=== PATIENT | female | born 1930 | race Caucasian/White ===

== ENCOUNTER 2016-07-23 22:57 | Inpatient (IN) | payer OTHER, MEDICAID ==
[~2016-07-23] VITALS: Ht 157.5 cm; Wt 41.8 kg
[~2016-07-23 22:57] MED LIST: AMLO10 PO; ASPI81 CHEW; CHOL1CAP6 PO; ENAL20TA81 PO; INSU100V3 SQ; KRIL300C PO; MECL25 PO; METO25 PO; PRAV80 PO; QUET25 PO; [UNRECOGNIZED DRUG - OTHER] PO
[2016-07-23 23:00] VITALS: BP 140/106; PULSE 77; RESP 22; TEMP 94; O2SAT 100
[2016-07-23 23:25] VITALS: TEMP 95.6
[2016-07-23] MEDS ORDERED: SODIUM CHLOR 0.9% 1000 ML INJ 800 ML IV ONE (23:35)
[2016-07-23] MEDS ORDERED: SODIUM CHLOR 0.9% 1000 ML INJ 1,000 ML IV ONE (23:35)
[2016-07-23 23:59] LABS: AUTOMATED NEUTROPHIL # 8.8 TH/MM3 (1.8-7.7); BASOPHIL # 0.1 TH/MM3 (0-0.2); BASOPHIL % 0.4 % (0.0-2.0); EOSINOPHIL # 0.3 TH/MM3 (0-0.4); EOSINOPHIL % 2.8 % (0.0-4.0); HEMATOCRIT 38.4 % (35.0-46.0); HEMO FLAGS DIFF FINAL; LYMPH % 10.5 % (9.0-44.0); LYMPHOCYTE # 1.2 TH/MM3 (1.0-4.8); MEAN CELL VOLUME 91.2 FL (80.0-100.0); MEAN CORPUSCULAR HEMOGLOBIN 29.8 PG (27.0-34.0); MEAN CORPUSCULAR HGB CONC 32.6 % (32.0-36.0); MONO % 8.5 % (0.0-8.0); NEUT % 77.8 % (16.0-70.0); PLATELET COUNT 219 TH/MM3 (150-450); RED BLOOD COUNT 4.21 MIL/MM3 (4.00-5.30); WHITE BLOOD COUNT 11.3 TH/MM3 (4.0-11.0)
[2016-07-24] VITALS (9 sets, daily range): BP systolic 95–161; BP diastolic 52–85; PULSE 56–89; RESP 16–22; TEMP 96.1–98.8; O2SAT 92–97
[2016-07-24 00:07] LABS: ALT (GPT) 17 U/L (10-53); ANION GAP 10 MEQ/L (5-15); AST (GOT) 33 U/L (15-37); BICARBONATE 23.5 MEQ/L (21.0-32.0); BLOOD UREA NITROGEN 64 MG/DL (7-18); CHLORIDE 109 MEQ/L (98-107); GLOMERULAR FILTRATION RATE 14 ML/MIN (>89); POTASSIUM 4.4 MEQ/L (3.5-5.1); SODIUM (NA) 142 MEQ/L (136-145)
[2016-07-24 00:10] LABS: ALKALINE PHOSPHATASE 121 U/L (45-117); TOTAL BILIRUBIN ADULT 0.3 MG/DL (0.2-1.0)
--- NOTE | 2016-07-24 00:10 | RADRPT ---
EXAM DATE/TIME: 07/23/2016 23:48 [facility] COMPARISON: CHEST SINGLE AP, June 08, 2016, 15:16. INDICATIONS : Unable to obtain history from patient. MEDICAL HISTORY : unobtainable SURGICAL HISTORY : unobtainable ENCOUNTER: Initial ACUITY: 1 day PAIN SCORE: Non-responsive. LOCATION: Bilateral chest FINDINGS: A single view of the chest demonstrates the lungs to be symmetrically aerated without evidence of mas s, infiltrate or effusion. The cardiomediastinal contours are unremarkable. Atherosclerotic calcifi cations are seen in the aorta. Osseous structures are intact. CONCLUSION: No acute disease. Francis Gibson MD on July 24, 2016 at 0:08 Board Certified Radiologist. This report was verified electronically.
--- NOTE | 2016-07-24 00:27 | RADRPT ---
EXAM DATE/TIME: 07/24/2016 00:04 [facility] COMPARISON: CT BRAIN W/O CONTRAST, June 08, 2016, 15:05. INDICATIONS : Trauma, fall. RADIATION DOSE: 56.35 CTDIvol (mGy) MEDICAL HISTORY : Non-responsive. SURGICAL HISTORY : Non-responsive. ENCOUNTER: Initial ACUITY: 1 day PAIN SCALE: Non-responsive LOCATION: cranial TECHNIQUE: Multiple contiguous axial images were obtained of the head. Using automated exposure control and adj ustment of the mA and/or kV according to patient size, radiation dose was kept as low as reasonably a chievable to obtain optimal diagnostic quality images. FINDINGS: CEREBRUM: The ventricles and cortical sulci widened. There is low density in the left temporal parietal lobe li medardo from recent infarct. This was not present on the prior CT examination. There is diffuse decrease d density in the cerebral white matter. There are old lacunar infarct at the thalami bilaterally. The re is a small area of suspected encephalomalacia in the posterior medial right parietal lobe. This is stable. No evidence of midline shift, mass lesion, hemorrhage or acute infarction. No extra-axial fluid collections are seen. POSTERIOR FOSSA: The cerebellum and brainstem are intact. The 4th ventricle is midline. The cerebellopontine angle i s unremarkable. EXTRACRANIAL: The visualized portion of the orbits is intact. There is a right frontal scalp hematoma. SKULL: The calvaria is intact. No evidence of skull fracture. CONCLUSION: 1. Suspected recent infarct involving the left middle cerebral artery territory at the left temporal and parietal lobes. 2. Age-related atrophy. 3. Widespread suspected small vessels ischemic change in the white matter. 4. 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 5. Acute right frontal scalp hematoma. Fracnis Gibson MD on July 24, 2016 at 0:22 Board Certified Radiologist. This report was verified electronically.
[2016-07-24] MEDS ORDERED: ATIV2INJ2 IM (00:48)
[2016-07-24] MEDS ORDERED: ENAL10TA PO (00:48)
[2016-07-24] MEDS ORDERED: NOVO7030P2 SQ (00:48)
[2016-07-24 00:49] LABS: BACTERIA, URINE MANY /hpf; MUCUS URINE MANY /lpf (OCC)
[2016-07-24] MEDS ORDERED: AMLO10TA2 PO (00:49)
[2016-07-24] MEDS ORDERED: CHOL20005 PO (00:49)
[2016-07-24] MEDS ORDERED: PRAV80TA2 PO (00:49)
[2016-07-24] MEDS ORDERED: MECL-62 PO (00:49)
[2016-07-24] MEDS ORDERED: ASPI81TA81 (00:49)
[2016-07-24] MEDS ORDERED: KRIL300C3 (00:49)
[2016-07-24] MEDS ORDERED: METO25TA3 PO (00:49)
[2016-07-24] MEDS ORDERED: REME15TA PO (00:49)
[2016-07-24] MEDS ORDERED: QUET5TAB PO (00:49)
[2016-07-24 01:01] LABS: BLOOD, URINE LARGE (NEG); GLUCOSE,URINE NEG (NEG); KETONE, URINE NEG (NEG); NITRITE,URINE NEG (NEG); URINE COLOR YELLOW (YELLW/STRAW)
[2016-07-24 01:04] LABS: COMMENT (UR) CATH-CULTURE IND; CULTURE IF INDICATED CATH CULTURE IND
[2016-07-24] MEDS ORDERED: CEFEPIME INJ 2,000 MG in SODIUM CHLORIDE 0.9% INJ 100 ML IV ONE (01:30)
[2016-07-24 01:49] LABS: LACTIC ACID GHOST NOT REPORTABLE
[2016-07-24] MEDS ORDERED: SODIUM CHLOR 0.9% 1000 ML INJ 1,000 ML IV SCH ×2 (01:56→20:00)
[2016-07-24] MEDS ORDERED: ONDANSETRON HCL 4 MG/2 ML VIAL IVP PRN (02:00)
[2016-07-24] MEDS ORDERED: ACETAMINOPHEN 325 MG TAB PO PRN (02:00)
[2016-07-24] MEDS ORDERED: SODIUM CHLORIDE 0.9% FLUSH 5 ML FLUSH FLUSH PRN (02:00)
[2016-07-24] MEDS ORDERED: NALOXONE HCL 0.4 MG/ML AMP IV PRN (02:00)
[2016-07-24] MEDS ORDERED: MAGNESIUM HYDROXIDE SUSP 30 ML CUP PO PRN (02:00)
[2016-07-24] MEDS ORDERED: BISACODYL 10 MG SUPP PR PRN (02:00)
--- NOTE | 2016-07-24 02:22 | HHI.HP ---
HPI Service [facility] Primary Care Physician Nan Naidu MD Admission Diagnosis Acute on CRI, Fall, Cephalohematoma, Hypoglycemia, Hypothermia Diagnoses: Chief Complaint: Fall, hypoglycemia. Travel History International Travel<30 Days: No Contact w/Intl Traveler <30 Da: No Traveled to Known Affected Are: No Sepsis Criteria SIRS Criteria (2 or more): Temp > 100.9 or < 96.8, RR > 20 or PaCO2 < 32 Sepsis Criteria (SIRS+source): Infect source susp/known Severe Sepsis (+one): Organ Dysfunction History of Present Illness Ms. Fuller is an 86 year old female with a history of hypertension, diabetes mellitus, hyperlipidemia who presented to the emergency department on 2015 due to a fall, hypoglycemia at her long-term - [facility]. She fell and hit her forehead. Her blood glucose was 25 and subsequently received IM glucagon at the long-term. Her blood glucose improved to 40 and in the ED, her blood glucose was 86. She was initially hypothermic and required warming blankets. Her body temp improved subsequently. At the time of this interview, patient appears to be restless, muttering words and sounds that is incomprehensible to us. RN checked blood glucose while we are in the room and patient's blood glucose was 24. STAT 2 amps of D50 were administered which raised her blood glucose to 393. We subsequently started patient on D5NS drip at 84cc/hour. No meaningful history could be obtained from the patient at this point. Review of Systems ROS Limitations: Clinical Condition Past Family Social History Past Medical History Hypertension, vertigo, hyperlipidemia, diabetes mellitus Past Surgical History Could not be obtained due to patient's clinical condition. Reported Medications Krill Oil [place]-3 300 mg (Krill Oil) 1 Cap Cap Remeron (Mirtazapine) 15 Mg Tab 15 Mg PO HS D3 Super Strength (Cholecalciferol) 2,000 Unit Cap 1,000 Units PO DAILY Quetiapine (Quetiapine Fumarate) 50 Mg Tab 50 Mg PO HS Pravastatin 80 Mg Tab 80 Mg PO HS Amlodipine (Amlodipine Besylate) 10 Mg Tab 10 Mg PO DAILY Aspir-81 (Aspirin) 81 Mg Tabdr Metoprolol Tartrate 25 Mg Tab 25 Mg PO BID Meclizine (Meclizine HCl) 25 Mg Tab 25 Mg PO QID PRN Enalapril (Enalapril Maleate) 10 Mg Tab 10 Mg PO BID Ativan Inj (Lorazepam) 2 Mg/Ml Inj 1 Mg IM TID PRN Novolin 70-30 Inj (Insulin Human Isoph/Insulin Regular) 1,000 Unit/10 Ml Vial 1 Units SQ [Pre-Serv Vision] 1 Tab PO BID Allergies: Coded Allergies: Hydromorphone (Verified Allergy, Severe, Anaphylaxis, 07/23/16) Family History Could not be obtained due to patient's clinical condition. Social History Could not be obtained due to patient's clinical condition. Physical Exam Vital Signs Vital Signs Date Time Temp Pulse Resp B/P Pulse Ox O2 Delivery O2 Flow Rate FiO2 07/24/16 02:03 96 07/24/16 01:02 96 Room Air 07/23/16 23:25 95.6 07/23/16 23:00 94.0 77 22 140/106 100 Physical Exam GENERAL: Patient appears to be somewhat restless. She is continuously speaking but incomprehensible and incoherent. Does not follow any commands. SKIN: No rashes, ecchymoses or lesions. Warm and dry. HEAD: Atraumatic. Normocephalic. No temporal or scalp tenderness. EYES: Pupils equal round and reactive. No injection or drainage. ENT: Nose without bleeding, purulent drainage or septal hematoma. Airway patent. NECK: Trachea midline. No lymphadenopathy. Supple, nontender, no meningeal signs. CARDIOVASCULAR: Regular rate and rhythm without murmurs, gallops, or rubs. No JVD. RESPIRATORY: Clear to auscultation. Breath sounds equal bilaterally. No wheezes , rales, or rhonchi. GASTROINTESTINAL: Abdomen soft, non-tender, nondistended. No guarding. MUSCULOSKELETAL: Extremities without clubbing, cyanosis, or edema. NEUROLOGICAL: Incomprehensible words/sounds, awake. Laboratory Laboratory Tests Test 07/23/16 07/23/16 07/24/16 23:40 23:45 00:25 White Blood Count 11.3 Red Blood Count 4.21 Hemoglobin 12.5 Hematocrit 38.4 Mean Corpuscular Volume 91.2 Mean Corpuscular Hemoglobin 29.8 Mean Corpuscular Hemoglobin 32.6 Concent Red Cell Distribution Width 14.0 Platelet Count 219 Mean Platelet Volume 9.7 Neutrophils (%) (Auto) 77.8 Lymphocytes (%) (Auto) 10.5 Monocytes (%) (Auto) 8.5 Eosinophils (%) (Auto) 2.8 Basophils (%) (Auto) 0.4 Neutrophils # (Auto) 8.8 Lymphocytes # (Auto) 1.2 Monocytes # (Auto) 1.0 Eosinophils # (Auto) 0.3 Basophils # (Auto) 0.1 CBC Comment DIFF FINAL Differential Comment Sodium Level 142 Potassium Level 4.4 Chloride Level 109 Carbon Dioxide Level 23.5 Anion Gap 10 Blood Urea Nitrogen 64 Creatinine 3.17 Estimat Glomerular Filtration 14 Rate Random Glucose 86 Lactic Acid Level 2.2 Calcium Level 9.0 Total Bilirubin 0.3 Aspartate Amino Transf 33 (AST/SGOT) Alanine Aminotransferase 17 (ALT/SGPT) Alkaline Phosphatase 121 Total Protein 7.4 Albumin 3.3 Lipase 192 Urine Color YELLOW Urine Turbidity TURBID Urine pH 5.0 Urine Specific [place] 1.015 Urine Protein 100 Urine Glucose (UA) NEG Urine Ketones NEG Urine Occult Blood LARGE Urine Nitrite NEG Urine Bilirubin NEG Urine Urobilinogen 0.2 Urine Leukocyte Esterase LARGE Urine RBC Urine WBC Urine WBC Clumps MANY Urine Bacteria MANY Urine Mucus MANY Microscopic Urinalysis Comment CATH-CULTURE IND Date/Time Procedure Status Source Growth 07/24/16 00:25 Urine Culture Received Urine Catheterized Urine Pending 07/23/16 23:45 Aerobic Blood Culture Received Blood Peripheral Pending 07/23/16 23:45 Anaerobic Blood Culture Received Blood Peripheral Pending Result Diagram: 07/23/16 2340 07/23/162344 Imaging Last Impressions Head CT 07/23/162334 Signed Impressions: Service Date/Time: Sunday, July 24, 2016 00:04 - CONCLUSION: 1. Suspected recent infarct involving the left middle cerebral artery territory at the left temporal and parietal lobes. 2. Age-related atrophy. 3. Widespread suspected small vessels ischemic change in the white matter. 4. 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 5. Acute right frontal scalp hematoma. Francis Gibson MD Chest X-Ray 07/23/162334 Signed Impressions: Service Date/Time: June 23:48 - CONCLUSION: No acute disease. Francis Gibson MD Assessment and Plan Problem List: (1) Fall ICD Code: W19.XXXA Status: Acute (2) Sepsis due to urinary tract infection ICD Code: A41.9 Status: Acute (3) Hypoglycemia associated with diabetes ICD Code: E11.649 Status: Acute (4) Delirium ICD Code: R41.0 Status: Acute (5) HTN (hypertension) ICD Code: I10 Status: Acute (6) DM (diabetes mellitus) ICD Code: E11.9 Status: Chronic (7) CKD (chronic kidney disease) stage 4, GFR 15-29 ml/min ICD Code: N18.4 Status: Chronic (8) WILL (acute kidney injury) ICD Code: N17.9 Status: Acute Assessment and Plan Ms. Fuller is an 86 year old female who presented to the ED from long-term after a fall and with an initial blood glucose of 25. ED work up indicated sepsis, UTI, hypoglycemia. Patient was initially hypothermic and required warming blankets. Her body temperature improved subsequently. During this examination, patient was found to be restles and saying incomprehensible words. I requested RN to check blood glucose. Patient was again found to have low blood glucose 24. Patient received STAT 2 amps of D50 raising her glucose to 393. Patient was subsequently placed on D5NS drip. Total critical care time spent more than 35 minutes. - Severe sepsis (Temp 94F, R 22, UTI, WILL on chronic kidney disease) - Urinary tract infection, Complicated. - Fall - Delirium - Patient received cefepime in the ED. We will continue Cefepime 2g Q12hrs - dose to be adjusted by pharmacy based on creatinine clearance. - Follow C&S. Once C&S comes back, we can de-escalate antibiotics. - Severe hypoglycemia - Exact etiology unknown. Infection vs. accidental overdose of insulin 70/30 are potential possibilities. - Glucose was 24 at the time of this interview. 2 amps of D50 were given immediately. - Continue D5NS @84cc/hour. - CKD Stage IV - WILL on CKD - Creatinine 3.17. - Will continue to monitor BUN, creatinine. - Diabetes mellitus - Patient takes 70/30 unknown quantity. - Will keep patient on sliding scale insulin. - Once blood glucose is stable, we can initiate long acting insulin Levemir. - Hypertension - Continue Amlodipine 10mg Qday, Vasotec 10mg PO BID, metoprolol 25mg BID. - Hyperlipidemia - continue Pravastatin 80mg QHS. Full code. Heparin SQ. Physician Certification 2 Midnight Certification Type: Admission for Inpatient Services Order for Inpatient Services The services are ordered in accordance with Medicare regulations or non- Medicare payer requirements, as applicable. In the case of services not specified as inpatient-only, they are appropriately provided as inpatient services in accordance with the 2-midnight benchmark. Estimated LOS (days): 2 days is the estimated time the patient will need to remain in the hospital, assuming treatment plan goals are met and no additional complications. Post-Hospital Plan: [facility] Alden John DO Jul 24, 2016 2:22 am
--- NOTE | 2016-07-24 02:37 | PD ---
HPI Chief Complaint: Fall Time Seen by Provider: 23:35 Travel History International Travel<30 days: No Contact w/Intl Traveler<30days: No Traveled to known affect area: No History of Present Illness HPI 86-year-old female arrives to the ER by EMS. She experienced a fall landing on her forehead. On scene her blood glucose was 25. She received IM glucagon at the detention. Her blood sugar improved to about 40. On scene EMS gave glucose and upon arrival to the ER the blood sugar was about 80 or so. The patient evidently is nonverbal and minimally interactive at baseline. In the ER the patient answers no questions. The patient was found to be hypothermic on arrival to the ER and the active rewarming air blanket was initiated along with a sepsis bundle protocol. PFSH Past Medical History Asthma: No Autoimmune Disease: No Blood Disorders: No Anxiety: Yes Depression: Yes (Suicidal) Heart Rhythm Problems: No Cancer: No High Cholesterol: Yes Chemotherapy: Yes Chest Pain: No Congestive Heart Failure: No COPD: Yes Cerebrovascular Accident: Yes Diabetes: Yes Patient Takes Glucophage: No Diminished Hearing: Yes Diverticulitis: Yes Endocrine: Yes GERD: Yes Genitourinary: Yes (CKD STAGE 4) Hypertension: Yes Immune Disorder: No Kidney Stones: No Musculoskeletal: Yes (SCIATICA, MUSCLE WEAKNESS, LCK OF COORDINATION) Neurologic: Yes (APHASIA FOLLOWING CEREBRAL INFARCTION ) Psychiatric: Yes Respiratory: Yes Radiation Therapy: No Sleep Apnea: Yes Tetanus Vaccination: Unknown ?: Not Menopausal: Yes Past Surgical History Appendectomy: Yes Hysterectomy: Yes Tonsillectomy: Yes Other Surgery: Yes (CARPAL TUNNEL, KIDNEY STONE,) Social History Alcohol Use: No Tobacco Use: No (unable to obtain) Substance Use: No Allergies-Medications (Allergen,Severity, Reaction): Coded Allergies: Hydromorphone (Verified Allergy, Severe, Anaphylaxis, 07/23/16) Reported Meds & Prescriptions Reported Meds & Active Scripts Active Reported Krill Oil [place]-3 300 mg (Krill Oil) 1 Cap Cap Remeron (Mirtazapine) 15 Mg Tab 15 Mg PO HS D3 Super Strength (Cholecalciferol) 2,000 Unit Cap 1,000 Units PO DAILY Quetiapine (Quetiapine Fumarate) 50 Mg Tab 50 Mg PO HS Pravastatin 80 Mg Tab 80 Mg PO HS Amlodipine (Amlodipine Besylate) 10 Mg Tab 10 Mg PO DAILY Aspir-81 (Aspirin) 81 Mg Tabdr Metoprolol Tartrate 25 Mg Tab 25 Mg PO BID Meclizine (Meclizine HCl) 25 Mg Tab 25 Mg PO QID PRN Enalapril (Enalapril Maleate) 10 Mg Tab 10 Mg PO BID Ativan Inj (Lorazepam) 2 Mg/Ml Inj 1 Mg IM TID PRN Novolin 70-30 Inj (Insulin Human Isoph/Insulin Regular) 1,000 Unit/10 Ml Vial 1 Units SQ [Pre-Serv Vision] 1 Tab PO BID Review of Systems ROS Limitations: Clinical Condition Physical Exam Narrative GENERAL: 86-year-old female mild to moderate distress secondary to pain SKIN: Warm and dry. 5 cm cephalohematoma right forehead. HEAD: Atraumatic. Normocephalic. EYES: Pupils equal and round. No scleral icterus. No injection or drainage. ENT: No nasal bleeding or discharge. Mucous membranes pink and moist. NECK: Trachea midline. No JVD. CARDIOVASCULAR: Regular rate and rhythm. No murmur appreciated. RESPIRATORY: No accessory muscle use. Clear to auscultation. Breath sounds equal bilaterally. GASTROINTESTINAL: Abdomen soft, non-tender, nondistended. Hepatic and splenic margins not palpable. MUSCULOSKELETAL: No obvious deformities. No clubbing. No cyanosis. No edema. NEUROLOGICAL: Nonverbal. Occasionally moves extremities. PSYCHIATRIC: Unable to assess. Data Data Last Documented VS Vital Signs Date Time Temp Pulse Resp B/P Pulse Ox O2 Delivery O2 Flow Rate FiO2 07/24/16 01:02 96 Room Air 07/23/16 23:25 95.6 07/23/16 23:00 77 22 140/106 Orders Complete Blood Count With Diff (07/23/16 23:35) Comprehensive Metabolic Panel (07/23/16 23:35) Lactic Acid Sepsis Protocol (07/23/16 23:35) Lipase (07/23/16 23:35) Urinalysis - C+S If Indicated (07/23/16 23:35) Blood Culture (07/23/16 23:35) Chest, Single Ap (07/23/16 23:35) Ecg Monitoring (07/23/16 23:35) Iv Access Insert/Monitor (07/23/16 23:35) Oximetry (07/23/16 23:35) Oxygen Administration (07/23/16 23:35) Urinary Catheter Insert/Apply (07/23/16 23:35) Ct Brain W/O Iv Contrast(Rout) (07/23/16 23:35) Sodium Chlor 0.9% 1000 Ml Inj (Ns 1000 M (07/23/16 23:35) Sodium Chlor 0.9% 1000 Ml Inj (Ns 1000 M (07/23/16 23:35) Warming [place] / Warming Syst PRN (07/23/16 23:35) Urine Culture (07/24/16 00:25) Cefepime Inj (Maxipime Inj) (07/24/16 01:30) Admit Order (Ed Use Only) (07/24/16 01:55) Admit To Inpatient (07/24/16 ) Vital Signs (Adult) Q4H (07/24/16 01:56) Activity Oob With Assistance (07/24/16 01:56) Diet 1800 Ada Cons Carb (07/24/16 Breakfast) Sodium Chlor 0.9% 1000 Ml Inj (Ns 1000 M (07/24/16 01:56) Sodium Chloride 0.9% Flush (Ns Flush) (07/24/16 02:00) Sodium Chloride 0.9% Flush (Ns Flush) (07/24/16 09:00) Acetaminophen (Tylenol) (07/24/16 02:00) Ondansetron Inj (Zofran Inj) (07/24/16 02:00) Bisacodyl Supp (Dulcolax Supp) (07/24/16 02:00) Magnesium Hydroxide Liq (Milk Of Magnesi (07/24/16 02:00) Basic Metabolic Panel (Bmp) (07/25/16 06:00) Complete Blood Count With Diff (07/25/16 06:00) Resp Oxygen Harris C Titrat 1-4 L (07/24/16 ) Pt Request For Service (07/24/16 01:56) Heparin Inj (Heparin Inj) (07/24/16 06:00) Naloxone Inj (Narcan Inj) (07/24/16 02:00) Inpatient Certification (07/24/16 ) Ceftriaxone Inj (Rocephin Inj) (07/24/16 06:00) Labs Laboratory Tests Test 07/23/16 07/23/16 07/24/16 23:40 23:45 00:25 White Blood Count 11.3 TH/MM3 Red Blood Count 4.21 MIL/MM3 Hemoglobin 12.5 GM/DL Hematocrit 38.4 % Mean Corpuscular Volume 91.2 FL Mean Corpuscular Hemoglobin 29.8 PG Mean Corpuscular Hemoglobin 32.6 % Concent Red Cell Distribution Width 14.0 % Platelet Count 219 TH/MM3 Mean Platelet Volume 9.7 FL Neutrophils (%) (Auto) 77.8 % Lymphocytes (%) (Auto) 10.5 % Monocytes (%) (Auto) 8.5 % Eosinophils (%) (Auto) 2.8 % Basophils (%) (Auto) 0.4 % Neutrophils # (Auto) 8.8 TH/MM3 Lymphocytes # (Auto) 1.2 TH/MM3 Monocytes # (Auto) 1.0 TH/MM3 Eosinophils # (Auto) 0.3 TH/MM3 Basophils # (Auto) 0.1 TH/MM3 CBC Comment DIFF FINAL Differential Comment Sodium Level 142 MEQ/L Potassium Level 4.4 MEQ/L Chloride Level 109 MEQ/L Carbon Dioxide Level 23.5 MEQ/L Anion Gap 10 MEQ/L Blood Urea Nitrogen 64 MG/DL Creatinine 3.17 MG/DL Estimat Glomerular Filtration 14 ML/MIN Rate Random Glucose 86 MG/DL Lactic Acid Level 2.2 mmol/L Calcium Level 9.0 MG/DL Total Bilirubin 0.3 MG/DL Aspartate Amino Transf 33 U/L (AST/SGOT) Alanine Aminotransferase 17 U/L (ALT/SGPT) Alkaline Phosphatase 121 U/L Total Protein 7.4 GM/DL Albumin 3.3 GM/DL Lipase 192 U/L Urine Color YELLOW Urine Turbidity TURBID Urine pH 5.0 Urine Specific [place] 1.015 Urine Protein 100 mg/dL Urine Glucose (UA) NEG mg/dL Urine Ketones NEG mg/dL Urine Occult Blood LARGE Urine Nitrite NEG Urine Bilirubin NEG Urine Urobilinogen 0.2 MG/DL Urine Leukocyte Esterase LARGE Urine RBC /hpf Urine WBC /hpf Urine WBC Clumps MANY Urine Bacteria MANY /hpf Urine Mucus MANY /lpf Microscopic Urinalysis Comment CATH-CULTURE IND MDM Medical Decision Making Medical Screen Exam Complete: Yes Emergency Medical Condition: Yes Medical Record Reviewed: Yes Differential Diagnosis Sepsis, hypoglycemia, severe sepsis, UTI, electrolyte imbalance, renal insufficiency, intracranial injury, stroke Narrative Course CBC & BMP Diagram 07/23/16 23:40 07/23/16 23:45 There is acute or chronic renal failure with the most recent BUN/creatinine 20 over 2.0. LFTs are unremarkable Lipase normal Last [address] 07/23/162334 Signed Impressions: Service Date/Time: Sunday, July 24, 2016 00:04 - CONCLUSION: 1. Suspected recent infarct involving the left middle cerebral artery territory at the left temporal and parietal lobes. 2. Age-related atrophy. 3. Widespread suspected small vessels ischemic change in the white matter. 4. 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 5. Acute right frontal scalp hematoma. Francis Gibson MD Chest X-Ray 07/23/162334 Signed Impressions: Service Date/Time: June 23:48 - CONCLUSION: No acute disease. Francis Gibson MD The patient will be admitted for IV hydration and monitoring. Discussed with Dr. John. Diagnosis Primary Impression: CVA (cerebral vascular accident) Qualified Code: I63.9 - Cerebrovascular accident (CVA), unspecified mechanism Additional Impression: Acute kidney injury (nontraumatic) Admitting Information Admitting Physician Requests: Observation Pastor Lynch MD Jul 24, 2016 02:37
[2016-07-24] MEDS ORDERED: DEXTROSE 50% IN WATER 50 ML SYRINGE ONE ×2 (04:05→04:07)
[2016-07-24] MEDS ORDERED: DEXTROSE 50% IN WATER 50 ML VIAL(D50) IV PUSH ONE (04:15)
[2016-07-24] MEDS ORDERED: DEXT 5%-NACL 0.9% 1000 ML INJ 1,000 ML IV SCH (04:15)
[2016-07-24] MEDS ORDERED: MECLIZINE HCL 25 MG TAB PO PRN (05:30)
[2016-07-24] MEDS: HEPARIN SODIUM - SQ 10,000 UNITS/ML VIAL SQ SCH ×2 (06:00→18:08)
[2016-07-24] MEDS ORDERED: cefTRIAXone INJ 1,000 MG in SODIUM CHLORIDE 0.9% INJ 100 ML IV SCH (06:00)
[2016-07-24] MEDS ORDERED: DEXTROSE 10% INJ 1,000 ML IV SCH (06:36)
[2016-07-24] MEDS: ENALAPRIL MALEATE 10 MG TAB PO SCH (08:34)
[2016-07-24] MEDS: SODIUM CHLORIDE 0.9% FLUSH 5 ML FLUSH FLUSH SCH ×2 (08:34→21:19)
[2016-07-24] MEDS ORDERED: METOPROLOL TARTRATE 25 MG TAB PO SCH (09:00)
[2016-07-24] MEDS: LORazepam 2 MG/ML VIAL IM PRN (13:57)
[2016-07-24] MEDS ORDERED: SODIUM CHLORID 0.9% 500 ML INJ 500 ML IV ONE (17:30)
--- NOTE | 2016-07-24 20:27 | HHI.PR ---
Addendum to Inpatient Note Addendum Reason: Corrected Documentation Additional Information PAtient seen and examined - now slightly hypotensive. As per RN patient very confused trying to pull lines and to get out of bed. Patient is awake and alert confused. Clear lungs, soft nontender abdomen, on restraints WILL improving, continue IV fluids hold anihypertensive medications for hypotension - ordered 500 ml bolus IV Patient still encephalopathic Since patient had hypoglycemia - place on D5NS . Toan Louis MD Jul 24, 2016 20:27
[2016-07-24] MEDS ORDERED: QUEtiapine FUMARATE 25 MG TAB PO SCH (21:00)
[2016-07-24] MEDS: PRAVASTATIN SOD 80 MG TAB PO SCH (21:18)
[2016-07-24] MEDS: MIRTAZAPINE 15 MG TAB PO SCH (21:18)
[2016-07-24] MEDS: DEXT 5%-NACL 0.9% 1000 ML INJ 1,000 ML IV SCH (21:22)
[2016-07-24 22:48] LABS: ALKALINE PHOSPHATASE 105 U/L (45-117); ALT (GPT) 18 U/L (10-53); ANION GAP 9 MEQ/L (5-15); AST (GOT) 33 U/L (15-37); BICARBONATE 21.3 MEQ/L (21.0-32.0); BLOOD UREA NITROGEN 45 MG/DL (7-18); CHLORIDE 108 MEQ/L (98-107); GLOMERULAR FILTRATION RATE 18 ML/MIN (>89); POTASSIUM 4.9 MEQ/L (3.5-5.1); SODIUM (NA) 138 MEQ/L (136-145); TOTAL BILIRUBIN ADULT 0.5 MG/DL (0.2-1.0)
[2016-07-25] VITALS (8 sets, daily range): BP systolic 145–171; BP diastolic 77–97; PULSE 80–110; RESP 18–20; TEMP 96.2–98.6; O2SAT 97–100
[2016-07-25] MEDS: CEFEPIME INJ 2,000 MG in SODIUM CHLORIDE 0.9% INJ 100 ML IV SCH (01:23)
[2016-07-25] MEDS: DEXT 5%-NACL 0.9% 1000 ML INJ 1,000 ML IV SCH ×2 (05:05→13:54)
[2016-07-25] MEDS: LORazepam 2 MG/ML VIAL IM PRN (05:06)
[2016-07-25] MEDS: HEPARIN SODIUM - SQ 10,000 UNITS/ML VIAL SQ SCH ×2 (05:14→18:14)
[2016-07-25 07:50] LABS: AUTOMATED NEUTROPHIL # 4.4 TH/MM3 (1.8-7.7); BASOPHIL # 0.1 TH/MM3 (0-0.2); EOSINOPHIL # 0.5 TH/MM3 (0-0.4); EOSINOPHIL % 7.3 % (0.0-4.0); HEMATOCRIT 38.1 % (35.0-46.0); HEMO FLAGS DIFF FINAL; LYMPH % 20.8 % (9.0-44.0); LYMPHOCYTE # 1.5 TH/MM3 (1.0-4.8); MEAN CELL VOLUME 88.7 FL (80.0-100.0); MEAN CORPUSCULAR HEMOGLOBIN 29.4 PG (27.0-34.0); MEAN CORPUSCULAR HGB CONC 33.1 % (32.0-36.0); NEUT % 59.9 % (16.0-70.0); PLATELET COUNT 203 TH/MM3 (150-450); WHITE BLOOD COUNT 7.3 TH/MM3 (4.0-11.0)
[2016-07-25 08:12] LABS: BICARBONATE 23.7 MEQ/L (21.0-32.0); POTASSIUM 4.4 MEQ/L (3.5-5.1)
[2016-07-25] MEDS: SODIUM CHLORIDE 0.9% FLUSH 5 ML FLUSH FLUSH SCH (10:20)
--- NOTE | 2016-07-25 17:50 | HHI.PR ---
Subjective Remarks Follow-up visit for severe sepsis, acute kidney injury on CKD, UTI, hypertension. Patient seen today. Awake, alert, confused. Unable to follow commands, unable to initiate or participate in conversation, restless. Pt. verbalization and speech, are unintelligible. Afebrile overnight, elevated blood pressure reported. Objective Vitals Vital Signs Date Time Temp Pulse Resp B/P Pulse Ox O2 Delivery O2 Flow Rate FiO2 07/25/16 16:00 97.4 110 20 167/97 97 07/25/16 12:55 97 21 07/25/16 12:00 98.6 85 20 171/97 100 07/25/16 11:36 88 07/25/16 08:00 98.4 94 20 145/86 98 07/25/16 02:00 96.9 80 20 169/77 98 07/25/16 00:13 96.2 92 20 170/81 98 07/24/16 20:00 97.0 56 18 123/73 96 I/O 07/24/16 07/24/16 07/24/16 07/25/16 07/25/16 07/25/16 06:59 14:59 22:59 06:59 14:59 22:59 Intake Total 800 ml 2473 ml Output Total 600 ml 1000 ml 2300 ml 1650 ml 1600 ml Balance -600 ml -200 ml 173 ml -1650 ml -1600 ml Intake Oral 600 ml 50 ml IV Total 200 ml 2423 ml Output Urine Total 600 ml 1000 ml 2300 ml 1650 ml 1600 ml Emesis 0 ml # Bowel Movements 0 0 0 Result Diagram: 07/25/16 0707/25/16721 Imaging Last Impressions Head CT 07/23/162334 Signed Impressions: Service Date/Time: Sunday, July 24, 2016 00:04 - CONCLUSION: 1. Suspected recent infarct involving the left middle cerebral artery territory at the left temporal and parietal lobes. 2. Age-related atrophy. 3. Widespread suspected small vessels ischemic change in the white matter. 4. 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 5. Acute right frontal scalp hematoma. Francis Gibson MD Chest X-Ray 07/23/162334 Signed Impressions: Service Date/Time: June 23:48 - CONCLUSION: No acute disease. Francis Gibson MD Objective Remarks GENERAL: This is a well-developed patient, restless. SKIN: Facial ecchymoses noted. HEENT: Normocephalic. Pupils equal round and reactive. Nose without bleeding. Airway patent. NECK: Trachea midline. No JVD. Supple. CARDIOVASCULAR: Regular rate and rhythm without murmurs, gallops, or rubs. RESPIRATORY: Diminished bases. No wheezes, rales, or rhonchi. GASTROINTESTINAL: Abdomen soft, non-tender, nondistended. Bowel Sounds normoactive x4. Dale in place clear yellow urine. MUSCULOSKELETAL: Extremities without clubbing, cyanosis, or edema. Bilateral upper extremity and lower extremity with multiple abrasions and some ecchymotic areas. NEUROLOGICAL: Awake and alert, confused. HE. Normal speech. Urinary Catheter: Yes Dale insert reason: Measure Accurate Output A/P Problem List: (1) Fall ICD Code: W19.XXXA Status: Acute (2) Sepsis due to urinary tract infection ICD Code: A41.9 Status: Acute (3) Hypoglycemia associated with diabetes ICD Code: E11.649 Status: Acute (4) Delirium ICD Code: R41.0 Status: Acute (5) HTN (hypertension) ICD Code: I10 Status: Acute (6) DM (diabetes mellitus) ICD Code: E11.9 Status: Chronic (7) CKD (chronic kidney disease) stage 4, GFR 15-29 ml/min ICD Code: N18.4 Status: Chronic (8) WILL (acute kidney injury) ICD Code: N17.9 Status: Acute Assessment and Plan Ms. Fuller is an 86 year old female who presented to the ED from senior living after a fall and with an initial blood glucose of 25. ED work up indicated sepsis, UTI, hypoglycemia. Patient was initially hypothermic and required warming blankets. Her body temperature improved subsequently. During this examination, patient was found to be restles and saying incomprehensible words. I requested RN to check blood glucose. Patient was again found to have low blood glucose 24. Patient received STAT 2 amps of D50 raising her glucose to 393. Patient was subsequently placed on D5NS drip. Total critical care time spent more than 35 minutes. - Severe sepsis (Temp 94F, R 22, UTI, WILL on chronic kidney disease) - Urinary tract infection, Complicated. - Fall - Delirium - Patient received cefepime in the ED. We will continue Cefepime 2g Q12hrs - dose to be adjusted by pharmacy based on creatinine clearance. - Follow C&S. Once C&S comes back, we can de-escalate antibiotics. - Severe hypoglycemia - Exact etiology unknown. Infection vs. accidental overdose of insulin 70/30 are potential possibilities. - Glucose was 24 at the time of this interview. 2 amps of D50 were given immediately. - Continue D5NS @84cc/hour. - CKD Stage IV - WILL on CKD - Creatinine 3.17 --> 2.51 --> 2.27 07/25/16 - IVF D5NS given - Will continue to monitor BUN, creatinine. - Diabetes mellitus - Patient takes 70/30 unknown quantity. - Will keep patient on sliding scale insulin. - Once blood glucose is stable, we can initiate long acting insulin Levemir. - Blood Glucose in the 130's -140's - Severe Hypertension - BP home medications were held yesterday, however, severe increase in BP noted 160s-170's - Restart Amlodipine 10mg Qday, metoprolol 25mg BID. Will hold Vasotec for now until BP stable and can be initiated. - Monitor BP trend. - Hyperlipidemia - continue Pravastatin 80mg QHS. Full code. Heparin SQ. Written by Ashley Melton, acting as scribe for Toan Mast on 07/25 at 17:20. The documentation accurately reflects the work performed [id number] by me on 07/25/16 at 17:20. Discharge Planning Not ready for discharge Ashley Hicks Jul 25, 2016 17:50 Toan Louis MD Jul 26, 2016 09:24
[2016-07-25] MEDS: MIRTAZAPINE 15 MG TAB PO SCH (21:24)
[2016-07-25] MEDS: METOPROLOL TARTRATE 25 MG TAB PO SCH (21:24)
[2016-07-25] MEDS: PRAVASTATIN SOD 80 MG TAB PO SCH (21:24)
[2016-07-26] VITALS (8 sets, daily range): BP systolic 156–182; BP diastolic 85–99; PULSE 71–141; RESP 18–22; TEMP 96–97.9; O2SAT 93–98
[2016-07-26] MEDS: CEFEPIME INJ 2,000 MG in SODIUM CHLORIDE 0.9% INJ 100 ML IV SCH (03:19)
[2016-07-26] MEDS: DEXT 5%-NACL 0.9% 1000 ML INJ 1,000 ML IV SCH ×4 (03:19→20:30)
[2016-07-26] MEDS: SODIUM CHLORIDE 0.9% FLUSH 5 ML FLUSH FLUSH SCH ×3 (03:19→21:00)
[2016-07-26] MEDS: LORazepam 2 MG/ML VIAL IM PRN (03:24)
[2016-07-26] MEDS: HEPARIN SODIUM - SQ 10,000 UNITS/ML VIAL SQ SCH ×2 (07:05→17:43)
[2016-07-26] MEDS: METOPROLOL TARTRATE 25 MG TAB PO SCH ×2 (08:10→22:47)
[2016-07-26 11:59] LABS: AUTOMATED NEUTROPHIL # 4.8 TH/MM3 (1.8-7.7); BASOPHIL # 0.1 TH/MM3 (0-0.2); BASOPHIL % 1.4 % (0.0-2.0); EOSINOPHIL # 0.5 TH/MM3 (0-0.4); EOSINOPHIL % 6.6 % (0.0-4.0); HEMATOCRIT 37.5 % (35.0-46.0); HEMO FLAGS DIFF FINAL; LYMPH % 18.4 % (9.0-44.0); LYMPHOCYTE # 1.4 TH/MM3 (1.0-4.8); MEAN CELL VOLUME 88.4 FL (80.0-100.0); MEAN CORPUSCULAR HEMOGLOBIN 29.2 PG (27.0-34.0); MONO % 10.5 % (0.0-8.0); NEUT % 63.1 % (16.0-70.0); PLATELET COUNT 232 TH/MM3 (150-450); RED BLOOD COUNT 4.25 MIL/MM3 (4.00-5.30); RED CELL DISTRIBUTION WIDTH 13.9 % (11.6-17.2); WHITE BLOOD COUNT 7.6 TH/MM3 (4.0-11.0)
[2016-07-26 12:50] LABS: ALKALINE PHOSPHATASE 124 U/L (45-117); ALT (GPT) 19 U/L (10-53); ANION GAP 8 MEQ/L (5-15); AST (GOT) 33 U/L (15-37); BICARBONATE 25.9 MEQ/L (21.0-32.0); BLOOD UREA NITROGEN 28 MG/DL (7-18); CHLORIDE 107 MEQ/L (98-107); GLOMERULAR FILTRATION RATE 23 ML/MIN (>89); POTASSIUM 4.6 MEQ/L (3.5-5.1); SODIUM (NA) 141 MEQ/L (136-145); TOTAL BILIRUBIN ADULT 0.8 MG/DL (0.2-1.0)
--- NOTE | 2016-07-26 16:59 | HHI.PR ---
Subjective Remarks Creatinine trending down, good urine output denies cp/sob denies fevers/chills creatinine trending down Bp elevated Objective Vitals Vital Signs Date Time Temp Pulse Resp B/P Pulse Ox O2 Delivery O2 Flow Rate FiO2 07/26/16 16:07 97.1 119 18 175/97 96 07/26/16 12:27 97.9 141 18 178/85 97 07/26/16 07:30 97.6 120 18 156/99 96 07/26/16 05:00 158/86 07/26/16 04:00 96.1 79 18 163/91 93 07/26/16 00:00 96.0 71 18 157/96 98 07/25/16 20:00 98 07/25/16 20:00 97.5 94 18 150/97 98 07/25/16 18:25 21 I/O 07/25/16 07/25/16 07/25/16 07/26/16 07/26/16 07/26/16 06:59 14:59 22:59 06:59 14:59 22:59 Intake Total 2473 ml 1048 ml 446 ml 360 ml Output Total 2300 ml 1650 ml 2600 ml 950 ml Balance 173 ml -602 ml -2600 ml -950 ml 446 ml 360 ml Intake Oral 50 ml 360 ml IV Total 2423 ml 1048 ml 446 ml Output Urine Total 2300 ml 1650 ml 2600 ml 950 ml Emesis 0 ml # Bowel Movements 0 0 0 Result Diagram: 07/26/16 1135 07/26/16 1135 Imaging Last Impressions Head CT 07/23/162334 Signed Impressions: Service Date/Time: Sunday, July 24, 2016 00:04 - CONCLUSION: 1. Suspected recent infarct involving the left middle cerebral artery territory at the left temporal and parietal lobes. 2. Age-related atrophy. 3. Widespread suspected small vessels ischemic change in the white matter. 4. 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 5. Acute right frontal scalp hematoma. Francis Gibson MD Chest X-Ray 07/23/162334 Signed Impressions: Service Date/Time: June 23:48 - CONCLUSION: No acute disease. Francis Gibson MD Objective Remarks GENERAL: This is a well-developed patient, restless. SKIN: Facial ecchymoses noted. HEENT: Normocephalic. Pupils equal round and reactive. Nose without bleeding. Airway patent. NECK: Trachea midline. No JVD. Supple. CARDIOVASCULAR: Regular rate and rhythm without murmurs, gallops, or rubs. RESPIRATORY: Diminished bases. No wheezes, rales, or rhonchi. GASTROINTESTINAL: Abdomen soft, non-tender, nondistended. Bowel Sounds normoactive x4. Dale in place clear yellow urine. MUSCULOSKELETAL: Extremities without clubbing, cyanosis, or edema. Bilateral upper extremity and lower extremity with multiple abrasions and some ecchymotic areas. NEUROLOGICAL: Awake and alert, confused. HE. Normal speech. Medications and IVs Current Medications Medications (Trade) Dose Ordered Sig/Emiliano Route Start Time Stop Time Status Last Admin (NS Flush) 2 ml UNSCH PRN FLUSH 07/24/16 02:00 (NS Flush) 2 ml BID FLUSH 07/24/16 09:00 07/26/16 08:10 (Tylenol) 650 mg Q4H PRN PO 07/24/16 02:00 (Zofran Inj) 4 mg Q6H PRN IVP 07/24/16 02:00 (Dulcolax Supp) 10 mg DAILY PRN DE 07/24/16 02:00 (Milk Of Magnkwadwo Liq) 30 ml Q12H PRN PO 07/24/16 02:00 (Heparin Inj) 5,000 units Q12H SQ 07/24/16 06:00 07/26/16 07:05 Naloxone HCl 0.4 mg 0.4 mg UNSCH PRN IV 07/24/16 02:00 (Maxipime Inj/NS Inj) 100 ml @ 200 mls/hr Q24H IV 07/25/16 02:00 07/26/16 03:19 (Norvasc) 10 mg DAILY PO 07/24/16 09:00 07/26/16 08:14 (Vasotec) 10 mg BID PO 07/24/16 09:00 Hold 07/24/16 08:34 (Ativan Inj) 1 mg TID PRN IM 07/24/16 05:30 07/26/16 03:24 (Antivert) 25 mg QID PRN PO 07/24/16 05:30 (Remeron) 15 mg HS PO 07/24/16 21:00 07/26/16 22:46 (Pravachol) 80 mg HS PO 07/24/16 21:00 07/26/16 22:47 Quetiapine Fumarate 50 mg 50 mg HS PO 07/24/16 21:00 Hold (D5W-NS 1000 ml Inj) 1,000 ml @ 125 mls/hr Q8H IV 07/24/16 20:30 07/26/16 20:30 (Lopressor) 50 mg Q12HR PO 07/26/16 21:00 07/26/16 22:47 (D50w (Vial) Inj) 25 ml UNSCH PRN IV PUSH 07/26/16 20:30 (Glucagon Inj) 1 mg UNSCH PRN OTHER 07/26/16 20:30 A/P Problem List: (1) Fall ICD Code: W19.XXXA Status: Acute (2) Sepsis due to urinary tract infection ICD Code: A41.9 Status: Acute (3) Hypoglycemia associated with diabetes ICD Code: E11.649 Status: Acute (4) Delirium ICD Code: R41.0 Status: Acute (5) HTN (hypertension) ICD Code: I10 Status: Acute (6) DM (diabetes mellitus) ICD Code: E11.9 Status: Chronic (7) CKD (chronic kidney disease) stage 4, GFR 15-29 ml/min ICD Code: N18.4 Status: Chronic (8) WILL (acute kidney injury) ICD Code: N17.9 Status: Acute Assessment and Plan Ms. Fuller is an 86 year old female who presented to the ED from assisted after a fall and with an initial blood glucose of 25. ED work up indicated sepsis, UTI, hypoglycemia. Patient was initially hypothermic and required warming blankets. Her body temperature improved subsequently. During this examination, patient was found to be restles and saying incomprehensible words. I requested RN to check blood glucose. Patient was again found to have low blood glucose 24. Patient received STAT 2 amps of D50 raising her glucose to 393. Patient was subsequently placed on D5NS drip. 07/26 Blood glucose improved - DC D5NS - Severe sepsis (Temp 94F, R 22, UTI, WILL on chronic kidney disease) - Urinary tract infection, Complicated. - Fall - Delirium - Patient received cefepime in the ED. We will continue Cefepime 2g Q12hrs - dose to be adjusted by pharmacy based on creatinine clearance. - Follow C&S. Once C&S comes back, we can de-escalate antibiotics. - Urine culture shows K pneumonia UTI. Continue Cefepime for now. Will transition to oral in am. - Severe hypoglycemia - Exact etiology unknown. Infection vs. accidental overdose of insulin 70/30 are potential possibilities. - Glucose was 24 at the time of this interview. 2 amps of D50 were given immediately. - Continue D5NS @84cc/hour. - Hypoglycemia resolved - DC D5NS. Likely due to poor oral intake and insulin use. - CKD Stage IV --> baseline creatinine 1.6 to 1.8 - WILL on CKD - Creatinine 3.17 --> 2.51 --> 2.27 --> 2.011/ - IVF D5NS given - Will continue to monitor BUN, creatinine. - Diabetes mellitus - Patient takes 70/30 unknown quantity. - Will keep patient on sliding scale insulin. - Once blood glucose is stable, we can initiate long acting insulin Levemir. - Blood Glucose in the 130's -140's - Severe Hypertension - BP home medications were held yesterday, however, severe increase in BP noted 160s-170's - Restart Amlodipine 10mg Qday, metoprolol 25mg BID. Will hold Vasotec for now until BP stable and can be initiated. - 07/26 BP still uncontrolled with sbp in the 170's. Increase beta jessica to 50 mg po BID, if BP elevated still after that then will add Cardura at bedtime. - Hyperlipidemia - continue Pravastatin 80mg QHS. Full code. Heparin SQ. Discharge Planning Pending resolution of encephalopathy and improvement of BP. Toan Louis MD Jul 26, 2016 16:59
[2016-07-26] MEDS ORDERED: DEXTROSE 50% IN WATER 50 ML VIAL(D50) IV PUSH PRN (20:30)
[2016-07-26] MEDS ORDERED: GLUCAGON 1 MG/ML VIAL OTHER PRN (20:30)
[2016-07-26] MEDS: MIRTAZAPINE 15 MG TAB PO SCH (22:46)
[2016-07-26] MEDS: PRAVASTATIN SOD 80 MG TAB PO SCH (22:47)
[2016-07-26] MEDS: INSULIN ASPART SUPPLEMENTAL SCALE SQ SCH (22:48)
[2016-07-27] VITALS (8 sets, daily range): BP systolic 102–189; BP diastolic 62–96; PULSE 54–88; RESP 16–22; TEMP 96.3–97.1; O2SAT 93–97
[2016-07-27] MEDS: DOXAZOSIN MESYLATE 2 MG TAB PO SCH ×2 (01:08→21:00)
[2016-07-27] MEDS: CEFEPIME INJ 2,000 MG in SODIUM CHLORIDE 0.9% INJ 100 ML IV SCH (01:09)
[2016-07-27] MEDS: HEPARIN SODIUM - SQ 10,000 UNITS/ML VIAL SQ SCH ×2 (06:18→18:40)
[2016-07-27] MEDS: INSULIN ASPART SUPPLEMENTAL SCALE SQ SCH ×4 (07:00→21:24)
[2016-07-27 08:06] LABS: AUTOMATED NEUTROPHIL # 3.4 TH/MM3 (1.8-7.7); BASOPHIL # 0.1 TH/MM3 (0-0.2); BASOPHIL % 0.9 % (0.0-2.0); EOSINOPHIL # 0.5 TH/MM3 (0-0.4); EOSINOPHIL % 8.1 % (0.0-4.0); HEMATOCRIT 37.3 % (35.0-46.0); HEMO FLAGS DIFF FINAL; LYMPHOCYTE # 1.6 TH/MM3 (1.0-4.8); MEAN CELL VOLUME 87.5 FL (80.0-100.0); MEAN CORPUSCULAR HEMOGLOBIN 30.3 PG (27.0-34.0); MEAN CORPUSCULAR HGB CONC 34.6 % (32.0-36.0); MONO % 13.8 % (0.0-8.0); NEUT % 52.2 % (16.0-70.0); PLATELET COUNT 182 TH/MM3 (150-450); RED BLOOD COUNT 4.27 MIL/MM3 (4.00-5.30); RED CELL DISTRIBUTION WIDTH 13.7 % (11.6-17.2); WHITE BLOOD COUNT 6.6 TH/MM3 (4.0-11.0)
[2016-07-27] MEDS: SODIUM CHLORIDE 0.9% FLUSH 5 ML FLUSH FLUSH SCH ×2 (09:00→21:00)
[2016-07-27] MEDS: METOPROLOL TARTRATE 25 MG TAB PO SCH ×2 (10:34→21:00)
[2016-07-27 10:51] LABS: ALKALINE PHOSPHATASE 123 U/L (45-117); ALT (GPT) 18 U/L (10-53); ANION GAP 7 MEQ/L (5-15); AST (GOT) 27 U/L (15-37); BICARBONATE 25.3 MEQ/L (21.0-32.0); BLOOD UREA NITROGEN 31 MG/DL (7-18); CHLORIDE 109 MEQ/L (98-107); GLOMERULAR FILTRATION RATE 22 ML/MIN (>89); MAGNESIUM 1.9 MG/DL (1.5-2.5); POTASSIUM 4.9 MEQ/L (3.5-5.1); SODIUM (NA) 141 MEQ/L (136-145); TOTAL BILIRUBIN ADULT 0.8 MG/DL (0.2-1.0)
[2016-07-27] MEDS: SODIUM CHLOR 0.9% 1000 ML INJ 1,000 ML IV SCH ×2 (12:00→21:25)
--- NOTE | 2016-07-27 12:45 | HHI.PR ---
Subjective Remarks Bp still elevated Patient still confused, requires restraints since she tries to get out of bed as per RN report as per RN patient not eating much afebrile Objective Vitals Vital Signs Date Time Temp Pulse Resp B/P Pulse Ox O2 Delivery O2 Flow Rate FiO2 07/27/16 08:00 96.5 86 18 176/96 97 07/27/16 04:00 96.3 65 22 189/88 95 07/27/16 00:00 96.3 88 22 148/82 95 07/26/16 22:00 83 07/26/16 20:00 96.1 79 22 182/86 96 07/26/16 16:07 97.1 119 18 175/97 96 I/O 07/26/16 07/26/16 07/26/16 07/27/16 07/27/16 07/27/16 06:59 14:59 22:59 06:59 14:59 22:59 Intake Total 446 ml 480 ml 60 ml Output Total 950 ml 550 ml 500 ml 300 ml Balance -950 ml -104 ml -20 ml -240 ml Intake Oral 480 ml 60 ml IV Total 446 ml Output Urine Total 950 ml 550 ml 500 ml 300 ml # Voids 2 # Bowel Movements 0 0 Result Diagram: 07/27/16 0700 07/27/16 0933 Imaging Last Impressions Head CT 07/23/162334 Signed Impressions: Service Date/Time: Sunday, July 24, 2016 00:04 - CONCLUSION: 1. Suspected recent infarct involving the left middle cerebral artery territory at the left temporal and parietal lobes. 2. Age-related atrophy. 3. Widespread suspected small vessels ischemic change in the white matter. 4. 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 5. Acute right frontal scalp hematoma. Francis Gibson MD Chest X-Ray 07/23/162334 Signed Impressions: Service Date/Time: June 23:48 - CONCLUSION: No acute disease. Francis Gibson MD Objective Remarks GENERAL: This is a well-developed patient, nad SKIN: Facial ecchymoses noted. HEENT: Normocephalic. Pupils equal round and reactive. Nose without bleeding. Airway patent. NECK: Trachea midline. No JVD. Supple. CARDIOVASCULAR: Regular rate and rhythm without murmurs, gallops, or rubs. RESPIRATORY: Diminished bases. No wheezes, rales, or rhonchi. GASTROINTESTINAL: Abdomen soft, non-tender, nondistended. Bowel Sounds normoactive x4. Dale in place clear yellow urine. MUSCULOSKELETAL: Extremities without clubbing, cyanosis, or edema. Bilateral upper extremity and lower extremity with multiple abrasions and some ecchymotic areas. NEUROLOGICAL: Awake and alert, tangential answers. HE. Normal speech. Procedures None Medications and IVs Current Medications Medications (Trade) Dose Ordered Sig/Emiliano Route Start Time Stop Time Status Last Admin (NS Flush) 2 ml UNSCH PRN FLUSH 07/24/16 02:00 (NS Flush) 2 ml BID FLUSH 07/24/16 09:00 07/26/16 08:10 (Tylenol) 650 mg Q4H PRN PO 07/24/16 02:00 (Zofran Inj) 4 mg Q6H PRN IVP 07/24/16 02:00 (Dulcolax Supp) 10 mg DAILY PRN DE 07/24/16 02:00 (Milk Of 48domainkwadwo Liq) 30 ml Q12H PRN PO 07/24/16 02:00 (Heparin Inj) 5,000 units Q12H SQ 07/24/16 06:00 07/27/16 06:18 Naloxone HCl 0.4 mg 0.4 mg UNSCH PRN IV 07/24/16 02:00 (Maxipime Inj/NS Inj) 100 ml @ 200 mls/hr Q24H IV 07/25/16 02:00 07/27/16 01:09 (Norvasc) 10 mg DAILY PO 07/24/16 09:00 07/27/16 10:34 (Vasotec) 10 mg BID PO 07/24/16 09:00 Hold 07/24/16 08:34 (Ativan Inj) 1 mg TID PRN IM 07/24/16 05:30 07/26/16 03:24 (Antivert) 25 mg QID PRN PO 07/24/16 05:30 (Remeron) 15 mg HS PO 07/24/16 21:00 07/26/16 22:46 (Pravachol) 80 mg HS PO 07/24/16 21:00 07/26/16 22:47 (SEROquel) 50 mg HS PO 07/24/16 21:00 Hold (Lopressor) 50 mg Q12HR PO 07/26/16 21:00 07/27/16 10:34 (D50w (Vial) Inj) 25 ml UNSCH PRN IV PUSH 07/26/16 20:30 (Glucagon Inj) 1 mg UNSCH PRN OTHER 07/26/16 20:30 Doxazosin Mesylate 2 mg 2 mg HS PO 07/27/16 00:30 07/27/16 01:08 (NS 1000 ml Inj) 1,000 ml @ 100 mls/hr Q10H IV 07/27/16 12:00 Urinary Catheter: No Vascular Central Line Catheter: No A/P Problem List: (1) Fall ICD Code: W19.XXXA Status: Acute (2) Sepsis due to urinary tract infection ICD Code: A41.9 Status: Acute (3) Hypoglycemia associated with diabetes ICD Code: E11.649 Status: Acute (4) Delirium ICD Code: R41.0 Status: Acute (5) HTN (hypertension) ICD Code: I10 Status: Acute (6) DM (diabetes mellitus) ICD Code: E11.9 Status: Chronic (7) CKD (chronic kidney disease) stage 4, GFR 15-29 ml/min ICD Code: N18.4 Status: Chronic (8) WILL (acute kidney injury) ICD Code: N17.9 Status: Acute Assessment and Plan Ms. Fuller is an 86 year old female who presented to the ED from alf after a fall and with an initial blood glucose of 25. ED work up indicated sepsis, UTI, hypoglycemia. Patient was initially hypothermic and required warming blankets. Her body temperature improved subsequently. During this examination, patient was found to be restles and saying incomprehensible words. I requested RN to check blood glucose. Patient was again found to have low blood glucose 24. Patient received STAT 2 amps of D50 raising her glucose to 393. Patient was subsequently placed on D5NS drip. 07/26 Blood glucose improved - DC D5NS - Severe sepsis (Temp 94F, R 22, UTI, WILL on chronic kidney disease) - Urinary tract infection, Complicated. - Fall - metabolic encephalopathy -Treated initially with cefepime. - Follow C&S. Once C&S comes back, we can de-escalate antibiotics. - Urine culture grew Klebsiella pneumonia. - I will discontinue IV cefepime and start oral ofloxacin to complete a total of 10 days. - Severe hypoglycemia - Exact etiology unknown. Infection vs. accidental overdose of insulin 70/30 added to decreased oral intake. -Treated with D5NS which has been stopped since 07/26 - Sugars have been acceptable with episodes of hyperglycemia. I will place on a low dose SSI with insulin NovoLog. - Poor oral intake/appetite/moderate protein calorie malnutrition - Likely secondary to acute infection and the causative of the episodes of hypoglycemia. I will start the patient on Megace and consult dietitian. - CKD Stage IV --> baseline creatinine 1.6 to 1.8 - WILL on CKD - Creatinine 3.17 --> 2.51 --> 2.27 --> 2.0 -->2.1 07/27/16 -Continue IV fluids - Will continue to monitor BUN, creatinine. - Diabetes mellitus - Patient takes 70/30 unknown quantity. - Will keep patient on sliding scale insulin. - Once blood glucose is stable, we can initiate long acting insulin Levemir. - Blood Glucose in the 130's -140's - Severe Hypertension - BP home medications were held yesterday, however, severe increase in BP noted 160s-170's - Restart Amlodipine 10mg Qday, metoprolol 25mg BID. Will hold Vasotec for now until BP stable and can be initiated. - 07/26 BP still uncontrolled with sbp in the 170's. Increase beta jessica to 50 mg po BID, if BP elevated still after that then will add Cardura at bedtime. - 07/27 BP still uncontrolled with systolic blood pressure in the 170s. I will increase Cardura dose to 4 mg by mouth at bedtime. Continue amlodipine and metoprolol. I will Rx clonidine 0.1 mg by mouth every 8 hours as needed for systolic blood pressure more than 160 - Hyperlipidemia - continue Pravastatin 80mg QHS. Full code. Heparin SQ. Discharge Planning Pending resolution of encephalopathy and improvement of BP. Toan Louis MD Jul 27, 2016 12:45
[2016-07-27] MEDS: MEGESTROL ACETATE SUSP 400 MG/10 ML CUP PO SCH (12:51)
--- NOTE | 2016-07-27 15:33 | RADRPT ---
EXAM DATE/TIME: 07/27/2016 14:05 [facility] COMPARISON: No previous studies available for comparison. INDICATIONS : Abnormal labs. MEDICAL HISTORY : Stroke. Hypercholesterolemia. Chronic obstructive pulmonary disease. Macular degeration of eyes. Head trauma. Hypertension. Sleep apnea. Diverticulitis. GERD. ESRD. Diabetes. SURGICAL HISTORY : Tonsillectomy. Hysterectomy. Chemotherapy. ENCOUNTER: Initial ACUITY: 1 day PAIN SCORE: Nonresponsive. LOCATION: Bilateral flank MEASUREMENTS: RIGHT KIDNEY: 9.3 x 4.4 x 5.5 cm LEFT KIDNEY: 9.0 x 4.1 x 4.0 cm FINDINGS: RIGHT KIDNEY: Renal cortex is normal in thickness and increased echotexture. No hydronephrosis, stone, or mass. S imple cyst along the upper pole measures 10 x 9 x 8 mm. LEFT KIDNEY: Renal cortex is normal in thickness and increased echotexture. No hydronephrosis, stone, or mass. E chogenic focus along the lower pole measures 7 x 7 x 5 mm. BLADDER: Within normal limits given the degree of distension. CONCLUSION: 1. Kidneys are slightly echogenic which can be seen with medical renal disease. 2. Simple cyst right kidney. 3. Echogenic focus along the lower pole left kidney could be related to nonobstructing calculus measu ring 7 mm. Brandt Lowery MD on July 27, 2016 at 15:29 Board Certified Radiologist. This report was verified electronically.
[2016-07-27] MEDS: LORazepam 2 MG/ML VIAL IM PRN (15:54)
[2016-07-27] MEDS: MIRTAZAPINE 15 MG TAB PO SCH (21:24)
[2016-07-27] MEDS: PRAVASTATIN SOD 80 MG TAB PO SCH (21:25)
[2016-07-28] VITALS (7 sets, daily range): BP systolic 112–194; BP diastolic 68–113; PULSE 61–100; RESP 16–24; TEMP 96.5–98.6; O2SAT 97–98
[2016-07-28] MEDS: CEFEPIME INJ 2,000 MG in SODIUM CHLORIDE 0.9% INJ 100 ML IV SCH (01:09)
[2016-07-28] MEDS: HEPARIN SODIUM - SQ 10,000 UNITS/ML VIAL SQ SCH ×2 (05:34→18:41)
[2016-07-28] MEDS: INSULIN ASPART SUPPLEMENTAL SCALE SQ SCH ×4 (07:00→21:00)
[2016-07-28] MEDS: SODIUM CHLOR 0.9% 1000 ML INJ 1,000 ML IV SCH ×2 (08:18→18:45)
[2016-07-28] MEDS: METOPROLOL TARTRATE 25 MG TAB PO SCH ×2 (08:19→21:36)
[2016-07-28] MEDS: MEGESTROL ACETATE SUSP 400 MG/10 ML CUP PO SCH (08:20)
[2016-07-28] MEDS: SODIUM CHLORIDE 0.9% FLUSH 5 ML FLUSH FLUSH SCH ×2 (08:20→21:00)
--- NOTE | 2016-07-28 16:12 | HHI.PR ---
Subjective Remarks BP much improved Patient has no complaints Patient on restraints until last night. eating well Objective Vitals Vital Signs Date Time Temp Pulse Resp B/P Pulse Ox O2 Delivery O2 Flow Rate FiO2 07/28/16 12:00 98.6 61 16 143/86 98 07/28/16 08:00 70 07/28/16 08:00 97.5 84 18 139/74 98 07/28/16 05:48 67 07/28/16 04:00 96.5 61 16 112/73 97 07/28/16 01:00 97.5 100 18 113/73 97 07/27/16 20:00 97.0 74 18 102/71 97 07/27/16 18:43 68 I/O 07/27/16 07/27/16 07/27/16 07/28/16 07/28/16 07/28/16 06:59 14:59 22:59 06:59 14:59 22:59 Intake Total 60 ml 240 ml Output Total 300 ml 400 ml 900 ml Balance -240 ml -160 ml -900 ml Intake Oral 60 ml 240 ml Output Urine Total 300 ml 400 ml 900 ml # Bowel Movements 0 0 Result Diagram: 07/27/16 0700 07/27/16 0933 Objective Remarks GENERAL: This is a well-developed patient, nad SKIN: Facial ecchymoses noted. HEENT: Normocephalic. Pupils equal round and reactive. Nose without bleeding. Airway patent. NECK: Trachea midline. No JVD. Supple. CARDIOVASCULAR: Regular rate and rhythm without murmurs, gallops, or rubs. RESPIRATORY: Diminished bases. No wheezes, rales, or rhonchi. GASTROINTESTINAL: Abdomen soft, non-tender, nondistended. Bowel Sounds normoactive x4. Dale in place clear yellow urine. MUSCULOSKELETAL: Extremities without clubbing, cyanosis, or edema. Bilateral upper extremity and lower extremity with multiple abrasions and some ecchymotic areas. NEUROLOGICAL: Awake and alert, tangential answers. HE. Normal speech. Procedures None A/P Problem List: (1) Fall ICD Code: W19.XXXA Status: Acute (2) Sepsis due to urinary tract infection ICD Code: A41.9 Status: Acute (3) Hypoglycemia associated with diabetes ICD Code: E11.649 Status: Acute (4) Delirium ICD Code: R41.0 Status: Acute (5) HTN (hypertension) ICD Code: I10 Status: Acute (6) DM (diabetes mellitus) ICD Code: E11.9 Status: Chronic (7) CKD (chronic kidney disease) stage 4, GFR 15-29 ml/min ICD Code: N18.4 Status: Chronic (8) WILL (acute kidney injury) ICD Code: N17.9 Status: Acute Assessment and Plan Ms. Fuller is an 86 year old female who presented to the ED from half-way after a fall and with an initial blood glucose of 25. ED work up indicated sepsis, UTI, hypoglycemia. Patient was initially hypothermic and required warming blankets. Her body temperature improved subsequently. During this examination, patient was found to be restles and saying incomprehensible words. I requested RN to check blood glucose. Patient was again found to have low blood glucose 24. Patient received STAT 2 amps of D50 raising her glucose to 393. Patient was subsequently placed on D5NS drip. 07/26 Blood glucose improved - DC D5NS - Severe sepsis (Temp 94F, R 22, UTI, WILL on chronic kidney disease) - Urinary tract infection, Complicated. - Fall - metabolic encephalopathy -Treated initially with cefepime. - Follow C&S. Once C&S comes back, we can de-escalate antibiotics. - Urine culture grew Klebsiella pneumonia. - I will discontinue IV cefepime and start oral ofloxacin to complete a total of 10 days. - Severe hypoglycemia - Exact etiology unknown. Infection vs. accidental overdose of insulin 70/30 added to decreased oral intake. -Treated with D5NS which has been stopped since 07/26 - Sugars have been acceptable with episodes of hyperglycemia. I will place on a low dose SSI with insulin NovoLog. - Poor oral intake/appetite/moderate protein calorie malnutrition - Likely secondary to acute infection and the causative of the episodes of hypoglycemia. I will start the patient on Megace and consult dietitian. - CKD Stage IV --> baseline creatinine 1.6 to 1.8 - WILL on CKD - Creatinine 3.17 --> 2.51 --> 2.27 --> 2.0 -->2.1 07/27/16 -Continue IV fluids - Will continue to monitor BUN, creatinine. - Diabetes mellitus - Patient takes 70/30 unknown quantity. - Will keep patient on sliding scale insulin. - Once blood glucose is stable, we can initiate long acting insulin Levemir. - Blood Glucose in the 130's -140's - Severe Hypertension - BP home medications were held yesterday, however, severe increase in BP noted 160s-170's - Restart Amlodipine 10mg Qday, metoprolol 25mg BID. Will hold Vasotec for now until BP stable and can be initiated. - 07/26 BP still uncontrolled with sbp in the 170's. Increase beta jessica to 50 mg po BID, if BP elevated still after that then will add Cardura at bedtime. - 07/27 BP still uncontrolled with systolic blood pressure in the 170s. I will increase Cardura dose to 4 mg by mouth at bedtime. Continue amlodipine and metoprolol. I will Rx clonidine 0.1 mg by mouth every 8 hours as needed for systolic blood pressure more than 160 - 07/28 BP now better. Continue current antihypertensive medications. - Hyperlipidemia - continue Pravastatin 80mg QHS. Full code. Heparin SQ. Discharge Planning Pending resolution of encephalopathy and improvement of BP. Toan Louis MD Jul 28, 2016 16:12
[2016-07-28 16:46] LABS: BICARBONATE 23.1 MEQ/L (21.0-32.0); POTASSIUM 4.4 MEQ/L (3.5-5.1)
[2016-07-28] MEDS: LORazepam 2 MG/ML VIAL IM PRN (18:41)
[2016-07-28] MEDS: MIRTAZAPINE 15 MG TAB PO SCH (21:36)
[2016-07-28] MEDS: ENALAPRIL MALEATE 10 MG TAB PO SCH (21:36)
[2016-07-28] MEDS: PRAVASTATIN SOD 80 MG TAB PO SCH (21:36)
[2016-07-28] MEDS: DOXAZOSIN MESYLATE 2 MG TAB PO SCH (21:36)
[2016-07-29] VITALS (9 sets, daily range): BP systolic 128–192; BP diastolic 56–84; PULSE 60–87; RESP 16–22; TEMP 95.6–97.3; O2SAT 94–98
--- NOTE | 2016-07-29 01:50 | HHI.PR ---
Addendum to Inpatient Note Addendum Reason: Additional Documentation Additional Information Notified just now that patient had a nonsustained 6 beat run of nonsustained ventricular tachycardia at about 194107/28/16. The patient remains agitated, requiring restraints but this is not new for her and she does not demonstrate any other symptoms and has had no additional episodes since 194107/28/16. Will add troponin I to a.m. labs. If elevated, consider trending because may be falsely elevated due to acute on chronic kidney disease. Essie Salas Jul 29, 2016 01:50
[2016-07-29] MEDS: CEFEPIME INJ 2,000 MG in SODIUM CHLORIDE 0.9% INJ 100 ML IV SCH (02:17)
[2016-07-29] MEDS: LORazepam 2 MG/ML VIAL IM PRN ×2 (02:17→17:57)
[2016-07-29] MEDS: SODIUM CHLOR 0.9% 1000 ML INJ 1,000 ML IV SCH ×2 (03:06→15:31)
[2016-07-29] MEDS: HEPARIN SODIUM - SQ 10,000 UNITS/ML VIAL SQ SCH ×2 (05:51→17:17)
[2016-07-29] MEDS: INSULIN ASPART SUPPLEMENTAL SCALE SQ SCH ×4 (06:19→23:28)
[2016-07-29 08:16] LABS: AUTOMATED NEUTROPHIL # 2.4 TH/MM3 (1.8-7.7); BASOPHIL # 0.1 TH/MM3 (0-0.2); BASOPHIL % 1.2 % (0.0-2.0); EOSINOPHIL # 0.5 TH/MM3 (0-0.4); EOSINOPHIL % 8.2 % (0.0-4.0); HEMATOCRIT 33.7 % (35.0-46.0); HEMO FLAGS DIFF FINAL; LYMPH % 32.1 % (9.0-44.0); LYMPHOCYTE # 1.8 TH/MM3 (1.0-4.8); MEAN CELL VOLUME 88.4 FL (80.0-100.0); MEAN CORPUSCULAR HEMOGLOBIN 30.9 PG (27.0-34.0); MONO % 14.3 % (0.0-8.0); NEUT % 44.2 % (16.0-70.0); PLATELET COUNT 187 TH/MM3 (150-450); RED BLOOD COUNT 3.82 MIL/MM3 (4.00-5.30); RED CELL DISTRIBUTION WIDTH 14.1 % (11.6-17.2); WHITE BLOOD COUNT 5.5 TH/MM3 (4.0-11.0)
[2016-07-29 08:46] LABS: BICARBONATE 23.7 MEQ/L (21.0-32.0); POTASSIUM 4.1 MEQ/L (3.5-5.1)
[2016-07-29] MEDS: SODIUM CHLORIDE 0.9% FLUSH 5 ML FLUSH FLUSH SCH ×2 (09:00→21:00)
[2016-07-29] MEDS: METOPROLOL TARTRATE 25 MG TAB PO SCH ×2 (09:44→23:16)
[2016-07-29] MEDS: MEGESTROL ACETATE SUSP 400 MG/10 ML CUP PO SCH (09:44)
[2016-07-29] MEDS: ENALAPRIL MALEATE 10 MG TAB PO SCH ×2 (09:44→23:17)
[2016-07-29] MEDS ORDERED: PILL SPLITTER OTHER PRN (12:00)
[2016-07-29] MEDS: QUEtiapine FUMARATE 25 MG TAB PO SCH (12:00)
[2016-07-29] MEDS ORDERED: QUEtiapine FUMARATE 100 MG TAB PO SCH (21:00)
[2016-07-29] MEDS: PRAVASTATIN SOD 80 MG TAB PO SCH (23:16)
[2016-07-29] MEDS: DOXAZOSIN MESYLATE 2 MG TAB PO SCH (23:17)
[2016-07-29] MEDS: MIRTAZAPINE 15 MG TAB PO SCH (23:17)
[2016-07-30] VITALS (7 sets, daily range): BP systolic 115–188; BP diastolic 57–81; PULSE 61–78; RESP 16–20; TEMP 95.9–98.7; O2SAT 94–98
[2016-07-30] MEDS: SODIUM CHLOR 0.9% 1000 ML INJ 1,000 ML IV SCH ×2 (00:36→09:32)
[2016-07-30] MEDS: CEFEPIME INJ 2,000 MG in SODIUM CHLORIDE 0.9% INJ 100 ML IV SCH (01:29)
--- NOTE | 2016-07-30 02:02 | HHI.PR ---
Subjective Remarks Late entry - patient seen on 07/29/16 at 11:50 am as per RN report patient has been requiring restraints patient very sleepy, very hard to arouse this am afebrile good urine output Objective Vitals Vital Signs Date Time Temp Pulse Resp B/P Pulse Ox O2 Delivery O2 Flow Rate FiO2 07/29/16 20:00 97.3 75 18 130/63 94 07/29/16 16:00 96.1 74 20 186/84 98 07/29/16 12:12 95.6 63 16 192/83 95 07/29/16 08:08 95.7 75 16 128/56 95 07/29/16 05:57 97.3 64 18 134/74 98 07/29/16 05:45 60 07/29/16 03:20 67 I/O 07/29/16 07/29/16 07/29/16 07/30/16 07/30/16 07/30/16 07:00 15:00 23:00 07:00 15:00 23:00 Intake Total 360 ml Output Total 650 ml 700 ml Balance -650 ml -340 ml Intake Oral 360 ml Output Urine Total 650 ml 700 ml # Bowel Movements 0 1 Result Diagram: 07/29/16 0747 07/29/16 0747 Imaging Last Impressions Renal Ultrasound 07/27/16 0000 Signed Impressions: Service Date/Time: Wednesday, July 27, 2016 14:05 - CONCLUSION: 1. Kidneys are slightly echogenic which can be seen with medical renal disease. 2. Simple cyst right kidney. 3. Echogenic focus along the lower pole left kidney could be related to nonobstructing calculus measuring 7 mm. Brandt Lowery MD Head CT 07/23/16 9961 Signed Impressions: Service Date/Time: Sunday, July 24, 2016 00:04 - CONCLUSION: 1. Suspected recent infarct involving the left middle cerebral artery territory at the left temporal and parietal lobes. 2. Age-related atrophy. 3. Widespread suspected small vessels ischemic change in the white matter. 4. 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 5. Acute right frontal scalp hematoma. Francis Gibson MD Chest X-Ray 07/23/16 0504 Signed Impressions: Service Date/Time: June 23:48 - CONCLUSION: No acute disease. Francis Gibson MD Objective Remarks GENERAL: This is a well-developed patient, nad SKIN: Facial ecchymoses noted. HEENT: Normocephalic. Pupils equal round and reactive. Nose without bleeding. Airway patent. NECK: Trachea midline. No JVD. Supple. CARDIOVASCULAR: Regular rate and rhythm without murmurs, gallops, or rubs. RESPIRATORY: Diminished bases. No wheezes, rales, or rhonchi. GASTROINTESTINAL: Abdomen soft, non-tender, nondistended. Bowel Sounds normoactive x4. Dale in place clear yellow urine. MUSCULOSKELETAL: Extremities without clubbing, cyanosis, or edema. Bilateral upper extremity and lower extremity with multiple abrasions and some ecchymotic areas. NEUROLOGICAL: Awake and alert, tangential answers. HE. Normal speech. Procedures None Medications and IVs Current Medications Medications (Trade) Dose Ordered Sig/Emiliano Route Start Time Stop Time Status Last Admin (NS Flush) 2 ml UNSCH PRN FLUSH 07/24/16 02:00 (NS Flush) 2 ml BID FLUSH 07/24/16 09:00 07/28/16 08:20 (Tylenol) 650 mg Q4H PRN PO 07/24/16 02:00 (Zofran Inj) 4 mg Q6H PRN IVP 07/24/16 02:00 (Dulcolax Supp) 10 mg DAILY PRN WA 07/24/16 02:00 (Milk Of Magnkwadwo Liq) 30 ml Q12H PRN PO 07/24/16 02:00 (Heparin Inj) 5,000 units Q12H SQ 07/24/16 06:00 07/29/16 17:17 Naloxone HCl 0.4 mg 0.4 mg UNSCH PRN IV 07/24/16 02:00 (Maxipime Inj/NS Inj) 100 ml @ 200 mls/hr Q24H IV 07/25/16 02:00 07/30/16 01:29 (Norvasc) 10 mg DAILY PO 07/24/16 09:00 07/29/16 09:44 (Vasotec) 10 mg BID PO 07/24/16 09:00 07/29/16 23:17 (Ativan Inj) 1 mg TID PRN IM 07/24/16 05:30 07/29/16 17:57 (Antivert) 25 mg QID PRN PO 07/24/16 05:30 (Remeron) 15 mg HS PO 07/24/16 21:00 07/29/16 23:17 (Pravachol) 80 mg HS PO 07/24/16 21:00 07/29/16 23:16 (SEROquel) 50 mg HS PO 07/24/16 21:00 Hold (Lopressor) 50 mg Q12HR PO 07/26/16 21:00 07/29/16 23:16 (D50w (Vial) Inj) 25 ml UNSCH PRN IV PUSH 07/26/16 20:30 (Glucagon Inj) 1 mg UNSCH PRN OTHER 07/26/16 20:30 Doxazosin Mesylate 2 mg 2 mg HS PO 07/27/16 00:30 07/29/16 23:17 (NS 1000 ml Inj) 1,000 ml @ 100 mls/hr Q10H IV 07/27/16 12:00 07/30/16 00:36 (Megace Liq) 400 mg DAILY PO 07/27/16 12:45 07/29/16 09:44 (SEROquel) 25 mg DAILY PO 07/29/16 12:00 (SEROquel) 50 mg HS PO 07/29/16 21:00 07/29/16 23:16 (Pill Splitter) 1 ea UNSCH PRN OTHER 07/29/16 12:00 Urinary Catheter: Yes Assessment to: Remove Vascular Central Line Catheter: No A/P Problem List: (1) Fall ICD Code: W19.XXXA Status: Acute (2) Sepsis due to urinary tract infection ICD Code: A41.9 Status: Acute (3) Hypoglycemia associated with diabetes ICD Code: E11.649 Status: Acute (4) Delirium ICD Code: R41.0 Status: Acute (5) HTN (hypertension) ICD Code: I10 Status: Acute (6) DM (diabetes mellitus) ICD Code: E11.9 Status: Chronic (7) CKD (chronic kidney disease) stage 4, GFR 15-29 ml/min ICD Code: N18.4 Status: Chronic (8) WILL (acute kidney injury) ICD Code: N17.9 Status: Acute (9) Aphasia ICD Code: R47.01 Status: Acute (10) Acute ischemic left MCA stroke ICD Code: I63.512 Status: Acute Assessment and Plan Ms. Fuller is an 86 year old female who presented to the ED from half-way after a fall and with an initial blood glucose of 25. ED work up indicated sepsis, UTI, hypoglycemia. Patient was initially hypothermic and required warming blankets. Her body temperature improved subsequently. During this examination, patient was found to be restles and saying incomprehensible words. I requested RN to check blood glucose. Patient was again found to have low blood glucose 24. Patient received STAT 2 amps of D50 raising her glucose to 393. Patient was subsequently placed on D5NS drip. 07/26 Blood glucose improved - DC D5NS - Severe sepsis (Temp 94F, R 22, UTI, WILL on chronic kidney disease) - Urinary tract infection, Complicated. - Fall - metabolic encephalopathy -Treated initially with cefepime. - Follow C&S. Once C&S comes back, we can de-escalate antibiotics. - Urine culture grew Klebsiella pneumonia. - Cefepime Discontinued and started on oral Levofloxacin to complete a total of 10 days. - Severe hypoglycemia - Exact etiology unknown. Infection vs. accidental overdose of insulin 70/30 added to decreased oral intake. -Treated with D5NS which has been stopped since 07/26 - Sugars have been acceptable with episodes of hyperglycemia. I will place on a low dose SSI with insulin NovoLog. - Poor oral intake/appetite/moderate protein calorie malnutrition - Likely secondary to acute infection and the causative of the episodes of hypoglycemia. I will start the patient on Megace and consult dietitian. - CKD Stage IV --> baseline creatinine 1.6 to 1.8 - WILL on CKD - Creatinine 3.17 --> 2.51 --> 2.27 --> 2.0 -->2.1---> 1.8 (07/29) -Continue IV fluids - Will continue to monitor BUN, creatinine. - creatinine at baseline. - Diabetes mellitus - Patient takes 70/30 unknown quantity. - Will keep patient on sliding scale insulin. - Once blood glucose is stable, we can initiate long acting insulin Levemir. - Blood Glucose in the 130's -140's - Severe Hypertension - BP home medications were held yesterday, however, severe increase in BP noted 160s-170's - Restart Amlodipine 10mg Qday, metoprolol 25mg BID. Will hold Vasotec for now until BP stable and can be initiated. - 07/26 BP still uncontrolled with sbp in the 170's. Increase beta jessica to 50 mg po BID, if BP elevated still after that then will add Cardura at bedtime. - 07/27 BP still uncontrolled with systolic blood pressure in the 170s. I will increase Cardura dose to 4 mg by mouth at bedtime. Continue amlodipine and metoprolol. I will Rx clonidine 0.1 mg by mouth every 8 hours as needed for systolic blood pressure more than 160 - 07/28 BP now better. Continue current antihypertensive medications. - Hyperlipidemia - continue Pravastatin 80mg QHS. - Behavioral problems - resume Seroquel at bedtime. Will start 25 mg daily to be held if patient somnolent. Full code. Heparin SQ. Discharge Planning Pending resolution of encephalopathy and improvement of BP. Toan Louis MD Jul 30, 2016 02:01
[2016-07-30] MEDS: INSULIN ASPART SUPPLEMENTAL SCALE SQ SCH ×4 (06:24→22:58)
[2016-07-30] MEDS: HEPARIN SODIUM - SQ 10,000 UNITS/ML VIAL SQ SCH ×2 (06:24→17:07)
[2016-07-30] MEDS: QUEtiapine FUMARATE 25 MG TAB PO SCH (09:00)
[2016-07-30] MEDS: ENALAPRIL MALEATE 10 MG TAB PO SCH ×2 (09:30→23:03)
[2016-07-30] MEDS: MEGESTROL ACETATE SUSP 400 MG/10 ML CUP PO SCH (09:30)
[2016-07-30] MEDS: METOPROLOL TARTRATE 25 MG TAB PO SCH ×2 (09:30→22:58)
[2016-07-30] MEDS: SODIUM CHLORIDE 0.9% FLUSH 5 ML FLUSH FLUSH SCH ×2 (09:31→21:00)
--- NOTE | 2016-07-30 14:43 | HHI.PR ---
Subjective Remarks Confused, opens eyes to voice. States that she is not in pain. Objective Vitals Vital Signs Date Time Temp Pulse Resp B/P Pulse Ox O2 Delivery O2 Flow Rate FiO2 07/30/16 12:42 98.2 63 20 122/63 98 07/30/16 09:45 97.0 62 20 118/57 96 07/30/16 06:45 95.9 72 18 115/72 94 07/30/16 00:00 96.1 78 20 120/61 95 07/29/16 20:00 97.3 75 18 130/63 94 07/29/16 16:00 96.1 74 20 186/84 98 I/O 07/29/16 07/29/16 07/29/16 07/30/16 07/30/16 07/30/16 07:00 15:00 23:00 07:00 15:00 23:00 Intake Total 360 ml 480 ml Output Total 650 ml 700 ml 1000 ml 200 ml Balance -650 ml -340 ml -520 ml -200 ml Intake Oral 360 ml 480 ml Output Urine Total 650 ml 700 ml 1000 ml 200 ml # Bowel Movements 0 1 0 0 Result Diagram: 07/29/16 0747 07/29/16 0747 Objective Remarks GENERAL: This is a well-nourished, well-developed patient, in no apparent distress. HEENT: Right periorbital ecchymosis CARDIOVASCULAR: Regular rate and rhythm RESPIRATORY: Clear to auscultation. Breath sounds equal bilaterally. No wheezes , rales, or rhonchi. GASTROINTESTINAL: Abdomen soft, non-tender, nondistended. Normal active bowel sounds MUSCULOSKELETAL: Extremities without clubbing, cyanosis, or edema. NEURO: Alert & Oriented x4 to person, place, time, situation. Moves all ext x4 Procedures None A/P Problem List: (1) Fall ICD Code: W19.XXXA Status: Acute (2) Sepsis due to urinary tract infection ICD Code: A41.9 Status: Acute (3) Hypoglycemia associated with diabetes ICD Code: E11.649 Status: Acute (4) Delirium ICD Code: R41.0 Status: Acute (5) HTN (hypertension) ICD Code: I10 Status: Chronic (6) DM (diabetes mellitus) ICD Code: E11.9 Status: Chronic (7) CKD (chronic kidney disease) stage 4, GFR 15-29 ml/min ICD Code: N18.4 Status: Chronic (8) WILL (acute kidney injury) ICD Code: N17.9 Status: Acute (9) Aphasia ICD Code: R47.01 Status: Chronic (10) Acute ischemic left MCA stroke ICD Code: I63.512 Status: Chronic Assessment and Plan Ms. Fuller is an 86 year old female who presented to the ED from sn[facility] after a fall and with an initial blood glucose of 25. ED work up indicated sepsis, UTI, hypoglycemia. Patient was initially hypothermic and required warming blankets. Her body temperature improved subsequently. During this examination, patient was found to be restless and saying incomprehensible words.Patient was again found to have low blood glucose 24. Patient received STAT 2 amps of D50 raising her glucose to 393. Patient was subsequently placed on D5NS drip. 07/26 Blood glucose improved - DC D5NS currently and will continue monitor blood sugars closely. - Severe sepsis (Temp 94F, R 22, UTI, WILL on chronic kidney disease) on admission due to klebsiella UTI urinary tract infection. - Urinary tract infection, Complicated. Currently on Levaquin. - Fall - metabolic encephalopathymental status still waxes and weans with also a history of recent CVAadd aspirin. -Treated initially with cefepime and now transitioned to oral Levaquin to be completed for a total 10 dayswe'll discontinue Dale. - - Severe hypoglycemia - Exact etiology unknown. Infection vs. accidental overdose of insulin 70/30 added to decreased oral intake. -Treated with D5NS which has been stopped since 07/26 - Sugars have been acceptable with episodes of hyperglycemia. Continue low dose SSI with insulin NovoLog. - Poor oral intake/appetite/moderate protein calorie malnutrition - Likely secondary to acute infection and the causative of the episodes of hypoglycemia. I will start the patient on Megace and consult dietitian. - CKD Stage IV --> baseline creatinine 1.6 to 1.8 - WILL on CKD stage IV - Creatinine 3.17 --> 2.51 --> 2.27 --> 2.0 -->2.1---> 1.8 (07/29) -Continue IV fluids, improving - Will continue to monitor BUN, creatinine. - creatinine currently at baseline. - Diabetes mellitus2 - Patient takes 70/30 unknown quantity. - Will keep patient on sliding scale insulin. - Once blood glucose is stable, we can initiate long acting insulin Levemir. And monitor. - Blood Glucose in the 130's -140's - Severe Hypertension - BP home medications were held yesterday, however, severe increase in BP noted 160s-170's - Restart Amlodipine 10mg Qday, metoprolol 50 mg BID. Cardura 4 mg by mouth daily at bedtime, clonidine as needed, Will hold Vasotec for now until BP stable and can be initiated. - - Hyperlipidemia - continue Pravastatin 80mg QHS. History of recent CVAadd aspirin - Behavioral problems -whole Seroquel due to sedation. Full code. Heparin SQ. Discharge Planning Back to alf facility when medically stable in next 1 to 2 days. Problem Qualifiers (1) HTN (hypertension): Qualified Code: I10 - Essential hypertension (2) DM (diabetes mellitus): Lizzette Zarco MD Jul 30, 2016 14:43
[2016-07-30] MEDS ORDERED: ASPIRIN 81 MG CHEW TAB TUBE ONE (15:00)
[2016-07-30] MEDS ORDERED: CEFUROXIME AXETIL 500 MG TAB PO SCH (21:00)
[2016-07-30] MEDS: MIRTAZAPINE 15 MG TAB PO SCH (22:49)
[2016-07-30] MEDS: DOXAZOSIN MESYLATE 2 MG TAB PO SCH (22:49)
[2016-07-30] MEDS: PRAVASTATIN SOD 80 MG TAB PO SCH (22:58)
[2016-07-30] MEDS: CEFUROXIME AXETIL 250 MG TAB PO SCH (23:22)
[2016-07-30] MEDS: LORazepam 2 MG/ML VIAL IM PRN (23:28)
[2016-07-31 04:00] VITALS: BP 126/60; PULSE 68; RESP 16; TEMP 97.6; O2SAT 96
[2016-07-31] MEDS: INSULIN ASPART SUPPLEMENTAL SCALE SQ SCH ×4 (04:54→22:35)
[2016-07-31] MEDS: HEPARIN SODIUM - SQ 10,000 UNITS/ML VIAL SQ SCH ×2 (04:54→17:04)
[2016-07-31] MEDS: ENALAPRIL MALEATE 10 MG TAB PO SCH ×2 (08:46→22:34)
[2016-07-31] MEDS: CEFUROXIME AXETIL 250 MG TAB PO SCH ×2 (08:46→22:34)
[2016-07-31] MEDS: ASPIRIN 81 MG CHEW TAB CHEW SCH (08:46)
[2016-07-31] MEDS: MEGESTROL ACETATE SUSP 400 MG/10 ML CUP PO SCH (08:46)
[2016-07-31] MEDS: SODIUM CHLORIDE 0.9% FLUSH 5 ML FLUSH FLUSH SCH ×2 (08:47→22:35)
[2016-07-31] MEDS: METOPROLOL TARTRATE 25 MG TAB PO SCH ×2 (08:47→22:34)
[2016-07-31 09:14] VITALS: BP 142/67; PULSE 69; RESP 20; TEMP 95.5; O2SAT 94
[2016-07-31 11:59] VITALS: PULSE 63
[2016-07-31 12:22] VITALS: BP 119/56; PULSE 61; RESP 20; TEMP 98.2
[2016-07-31] MEDS ORDERED: ATIV2INJ2 IM (13:13)
--- NOTE | 2016-07-31 15:24 | HHI.PR ---
Subjective Remarks Doing well. No other concerns. Objective Vitals Vital Signs Date Time Temp Pulse Resp B/P Pulse Ox O2 Delivery O2 Flow Rate FiO2 07/31/16 12:22 98.2 61 20 119/56 07/31/16 11:59 63 07/31/16 09:14 95.5 69 20 142/67 94 07/31/16 04:00 97.6 68 16 126/60 96 07/30/16 20:00 97.8 72 16 120/79 94 07/30/16 17:52 98.7 72 20 188/81 94 I/O 07/30/16 07/30/16 07/30/16 07/31/16 07/31/16 07/31/16 07:00 15:00 23:00 07:00 15:00 23:00 Intake Total 1408 ml Output Total 200 ml 1175 ml Balance -200 ml 233 ml Intake Oral 340 ml IV Total 1068 ml Output Urine Total 200 ml 1175 ml # Voids 2 1 # Bowel Movements 0 1 Result Diagram: 07/29/16 0747 07/29/16 0747 Other Results Item Value Date Time Bedside Blood Glucose 138 mg/dl 07/31/16 1120 Bedside Blood Glucose 84 mg/dl 07/31/16 0458 Bedside Blood Glucose 205 mg/dl 07/30/16 2258 Objective Remarks GENERAL: This is a well-nourished, well-developed patient, in no apparent distress. HEENT: Right periorbital ecchymosis CARDIOVASCULAR: Regular rate and rhythm RESPIRATORY: Clear to auscultation. Breath sounds equal bilaterally. No wheezes , rales, or rhonchi. GASTROINTESTINAL: Abdomen soft, non-tender, nondistended. Normal active bowel sounds MUSCULOSKELETAL: Extremities without clubbing, cyanosis, or edema. NEURO: Confused, a phasic,. Moves all ext x4 and follows minimum directions. Procedures None A/P Problem List: (1) Fall ICD Code: W19.XXXA Status: Acute (2) Sepsis due to urinary tract infection ICD Code: A41.9 Status: Acute (3) Hypoglycemia associated with diabetes ICD Code: E11.649 Status: Acute (4) Delirium ICD Code: R41.0 Status: Acute (5) HTN (hypertension) ICD Code: I10 Status: Chronic (6) DM (diabetes mellitus) ICD Code: E11.9 Status: Chronic (7) CKD (chronic kidney disease) stage 4, GFR 15-29 ml/min ICD Code: N18.4 Status: Chronic (8) WILL (acute kidney injury) ICD Code: N17.9 Status: Acute (9) Aphasia ICD Code: R47.01 Status: Chronic (10) Acute ischemic left MCA stroke ICD Code: I63.512 Status: Chronic Assessment and Plan Ms. Fuller is an 86 year old female who presented to the ED from sn[facility] after a fall and with an initial blood glucose of 25. ED work up indicated sepsis, UTI, hypoglycemia. Patient was initially hypothermic and required warming blankets. Her body temperature improved subsequently. During this examination, patient was found to be restless and saying incomprehensible words.Patient was again found to have low blood glucose 24. Patient received STAT 2 amps of D50 raising her glucose to 393. Patient was subsequently placed on D5NS drip. 07/26 Blood glucose improved - DC D5NS currently and will continue monitor blood sugars closely. - Severe sepsis (Temp 94F, R 22, UTI, WILL on chronic kidney disease) on admission due to klebsiella UTI urinary tract infection. - Urinary tract infection, Complicated. Currently on ceftin. - Fall - metabolic encephalopathymental status still waxes and weans with also a history of recent CVAadd aspirin. -Treated initially with cefepime and now transitioned to oral ceftin to be completed for a total 10 dayswe'll discontinue Dale. - Severe hypoglycemia - Exact etiology unknown. Infection vs. accidental overdose of insulin 70/30 added to decreased oral intake. -Treated with D5NS which has been stopped since 07/26 - Sugars have been acceptable with episodes of hyperglycemia. Continue low dose SSI with insulin NovoLog. - Poor oral intake/appetite/moderate protein calorie malnutrition - Likely secondary to acute infection and the causative of the episodes of hypoglycemia. on Megace and dietitian following. - CKD Stage IV --> baseline creatinine 1.6 to 1.8 - WILL on CKD stage IV - Creatinine 3.17 --> 2.51 --> 2.27 --> 2.0 -->2.1---> 1.8 (07/29) -Continue IV fluids, improving - Will continue to monitor BUN, creatinine. - creatinine currently at baseline. - Diabetes mellitus2 - Patient takes 70/30 unknown quantity. - Will keep patient on sliding scale insulin. - Once blood glucose is stable, we can initiate long acting insulin Levemir. And monitor. - Blood Glucose in the 130's -140's - Severe Hypertension - BP home medications were held yesterday, however, severe increase in BP noted 160s-170's - Restart Amlodipine 10mg Qday, metoprolol 50 mg BID. Cardura 4 mg by mouth daily at bedtime, clonidine as needed, Will hold Vasotec for now until BP stable and can be initiated. - - Hyperlipidemia - continue Pravastatin 80mg QHS. History of recent CVAadd aspirin DVT prophylaxisheparin Discharge Planning Discharge Back to shelter facility today. Problem Qualifiers (1) HTN (hypertension): Qualified Code: I10 - Essential hypertension (2) DM (diabetes mellitus): Lizzette Zarco MD Jul 31, 2016 15:24
--- NOTE | 2016-07-31 15:32 | HHI.DCPOC ---
Discharge Care Plan Diagnosis: (1) Sepsis due to urinary tract infection (2) Hypoglycemia associated with diabetes Goals to Promote Your Health * To prevent worsening of your condition and complications * To maintain your health at the optimal level Directions to Meet Your Goals Take your medications as prescribed Follow your dietary instruction Follow activity as directed Keep your appointments as scheduled Take your immunizations and boosters as scheduled If your symptoms worsen call your PCP, if no PCP go to Urgent Care Center or Emergency Room Smoking is Dangerous to Your Health. Avoid second hand smoke Call the 24-hour hour crisis hotline for domestic abuse at Lizzette Zarco MD Jul 31, 2016 15:32
--- NOTE | 2016-07-31 15:33 | HHI.DS ---
Discharge Summary Admission Date Jul 24, 2016 at 01:58 Discharge Date: Jul 31, 2016 Admitting Diagnosis Acute on CRI, Fall, Cephalohematoma, Hypoglycemia, Hypothermia (1) Sepsis due to urinary tract infection ICD Code: A41.9 Diagnosis: Principal (2) Hypoglycemia associated with diabetes ICD Code: E11.649 Diagnosis: Principal (3) Fall ICD Code: W19.XXXA Diagnosis: Secondary (4) Delirium ICD Code: R41.0 Diagnosis: Secondary (5) HTN (hypertension) ICD Code: I10 Diagnosis: Secondary (6) DM (diabetes mellitus) ICD Code: E11.9 Diagnosis: Secondary (7) CKD (chronic kidney disease) stage 4, GFR 15-29 ml/min ICD Code: N18.4 Diagnosis: Secondary (8) WILL (acute kidney injury) ICD Code: N17.9 Diagnosis: Secondary (9) Aphasia ICD Code: R47.01 Diagnosis: Secondary Procedures None Brief History - From Admission Obtained from admitting physician's history and physical. Ms. Fuller is an 86 year old female with a history of hypertension, diabetes mellitus, hyperlipidemia who presented to the emergency department on 2015 due to a fall, hypoglycemia at her skilled nursing - [facility]. She fell and hit her forehead. Her blood glucose was 25 and subsequently received IM glucagon at the skilled nursing. Her blood glucose improved to 40 and in the ED, her blood glucose was 86. She was initially hypothermic and required warming blankets. Her body temp improved subsequently. At the time of this interview, patient appears to be restless, muttering words and sounds that is incomprehensible to us. RN checked blood glucose while we are in the room and patient's blood glucose was 24. STAT 2 amps of D50 were administered which raised her blood glucose to 393. We subsequently started patient on D5NS drip at 84cc/hour. No meaningful history could be obtained from the patient at this point. CBC/BMP: 07/29/16 0747 07/29/16 0747 Significant Findings Laboratory Tests Test 07/29/16 07:47 Red Blood Count 3.82 MIL/MM3 (4.00-5.30) Hematocrit 33.7 % (35.0-46.0) Monocytes (%) (Auto) 14.3 % (0.0-8.0) Eosinophils (%) (Auto) 8.2 % (0.0-4.0) Eosinophils # (Auto) 0.5 TH/MM3 (0-0.4) Chloride Level 113 MEQ/L (98-107) Blood Urea Nitrogen 25 MG/DL (7-18) Creatinine 1.87 MG/DL (0.50-1.00) Estimat Glomerular Filtration 26 ML/MIN (>89) Rate Imaging Last Impressions Renal Ultrasound 07/27/16 0000 Signed Impressions: Service Date/Time: Wednesday, July 27, 2016 14:05 - CONCLUSION: 1. Kidneys are slightly echogenic which can be seen with medical renal disease. 2. Simple cyst right kidney. 3. Echogenic focus along the lower pole left kidney could be related to nonobstructing calculus measuring 7 mm. Brandt Lowery MD Head CT 07/23/16 [id number] Signed Impressions: Service Date/Time: Sunday, July 24, 2016 00:04 - CONCLUSION: 1. Suspected recent infarct involving the left middle cerebral artery territory at the left temporal and parietal lobes. 2. Age-related atrophy. 3. Widespread suspected small vessels ischemic change in the white matter. 4. 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 5. Acute right frontal scalp hematoma. Francis Gibson MD Chest X-Ray 07/23/16 [id number] Signed Impressions: Service Date/Time: June 23:48 - CONCLUSION: No acute disease. Francis Gibson MD PE at Discharge GENERAL: This is a well-nourished, well-developed patient, in no apparent distress. HEENT: Right periorbital ecchymosis CARDIOVASCULAR: Regular rate and rhythm RESPIRATORY: Clear to auscultation. Breath sounds equal bilaterally. No wheezes , rales, or rhonchi. GASTROINTESTINAL: Abdomen soft, non-tender, nondistended. Normal active bowel sounds MUSCULOSKELETAL: Extremities without clubbing, cyanosis, or edema. NEURO: Confused, a phasic,. Moves all ext x4 and follows minimum directions. Hospital Course These are the medical issues addressed during this hospitalization: Ms. Fuller is an 86 year old female who presented to the ED from skilled nursing after a fall and with an initial blood glucose of 25. ED work up indicated sepsis, UTI, hypoglycemia. Patient was initially hypothermic and required warming blankets. Her body temperature improved subsequently. During this examination, patient was found to be restless and saying incomprehensible words.Patient was again found to have low blood glucose 24. Patient received STAT 2 amps of D50 raising her glucose to 393. Patient was subsequently placed on D5NS drip. 07/26 Blood glucose improved - DC D5NS currently and will continue monitor blood sugars closely. - Severe sepsis (Temp 94F, R 22, UTI, WILL on chronic kidney disease) on admission due to klebsiella UTI urinary tract infection. - Urinary tract infection, Complicated. Currently on ceftin to complete for 7 more days. - Fall - metabolic encephalopathymental status still waxes and weans with also a history of recent CVAadd aspirin. -Treated initially with cefepime and now transitioned to oral ceftin to be completed for a total 10 days - Severe hypoglycemia - Exact etiology unknown. Infection vs. accidental overdose of insulin 70/30 added to decreased oral intake. -Treated with D5NS which has been stopped since 07/26 - Sugars have been acceptable with episodes of hyperglycemia. Continue low dose SSI with insulin NovoLog. - Poor oral intake/appetite/moderate protein calorie malnutrition - Likely secondary to acute infection and the causative of the episodes of hypoglycemia. on Megace and dietitian following. - CKD Stage IV --> baseline creatinine 1.6 to 1.8 - WILL on CKD stage IV - Creatinine 3.17 --> 2.51 --> 2.27 --> 2.0 -->2.1---> 1.8 (07/29) -Continue IV fluids, improving - Will continue to monitor BUN, creatinine. - creatinine currently at baseline. - Diabetes mellitus2 - Patient takes 70/30 unknown quantity. - Will keep patient on sliding scale insulin. - Once blood glucose is stable, we can initiate long acting insulin Levemir. And monitor. At this point decision is to only cover sinus scale insulin and further management to be done at the skilled nursing. - Blood Glucose in the 130's -140's - Severe Hypertension - BP home medications were held yesterday, however, severe increase in BP noted 160s-170's - Restart Amlodipine 10mg Qday, metoprolol 50 mg BID. Cardura 4 mg by mouth daily at bedtime, clonidine as needed, Will hold Vasotec for now until BP stable and can be initiated. - - Hyperlipidemia - continue Pravastatin 80mg QHS. History of recent CVAadd aspirin Pt Condition on Discharge: Good Discharge Disposition: Discharge to SNF Discharge Time: <= 30 minutes Discharge Instructions DIET: Follow Instructions for: Diabetic Diet Speech Therapy-Diet Recommends: Pureed Activities you can perform: Regular-No Restrictions Follow up Referrals: PCP Follow-up - 1 Week New Medications: Insulin Aspart Inj (Novolog Penfill Inj) 300 Unit/3 Ml Pen 2-10 UNITS SQ TIDAC Do not cover Fasting Sugar less than 200; Max dose at bedtime: 2 units; Max dose at 3am: 0 units; blood sugars less than 70: 0 units; blood sugars 150-199: 1 unit; blood sugars 200-249: 3 units; blood sugars 250- 299: 5 units; blood sugars 300-349: 7 units; blood sugars greater than 349: 9 units. PRN Blood Sugar Management #1 Ref 0 BOX Cefuroxime (Ceftin) 250 Mg Tab 250 MG PO Q12HR Infection #14 TAB Doxazosin (Cardura) 2 Mg Tab 2 MG PO HS Blood Pressure Management #30 TAB ([Aspirin Chew]) 81 MG CHEW 81 MG CHEW DAILY Blood Clot Prevention #30 TAB.CHEW Continued Medications: Amlodipine (Amlodipine) 10 Mg Tab 10 MG PO DAILY Blood Pressure Management #30 Ref 0 TAB Cholecalciferol (D3 Super Strength) 2,000 Unit Cap 1000 UNITS PO DAILY Nutritional Supplement #30 Ref 0 CAP Enalapril (Enalapril) 10 Mg Tab 10 MG PO BID #60 Ref 0 TAB Krill Oil (Krill Oil [place]-3 300 mg) 1 Cap Cap Lorazepam Inj (Ativan Inj) 2 Mg/Ml Inj 1 MG IM TID PRN AGITATION #3 VIAL (This prescription has been renewed) Meclizine (Meclizine) 25 Mg Tab 25 MG PO QID PRN VERTIGO Ref 0 TAB Metoprolol Tartrate (Metoprolol Tartrate) 25 Mg Tab 25 MG PO BID #60 Ref 0 TAB Mirtazapine (Remeron) 15 Mg Tab 15 MG PO HS Depression Control #30 Ref 0 TAB Pravastatin (Pravastatin) 80 Mg Tab 80 MG PO HS Cholesterol Management #30 Ref 0 TAB Discontinued Medications: Aspirin DR (-81) 81 Mg Tabdr Insulin Human Isophane-Regular 70-30 Inj (Novolin 70-30 Inj) 1,000 Unit/10 Ml Vial 1 UNITS SQ Blood Sugar Management Ref 0 ML Quetiapine (Quetiapine) 50 Mg Tab 50 MG PO HS #30 Ref 0 TAB ([Pre-Serv Vision]) 1 TAB PO BID Lizzette Zarco MD Jul 31, 2016 15:33
[2016-07-31] MEDS: LORazepam 2 MG/ML VIAL IM PRN (17:11)
[2016-07-31 17:50] VITALS: BP 131/77; PULSE 72; RESP 20; TEMP 98.2; O2SAT 94
[2016-07-31 20:08] VITALS: BP 98/70; PULSE 73; RESP 20; TEMP 96.5; O2SAT 98
[2016-07-31] MEDS: DOXAZOSIN MESYLATE 2 MG TAB PO SCH (22:34)
[2016-07-31] MEDS: PRAVASTATIN SOD 80 MG TAB PO SCH (22:34)
[2016-07-31] MEDS: MIRTAZAPINE 15 MG TAB PO SCH (22:34)
[2016-08-01] VITALS (9 sets, daily range): BP systolic 104–157; BP diastolic 61–78; PULSE 69–90; RESP 17–19; TEMP 96.5–98.7; O2SAT 94–98
[2016-08-01] MEDS: INSULIN ASPART SUPPLEMENTAL SCALE SQ SCH ×5 (06:31→22:40)
[2016-08-01] MEDS: HEPARIN SODIUM - SQ 10,000 UNITS/ML VIAL SQ SCH ×2 (06:55→17:11)
[2016-08-01] MEDS: ENALAPRIL MALEATE 10 MG TAB PO SCH ×2 (08:54→21:00)
[2016-08-01] MEDS: ASPIRIN 81 MG CHEW TAB CHEW SCH (08:54)
[2016-08-01] MEDS: CEFUROXIME AXETIL 250 MG TAB PO SCH ×2 (08:54→21:31)
[2016-08-01] MEDS: SODIUM CHLORIDE 0.9% FLUSH 5 ML FLUSH FLUSH SCH ×2 (08:55→21:31)
[2016-08-01] MEDS: METOPROLOL TARTRATE 25 MG TAB PO SCH ×2 (08:55→21:00)
[2016-08-01] MEDS: MEGESTROL ACETATE SUSP 400 MG/10 ML CUP PO SCH (08:55)
[2016-08-01 13:06] LABS: BICARBONATE 28.3 MEQ/L (21.0-32.0); POTASSIUM 4.8 MEQ/L (3.5-5.1)
[2016-08-01] MEDS: LORazepam 2 MG/ML VIAL IM PRN (18:42)
--- NOTE | 2016-08-01 19:32 | HHI.PR ---
Subjective Remarks Patient seen this afternoon around 1 PM. Sitting up at nursing station eating. Nurse reports patient is eating well.. Appears comfortable. Confused but pleasant. She denies any pain. Objective Vital Signs Date Time Temp Pulse Resp B/P Pulse Ox O2 Delivery O2 Flow Rate FiO2 08/01/16 16:00 96.5 69 17 146/65 97 08/01/16 12:00 96.8 90 17 145/76 94 08/01/16 07:58 98.6 70 19 157/78 94 08/01/16 04:39 98.0 80 18 114/70 96 08/01/16 01:52 78 08/01/16 00:05 98.7 69 18 104/61 96 07/31/16 20:08 96.5 73 20 98/70 98 I/O 07/31/16 07/31/16 07/31/16 08/01/16 08/01/16 08/01/16 07:00 15:00 23:00 07:00 15:00 23:00 Intake Total 660 ml 240 ml Balance 660 ml 240 ml Intake Oral 660 ml 240 ml # Voids 1 3 1 3 2 # Bowel Movements 1 1 0 2 Result Diagram: 07/29/16 0747 08/01/16 1217 Imaging Last Impressions Renal Ultrasound 07/27/16 0000 Signed Impressions: Service Date/Time: Wednesday, July 27, 2016 14:05 - CONCLUSION: 1. Kidneys are slightly echogenic which can be seen with medical renal disease. 2. Simple cyst right kidney. 3. Echogenic focus along the lower pole left kidney could be related to nonobstructing calculus measuring 7 mm. Brandt Lowery MD Head CT 07/23/16 [id number] Signed Impressions: Service Date/Time: Sunday, July 24, 2016 00:04 - CONCLUSION: 1. Suspected recent infarct involving the left middle cerebral artery territory at the left temporal and parietal lobes. 2. Age-related atrophy. 3. Widespread suspected small vessels ischemic change in the white matter. 4. 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 5. Acute right frontal scalp hematoma. Francis Gibson MD Chest X-Ray 07/23/16 [id number] Signed Impressions: Service Date/Time: June 23:48 - CONCLUSION: No acute disease. Francis Gibson MD Objective Remarks GENERAL: patient sitting up at nursing station in chair. Eating lunch. Appears comfortable. Denies pain, but otherwise unable to answer questions. SKIN: Warm and dry. HEAD: Normocephalic. EYES: No scleral icterus. No injection or drainage. NECK: Supple, trachea midline. No JVD or lymphadenopathy. CARDIOVASCULAR: Regular rate and rhythm without murmurs, gallops, or rubs. RESPIRATORY: Breath sounds equal bilaterally. No accessory muscle use. GASTROINTESTINAL: Abdomen soft, non-tender, nondistended. MUSCULOSKELETAL: No cyanosis, or edema. BACK: Nontender without obvious deformity. No CVA tenderness. A/P Assessment and Plan Ms. Fuller is an 86 year old female who [facility] and with an initial blood glucose of 25. ED work up indicated sepsis, UTI, hypoglycemia. Patient was initially hypothermic and required warming blankets. Her body temperature improved subsequently. During this examination, patient was found to be restless and saying incomprehensible words.Patient was again found to have low blood glucose 24. Patient received STAT 2 amps of D50 raising her glucose to 393. Patient was subsequently placed on D5NS drip. //Severe sepsis (Temp 94F, R 22, UTI, WILL on chronic kidney disease) on admission due to klebsiella UTI urinary tract infection. //Urinary tract infection, Complicated. - Renal ultrasound without evidence of nephritis or hydronephrosis, however does show nonobstructing 7 mm calculus in the left kidney. Currently on ceftin. - Fall - metabolic encephalopathymental status still waxes and weans with also a history of recent CVAadd aspirin. -Treated initially with cefepime and now transitioned to oral ceftin to be completed for a total 10 days - Dale out. -08/01-patient doing well. Continue antibiotics. //Severe hypoglycemia - Exact etiology unknown. Infection vs. accidental overdose of insulin 70/30 added to decreased oral intake. -Treated with D5NS which has been stopped since 07/26 - Sugars have been acceptable with episodes of hyperglycemia. Continue low dose SSI with insulin NovoLog. - 08/01. Glucose stable. Continue monitor. //Poor oral intake/appetite/moderate protein calorie malnutrition - Likely secondary to acute infection and the causative of the episodes of hypoglycemia. - Nutritional intake apparently inadequate, however -on Megace and dietitian following. -on examination 08/01, patient eating fairly well, nurse says eating well. Discussed with nursing. Need to ensure accurate recording of intake.. //CKD Stage IV --> baseline creatinine 1.6 to 1.8 - WILL on CKD stage IV - Creatinine 3.17 --> 2.51 --> 2.27 --> 2.0 -->2.1---> 1.8 --2.1(08/01) -Continue IV fluids, improving - Will continue to monitor BUN, creatinine intermittently. - creatinine currently near baseline. //Diabetes mellitus2 - Patient takes 70/30 unknown quantity. - Will keep patient on sliding scale insulin. - Once blood glucose is stable, we can initiate long acting insulin Levemir. And monitor. - Blood Glucose in the 130's -140's //Severe Hypertension - BP home medications were held previously during admission, however, severe increase in BP noted 160s-170's - Continue Amlodipine 10mg Qday, metoprolol 50 mg BID. Cardura 4 mg by mouth daily at bedtime, clonidine as needed, Will hold Vasotec for now until BP stable and can be initiated. - // Hyperlipidemia - continue Pravastatin 80mg QHS. //History of recent CVA - Continue aspirin //DVT prophylaxisheparin Discharge Planning expect discharge on Wednesday pending bed availability at [facility]. Aristides Ding MD Aug 01, 2016 19:32
[2016-08-01] MEDS: DOXAZOSIN MESYLATE 2 MG TAB PO SCH (21:00)
[2016-08-01] MEDS: PRAVASTATIN SOD 80 MG TAB PO SCH (21:31)
[2016-08-01] MEDS: MIRTAZAPINE 15 MG TAB PO SCH (21:31)
[2016-08-02 04:00] VITALS: BP 127/61; PULSE 83; RESP 18; TEMP 98.3; O2SAT 97
[2016-08-02] MEDS: HEPARIN SODIUM - SQ 10,000 UNITS/ML VIAL SQ SCH ×2 (06:28→18:28)
[2016-08-02] MEDS: INSULIN ASPART SUPPLEMENTAL SCALE SQ SCH ×4 (06:28→22:31)
[2016-08-02 08:00] VITALS: BP 130/63; PULSE 64; RESP 18; O2SAT 96
[2016-08-02] MEDS: SODIUM CHLORIDE 0.9% FLUSH 5 ML FLUSH FLUSH SCH ×2 (09:00→21:00)
[2016-08-02] MEDS: METOPROLOL TARTRATE 25 MG TAB PO SCH ×2 (09:00→22:20)
[2016-08-02] MEDS: ENALAPRIL MALEATE 10 MG TAB PO SCH ×2 (10:02→22:19)
[2016-08-02] MEDS: ASPIRIN 81 MG CHEW TAB CHEW SCH (10:03)
[2016-08-02] MEDS: CEFUROXIME AXETIL 250 MG TAB PO SCH ×2 (10:03→22:19)
[2016-08-02] MEDS: MEGESTROL ACETATE SUSP 400 MG/10 ML CUP PO SCH (10:03)
[2016-08-02 12:00] VITALS: BP 158/68; PULSE 74; RESP 16; TEMP 98.5; O2SAT 97
[2016-08-02 16:00] VITALS: BP 149/78; PULSE 74; RESP 19; TEMP 98.6; O2SAT 98
[2016-08-02 20:57] VITALS: BP 152/67; PULSE 83; RESP 20; TEMP 97; O2SAT 95
[2016-08-02] MEDS: DOXAZOSIN MESYLATE 2 MG TAB PO SCH (22:19)
[2016-08-02] MEDS: PRAVASTATIN SOD 80 MG TAB PO SCH (22:19)
[2016-08-02] MEDS: MIRTAZAPINE 15 MG TAB PO SCH (22:19)
--- NOTE | 2016-08-02 22:24 | HHI.PR ---
Subjective Remarks patient seen today around noon. Lying in bed. Appears comfortable. Denies any pain. Discussed with nursing. Patient appears to be eating well, mainly if she is fed however. Have ordered for feeding assistance. Objective Vital Signs Date Time Temp Pulse Resp B/P Pulse Ox O2 Delivery O2 Flow Rate FiO2 08/02/16 20:57 97.0 83 20 152/67 95 08/02/16 16:00 98.6 74 19 149/78 98 08/02/16 12:00 98.5 74 16 158/68 97 08/02/16 08:00 64 18 130/63 96 08/02/16 04:00 98.3 83 18 127/61 97 08/01/16 23:53 98.4 83 18 126/63 98 I/O 08/01/16 08/01/16 08/01/16 08/02/16 08/02/16 08/02/16 06:59 14:59 22:59 06:59 14:59 22:59 Intake Total 240 ml 60 ml 480 ml Balance 240 ml 60 ml 480 ml Intake Oral 240 ml 60 ml 480 ml # Voids 1 3 2 2 2 # Bowel Movements 0 2 0 Result Diagram: 07/29/16 0747 08/01/16 1217 Objective Remarks GENERAL:patient lying in bed. Appears comfortable. Appears comfortable. Denies pain, but otherwise unable to answer questions. otherwise as before. SKIN: Warm and dry. HEAD: Normocephalic. EYES: No scleral icterus. No injection or drainage. NECK: Supple, trachea midline. No JVD or lymphadenopathy. CARDIOVASCULAR: Regular rate and rhythm without murmurs, gallops, or rubs. RESPIRATORY: Breath sounds equal bilaterally. No accessory muscle use. GASTROINTESTINAL: Abdomen soft, non-tender, nondistended. MUSCULOSKELETAL: No cyanosis, or edema. BACK: Nontender without obvious deformity. No CVA tenderness. A/P Assessment and Plan Ms. Fuller is an 86 year old female who presented to the ED from [facility]f after a fall and with an initial blood glucose of 25. ED work up indicated sepsis, UTI, hypoglycemia. Patient was initially hypothermic and required warming blankets. Her body temperature improved subsequently. During this examination, patient was found to be restless and saying incomprehensible words.Patient was again found to have low blood glucose 24. Patient received STAT 2 amps of D50 raising her glucose to 393. Patient was subsequently placed on D5NS drip. //Severe sepsis (Temp 94F, R 22, UTI, WILL on chronic kidney disease) on admission due to klebsiella UTI urinary tract infection. //Urinary tract infection, Complicated. - Renal ultrasound without evidence of nephritis or hydronephrosis, however does show nonobstructing 7 mm calculus in the left kidney. Currently on ceftin. - Fall - metabolic encephalopathymental status still waxes and weans with also a history of recent CVAadd aspirin. -Treated initially with cefepime and now transitioned to oral ceftin to be completed for a total 10 days - Dale out. -08/02-patient doing well. Continue antibiotics. //Severe hypoglycemia - Exact etiology unknown. Infection vs. accidental overdose of insulin 70/30 added to decreased oral intake. -Treated with D5NS which has been stopped since 07/26 - Sugars have been acceptable with episodes of hyperglycemia. Continue low dose SSI with insulin NovoLog. - 08/02. Glucose stable. Continue monitor. //Poor oral intake/appetite/moderate protein calorie malnutrition - Likely secondary to acute infection and the causative of the episodes of hypoglycemia. - Nutritional intake apparently inadequate, however -on Megace and dietitian following. -on examination 08/01, patient eating fairly well, nurse says eating well. Discussed with nursing. Need to ensure accurate recording of intake.. -08/02. Per discussion with nursing, have ordered assistance for feeding. Continue monitor by mouth intake. //CKD Stage IV --> baseline creatinine 1.6 to 1.8 - WILL on CKD stage IV - Creatinine 3.17 --> 2.51 --> 2.27 --> 2.0 -->2.1---> 1.8 --2.1(08/01) -Continue IV fluids, improving - Will continue to monitor BUN, creatinine intermittently. - creatinine currently near baseline. //Diabetes mellitus2 - Patient takes 70/30 unknown quantity. - Will keep patient on sliding scale insulin. - Once blood glucose is stable, we can initiate long acting insulin Levemir. And monitor. - Blood Glucose in the 130's -140's //Severe Hypertension - BP home medications were held previously during admission, however, severe increase in BP noted 160s-170's - Continue Amlodipine 10mg Qday, metoprolol 50 mg BID. Cardura 4 mg by mouth daily at bedtime, clonidine as needed, Will hold Vasotec for now until BP stable and can be initiated. - // Hyperlipidemia - continue Pravastatin 80mg QHS. //History of recent CVA - Continue aspirin //DVT prophylaxisheparin Discharge Planning expect discharge on Wednesday pending bed availability at [facility]. Aristides Ding MD Aug 02, 2016 22:24
[2016-08-03] VITALS (7 sets, daily range): BP systolic 92–130; BP diastolic 59–69; PULSE 62–75; RESP 18–21; TEMP 96.9–98.2; O2SAT 97–99
[2016-08-03] MEDS: LORazepam 2 MG/ML VIAL IM PRN (03:34)
[2016-08-03] MEDS: INSULIN ASPART SUPPLEMENTAL SCALE SQ SCH ×4 (05:57→22:07)
[2016-08-03] MEDS: HEPARIN SODIUM - SQ 10,000 UNITS/ML VIAL SQ SCH ×2 (06:00→18:46)
[2016-08-03] MEDS: SODIUM CHLORIDE 0.9% FLUSH 5 ML FLUSH FLUSH SCH ×2 (09:00→21:00)
[2016-08-03] MEDS: ENALAPRIL MALEATE 10 MG TAB PO SCH ×2 (10:24→20:39)
[2016-08-03] MEDS: ASPIRIN 81 MG CHEW TAB CHEW SCH (10:24)
[2016-08-03] MEDS: CEFUROXIME AXETIL 250 MG TAB PO SCH ×2 (10:24→21:08)
[2016-08-03] MEDS: MEGESTROL ACETATE SUSP 400 MG/10 ML CUP PO SCH (10:25)
[2016-08-03 10:38] LABS: BICARBONATE 24.5 MEQ/L (21.0-32.0)
[2016-08-03] MEDS: METOPROLOL TARTRATE 25 MG TAB PO SCH ×2 (10:40→20:39)
--- NOTE | 2016-08-03 20:49 | HHI.PR ---
Subjective Remarks patient seen today around 11:30 AM. She denies any pain. Appears to be more alert and talking more, however unintelligible. Smiling today. Objective Vital Signs Date Time Temp Pulse Resp B/P Pulse Ox O2 Delivery O2 Flow Rate FiO2 08/03/16 16:00 98.2 62 20 98/62 99 08/03/16 15:46 62 08/03/16 13:50 62 08/03/16 12:00 97.4 72 20 108/66 99 08/03/16 08:00 96.9 75 20 130/66 99 08/03/16 04:00 98.0 65 21 128/69 98 08/02/16 20:57 97.0 83 20 152/67 95 I/O 08/02/16 08/02/16 08/02/16 08/03/16 08/03/16 08/03/16 07:00 15:00 23:00 07:00 15:00 23:00 Intake Total 480 ml 237 ml Balance 480 ml 237 ml Intake Oral 480 ml 237 ml # Voids 2 2 1 2 3 1 # Bowel Movements 0 0 1 Result Diagram: 08/03/16 0843 Objective Remarks GENERAL:patientsitting up in chair at nursing station.Appears comfortable. Appears comfortable. Denies pain, but otherwise unable to answer questions. on today. Exam otherwise unchanged. SKIN: Warm and dry. HEAD: Normocephalic. EYES: No scleral icterus. No injection or drainage. NECK: Supple, trachea midline. No JVD. CARDIOVASCULAR: Regular rate and rhythm without murmurs, gallops, or rubs. RESPIRATORY: Breath sounds equal bilaterally. No accessory muscle use. GASTROINTESTINAL: Abdomen soft, non-tender, nondistended. MUSCULOSKELETAL: No cyanosis, or edema. BACK: Nontender without obvious deformity. No CVA tenderness. A/P Assessment and Plan 08/03. patient appears to be doing well. However, Creatinine slightly up. Order nursing to encourage by mouth fluids. Will followup renal function. Ms. Fuller is an 86 year old female who [facility] from [facility] after a fall and with an initial blood glucose of 25. ED work up indicated sepsis, UTI, hypoglycemia. Patient was initially hypothermic and required warming blankets. Her body temperature improved subsequently. During this examination, patient was found to be restless and saying incomprehensible words.Patient was again found to have low blood glucose 24. Patient received STAT 2 amps of D50 raising her glucose to 393. Patient was subsequently placed on D5NS drip. //Severe sepsis (Temp 94F, R 22, UTI, WILL on chronic kidney disease) on admission due to klebsiella UTI urinary tract infection. //Urinary tract infection, Complicated. - Renal ultrasound without evidence of nephritis or hydronephrosis, however does show nonobstructing 7 mm calculus in the left kidney. Currently on ceftin. - Fall - metabolic encephalopathymental status still waxes and weans with also a history of recent CVAadd aspirin. -Treated initially with cefepime and now transitioned to oral ceftin to be completed for a total 10 days - Dale out. -08/02-patient doing well. Continue antibiotics. //Severe hypoglycemia - Exact etiology unknown. Infection vs. accidental overdose of insulin 70/30 added to decreased oral intake. -Treated with D5NS which has been stopped since 07/26 - Sugars have been acceptable with episodes of hyperglycemia. Continue low dose SSI with insulin NovoLog. - 08/02. Glucose stable. Continue monitor. //Poor oral intake/appetite/moderate protein calorie malnutrition - Likely secondary to acute infection and the causative of the episodes of hypoglycemia. - Nutritional intake apparently inadequate, however -on Megace and dietitian following. -on examination 08/01, patient eating fairly well, nurse says eating well. Discussed with nursing. Need to ensure accurate recording of intake.. -08/02. Per discussion with nursing, have ordered assistance for feeding. Continue monitor by mouth intake. //CKD Stage IV --> baseline creatinine 1.6 to 1.8 - WILL on CKD stage IV - Creatinine 3.17 --> 2.51 --> 2.27 --> 2.0 -->2.1---> 1.8 --2.1(08/01) -Continue IV fluids, improving - Will continue to monitor BUN, creatinine intermittently. - creatinine currently near baseline. //Diabetes mellitus2 - Patient takes 70/30 unknown quantity. - Will keep patient on sliding scale insulin. - Once blood glucose is stable, we can initiate long acting insulin Levemir. And monitor. - Blood Glucose in the 130's -140's //Severe Hypertension - BP home medications were held previously during admission, however, severe increase in BP noted 160s-170's - Continue Amlodipine 10mg Qday, metoprolol 50 mg BID. Cardura 4 mg by mouth daily at bedtime, clonidine as needed, Will hold Vasotec for now until BP stable and can be initiated. - // Hyperlipidemia - continue Pravastatin 80mg QHS. //History of recent CVA - Continue aspirin //DVT prophylaxisheparin Discharge Planning expect discharge on pending bed availability at SNF. Aristides Ding MD Aug 03, 2016 20:49
[2016-08-03] MEDS: PRAVASTATIN SOD 80 MG TAB PO SCH (21:08)
[2016-08-03] MEDS: MIRTAZAPINE 15 MG TAB PO SCH (21:08)
[2016-08-03] MEDS: DOXAZOSIN MESYLATE 2 MG TAB PO SCH (21:08)
[2016-08-04] VITALS (7 sets, daily range): BP systolic 98–171; BP diastolic 50–75; PULSE 64–76; RESP 18–20; TEMP 96–98; O2SAT 95–100
[2016-08-04] MEDS: INSULIN ASPART SUPPLEMENTAL SCALE SQ SCH ×4 (05:19→20:20)
[2016-08-04] MEDS: HEPARIN SODIUM - SQ 10,000 UNITS/ML VIAL SQ SCH ×2 (05:20→18:14)
[2016-08-04] MEDS: CEFUROXIME AXETIL 250 MG TAB PO SCH ×2 (09:50→20:14)
[2016-08-04] MEDS: METOPROLOL TARTRATE 25 MG TAB PO SCH ×2 (09:50→20:14)
[2016-08-04] MEDS: ENALAPRIL MALEATE 10 MG TAB PO SCH ×2 (09:51→20:14)
[2016-08-04] MEDS: ASPIRIN 81 MG CHEW TAB CHEW SCH (09:51)
[2016-08-04] MEDS: MEGESTROL ACETATE SUSP 400 MG/10 ML CUP PO SCH (09:51)
[2016-08-04 11:19] LABS: BICARBONATE 25.5 MEQ/L (21.0-32.0); POTASSIUM 5.3 MEQ/L (3.5-5.1)
[2016-08-04] MEDS: SODIUM CHLOR 0.9% 1000 ML INJ 1,000 ML IV SCH (12:30)
[2016-08-04] MEDS ORDERED: SODIUM CHLOR 0.9% 250 ML INJ 250 ML IV ONE (12:30)
[2016-08-04] MEDS ORDERED: DIME240C PO (12:54)
[2016-08-04] MEDS: SODIUM CHLORIDE 0.9% FLUSH 5 ML FLUSH FLUSH SCH ×2 (14:05→20:13)
--- NOTE | 2016-08-04 16:35 | PD.CONS ---
[facility] Service Nephrology Consult Requested By Reason for Consult WILL on CKD Primary Care Physician Nan Naidu MD History of Present Illness This is an 86 y/o female who came to ER after a fall with head trauma from the skilled nursing. Creatinine elevated on arrival, initially improved with IVF. Looking back it appears that her baseline from the end of June 2016 is 1.8, GFR 26 consistent with CKD 4. On arrival, her creatinine was 3.17, which improved to 1.87, then subsequently juanita to 2.65. She has a hx of HTN, DM II, hyperlipidemia, vitamin D deficiency, and history of renal stones. All history was obtained from previous admission. She was hypoglycemic on arrival, was on D5NS, but is now on NS at 84 cc/hr. She has a bruise under her right eye, scattered abrasions, no edema. She is incoherent, unable to follow commands, may have underlying dementia. Her K is 5.2, C02 in normal range. She has proteinuria. We were consulted for renal management. 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 She is being treated for UTI, thought to be septic but blood cultures are negative. She is on Ceftin. (Ayesha Gaspar) Review of Systems ROS Limitations: Clinical Condition, Altered Mental Status, Poor Historian ( Ayesha Gaspar) Past Family Social History Allergies: Coded Allergies: Hydromorphone (Verified Allergy, Severe, Anaphylaxis, 07/23/16) Past Medical History DM II CKD 4, baseline creatinine 1.8, GFR 26 HTN hyperlipidemia renal stones vitamin D deficiency Past Surgical History From prior records: carpel tunnel repair tonsillectomy renal stone removal Reported Medications Krill Oil [place]-3 300 mg (Krill Oil) 1 Cap Cap Remeron (Mirtazapine) 15 Mg Tab 15 Mg PO HS D3 Super Strength (Cholecalciferol) 2,000 Unit Cap 1,000 Units PO DAILY Quetiapine (Quetiapine Fumarate) 50 Mg Tab 50 Mg PO HS Pravastatin 80 Mg Tab 80 Mg PO HS Amlodipine (Amlodipine Besylate) 10 Mg Tab 10 Mg PO DAILY Aspir-81 (Aspirin) 81 Mg Tabdr Metoprolol Tartrate 25 Mg Tab 25 Mg PO BID Meclizine (Meclizine HCl) 25 Mg Tab 25 Mg PO QID PRN Enalapril (Enalapril Maleate) 10 Mg Tab 10 Mg PO BID Ativan Inj (Lorazepam) 2 Mg/Ml Inj 1 Mg IM TID PRN Novolin 70-30 Inj (Insulin Human Isoph/Insulin Regular) 1,000 Unit/10 Ml Vial 1 Units SQ [Pre-Serv Vision] 1 Tab PO BID Active Ordered Medications Current Medications Medications (Trade) Dose Ordered Sig/Emiliano Route Start Time Stop Time Status Last Admin (NS Flush) 2 ml UNSCH PRN FLUSH 07/24/16 02:00 (NS Flush) 2 ml BID FLUSH 07/24/16 09:00 08/04/16 14:05 (Tylenol) 650 mg Q4H PRN PO 07/24/16 02:00 (Zofran Inj) 4 mg Q6H PRN IVP 07/24/16 02:00 (Dulcolax Supp) 10 mg DAILY PRN OK 07/24/16 02:00 (Milk Of Magnesia Liq) 30 ml Q12H PRN PO 07/24/16 02:00 (Heparin Inj) 5,000 units Q12H SQ 07/24/16 06:00 08/03/16 18:46 (Narcan Inj) 0.4 mg UNSCH PRN IV 07/24/16 02:00 (Norvasc) 10 mg DAILY PO 07/24/16 09:00 08/04/16 09:50 (Vasotec) 10 mg BID PO 07/24/16 09:00 08/04/16 09:51 (Ativan Inj) 1 mg TID PRN IM 07/24/16 05:30 08/03/16 03:34 (Antivert) 25 mg QID PRN PO 07/24/16 05:30 (Remeron) 15 mg HS PO 07/24/16 21:00 08/03/16 21:08 (Pravachol) 80 mg HS PO 07/24/16 21:00 08/03/16 21:08 (SEROquel) 50 mg HS PO 07/24/16 21:00 Hold (Lopressor) 50 mg Q12HR PO 07/26/16 21:00 08/04/16 09:50 (D50w (Vial) Inj) 25 ml UNSCH PRN IV PUSH 07/26/16 20:30 (Glucagon Inj) 1 mg UNSCH PRN OTHER 07/26/16 20:30 (Cardura) 2 mg HS PO 07/27/16 00:30 08/03/16 21:08 (Megace Liq) 400 mg DAILY PO 07/27/16 12:45 08/04/16 09:51 (Pill Splitter) 1 ea UNSCH PRN OTHER 07/29/16 12:00 (Aspirin Chew) 81 mg DAILY CHEW 07/31/16 09:00 08/04/16 09:51 Cefuroxime Axetil 250 mg 250 mg Q12HR PO 07/30/16 21:00 08/04/16 09:50 (NS 1000 ml Inj) 1,000 ml @ 84 mls/hr [id number] IV 08/04/16 12:30 08/04/16 12:30 Family History Unknown Social History [facility] other information unable to be obtained. (Ayesha Gaspar) Physical Exam Vital Signs Vital Signs Date Time Temp Pulse Resp B/P Pulse Ox O2 Delivery O2 Flow Rate FiO2 08/04/16 15:59 98.0 68 20 98/50 96 08/04/16 12:00 97.4 75 20 171/75 96 08/04/16 08:00 96.0 76 20 134/71 95 08/04/16 04:05 97.1 70 20 119/63 100 08/04/16 00:05 97.4 74 18 104/58 97 08/03/16 20:05 97.8 70 18 92/59 97 Physical Exam Elderly cachectic female lying curled up in recliner on right side sleeping, when awake mumbles, does not follow commands right eye with periorbital abrasion scattered bruises no extremity edema heart regular, S1S2, no murmurs lungs clear Laboratory Laboratory Tests Test 08/04/16 10:20 Sodium Level 134 Potassium Level 5.3 Chloride Level 101 Carbon Dioxide Level 25.5 Anion Gap 8 Blood Urea Nitrogen 39 Creatinine 2.65 Estimat Glomerular Filtration 17 Rate Random Glucose 217 Calcium Level 9.0 (Ayesha Gaspar) Result Diagram: 08/04/16 1020 Imaging Last Impressions Renal Ultrasound 07/27/16 0000 Signed Impressions: Service Date/Time: Wednesday, July 27, 2016 14:05 - CONCLUSION: 1. Kidneys are slightly echogenic which can be seen with medical renal disease. 2. Simple cyst right kidney. 3. Echogenic focus along the lower pole left kidney could be related to nonobstructing calculus measuring 7 mm. Brandt Lowery MD Head CT 07/23/16 [id number] Signed Impressions: Service Date/Time: Sunday, July 24, 2016 00:04 - CONCLUSION: 1. Suspected recent infarct involving the left middle cerebral artery territory at the left temporal and parietal lobes. 2. Age-related atrophy. 3. Widespread suspected small vessels ischemic change in the white matter. 4. 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 5. Acute right frontal scalp hematoma. Francis Gibson MD Chest X-Ray 07/23/16 [id number] Signed Impressions: Service Date/Time: June 23:48 - CONCLUSION: No acute disease. Francis Gibson MD (Ayesha Gaspar) Assessment and Plan Problem List: (1) WILL (acute kidney injury) Plan: baseline CKD 4, creatinine 1.8, GFR 26 she has proteinuria, which may indicate underlying diabetic nephropathy, will quantify renal function initially improved with IVF, she has had poor oral intake and has required appetite stimulants when the IVF was stopped, it seems her renal function became worse UTI may be also contributing in the meantime, monitor potassium, follow low K diet, treat if K > 5.5 no metabolic acidosis identified continue IVF monitor urine output, currently not documented, she does not have a rhodes and apparently is taken to toilet Q2h, will order I/O charting encourage oral intake avoid nephrotoxins daily renal panel she is not in need of renal replacement therapy at this time (2) HTN (hypertension) Plan: blood pressure is acceptable continue current medications (3) Diabetes mellitus, type 2 Plan: initially hypoglycemic now BG 100-200s, continue insulin as needed avoid hypoglycemia (4) UTI (urinary tract infection) Plan: blood cultures negative urine culture positive for Klebsiella, she is on ceftin monitor clinically, currently afebrile (Ayesha Gaspar) Problem List: (1) WILL (acute kidney injury) Plan: baseline CKD 4, creatinine 1.8, GFR 26 she has proteinuria, which may indicate underlying diabetic nephropathy, will quantify renal function initially improved with IVF, she has had poor oral intake and has required appetite stimulants when the IVF was stopped, it seems her renal function became worse UTI may be also contributing in the meantime, monitor potassium, follow low K diet, treat if K > 5.5 no metabolic acidosis identified continue IVF monitor urine output, currently not documented, she does not have a rhodes and apparently is taken to toilet Q2h, will order I/O charting encourage oral intake avoid nephrotoxins daily renal panel she is not in need of renal replacement therapy at this time (2) HTN (hypertension) Plan: blood pressure is acceptable continue current medications (3) Diabetes mellitus, type 2 Plan: initially hypoglycemic now BG 100-200s, continue insulin as needed avoid hypoglycemia (4) UTI (urinary tract infection) Plan: blood cultures negative urine culture positive for Klebsiella, she is on ceftin monitor clinically, currently afebrile Assessment and Plan patient was seen and examined. WILL could be due to pre-renal factors. Cautious hydration. Mild hyperkalemia is noted. Monitor. Avoid nephrotoxic agents. May have underlying stage IV CKD due to diabetic nephropathy. She has dementia, no history could be obtained from her. (Balta Elena MD) Problem Qualifiers (1) HTN (hypertension): Qualified Code: I10 - Essential hypertension Ayesha Gaspar [facility] Aug 04, 2016 16:35 Balta Elena MD Aug 05, 2016 08:57
[2016-08-04] MEDS: DOXAZOSIN MESYLATE 2 MG TAB PO SCH (20:14)
[2016-08-04] MEDS: PRAVASTATIN SOD 80 MG TAB PO SCH (20:14)
[2016-08-04] MEDS: MIRTAZAPINE 15 MG TAB PO SCH (20:15)
--- NOTE | 2016-08-04 21:29 | HHI.PR ---
Subjective Remarks patient seen today around 12 noon.. Patient sitting up at nursing station. Smiling. does deny pain.Talking,smiling, however unintelligible. Objective Vital Signs Date Time Temp Pulse Resp B/P Pulse Ox O2 Delivery O2 Flow Rate FiO2 08/04/16 20:30 64 20 112/54 98 08/04/16 15:59 98.0 68 20 98/50 96 08/04/16 12:00 97.4 75 20 171/75 96 08/04/16 08:00 96.0 76 20 134/71 95 08/04/16 04:05 97.1 70 20 119/63 100 08/04/16 00:05 97.4 74 18 104/58 97 I/O 08/03/16 08/03/16 08/03/16 08/04/16 08/04/16 08/04/16 07:00 15:00 23:00 07:00 15:00 23:00 Intake Total 237 ml 240 ml 240 ml 360 ml Balance 237 ml 240 ml 240 ml 360 ml Intake Oral 237 ml 240 ml 240 ml 360 ml # Voids 2 3 2 2 5 3 # Bowel Movements 1 0 Result Diagram: 08/04/16 1020 Objective Remarks GENERAL:patient sitting up in chair at nursing station. Appears comfortable. Denies pain, but otherwise unable to answer questions.patient appears to have eaten 90% of her lunch. She drank her supplement, however there is no other fluid available to her.exam otherwise unchanged. SKIN: Warm and dry. HEAD: Normocephalic. EYES: No scleral icterus. No injection or drainage. NECK: Supple, trachea midline. No JVD. CARDIOVASCULAR: Regular rate and rhythm without murmurs, gallops, or rubs. RESPIRATORY: Breath sounds equal bilaterally. No accessory muscle use. GASTROINTESTINAL: Abdomen soft, non-tender, nondistended. MUSCULOSKELETAL: No cyanosis, or edema. BACK: Nontender without obvious deformity. No CVA tenderness. A/P Assessment and Plan 08/04. creatinine up to 2.6. Discussed with nursing, patient eating most of her food, however only drinking 2 supplements and one 8 ounce cup of water per day.will place back on fluids. Encourage by mouth intake. Patient did drink when I got her a cup of water on exam. Ms. Fuller is an 86 year old female who presented to the ED from senior living after a fall and with an initial blood glucose of 25. ED work up indicated sepsis, UTI, hypoglycemia. Patient was initially hypothermic and required warming blankets. Her body temperature improved subsequently. During this examination, patient was found to be restless and saying incomprehensible words.Patient was again found to have low blood glucose 24. Patient received STAT 2 amps of D50 raising her glucose to 393. Patient was subsequently placed on D5NS drip. //Severe sepsis (Temp 94F, R 22, UTI, WILL on chronic kidney disease) on admission due to klebsiella UTI urinary tract infection. //Urinary tract infection, Complicated. - Renal ultrasound without evidence of nephritis or hydronephrosis, however does show nonobstructing 7 mm calculus in the left kidney. Currently on ceftin. - Fall - metabolic encephalopathymental status still waxes and weans with also a history of recent CVAadd aspirin. -Treated initially with cefepime and now transitioned to oral ceftin to be completed for a total 10 days - Dale out. -08/02-patient doing well. Continue antibiotics. //Severe hypoglycemia - Exact etiology unknown. Infection vs. accidental overdose of insulin 70/30 added to decreased oral intake. -Treated with D5NS which has been stopped since 07/26 - Sugars have been acceptable with episodes of hyperglycemia. Continue low dose SSI with insulin NovoLog. - Glucose stable. Continue monitor. //Poor oral intake/appetite/moderate protein calorie malnutrition - Likely secondary to acute infection and the causative of the episodes of hypoglycemia. - Nutritional intake apparently inadequate, however -on Megace and dietitian following. -on examination 08/01, patient eating fairly well, nurse says eating well. Discussed with nursing. Need to ensure accurate recording of intake.. -08/02. Per discussion with nursing, have ordered assistance for feeding. Continue monitor by mouth intake. -08/04. very good appetite, however barely drinking anything. Start on IV fluids again. Encourage fluids by mouth. //CKD Stage IV --> baseline creatinine 1.6 to 1.8 //WILL on CKD stage IV - Creatinine 3.17 --> 2.51 --> 2.27 --> 2.0 -->2.1---> 1.8 --2.1-->2.6(08/04) -worsened off of IV fluids. Restart IV fluids.encourage by mouth intake. //Diabetes mellitus2 - Patient takes 70/30 unknown quantity. - Will keep patient on sliding scale insulin. - Once blood glucose is stable, we can initiate long acting insulin Levemir. And monitor. - Blood Glucose in the 130's -140's //Severe Hypertension - BP home medications were held previously during admission, however, severe increase in BP noted 160s-170's - Continue Amlodipine 10mg Qday, metoprolol 50 mg BID. Cardura 4 mg by mouth daily at bedtime, clonidine as needed, Will hold Vasotec for now until BP stable and can be initiated. - // Hyperlipidemia - continue Pravastatin 80mg QHS. //History of recent CVA - Continue aspirin //DVT prophylaxisheparin Discharge Planning if renal function improved, expect discharge on pending bed availability at SNF.patient tolerating diet, however very poor fluid intake. If cannot drink enough fluids, may likely need maintenance IV fluids Aristides Ding MD Aug 04, 2016 21:29
[2016-08-04 23:15] LABS: BLOOD, URINE NEG (NEG); GLUCOSE,URINE 150 mg/dL (NEG); HYALINE CAST, URINE 1 /lpf (RARE); KETONE, URINE NEG (NEG); NITRITE,URINE NEG (NEG); PH, URINE 7.5 (5.0-8.5); RENAL EPITHELIAL CELLS <1 /hpf; SQUAMOUS EPITHELIAL CELL URINE 1 /hpf (0-5); URINE COLOR YELLOW (YELLW/STRAW)
[2016-08-04 23:18] LABS: COMMENT (UR) CULT NOT INDICATED; CULTURE IF INDICATED CULT NOT INDICATED
[2016-08-05] VITALS (7 sets, daily range): BP systolic 95–122; BP diastolic 50–93; PULSE 60–72; RESP 18–22; TEMP 95.8–98.4; O2SAT 93–99
[2016-08-05] MEDS: SODIUM CHLOR 0.9% 1000 ML INJ 1,000 ML IV SCH ×2 (00:38→12:20)
[2016-08-05] MEDS: HEPARIN SODIUM - SQ 10,000 UNITS/ML VIAL SQ SCH ×2 (06:00→18:15)
[2016-08-05] MEDS: INSULIN ASPART SUPPLEMENTAL SCALE SQ SCH ×4 (06:20→20:43)
[2016-08-05 07:20] LABS: POTASSIUM 5.9 MEQ/L (3.5-5.1)
[2016-08-05] MEDS ORDERED: SODIUM POLYSTYRENE SULFONATE SUSP 15 GM/60 ML CUP PO ONE (09:00)
[2016-08-05] MEDS ORDERED: DEXTROSE 50% IN WATER 50 ML VIAL(D50) IV PUSH ONE (09:00)
[2016-08-05] MEDS ORDERED: INSULIN HUMAN REGULAR 1,000 UNITS/10 ML VIAL IVP ONE (09:00)
--- NOTE | 2016-08-05 09:02 | HHI.NPPN ---
Subjective Interval History patient is sleepy. Hemodynamically stable. Does not respond to verbal stimuli Objective Data Data 08/04/16 08/05/16 19:00 07:00 Intake Total 360 ml 1440 ml Output Total 350 ml Balance 360 ml 1090 ml Intake Oral 360 ml 480 ml IV Total 960 ml Output Urine Total 350 ml # Voids 8 1 # Bowel Movements 0 Vital Signs Date Time Temp Pulse Resp B/P Pulse Ox O2 Delivery O2 Flow Rate FiO2 08/05/16 08:00 98.0 68 20 95/50 95 08/05/16 04:16 98.0 72 22 100/53 97 08/05/16 00:48 72 08/05/16 00:13 97.8 60 20 106/54 99 08/04/16 20:30 64 20 112/54 98 08/04/16 20:06 96.3 76 20 111/59 98 08/04/16 15:59 98.0 68 20 98/50 96 08/04/16 12:00 97.4 75 20 171/75 96 -: 08/05/16 0615 Physical Exam General Appearance: Well Developed, No Acute Distress Neck Neck Exam: Neck Supple Pulmonary Resp Exam: Rhonchi Cardiology CV Exam: Regular, Normal Sinus Rhythm Chest/Breast Chest/Breast Exam: Symmetry Gastrointestinal/Abdomen GI Exam: Soft, Non-Tender, Bowel Sounds Present Musculoskeletal MS Exam: Joints Intact Integumentary Skin Exam: Intact Extremeties Extremities Exam: No Edema Neurologic Neuro Remarks suffers from dementia. Assessment/Plan Problem List: (1) WILL (acute kidney injury) Plan: Renal function is slightly better. Avoid nephrotoxic agents. Avoid nephrotoxic agents. Cautious IVF. (2) CKD (chronic kidney disease) stage 4, GFR 15-29 ml/min (3) Hyperkalemia Plan: potassium is higher. I will be stopping Enalapril. Insulin and dextrose. One dose of Kayexalate. Repeat potassium level later today. (4) HTN (hypertension) Plan: blood pressure is acceptable continue current medications (5) Diabetes mellitus, type 2 Plan: initially hypoglycemic now BG 100-200s, continue insulin as needed avoid hypoglycemia (6) UTI (urinary tract infection) Plan: blood cultures negative urine culture positive for Klebsiella, she is on ceftin monitor clinically, currently afebrile Problem Qualifiers (1) HTN (hypertension): Qualified Code: I10 - Essential hypertension Hoskote,Balta MD Aug 05, 2016 09:01
[2016-08-05] MEDS: ASPIRIN 81 MG CHEW TAB CHEW SCH (11:01)
[2016-08-05] MEDS: METOPROLOL TARTRATE 25 MG TAB PO SCH ×2 (11:01→20:42)
[2016-08-05] MEDS: MEGESTROL ACETATE SUSP 400 MG/10 ML CUP PO SCH (11:02)
[2016-08-05] MEDS: CEFUROXIME AXETIL 250 MG TAB PO SCH ×2 (11:02→20:42)
[2016-08-05] MEDS: SODIUM CHLORIDE 0.9% FLUSH 5 ML FLUSH FLUSH SCH ×2 (11:03→20:36)
[2016-08-05] MEDS: LORazepam 2 MG/ML VIAL IM PRN (18:18)
[2016-08-05] MEDS: PRAVASTATIN SOD 80 MG TAB PO SCH (20:42)
[2016-08-05] MEDS: MIRTAZAPINE 15 MG TAB PO SCH (20:42)
[2016-08-05] MEDS: DOXAZOSIN MESYLATE 2 MG TAB PO SCH (20:42)
[2016-08-05 20:55] LABS: BICARBONATE 26.4 MEQ/L (21.0-32.0); MAGNESIUM 2.1 MG/DL (1.5-2.5); POTASSIUM 5.7 MEQ/L (3.5-5.1)
--- NOTE | 2016-08-05 22:24 | HHI.PR ---
Subjective Remarks patient seen this morning around 10 AM. She denies any pain. Unintelligible speech as before. Talkative and smiling. Later called by nursing around 5:30 PM to notify me of over 20 beats of what appears to be asymptomatic ventricular tachycardia, with heart rate up to 240s. Patient was apparently active and talking at the time.reviewed telemetry strip. Does appear to be regular tachycardia over 200 beats per minute Objective Vital Signs Date Time Temp Pulse Resp B/P Pulse Ox O2 Delivery O2 Flow Rate FiO2 08/05/16 16:40 95.9 63 18 122/93 93 08/05/16 12:00 98.4 68 20 118/59 97 08/05/16 08:00 98.0 68 20 95/50 95 08/05/16 04:16 98.0 72 22 100/53 97 08/05/16 00:48 72 08/05/16 00:13 97.8 60 20 106/54 99 I/O 08/04/16 08/04/16 08/04/16 08/05/16 08/05/16 08/05/16 06:59 14:59 22:59 06:59 14:59 22:59 Intake Total 240 ml 360 ml 240 ml 1200 ml 240 ml Output Total 350 ml Balance 240 ml 360 ml -110 ml 1200 ml 240 ml Intake Oral 240 ml 360 ml 240 ml 240 ml 240 ml IV Total 960 ml Output Urine Total 350 ml # Voids 2 5 3 1 2 # Bowel Movements 0 1 Result Diagram: 08/05/162017 Objective Remarks GENERAL. lying in bed. Appears comfortable.unintelligible speech as before. SKIN: Warm and dry. HEAD: Normocephalic. EYES: No scleral icterus. No injection or drainage. NECK: Supple, trachea midline. No JVD. CARDIOVASCULAR: Regular rate and rhythm without murmurs, gallops, or rubs. RESPIRATORY: Breath sounds equal bilaterally. No accessory muscle use. GASTROINTESTINAL: Abdomen soft, non-tender, nondistended. MUSCULOSKELETAL: No cyanosis, or edema. BACK: Nontender without obvious deformity. No CVA tenderness. A/P Assessment and Plan 08/05. creatinine improved, however patient has asymptomatic ventricular tachycardia. Hyperkalemia this morning treated with glucose, insulin, Kayexalate. Slight improvement in this afternoon. EKG with no acute findings. No further episodes of V. tach. Patient does not have telemetry order, but since she now has ventricular tachycardia, have ordered telemetry for monitoring.hold RIOS inhibitor for acute kidney injury. Continue IV fluids. Ms. Fuller is an 86 year old female who [facility] and with an initial blood glucose of 25. ED work up indicated sepsis, UTI, hypoglycemia. Patient was initially hypothermic and required warming blankets. Her body temperature improved subsequently. During this examination, patient was found to be restless and saying incomprehensible words.Patient was again found to have low blood glucose 24. Patient received STAT 2 amps of D50 raising her glucose to 393. Patient was subsequently placed on D5NS drip. //Severe sepsis (Temp 94F, R 22, UTI, WILL on chronic kidney disease) on admission due to klebsiella UTI urinary tract infection. //Urinary tract infection, Complicated. - Renal ultrasound without evidence of nephritis or hydronephrosis, however does show nonobstructing 7 mm calculus in the left kidney. Currently on ceftin. - Fall - metabolic encephalopathymental status still waxes and weans with also a history of recent CVAadd aspirin. -Treated initially with cefepime and now transitioned to oral ceftin to be completed for a total 10 days - Dale out. = status post completion of antibiotics //Severe hypoglycemia - Exact etiology unknown. Infection vs. accidental overdose of insulin 70/30 added to decreased oral intake. -Treated with D5NS which has been stopped since 07/26 - Sugars have been acceptable with episodes of hyperglycemia. Continue low dose SSI with insulin NovoLog. - Glucose stable. Continue monitor. //Poor oral intake/appetite/moderate protein calorie malnutrition - Likely secondary to acute infection and the causative of the episodes of hypoglycemia. - Nutritional intake apparently inadequate, however -on Megace and dietitian following. -on examination 08/01, patient eating fairly well, nurse says eating well. Discussed with nursing. Need to ensure accurate recording of intake.. -08/02. Per discussion with nursing, have ordered assistance for feeding. Continue monitor by mouth intake. -08/04. very good appetite, however barely drinking anything. Start on IV fluids again. Encourage fluids by mouth. //CKD Stage IV --> baseline creatinine 1.6 to 1.8 //WILL on CKD stage IV - Creatinine 3.17 --> 2.51 --> 2.27 --> 2.0 -->2.1---> 1.8 --2.1-->2.6--2.4(08/05) -worsened off of IV fluids. Restart IV fluids.encourage by mouth intake. //Diabetes mellitus2 - Patient takes 70/30 unknown quantity. - Will keep patient on sliding scale insulin. - Once blood glucose is stable, we can initiate long acting insulin Levemir. And monitor. - Blood Glucose in the 130's -140's //Severe Hypertension - BP home medications were held previously during admission, however, severe increase in BP noted 160s-170's - Continue Amlodipine 10mg Qday, metoprolol 50 mg BID. Cardura 4 mg by mouth daily at bedtime, clonidine as needed, Will hold Vasotec for now until BP stable and can be initiated. - // Hyperlipidemia - continue Pravastatin 80mg QHS. //History of recent CVA - Continue aspirin //DVT prophylaxisheparin Discharge Planning if renal function improved, expect discharge on pending bed availability at SNF.patient tolerating diet, however very poor fluid intake. If cannot drink enough fluids, may likely need maintenance IV fluids Aristides Ding MD Aug 05, 2016 22:24
[2016-08-06 04:00] VITALS: BP 98/57; PULSE 64; RESP 18; TEMP 98; O2SAT 95
[2016-08-06] MEDS: HEPARIN SODIUM - SQ 10,000 UNITS/ML VIAL SQ SCH ×2 (06:00→18:29)
[2016-08-06] MEDS: INSULIN ASPART SUPPLEMENTAL SCALE SQ SCH ×4 (06:16→22:31)
[2016-08-06 07:41] LABS: BICARBONATE 22.8 MEQ/L (21.0-32.0); MAGNESIUM 2.1 MG/DL (1.5-2.5); POTASSIUM 5.3 MEQ/L (3.5-5.1)
[2016-08-06 09:00] VITALS: BP 109/55; PULSE 61; RESP 18; TEMP 96.3; O2SAT 98
[2016-08-06] MEDS: METOPROLOL TARTRATE 25 MG TAB PO SCH ×2 (09:00→22:31)
[2016-08-06] MEDS: SODIUM CHLORIDE 0.9% FLUSH 5 ML FLUSH FLUSH SCH ×2 (09:00→21:00)
[2016-08-06 09:30] VITALS: PULSE 58
[2016-08-06] MEDS: MEGESTROL ACETATE SUSP 400 MG/10 ML CUP PO SCH (10:12)
[2016-08-06] MEDS: ASPIRIN 81 MG CHEW TAB CHEW SCH (10:12)
--- NOTE | 2016-08-06 10:59 | HHI.NPPN ---
Subjective Complaints: Confused Renal Failure: Chronic, Acute Interval History Sitting at nurses station working with therapy. Severe aphasia. No acute distress. Possible SVT/V tach yesterday evening. Renal function has improved. IV access has been lost. (Ayesha Gaspar) Objective Data Data 08/05/16 08/06/16 18:59 06:59 Intake Total 240 ml Balance 240 ml Intake Oral 240 ml # Voids 2 2 # Bowel Movements 1 1 Vital Signs Date Time Temp Pulse Resp B/P Pulse Ox O2 Delivery O2 Flow Rate FiO2 08/06/16 09:00 96.3 61 18 109/55 98 08/06/16 04:00 98.0 64 18 98/57 95 08/05/16 20:00 95.8 72 18 117/70 97 08/05/16 16:40 95.9 63 18 122/93 93 08/05/16 12:00 98.4 68 20 118/59 97 (Ayesha Gaspar) -: 08/06/16 0622 Physical Exam General Appearance: Well Developed, No Acute Distress (Ayesha Gaspar) Eyes Eye Remarks bruise under right eye (Ayesha Gaspar) Neck Neck Exam: Neck Supple (Ayesha Gaspar) Pulmonary Resp Exam: Clear Bilaterally, Breath Sounds Equal, No Distress (Ayesha Gaspar) Cardiology CV Exam: Regular, Normal Sinus Rhythm, Good Perfusion (Ayesha Gaspar) Chest/Breast Chest/Breast Exam: Symmetry (Ayesha Gaspar) Gastrointestinal/Abdomen GI Exam: Soft, Non-Tender, Bowel Sounds Present (Ayesha Gaspar) Musculoskeletal MS Exam: Joints Intact (Ayesha Gaspar) Integumentary Skin Exam: Clear, Warm, Intact Skin Remarks scattered abrasions (Ayesha Gaspar) Extremeties Extremities Exam: No Edema (Ayesha Gaspar) Neurologic Neuro Exam: Awake, Moving All Extremities Neuro Remarks severe aphasia (Ayesha Gaspar) Assessment/Plan Assessment Summary: WILL/Acute Renal Failure, Dehydration, Malnutrition, Hypertension, Diabetes Mellitus Electrolyte Assessment: Hyperkalemia Problem List: (1) WILL (acute kidney injury) Plan: WILL thought to be due to dehydration and UTI/sepsis renal funciton improving daily she has lost IVF access, unable to deliver IVF i have asked the staff to push oral fluids hourly K continues to be elevated, see below non oliguric, no rhodes catheter, toileting schedule Q2h daily renal panel (2) CKD (chronic kidney disease) stage 4, GFR 15-29 ml/min Plan: with WILL, baseline creatinine 1.8 she has 1.5 grams proteinuria suggesting diabetic nephropathy at baseline she would benefit from RIOS or ARB, but due to persistent hyperkalemia, Cardizem is a reasonable alternative (3) Hyperkalemia Plan: Given insulin and dextrose with Kayexelate yesterday repeat K 5.3 staff assists with feeding patient, low K diet (4) HTN (hypertension) Plan: blood pressure is acceptable continue current medications including Norvasc and Lopressor (5) Diabetes mellitus, type 2 Plan: initially hypoglycemic now BG is acceptable continue insulin as needed avoid hypoglycemia (6) UTI (urinary tract infection) Plan: blood cultures negative urine culture positive for Klebsiella, ceftin has been stopped monitor clinically, currently afebrile (Ayesha Gaspar) Problem List: (1) WILL (acute kidney injury) Plan: WILL thought to be due to dehydration and UTI/sepsis renal funciton improving daily she has lost IVF access, unable to deliver IVF i have asked the staff to push oral fluids hourly K continues to be elevated, see below non oliguric, no rhodes catheter, toileting schedule Q2h daily renal panel (2) CKD (chronic kidney disease) stage 4, GFR 15-29 ml/min Plan: with WILL, baseline creatinine 1.8 she has 1.5 grams proteinuria suggesting diabetic nephropathy at baseline she would benefit from RIOS or ARB, but due to persistent hyperkalemia, Cardizem is a reasonable alternative (3) Hyperkalemia Plan: Given insulin and dextrose with Kayexelate yesterday repeat K 5.3 staff assists with feeding patient, low K diet (4) HTN (hypertension) Plan: blood pressure is acceptable continue current medications including Norvasc and Lopressor (5) Diabetes mellitus, type 2 Plan: initially hypoglycemic now BG is acceptable continue insulin as needed avoid hypoglycemia (6) UTI (urinary tract infection) Plan: blood cultures negative urine culture positive for Klebsiella, ceftin has been stopped monitor clinically, currently afebrile Plan patient was seen and examined. Renal function, hyperkalemia have improved. Her BP is low to low normal, would avoid any antihypertensives at this time. ( Balta Elena MD) Problem Qualifiers (1) HTN (hypertension): Qualified Code: I10 - Essential hypertension Ayesha Gaspar [facility] Aug 06, 2016 10:59 Balta Elena MD Aug 06, 2016 11:22
--- NOTE | 2016-08-06 11:40 | EKG ---
Date Performed: 08/05/2016 Time Performed: 18:32:49 PTAGE: 86 years EKG: Sinus rhythm NONSPECIFIC T-WAVE ABNORMALITY Compared to previous tracing, rate has slowed. Voltage is, womewhat, diminished. Clinical correlation recommended. BORDERLINE ECG PREVIOUS TRACING : 06/08/2016 14.54 DOCTOR: Bob Mendenhall Interpretating Date/Time 08/06/2016 11:40:04
[2016-08-06] MEDS: LORazepam 2 MG/ML VIAL IM PRN (12:15)
[2016-08-06] MEDS: SODIUM CHLOR 0.9% 1000 ML INJ 1,000 ML IV SCH (12:28)
[2016-08-06 15:57] VITALS: BP 176/77; PULSE 64; RESP 18; TEMP 96; O2SAT 96
[2016-08-06 17:56] VITALS: PULSE 65
[2016-08-06 20:00] VITALS: BP 112/63; PULSE 89; RESP 20; TEMP 97.3; O2SAT 95
[2016-08-06] MEDS: DOXAZOSIN MESYLATE 2 MG TAB PO SCH (22:30)
[2016-08-06] MEDS: PRAVASTATIN SOD 80 MG TAB PO SCH (22:30)
[2016-08-06] MEDS: MIRTAZAPINE 15 MG TAB PO SCH (22:30)
--- NOTE | 2016-08-06 23:26 | HHI.PR ---
Subjective Remarks patient seen this morning around 11 AM.Patient sitting up at nursing station. Sleeping in chair. Response to verbal stimuli. Patient reportedly very talkative. Patient removed IV. Discussed with nursing. We will discontinue IV fluids. Encourage by mouth intake. If cannot maintain renal function on by mouth intake, will need to restart IV fluids.no further episodes of V. tach. Objective Vital Signs Date Time Temp Pulse Resp B/P Pulse Ox O2 Delivery O2 Flow Rate FiO2 08/06/16 20:00 97.3 89 20 112/63 95 08/06/16 15:57 96.0 64 18 176/77 96 08/06/16 12:00 08/06/16 09:30 58 08/06/16 09:00 96.3 61 18 109/55 98 08/06/16 04:00 98.0 64 18 98/57 95 I/O 08/05/16 08/05/16 08/05/16 08/06/16 08/06/16 08/06/16 07:00 15:00 23:00 07:00 15:00 23:00 Intake Total 1200 ml 240 ml Balance 1200 ml 240 ml Intake Oral 240 ml 240 ml IV Total 960 ml # Voids 1 2 2 1 # Bowel Movements 1 1 Result Diagram: 08/06/16 0622 Objective Remarks GENERAL. lying in bed. Appears comfortable.sleeping in recliner at nursing station. had just received Ativan for agitation. Response to verbal stimuli. SKIN: Warm and dry. HEAD: Normocephalic. EYES: No scleral icterus. No injection or drainage. NECK: Supple, trachea midline. No JVD. CARDIOVASCULAR: Regular rate and rhythm without murmurs, gallops, or rubs. RESPIRATORY: Breath sounds equal bilaterally. No accessory muscle use. GASTROINTESTINAL: Abdomen soft, non-tender, nondistended. MUSCULOSKELETAL: No cyanosis, or edema. BACK: Nontender without obvious deformity. No CVA tenderness. A/P Assessment and Plan ===08/06/16 Agitation. Stop Ativan. Added Seroquel. V. tach. Asymptomatic on 08/05. Likely secondary to hyperkalemia. No further episodes. Potassium slowly decreasing. Continue monitor. Acute kidney injury continues improving.. C removed IV.. Encourage by mouth intake. Continue monitor renal function. Ms. Fuller is an 86 year old female who presented to the ED from long term after a fall and with an initial blood glucose of 25. ED work up indicated sepsis, UTI, hypoglycemia. Patient was initially hypothermic and required warming blankets. Her body temperature improved subsequently. During this examination, patient was found to be restless and saying incomprehensible words.Patient was again found to have low blood glucose 24. Patient received STAT 2 amps of D50 raising her glucose to 393. Patient was subsequently placed on D5NS drip. //Severe sepsis (Temp 94F, R 22, UTI, WILL on chronic kidney disease) on admission due to klebsiella UTI urinary tract infection. //Urinary tract infection, Complicated. - Renal ultrasound without evidence of nephritis or hydronephrosis, however does show nonobstructing 7 mm calculus in the left kidney. Currently on ceftin. - Fall - metabolic encephalopathymental status still waxes and weans with also a history of recent CVAadd aspirin. -Treated initially with cefepime and now transitioned to oral ceftin to be completed for a total 10 days - Dale out. = status post completion of antibiotics //Severe hypoglycemia - Exact etiology unknown. Infection vs. accidental overdose of insulin 70/30 added to decreased oral intake. -Treated with D5NS which has been stopped since 07/26 - Sugars have been acceptable with episodes of hyperglycemia. Continue low dose SSI with insulin NovoLog. - Glucose stable. Continue monitor. //Poor oral intake/appetite/moderate protein calorie malnutrition - Likely secondary to acute infection and the causative of the episodes of hypoglycemia. - Nutritional intake apparently inadequate, however -on Megace and dietitian following. -on examination 08/01, patient eating fairly well, nurse says eating well. Discussed with nursing. Need to ensure accurate recording of intake.. -08/02. Per discussion with nursing, have ordered assistance for feeding. Continue monitor by mouth intake. -08/04. very good appetite, however barely drinking anything. Start on IV fluids again. Encourage fluids by mouth. //CKD Stage IV --> baseline creatinine 1.6 to 1.8 //WILL on CKD stage IV - Creatinine 3.17 --> 2.51 --> 2.27 --> 2.0 -->2.1---> 1.8 --2.1-->2.6--2.4(08/05) -worsened off of IV fluids. Restart IV fluids.encourage by mouth intake. //Diabetes mellitus2 - Patient takes 70/30 unknown quantity. - Will keep patient on sliding scale insulin. - Once blood glucose is stable, we can initiate long acting insulin Levemir. And monitor. - Blood Glucose in the 130's -140's //Severe Hypertension - BP home medications were held previously during admission, however, severe increase in BP noted 160s-170's - Continue Amlodipine 10mg Qday, metoprolol 50 mg BID. Cardura 4 mg by mouth daily at bedtime, clonidine as needed, Will hold Vasotec for now until BP stable and can be initiated. - // Hyperlipidemia - continue Pravastatin 80mg QHS. //History of recent CVA - Continue aspirin //DVT prophylaxisheparin Discharge Planning if renal function improved, expect discharge on pending bed availability at SNF.patient tolerating diet, however very poor fluid intake. If cannot drink enough fluids, may likely need maintenance IV fluids Aristides Ding MD Aug 06, 2016 23:26
[2016-08-07] VITALS (7 sets, daily range): BP systolic 96–163; BP diastolic 51–74; PULSE 70–96; RESP 18–20; TEMP 95.3–98.6; O2SAT 95–97
[2016-08-07] MEDS: SODIUM CHLOR 0.9% 1000 ML INJ 1,000 ML IV SCH ×2 (03:49→21:48)
[2016-08-07] MEDS: INSULIN ASPART SUPPLEMENTAL SCALE SQ SCH ×4 (06:38→21:00)
[2016-08-07] MEDS: HEPARIN SODIUM - SQ 10,000 UNITS/ML VIAL SQ SCH ×2 (06:38→18:20)
[2016-08-07 08:00] LABS: AUTOMATED NEUTROPHIL # 4.3 TH/MM3 (1.8-7.7); BASOPHIL # 0.1 TH/MM3 (0-0.2); BASOPHIL % 1.1 % (0.0-2.0); EOSINOPHIL # 0.2 TH/MM3 (0-0.4); EOSINOPHIL % 2.9 % (0.0-4.0); HEMATOCRIT 30.5 % (35.0-46.0); HEMO FLAGS DIFF FINAL; LYMPH % 23.7 % (9.0-44.0); LYMPHOCYTE # 1.6 TH/MM3 (1.0-4.8); MEAN CELL VOLUME 89.9 FL (80.0-100.0); MEAN CORPUSCULAR HEMOGLOBIN 29.9 PG (27.0-34.0); MEAN CORPUSCULAR HGB CONC 33.3 % (32.0-36.0); MONO % 10.2 % (0.0-8.0); NEUT % 62.1 % (16.0-70.0); PLATELET COUNT 241 TH/MM3 (150-450); RED BLOOD COUNT 3.39 MIL/MM3 (4.00-5.30); RED CELL DISTRIBUTION WIDTH 14.8 % (11.6-17.2); WHITE BLOOD COUNT 6.9 TH/MM3 (4.0-11.0)
[2016-08-07] MEDS: SODIUM CHLORIDE 0.9% FLUSH 5 ML FLUSH FLUSH SCH ×2 (09:00→21:00)
[2016-08-07] MEDS: METOPROLOL TARTRATE 25 MG TAB PO SCH ×2 (09:00→21:57)
[2016-08-07] MEDS: ASPIRIN 81 MG CHEW TAB CHEW SCH ×2 (09:54→11:35)
[2016-08-07] MEDS: MEGESTROL ACETATE SUSP 400 MG/10 ML CUP PO SCH ×2 (09:54→11:35)
[2016-08-07] MEDS: QUEtiapine FUMARATE 25 MG TAB PO SCH ×2 (09:54→11:35)
--- NOTE | 2016-08-07 11:41 | HHI.NPPN ---
Subjective Complaints: Confused Renal Failure: Chronic, Acute Interval History Patient is sleeping. Renal function is stable. No acute nursing concerns. Still without IV access. (Ayesha Gaspar) Review of Systems General General Remarks unable to obtain due to mental status (Ayesha Gaspar) Objective Data Data 08/06/16 08/07/16 18:59 06:59 Intake Total 360 ml Balance 360 ml Intake Oral 360 ml # Voids 1 3 Vital Signs Date Time Temp Pulse Resp B/P Pulse Ox O2 Delivery O2 Flow Rate FiO2 08/07/16 08:00 98.1 96 18 107/56 97 08/07/16 04:00 97.1 89 20 116/68 95 08/07/16 00:00 97.6 74 18 117/67 96 08/06/16 20:00 97.3 89 20 112/63 95 08/06/16 17:56 65 08/06/16 15:57 96.0 64 18 176/77 96 08/06/16 12:00 (Ayesha Gaspar) -: 08/07/16 0625 08/07/16 0625 Physical Exam General Appearance: Well Developed, No Acute Distress (Ayesha Gaspar) Eyes Eye Remarks bruise under right eye (Ayesha Gaspar) Neck Neck Exam: Neck Supple (Ayesha Gaspar) Pulmonary Resp Exam: Clear Bilaterally, Breath Sounds Equal, No Distress (Ayesha Gaspar) Cardiology CV Exam: Regular, Normal Sinus Rhythm, Good Perfusion (Ayesha Gaspar) Chest/Breast Chest/Breast Exam: Symmetry (Ayesha Gaspar) Gastrointestinal/Abdomen GI Exam: Soft, Non-Tender, Bowel Sounds Present (Ayesha Gaspar) Musculoskeletal MS Exam: Joints Intact (Ayesha Gaspar) Integumentary Skin Exam: Clear, Warm, Intact Skin Remarks scattered abrasions (Ayesha Gaspar) Extremeties Extremities Exam: No Edema (Ayesha Gaspar) Neurologic Neuro Exam: Awake, Moving All Extremities Neuro Remarks severe aphasia (Ayesha Gaspar) Assessment/Plan Assessment Summary: WILL/Acute Renal Failure, Dehydration, Malnutrition, Hypertension, Diabetes Mellitus Electrolyte Assessment: Hyperkalemia Problem List: (1) WILL (acute kidney injury) Plan: WILL thought to be due to dehydration and UTI/sepsis renal function remains stable, has not returned to baseline potassium is acceptable, continue to monitor non oliguric, no rhodes catheter, toileting schedule Q2h she is not on IVF at this time, but may require fluids when she returns to nursing facility daily renal panel (2) CKD (chronic kidney disease) stage 4, GFR 15-29 ml/min Plan: with WILL, baseline creatinine 1.8 she has 1.5 grams proteinuria suggesting diabetic nephropathy at baseline she would benefit from RIOS or ARB (if BP tolerates), but due to persistent hyperkalemia, Cardizem is a reasonable alternative (3) Hyperkalemia Plan: K 5.0 today, previously treated for hyperkalemia may have been due to decreased oral intake and the resulting drop in endogenous insulin excretion, improved as oral intake has increased with feeding regimen staff assists with feeding patient, low K diet (4) HTN (hypertension) Plan: blood pressure is borderline low continue current medications including Norvasc and Lopressor with hold parameters (5) Diabetes mellitus, type 2 Plan: initially hypoglycemic now BG has stabilized continue insulin as needed avoid hypoglycemia (6) UTI (urinary tract infection) Plan: blood cultures negative urine culture positive for Klebsiella, off antibiotics monitor clinically, currently afebrile (Ayesha Gaspar) Plan patient was seen and examined. She has advanced dementia. Renal function is stable. (Balta Elena MD) Problem Qualifiers (1) HTN (hypertension): Qualified Code: I10 - Essential hypertension Ayesha Gaspar Aug 07, 2016 11:41 Balta Elena MD Aug 07, 2016 18:06
[2016-08-07] MEDS: PRAVASTATIN SOD 80 MG TAB PO SCH (21:56)
[2016-08-07] MEDS: MIRTAZAPINE 15 MG TAB PO SCH (21:56)
[2016-08-07] MEDS: DOXAZOSIN MESYLATE 2 MG TAB PO SCH (21:56)
--- NOTE | 2016-08-07 22:25 | HHI.PR ---
Subjective Remarks ppatient seen today around noon. Awake, talking. Appears comfortable. Appears to deny pain unintelligible speech as before. Discussed with nursing to encourage fluids. Objective Vital Signs Date Time Temp Pulse Resp B/P Pulse Ox O2 Delivery O2 Flow Rate FiO2 08/07/16 16:00 95.3 86 18 96/52 96 08/07/16 12:00 98.6 84 18 109/51 96 08/07/16 09:45 70 08/07/16 08:00 98.1 96 18 107/56 97 08/07/16 04:00 97.1 89 20 116/68 95 08/07/16 00:00 97.6 74 18 117/67 96 I/O 08/06/16 08/06/16 08/06/16 08/07/16 08/07/16 08/07/16 07:00 15:00 23:00 07:00 15:00 23:00 Intake Total 240 ml 120 ml 240 ml Balance 240 ml 120 ml 240 ml Intake Oral 240 ml 120 ml 240 ml # Voids 2 1 1 2 2 # Bowel Movements 1 0 Result Diagram: 08/07/1662408/07/16624 Objective Remarks GENERAL. sitting up in chair at nursing station. Appears comfortable.awake, talkative. Unintelligible speech. No change from 08/05. SKIN: Warm and dry. HEAD: Normocephalic. EYES: No scleral icterus. No injection or drainage. NECK: Supple, trachea midline. No JVD. CARDIOVASCULAR: Regular rate and rhythm without murmurs, gallops, or rubs. RESPIRATORY: Breath sounds equal bilaterally. No accessory muscle use. GASTROINTESTINAL: Abdomen soft, non-tender, nondistended. MUSCULOSKELETAL: No cyanosis, or edema. BACK: Nontender without obvious deformity. No CVA tenderness. A/P Assessment and Plan ===08/07/16 agitation-patient does not appear to be agitated on my examination. Continue Seroquel. Try to avoid oversedation as this may limit by mouth intake V. tach. Asymptomatic on 08/05. Likely secondary to hyperkalemia. No further episodes. -hypokalemia resolved. Continue monitor Acute kidney injury -stable creatinine. Continue to encourage by mouth intake. Ms. Fuller is an 86 year old female who [facility] a [facility] and with an initial blood glucose of 25. ED work up indicated sepsis, UTI, hypoglycemia. Patient was initially hypothermic and required warming blankets. Her body temperature improved subsequently. During this examination, patient was found to be restless and saying incomprehensible words.Patient was again found to have low blood glucose 24. Patient received STAT 2 amps of D50 raising her glucose to 393. Patient was subsequently placed on D5NS drip. //Severe sepsis (Temp 94F, R 22, UTI, WILL on chronic kidney disease) on admission due to klebsiella UTI urinary tract infection. //Urinary tract infection, Complicated. - Renal ultrasound without evidence of nephritis or hydronephrosis, however does show nonobstructing 7 mm calculus in the left kidney. Currently on ceftin. - Fall - metabolic encephalopathymental status still waxes and weans with also a history of recent CVAadd aspirin. -Treated initially with cefepime and now transitioned to oral ceftin to be completed for a total 10 days - Dale out. = status post completion of antibiotics //Severe hypoglycemia - Exact etiology unknown. Infection vs. accidental overdose of insulin 70/30 added to decreased oral intake. -Treated with D5NS which has been stopped since 07/26 - Sugars have been acceptable with episodes of hyperglycemia. Continue low dose SSI with insulin NovoLog. - Glucose stable. Continue monitor. //Poor oral intake/appetite/moderate protein calorie malnutrition - Likely secondary to acute infection and the causative of the episodes of hypoglycemia. - Nutritional intake apparently inadequate, however -on Megace and dietitian following. -on examination 08/01, patient eating fairly well, nurse says eating well. Discussed with nursing. Need to ensure accurate recording of intake.. -08/02. Per discussion with nursing, have ordered assistance for feeding. Continue monitor by mouth intake. -08/04. very good appetite, however barely drinking anything. Start on IV fluids again. Encourage fluids by mouth. 08/07. Improved appetite. Drinking fluids. Continue encourage fluids. //CKD Stage IV --> baseline creatinine 1.6 to 1.8 //WILL on CKD stage IV - Creatinine 3.17 --> 2.51 --> 2.27 --> 2.0 -->2.1---> 1.8 --2.1-->2.6--2.4(08/05) -patient keeps removing IV. try to encourage by mouth fluids. //Diabetes mellitus2 - Patient takes 70/30 unknown quantity. - Will keep patient on sliding scale insulin. - Once blood glucose is stable, we can initiate long acting insulin Levemir. And monitor. - Blood Glucose in the 130's -140's //Severe Hypertension - BP home medications were held previously during admission, however, severe increase in BP noted 160s-170's - Continue Amlodipine 10mg Qday, metoprolol 50 mg BID. Cardura 4 mg by mouth daily at bedtime, clonidine as needed, Will hold Vasotec for now until BP stable and can be initiated. - // Hyperlipidemia - continue Pravastatin 80mg QHS. //History of recent CVA - Continue aspirin //DVT prophylaxisheparin Discharge Planning if renal function improved, expect discharge on pending bed availability at SNF.patient tolerating diet, however very poor fluid intake. If cannot drink enough fluids, may likely need maintenance IV fluids Aristides Ding MD Aug 07, 2016 22:25
[2016-08-08] VITALS (7 sets, daily range): BP systolic 90–158; BP diastolic 50–72; PULSE 55–96; RESP 18–19; TEMP 96–97.8; O2SAT 95–98
[2016-08-08] MEDS: INSULIN ASPART SUPPLEMENTAL SCALE SQ SCH ×4 (07:00→21:00)
[2016-08-08] MEDS: HEPARIN SODIUM - SQ 10,000 UNITS/ML VIAL SQ SCH ×2 (07:13→18:06)
[2016-08-08] MEDS: MEGESTROL ACETATE SUSP 400 MG/10 ML CUP PO SCH (08:56)
[2016-08-08] MEDS: ASPIRIN 81 MG CHEW TAB CHEW SCH (08:56)
[2016-08-08] MEDS: METOPROLOL TARTRATE 25 MG TAB PO SCH ×2 (08:56→21:10)
[2016-08-08] MEDS: SODIUM CHLORIDE 0.9% FLUSH 5 ML FLUSH FLUSH SCH ×2 (08:56→21:00)
[2016-08-08] MEDS: QUEtiapine FUMARATE 25 MG TAB PO SCH (08:56)
--- NOTE | 2016-08-08 10:25 | HHI.PR ---
Subjective Remarks The pt was resting in bed. She was talking but not clearly. She appeared comfortable. Discussed with nursing. Objective Vitals Vital Signs Date Time Temp Pulse Resp B/P Pulse Ox O2 Delivery O2 Flow Rate FiO2 08/08/16 08:00 96.0 67 18 121/55 98 08/08/16 04:00 97.4 76 18 158/72 96 08/08/16 00:00 97.6 70 18 154/72 97 08/07/16 20:00 86 08/07/16 20:00 97.5 74 18 163/74 96 08/07/16 16:00 95.3 86 18 96/52 96 08/07/16 12:00 98.6 84 18 109/51 96 I/O 08/07/16 08/07/16 08/07/16 08/08/16 08/08/16 08/08/16 07:00 15:00 23:00 07:00 15:00 23:00 Intake Total 120 ml 240 ml 360 ml 360 ml Balance 120 ml 240 ml 360 ml 360 ml Intake Oral 120 ml 240 ml 360 ml 360 ml # Voids 2 2 3 3 # Bowel Movements 0 Result Diagram: 08/07/1625 08/07/1625 Imaging Last Impressions Renal Ultrasound 07/27/16 0000 Signed Impressions: Service Date/Time: Wednesday, July 27, 2016 14:05 - CONCLUSION: 1. Kidneys are slightly echogenic which can be seen with medical renal disease. 2. Simple cyst right kidney. 3. Echogenic focus along the lower pole left kidney could be related to nonobstructing calculus measuring 7 mm. Brandt Lowery MD Head CT 07/23/16 5113 Signed Impressions: Service Date/Time: Sunday, July 24, 2016 00:04 - CONCLUSION: 1. Suspected recent infarct involving the left middle cerebral artery territory at the left temporal and parietal lobes. 2. Age-related atrophy. 3. Widespread suspected small vessels ischemic change in the white matter. 4. 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 5. Acute right frontal scalp hematoma. Francis Gibson MD Chest X-Ray 07/23/16 1739 Signed Impressions: Service Date/Time: June 23:48 - CONCLUSION: No acute disease. Francis Gibson MD Objective Remarks GENERAL: Appears comfortable. SKIN: Warm and dry. HEAD: Normocephalic. EYES: No scleral icterus. No injection or drainage. NECK: Supple, trachea midline. No JVD. CARDIOVASCULAR: Regular rate and rhythm without murmurs, gallops, or rubs. RESPIRATORY: Breath sounds equal bilaterally. No accessory muscle use. GASTROINTESTINAL: Abdomen soft, non-tender, nondistended. MUSCULOSKELETAL: No cyanosis, or edema. BACK: Nontender without obvious deformity. No CVA tenderness. NEURO: Unintelligible speech. Procedures None Medications and IVs Current Medications Medications (Trade) Dose Ordered Sig/Emiliano Route Start Time Stop Time Status Last Admin (NS Flush) 2 ml UNSCH PRN FLUSH 07/24/16 02:00 (NS Flush) 2 ml BID FLUSH 07/24/16 09:00 08/05/16 11:03 (Tylenol) 650 mg Q4H PRN PO 07/24/16 02:00 (Zofran Inj) 4 mg Q6H PRN IVP 07/24/16 02:00 (Dulcolax Supp) 10 mg DAILY PRN [place] 07/24/16 02:00 (Milk Of Magnesia Liq) 30 ml Q12H PRN PO 07/24/16 02:00 (Heparin Inj) 5,000 units Q12H SQ 07/24/16 06:00 08/08/16 07:13 (Narcan Inj) 0.4 mg UNSCH PRN IV 07/24/16 02:00 (Norvasc) 10 mg DAILY PO 07/24/16 09:00 08/08/16 08:56 (Ativan Inj) 1 mg TID PRN IM 07/24/16 05:30 Hold 08/06/16 12:15 (Antivert) 25 mg QID PRN PO 07/24/16 05:30 (Remeron) 15 mg HS PO 07/24/16 21:00 08/07/16 21:56 (Pravachol) 80 mg HS PO 07/24/16 21:00 08/07/16 21:56 (SEROquel) 50 mg HS PO 07/24/16 21:00 Hold (Lopressor) 50 mg Q12HR PO 07/26/16 21:00 08/08/16 08:56 (D50w (Vial) Inj) 25 ml UNSCH PRN IV PUSH 07/26/16 20:30 (Glucagon Inj) 1 mg UNSCH PRN OTHER 07/26/16 20:30 (Cardura) 2 mg HS PO 07/27/16 00:30 08/07/16 21:56 (Megace Liq) 400 mg DAILY PO 07/27/16 12:45 08/08/16 08:56 (Pill Splitter) 1 ea UNSCH PRN OTHER 07/29/16 12:00 Aspirin 81 mg 81 mg DAILY CHEW 07/31/16 09:00 08/08/16 08:56 (NS 1000 ml Inj) 1,000 ml @ 60 mls/hr [id number] IV 08/04/16 12:30 08/05/16 00:38 (SEROquel) 25 mg DAILY PO 08/07/16 09:00 08/08/16 08:56 A/P Problem List: (1) Sepsis due to urinary tract infection ICD Code: A41.9 Status: Acute (2) Hypoglycemia associated with diabetes ICD Code: E11.649 Status: Acute (3) Fall ICD Code: W19.XXXA Status: Acute (4) Delirium ICD Code: R41.0 Status: Acute (5) HTN (hypertension) ICD Code: I10 Status: Chronic (6) DM (diabetes mellitus) ICD Code: E11.9 Status: Chronic (7) CKD (chronic kidney disease) stage 4, GFR 15-29 ml/min ICD Code: N18.4 Status: Chronic (8) WILL (acute kidney injury) ICD Code: N17.9 Status: Acute (9) Aphasia ICD Code: R47.01 Status: Chronic Assessment and Plan Severe sepsis (Temp 94F, R 22, UTI, WILL on chronic kidney disease) Due to klebsiella UTI. Renal ultrasound without evidence of nephritis or hydronephrosis, however does show nonobstructing 7 mm calculus in the left kidney. - S/p Ceftin. Metabolic encephalopathy/ History of CVA Mental status still waxes and wanes. Treated for UTI. - continue Seroquel. - continue ASA and statin. - PT/OT. V. tach Asymptomatic on 08/05. Likely secondary to hyperkalemia. No further episodes. - monitor. Severe hypoglycemia Possibly related to sepsis. Treated with D5NS which has been stopped since . - Sugars have been acceptable with episodes of hyperglycemia. Continue low dose SSI with insulin NovoLog. Poor oral intake/appetite/moderate protein calorie malnutrition Nutritional intake apparently inadequate. - on Megace and dietitian following. - IVFs. WILL on CKD stage IV Creatinine 3.17 --> 2.51 --> 2.27 --> 2.0 -->2.1---> 1.8 --2.1-->2.6--2.4(08/05) - patient keeps removing IV. Try to encourage by mouth fluids. Hypertension Blood pressure fluctuates. - Continue Amlodipine 10mg Qday, metoprolol 50 mg BID. Cardura 4 mg by mouth daily at bedtime, clonidine as needed. DVT prophylaxisheparin. Discharge Planning D/c to SNF in 1-2 days. Problem Qualifiers (1) HTN (hypertension): Qualified Code: I10 - Essential hypertension (2) DM (diabetes mellitus): Philip Martinez DO Aug 08, 2016 10:25
[2016-08-08] MEDS: SODIUM CHLOR 0.9% 1000 ML INJ 1,000 ML IV SCH (13:18)
--- NOTE | 2016-08-08 15:48 | HHI.NPPN ---
Subjective Complaints: Confused Renal Failure: Chronic, Acute Review of Systems General General Remarks unable to obtain due to mental status Objective Data Data 08/07/16 08/08/16 18:59 06:59 Intake Total 240 ml 720 ml Balance 240 ml 720 ml Intake Oral 240 ml 720 ml # Voids 2 6 # Bowel Movements 0 Vital Signs Date Time Temp Pulse Resp B/P Pulse Ox O2 Delivery O2 Flow Rate FiO2 08/08/16 12:00 96.8 65 19 141/63 97 08/08/16 12:00 55 08/08/16 08:00 96.0 67 18 121/55 98 08/08/16 04:00 97.4 76 18 158/72 96 08/08/16 00:00 97.6 70 18 154/72 97 08/07/16 20:00 86 08/07/16 20:00 97.5 74 18 163/74 96 08/07/16 16:00 95.3 86 18 96/52 96 -: 08/07/16 0625 08/07/16 0625 Physical Exam General Appearance: Well Developed, No Acute Distress Neck Neck Exam: Neck Supple Pulmonary Resp Exam: Clear Bilaterally, Breath Sounds Equal, No Distress Cardiology CV Exam: Regular, Normal Sinus Rhythm, Good Perfusion Chest/Breast Chest/Breast Exam: Symmetry Gastrointestinal/Abdomen GI Exam: Soft, Non-Tender, Bowel Sounds Present Musculoskeletal MS Exam: Joints Intact Integumentary Skin Exam: Clear, Warm, Intact Extremeties Extremities Exam: No Edema Neurologic Neuro Exam: Awake, Moving All Extremities Assessment/Plan Assessment Summary: WILL/Acute Renal Failure, Dehydration, Malnutrition, Hypertension, Diabetes Mellitus Electrolyte Assessment: Hyperkalemia Problem List: (1) WILL (acute kidney injury) Plan: CKD Stage 4 last cr 2.3 stable non oliguric, she is not on IVF at this time, but may require fluids when she returns to nursing facility Dr. Elena to follow on Wednesday (2) CKD (chronic kidney disease) stage 4, GFR 15-29 ml/min Plan: with WILL, baseline creatinine 1.8 she has 1.5 grams proteinuria suggesting diabetic nephropathy at baseline she would benefit from RIOS or ARB (if BP tolerates), but due to persistent hyperkalemia, Cardizem is a reasonable alternative (3) Hyperkalemia Plan: K 5.0 today, previously treated for hyperkalemia may have been due to decreased oral intake and the resulting drop in endogenous insulin excretion, improved as oral intake has increased with feeding regimen staff assists with feeding patient, low K diet (4) HTN (hypertension) Plan: blood pressure is borderline low continue current medications including Norvasc and Lopressor with hold parameters (5) Diabetes mellitus, type 2 Plan: initially hypoglycemic now BG has stabilized continue insulin as needed avoid hypoglycemia (6) UTI (urinary tract infection) Plan: blood cultures negative urine culture positive for Klebsiella, off antibiotics monitor clinically, currently afebrile Problem Qualifiers (1) HTN (hypertension): Qualified Code: I10 - Essential hypertension Ascencion Medeiros MD Aug 08, 2016 15:48
[2016-08-08] MEDS: PRAVASTATIN SOD 80 MG TAB PO SCH (21:10)
[2016-08-08] MEDS: MIRTAZAPINE 15 MG TAB PO SCH (21:10)
[2016-08-08] MEDS: DOXAZOSIN MESYLATE 2 MG TAB PO SCH (21:10)
[2016-08-09 05:16] VITALS: BP 179/77; PULSE 55; RESP 20; TEMP 98.3; O2SAT 98
[2016-08-09] MEDS: HEPARIN SODIUM - SQ 10,000 UNITS/ML VIAL SQ SCH ×2 (05:32→18:11)
[2016-08-09] MEDS: INSULIN ASPART SUPPLEMENTAL SCALE SQ SCH ×5 (06:35→20:49)
[2016-08-09 06:39] LABS: BICARBONATE 25.2 MEQ/L (21.0-32.0); POTASSIUM 5.6 MEQ/L (3.5-5.1)
[2016-08-09 06:50] LABS: HEMATOCRIT 32.4 % (35.0-46.0); MEAN CELL VOLUME 90.9 FL (80.0-100.0); MEAN CORPUSCULAR HEMOGLOBIN 30.3 PG (27.0-34.0); MEAN CORPUSCULAR HGB CONC 33.3 % (32.0-36.0); PLATELET COUNT 236 TH/MM3 (150-450); RED BLOOD COUNT 3.56 MIL/MM3 (4.00-5.30); RED CELL DISTRIBUTION WIDTH 14.8 % (11.6-17.2); REVIEW FLAG FINAL; WHITE BLOOD COUNT 7.5 TH/MM3 (4.0-11.0)
[2016-08-09] MEDS: SODIUM CHLOR 0.9% 1000 ML INJ 1,000 ML IV SCH (06:55)
[2016-08-09] MEDS ORDERED: SODIUM POLYSTYRENE SULFONATE SUSP 15 GM/60 ML CUP PO ONE (08:45)
[2016-08-09 08:54] VITALS: BP 188/88; PULSE 64; RESP 20; TEMP 97.6; O2SAT 97
[2016-08-09] MEDS: METOPROLOL TARTRATE 25 MG TAB PO SCH ×2 (09:07→20:47)
[2016-08-09] MEDS: MEGESTROL ACETATE SUSP 400 MG/10 ML CUP PO SCH (09:07)
[2016-08-09] MEDS: ASPIRIN 81 MG CHEW TAB CHEW SCH (09:07)
[2016-08-09] MEDS: QUEtiapine FUMARATE 25 MG TAB PO SCH (09:07)
[2016-08-09 12:00] VITALS: BP 103/53; PULSE 64; RESP 20; TEMP 97.1; O2SAT 92
--- NOTE | 2016-08-09 14:02 | HHI.NPPN ---
Subjective Complaints: Confused Renal Failure: Chronic, Acute Review of Systems General General Remarks unable to obtain due to mental status Objective Data Data 08/08/16 08/09/16 19:00 07:00 Intake Total 1150 ml 480 ml Balance 1150 ml 480 ml Intake Oral 1150 ml 480 ml IV Total 0 ml # Voids 2 4 # Bowel Movements 0 0 Vital Signs Date Time Temp Pulse Resp B/P Pulse Ox O2 Delivery O2 Flow Rate FiO2 08/09/16 08:54 97.6 64 20 188/88 97 08/09/16 05:16 98.3 55 20 179/77 98 08/08/16 21:16 97.5 96 18 90/50 95 08/08/16 19:00 66 08/08/16 16:00 97.8 66 19 123/62 96 -: 08/09/16 0536 08/09/16 0536 Physical Exam General Appearance: Well Developed, No Acute Distress Neck Neck Exam: Neck Supple Pulmonary Resp Exam: Clear Bilaterally, Breath Sounds Equal, No Distress Cardiology CV Exam: Regular, Normal Sinus Rhythm, Good Perfusion Chest/Breast Chest/Breast Exam: Symmetry Gastrointestinal/Abdomen GI Exam: Soft, Non-Tender, Bowel Sounds Present Musculoskeletal MS Exam: Joints Intact Integumentary Skin Exam: Clear, Warm, Intact Extremeties Extremities Exam: No Edema Neurologic Neuro Exam: Awake, Moving All Extremities Assessment/Plan Assessment Summary: WILL/Acute Renal Failure, Dehydration, Malnutrition, Hypertension, Diabetes Mellitus Electrolyte Assessment: Hyperkalemia Problem List: (1) WILL (acute kidney injury) Plan: CKD Stage 4 last cr 2.51 non oliguric, she is not on IVF at this time, but may require fluids when she returns to nursing facility Dr. Elena to follow on Wednesday (2) CKD (chronic kidney disease) stage 4, GFR 15-29 ml/min Plan: with WILL, baseline creatinine 1.8 she has 1.5 grams proteinuria suggesting diabetic nephropathy at baseline she would benefit from RIOS or ARB (if BP tolerates), but due to persistent hyperkalemia, Cardizem is a reasonable alternative (3) Hyperkalemia Plan: K 5.0 today, previously treated for hyperkalemia may have been due to decreased oral intake and the resulting drop in endogenous insulin excretion, improved as oral intake has increased with feeding regimen staff assists with feeding patient, low K diet (4) HTN (hypertension) Plan: blood pressure is borderline low continue current medications including Norvasc and Lopressor with hold parameters (5) Diabetes mellitus, type 2 Plan: initially hypoglycemic now BG has stabilized continue insulin as needed avoid hypoglycemia (6) UTI (urinary tract infection) Plan: blood cultures negative urine culture positive for Klebsiella, off antibiotics monitor clinically, currently afebrile Problem Qualifiers (1) HTN (hypertension): Qualified Code: I10 - Essential hypertension Ascencion Medeiros MD Aug 09, 2016 14:02
--- NOTE | 2016-08-09 15:11 | HHI.PR ---
Subjective Remarks The patient's family was setting up [employer] decorations. The patient was lethargic and minimally answering questions. She didn't have any acute complaints. Objective Vitals Vital Signs Date Time Temp Pulse Resp B/P Pulse Ox O2 Delivery O2 Flow Rate FiO2 08/09/16 08:54 97.6 64 20 188/88 97 08/09/16 05:16 98.3 55 20 179/77 98 08/08/16 21:16 97.5 96 18 90/50 95 08/08/16 19:00 66 08/08/16 16:00 97.8 66 19 123/62 96 I/O 08/08/16 08/08/16 08/08/16 08/09/16 08/09/16 08/09/16 06:59 14:59 22:59 06:59 14:59 22:59 Intake Total 360 ml 1150 ml 240 ml 240 ml Balance 360 ml 1150 ml 240 ml 240 ml Intake Oral 360 ml 1150 ml 240 ml 240 ml IV Total 0 ml # Voids 3 2 1 3 # Bowel Movements 0 0 Result Diagram: 08/09/16 0536 08/09/16 0536 Imaging Last Impressions Renal Ultrasound 07/27/16 0000 Signed Impressions: Service Date/Time: Wednesday, July 27, 2016 14:05 - CONCLUSION: 1. Kidneys are slightly echogenic which can be seen with medical renal disease. 2. Simple cyst right kidney. 3. Echogenic focus along the lower pole left kidney could be related to nonobstructing calculus measuring 7 mm. Brandt Lowery MD Head CT 07/23/16 3513 Signed Impressions: Service Date/Time: Sunday, July 24, 2016 00:04 - CONCLUSION: 1. Suspected recent infarct involving the left middle cerebral artery territory at the left temporal and parietal lobes. 2. Age-related atrophy. 3. Widespread suspected small vessels ischemic change in the white matter. 4. 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 5. Acute right frontal scalp hematoma. Francis Gibson MD Chest X-Ray 07/23/169 Signed Impressions: Service Date/Time: June 23:48 - CONCLUSION: No acute disease. Francis Gibson MD Objective Remarks GENERAL: Appears comfortable. SKIN: Warm and dry. HEAD: Normocephalic. EYES: No scleral icterus. No injection or drainage. NECK: Supple, trachea midline. No JVD. CARDIOVASCULAR: Regular rate and rhythm without murmurs, gallops, or rubs. RESPIRATORY: Breath sounds equal bilaterally. No accessory muscle use. GASTROINTESTINAL: Abdomen soft, non-tender, nondistended. MUSCULOSKELETAL: No cyanosis, or edema. BACK: Nontender without obvious deformity. No CVA tenderness. NEURO: Unintelligible speech. Procedures None Medications and IVs Current Medications Medications (Trade) Dose Ordered Sig/Emiliano Route Start Time Stop Time Status Last Admin (NS Flush) 2 ml UNSCH PRN FLUSH 07/24/16 02:00 (NS Flush) 2 ml BID FLUSH 07/24/16 09:00 08/05/16 11:03 (Tylenol) 650 mg Q4H PRN PO 07/24/16 02:00 (Zofran Inj) 4 mg Q6H PRN IVP 07/24/16 02:00 (Dulcolax Supp) 10 mg DAILY PRN [place] 07/24/16 02:00 (Milk Of Magnesia Liq) 30 ml Q12H PRN PO 07/24/16 02:00 (Heparin Inj) 5,000 units Q12H SQ 07/24/16 06:00 08/09/16 05:32 (Narcan Inj) 0.4 mg UNSCH PRN IV 07/24/16 02:00 (Norvasc) 10 mg DAILY PO 07/24/16 09:00 08/09/16 09:07 (Pravachol) 80 mg HS PO 07/24/16 21:00 08/08/16 21:10 (Lopressor) 50 mg Q12HR PO 07/26/16 21:00 08/09/16 09:07 (D50w (Vial) Inj) 25 ml UNSCH PRN IV PUSH 07/26/16 20:30 (Glucagon Inj) 1 mg UNSCH PRN OTHER 07/26/16 20:30 (Cardura) 2 mg HS PO 07/27/16 00:30 08/08/16 21:10 (Megace Liq) 400 mg DAILY PO 07/27/16 12:45 08/09/16 09:07 (Pill Splitter) 1 ea UNSCH PRN OTHER 07/29/16 12:00 (Aspirin Chew) 81 mg DAILY CHEW 07/31/16 09:00 08/09/16 09:07 (Remeron) 7.5 mg HS PO 08/09/16 21:00 UNV A/P Problem List: (1) Sepsis due to urinary tract infection ICD Code: A41.9 Status: Acute (2) Hypoglycemia associated with diabetes ICD Code: E11.649 Status: Acute (3) Fall ICD Code: W19.XXXA Status: Acute (4) Delirium ICD Code: R41.0 Status: Acute (5) HTN (hypertension) ICD Code: I10 Status: Chronic (6) DM (diabetes mellitus) ICD Code: E11.9 Status: Chronic (7) CKD (chronic kidney disease) stage 4, GFR 15-29 ml/min ICD Code: N18.4 Status: Chronic (8) WILL (acute kidney injury) ICD Code: N17.9 Status: Acute (9) Aphasia ICD Code: R47.01 Status: Chronic Assessment and Plan Severe sepsis (Temp 94F, R 22, UTI, WILL on chronic kidney disease) Due to klebsiella UTI. Renal ultrasound without evidence of nephritis or hydronephrosis, however does show nonobstructing 7 mm calculus in the left kidney. - S/p Ceftin. Metabolic encephalopathy/ History of CVA Mental status still waxes and wanes. Likely underlying dementia. Treated for UTI. - d/c standing Seroquel. Use as needed. - continue ASA and statin. - PT/OT. - avoid sedating meds. V. tach Asymptomatic on 08/05. Likely secondary to hyperkalemia. No further episodes. - monitor. Severe hypoglycemia Possibly related to sepsis. Treated with D5NS which has been stopped since . - Sugars have been acceptable with episodes of hyperglycemia. Continue low dose SSI with insulin NovoLog. Poor oral intake/appetite/moderate protein calorie malnutrition Nutritional intake apparently inadequate. - on Megace and dietitian following. - reduce dose of Remeron to 7.5 mg daily. WILL on CKD/ Hyperkalemia Appreciate nephrology following. Creatinine has been stable for the past few days. Potassium is elevated. - Kayexalate as needed for hyperkalemia. - avoid nephrotoxins. - continue to monitor BMP. Hypertension Blood pressure fluctuates. - Continue Amlodipine 10mg Qday, metoprolol 50 mg BID, Cardura 4 mg by mouth daily and clonidine as needed. DVT prophylaxisheparin. Discharge Planning D/c to SNF in 1-2 days. Problem Qualifiers (1) HTN (hypertension): Qualified Code: I10 - Essential hypertension (2) DM (diabetes mellitus): Philip Martinez DO Aug 09, 2016 15:11
[2016-08-09 16:00] VITALS: BP 101/53; PULSE 60; RESP 20; TEMP 97.6; O2SAT 98
[2016-08-09 19:00] VITALS: PULSE 61
[2016-08-09 20:20] VITALS: BP 88/50; PULSE 71; RESP 18; TEMP 97.9; O2SAT 98
[2016-08-09] MEDS: PRAVASTATIN SOD 80 MG TAB PO SCH (20:47)
[2016-08-09] MEDS: DOXAZOSIN MESYLATE 2 MG TAB PO SCH (20:47)
[2016-08-09] MEDS: MIRTAZAPINE 15 MG TAB PO SCH (20:47)
[2016-08-09] MEDS: SODIUM CHLORIDE 0.9% FLUSH 5 ML FLUSH FLUSH SCH (20:48)
[2016-08-10 00:47] VITALS: BP 185/64; PULSE 66; RESP 18; TEMP 97.7; O2SAT 96
[2016-08-10 04:18] VITALS: BP 129/57; PULSE 68; RESP 20; TEMP 97.1; O2SAT 95
[2016-08-10] MEDS: HEPARIN SODIUM - SQ 10,000 UNITS/ML VIAL SQ SCH ×2 (05:36→18:03)
[2016-08-10] MEDS: INSULIN ASPART SUPPLEMENTAL SCALE SQ SCH ×4 (06:29→22:51)
[2016-08-10 08:00] VITALS: BP 176/72; PULSE 74; RESP 18; TEMP 98.2; O2SAT 95
[2016-08-10 09:06] LABS: BICARBONATE 24.3 MEQ/L (21.0-32.0); MAGNESIUM 2.1 MG/DL (1.5-2.5); POTASSIUM 5.2 MEQ/L (3.5-5.1)
--- NOTE | 2016-08-10 10:44 | HHI.NPPN ---
Subjective Complaints: Confused Renal Failure: Chronic, Acute Interval History She is sleeping. No acute nursing concerns. (Ayesha Gaspar) Review of Systems General General Remarks unable to obtain due to mental status (Ayesha Gaspar) Objective Data Data 08/09/16 08/10/16 18:59 06:59 Intake Total 360 ml Balance 360 ml Intake Oral 360 ml # Voids 3 4 Vital Signs Date Time Temp Pulse Resp B/P Pulse Ox O2 Delivery O2 Flow Rate FiO2 08/10/16 08:00 98.2 74 18 176/72 95 08/10/16 04:18 97.1 68 20 129/57 95 08/10/16 00:47 97.7 66 18 185/64 96 08/09/16 20:20 97.9 71 18 88/50 98 08/09/16 19:00 61 08/09/16 16:00 97.6 60 20 101/53 98 08/09/16 12:00 97.1 64 20 103/53 92 (Ayesha Gaspar) -: 08/09/16 0536 08/10/16 0801 Physical Exam General Appearance: Well Developed, No Acute Distress, Sleeping Appearance Remarks cachectic (Ayesha Gaspar) Eyes Eye Remarks bruise under right eye (Ayesha Gaspar) Neck Neck Exam: Neck Supple (Ayesha Gaspar) Pulmonary Resp Exam: Clear Bilaterally, Breath Sounds Equal, No Distress (Ayesha Gaspar) Cardiology CV Exam: Regular, Normal Sinus Rhythm, Good Perfusion (Ayesha Gaspar) Chest/Breast Chest/Breast Exam: Symmetry (Ayesha Gaspar) Gastrointestinal/Abdomen GI Exam: Soft, Non-Tender, Bowel Sounds Present (Ayesha Gaspar) Musculoskeletal MS Exam: Joints Intact, Atrophy (Ayesha Gaspar) Integumentary Skin Exam: Clear, Warm, Intact Skin Remarks scattered abrasions (Ayesha Gaspar) Extremeties Extremities Exam: No Edema (Ayesha Gaspar) Neurologic Neuro Exam: Awake, Moving All Extremities Neuro Remarks severe aphasia (Ayesha Gaspar) Assessment/Plan Assessment Summary: WILL/Acute Renal Failure, Dehydration, Malnutrition, Hypertension, Diabetes Mellitus Electrolyte Assessment: Hyperkalemia Problem List: (1) WILL (acute kidney injury) Plan: with hx of CKD Stage 4, baseline creatinine 1.8 she has 1.5 grams proteinuria suggesting underlying diabetic nephropathy WILL initially thought it was due to dehydration limited oral intake and UTI/ sepsis renal function had stabilized, creatinine noted to be slightly higher today she is not on IVF at this time as she lost IV access, but may require fluids when she returns to nursing facility non oliguric, she is on toileting routine monitor potassium, has been elevated at discharge she would benefit from RIOS or ARB (if BP tolerates), but due to persistent hyperkalemia, Cardizem is a reasonable alternative (2) Hyperkalemia Plan: K is acceptable , she has been persistently hyperkalemic may be due to reduced oral intake, resulting in decreased endogenous insulin excretion staff assists with feeding patient, low K diet (3) HTN (hypertension) Plan: blood pressure is higher, previously borderline low continue current medications including Norvasc and Lopressor, cardura was added continue with hold parameters (4) Diabetes mellitus, type 2 Plan: initially hypoglycemic now BG has stabilized and is acceptable continue insulin as needed, needs assistance with feeding avoid hypoglycemia (5) UTI (urinary tract infection) Plan: blood cultures negative urine culture positive for Klebsiella, off antibiotics monitor clinically, currently afebrile (Ayesha Gaspar) Problem List: (1) WILL (acute kidney injury) Plan: with hx of CKD Stage 4, baseline creatinine 1.8 she has 1.5 grams proteinuria suggesting underlying diabetic nephropathy WILL initially thought it was due to dehydration limited oral intake and UTI/ sepsis renal function had stabilized, creatinine noted to be slightly higher today she is not on IVF at this time as she lost IV access, but may require fluids when she returns to nursing facility non oliguric, she is on toileting routine monitor potassium, has been elevated at discharge she would benefit from RIOS or ARB (if BP tolerates), but due to persistent hyperkalemia, Cardizem is a reasonable alternative (2) Hyperkalemia Plan: K is acceptable , she has been persistently hyperkalemic Monitor. 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 (3) HTN (hypertension) Plan: blood pressure is higher, previously borderline low continue current medications including Norvasc and Lopressor, cardura was added continue with hold parameters (4) Diabetes mellitus, type 2 Plan: initially hypoglycemic now BG has stabilized and is acceptable continue insulin as needed, needs assistance with feeding avoid hypoglycemia (5) UTI (urinary tract infection) Plan: blood cultures negative urine culture positive for Klebsiella, off antibiotics monitor clinically, currently afebrile Plan patient was seen and examined. She has advanced dementia. Renal function is poor , no immediate need for dialysis. (Balta Elena MD) Problem Qualifiers (1) HTN (hypertension): Qualified Code: I10 - Essential hypertension Ayesha Gaspar [facility] Aug 10, 2016 10:43 Balta Elena MD Aug 10, 2016 21:24
[2016-08-10 12:00] VITALS: BP 91/53; PULSE 79; PULSE 82; RESP 18; TEMP 96.6; O2SAT 95
[2016-08-10] MEDS: MEGESTROL ACETATE SUSP 400 MG/10 ML CUP PO SCH (12:22)
[2016-08-10] MEDS: ASPIRIN 81 MG CHEW TAB CHEW SCH (12:22)
[2016-08-10] MEDS: METOPROLOL TARTRATE 25 MG TAB PO SCH ×2 (12:22→22:52)
[2016-08-10] MEDS ORDERED: SODIUM POLYSTYRENE SULFONATE SUSP 15 GM/60 ML CUP PO ONE (13:15)
--- NOTE | 2016-08-10 13:28 | HHI.PR ---
Subjective Remarks The patient was sitting in the chair at the nursing station. She was lethargic. No acute complaints. Discussed with nursing. The pt drank juice and protein shakes. Objective Vitals Vital Signs Date Time Temp Pulse Resp B/P Pulse Ox O2 Delivery O2 Flow Rate FiO2 08/10/16 12:00 96.6 79 18 91/53 95 08/10/16 08:00 98.2 74 18 176/72 95 08/10/16 04:18 97.1 68 20 129/57 95 08/10/16 00:47 97.7 66 18 185/64 96 08/09/16 20:20 97.9 71 18 88/50 98 08/09/16 19:00 61 08/09/16 16:00 97.6 60 20 101/53 98 I/O 08/09/16 08/09/16 08/09/16 08/10/16 08/10/16 08/10/16 07:00 15:00 23:00 07:00 15:00 23:00 Intake Total 240 ml 240 ml 120 ml Balance 240 ml 240 ml 120 ml Intake Oral 240 ml 240 ml 120 ml # Voids 3 3 1 3 Result Diagram: 08/09/16 0536 08/10/16 0801 Imaging Last Impressions Renal Ultrasound 07/27/16 0000 Signed Impressions: Service Date/Time: Wednesday, July 27, 2016 14:05 - CONCLUSION: 1. Kidneys are slightly echogenic which can be seen with medical renal disease. 2. Simple cyst right kidney. 3. Echogenic focus along the lower pole left kidney could be related to nonobstructing calculus measuring 7 mm. Brandt Lowery MD Head CT 07/23/16 [id number] Signed Impressions: Service Date/Time: Sunday, July 24, 2016 00:04 - CONCLUSION: 1. Suspected recent infarct involving the left middle cerebral artery territory at the left temporal and parietal lobes. 2. Age-related atrophy. 3. Widespread suspected small vessels ischemic change in the white matter. 4. 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 5. Acute right frontal scalp hematoma. Francis Gibson MD Chest X-Ray 07/23/16 [id number] Signed Impressions: Service Date/Time: June 23:48 - CONCLUSION: No acute disease. Francis Gibson MD Objective Remarks GENERAL: Appears comfortable. SKIN: Warm and dry. HEAD: Normocephalic. EYES: No scleral icterus. No injection or drainage. NECK: Supple, trachea midline. No JVD. CARDIOVASCULAR: Regular rate and rhythm without murmurs, gallops, or rubs. RESPIRATORY: Breath sounds equal bilaterally. No accessory muscle use. GASTROINTESTINAL: Abdomen soft, non-tender, nondistended. MUSCULOSKELETAL: No cyanosis, or edema. BACK: Nontender without obvious deformity. No CVA tenderness. NEURO: Unintelligible speech. Procedures None Medications and IVs Current Medications Medications (Trade) Dose Ordered Sig/Emiliano Route Start Time Stop Time Status Last Admin (NS Flush) 2 ml UNSCH PRN FLUSH 07/24/16 02:00 (NS Flush) 2 ml BID FLUSH 07/24/16 09:00 08/05/16 11:03 (Tylenol) 650 mg Q4H PRN PO 07/24/16 02:00 (Zofran Inj) 4 mg Q6H PRN IVP 07/24/16 02:00 (Dulcolax Supp) 10 mg DAILY PRN [place] 07/24/16 02:00 (Milk Of Magnesia Liq) 30 ml Q12H PRN PO 07/24/16 02:00 (Heparin Inj) 5,000 units Q12H SQ 07/24/16 06:00 08/10/16 05:36 (Narcan Inj) 0.4 mg UNSCH PRN IV 07/24/16 02:00 (Norvasc) 10 mg DAILY PO 07/24/16 09:00 08/10/16 12:22 (Pravachol) 80 mg HS PO 07/24/16 21:00 08/09/16 20:47 (D50w (Vial) Inj) 25 ml UNSCH PRN IV PUSH 07/26/16 20:30 (Glucagon Inj) 1 mg UNSCH PRN OTHER 07/26/16 20:30 (Cardura) 2 mg HS PO 07/27/16 00:30 08/09/16 20:47 (Megace Liq) 400 mg DAILY PO 07/27/16 12:45 08/10/16 12:22 (Pill Splitter) 1 ea UNSCH PRN OTHER 07/29/16 12:00 (Aspirin Chew) 81 mg DAILY CHEW 07/31/16 09:00 08/10/16 12:22 (Remeron) 7.5 mg HS PO 08/09/16 21:00 08/09/16 20:47 (Lopressor) 75 mg Q12HR PO 08/10/16 21:00 UNV Metoprolol Tartrate 25 mg 25 mg ONCE ONCE PO 08/10/16 13:30 08/10/16 13:31 UNV (NS 1000 ml Inj) 1,000 ml @ 75 mls/hr [id number] IV 08/10/16 13:30 08/11/16 02:49 UNV A/P Problem List: (1) Sepsis due to urinary tract infection ICD Code: A41.9 Status: Acute (2) Hypoglycemia associated with diabetes ICD Code: E11.649 Status: Acute (3) Fall ICD Code: W19.XXXA Status: Acute (4) Delirium ICD Code: R41.0 Status: Acute (5) HTN (hypertension) ICD Code: I10 Status: Chronic (6) DM (diabetes mellitus) ICD Code: E11.9 Status: Chronic (7) CKD (chronic kidney disease) stage 4, GFR 15-29 ml/min ICD Code: N18.4 Status: Chronic (8) WILL (acute kidney injury) ICD Code: N17.9 Status: Acute (9) Aphasia ICD Code: R47.01 Status: Chronic Assessment and Plan Severe sepsis (Temp 94F, R 22, UTI, WILL on chronic kidney disease) Due to klebsiella UTI. Renal ultrasound without evidence of nephritis or hydronephrosis, however does show nonobstructing 7 mm calculus in the left kidney. - S/p Ceftin. Metabolic encephalopathy/ History of CVA Mental status still waxes and wanes. Likely underlying dementia. Treated for UTI. Still lethargic 08/10. - d/c standing Seroquel. Use as needed. - continue ASA and statin. - PT/OT. - avoid sedating meds. V. tach Asymptomatic on 08/05. Likely secondary to hyperkalemia. 5 beat run noted on . - Kayexalate. - increase Lopressor to 75 mg BID. - telemetry. Severe hypoglycemia Possibly related to sepsis. Treated with D5NS which has been stopped since . - Sugars have been acceptable with episodes of hyperglycemia. Continue low dose SSI with insulin NovoLog. Poor oral intake/appetite/moderate protein calorie malnutrition Nutritional intake apparently inadequate. - on Megace and dietitian following. - reduce dose of Remeron to 7.5 mg daily. WILL on CKD/ Hyperkalemia Appreciate nephrology following. Creatinine has been stable for the past few days. Potassium is elevated. - Kayexalate as needed for hyperkalemia. - avoid nephrotoxins. - continue to monitor BMP. Hypertension Blood pressure fluctuates. - Continue Amlodipine 10mg Qday, Cardura 4 mg by mouth daily and clonidine as needed. Lopressor increased to 75 mg BID 08/10. DVT prophylaxisheparin. Discharge Planning Awaiting clinical improvement. Problem Qualifiers (1) HTN (hypertension): Qualified Code: I10 - Essential hypertension (2) DM (diabetes mellitus): Philip Martinez DO Aug 10, 2016 13:28
[2016-08-10] MEDS ORDERED: METOPROLOL TARTRATE 25 MG TAB PO ONE (13:30)
[2016-08-10] MEDS ORDERED: SODIUM CHLOR 0.9% 1000 ML INJ 1,000 ML IV SCH (14:00)
[2016-08-10 20:44] VITALS: BP 108/54; PULSE 74; RESP 19; TEMP 98; O2SAT 95
[2016-08-10] MEDS: DOXAZOSIN MESYLATE 2 MG TAB PO SCH (22:52)
[2016-08-10] MEDS: PRAVASTATIN SOD 80 MG TAB PO SCH (22:54)
[2016-08-10] MEDS: MIRTAZAPINE 15 MG TAB PO SCH (22:54)
[2016-08-10] MEDS: SODIUM CHLORIDE 0.9% FLUSH 5 ML FLUSH FLUSH SCH (22:55)
[2016-08-11] VITALS (7 sets, daily range): BP systolic 80–153; BP diastolic 46–83; PULSE 62–103; RESP 16–20; TEMP 96.4–98.9; O2SAT 98–100
[2016-08-11] MEDS: INSULIN ASPART SUPPLEMENTAL SCALE SQ SCH ×4 (05:55→21:14)
[2016-08-11] MEDS: HEPARIN SODIUM - SQ 10,000 UNITS/ML VIAL SQ SCH ×2 (05:58→19:04)
[2016-08-11 08:47] LABS: BICARBONATE 20.7 MEQ/L (21.0-32.0); MAGNESIUM 2.1 MG/DL (1.5-2.5)
[2016-08-11] MEDS: METOPROLOL TARTRATE 25 MG TAB PO SCH ×3 (09:00→21:14)
--- NOTE | 2016-08-11 10:17 | HHI.NPPN ---
Subjective Complaints: Confused Renal Failure: Chronic, Acute Interval History IV access was obtained. She remains demented and unable to list any concerns. Renal function slightly better. (Ayesha Gaspar) Review of Systems General General Remarks unable to obtain due to mental status (Ayesha Gaspar) Objective Data Data 08/10/16 08/11/16 19:00 07:00 # Voids 2 2 # Bowel Movements 1 0 Vital Signs Date Time Temp Pulse Resp B/P Pulse Ox O2 Delivery O2 Flow Rate FiO2 08/11/16 08:00 98.0 103 18 91/46 99 08/11/16 04:30 98.9 62 20 114/56 100 08/11/16 00:54 96.8 69 20 135/63 98 08/10/16 20:44 98.0 74 19 108/54 95 08/10/16 12:00 96.6 79 18 91/53 95 08/10/16 12:00 82 (Ayesha Gaspar) -: 08/09/16 0536 08/11/16 0647 Physical Exam General Appearance: Well Developed, No Acute Distress, Sleeping Appearance Remarks cachectic (Ayesha Gaspar) Eyes Eye Remarks bruise under right eye (Ayesha Gaspar) Neck Neck Exam: Neck Supple (Ayesha Gaspar) Pulmonary Resp Exam: Clear Bilaterally, Breath Sounds Equal, No Distress (Ayesha Gaspar) Cardiology CV Exam: Regular, Normal Sinus Rhythm, Good Perfusion (Ayesha Gaspar) Chest/Breast Chest/Breast Exam: Symmetry (Ayesha Gaspar) Gastrointestinal/Abdomen GI Exam: Soft, Non-Tender, Bowel Sounds Present (Ayesha Gaspar) Musculoskeletal MS Exam: Joints Intact, Atrophy (Ayesha Gaspar) Integumentary Skin Exam: Clear, Warm, Intact Skin Remarks scattered abrasions (Ayesha Gaspar) Extremeties Extremities Exam: No Edema (Ayesha Gaspar) Neurologic Neuro Exam: Awake, Moving All Extremities Neuro Remarks severe aphasia (Ayesha Gaspar) Assessment/Plan Assessment Summary: WILL/Acute Renal Failure, Dehydration, Malnutrition, Hypertension, Diabetes Mellitus Electrolyte Assessment: Hyperkalemia Problem List: (1) WILL (acute kidney injury) Plan: with hx of CKD Stage 4, baseline creatinine 1.8 she has 1.5 grams proteinuria suggesting underlying diabetic nephropathy WILL initially thought it was due to dehydration limited oral intake and UTI/ sepsis renal function had improved slightly overnight IV access obtained, she is now on IVF non oliguric, she is on toileting routine monitor potassium, has been elevated at discharge she would benefit from RIOS or ARB (if BP tolerates), but due to persistent hyperkalemia, Cardizem is a reasonable alternative no immediate need for dialysis therapy (2) Hyperkalemia Plan: K has improved , she has been persistently hyperkalemic Monitor. 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 (3) HTN (hypertension) Plan: blood pressure is borderline low today continue current medications including Norvasc and Lopressor and Cardura continue with hold parameters (4) Diabetes mellitus, type 2 Plan: initially hypoglycemic now BG has stabilized and is acceptable continue insulin as needed, needs assistance with feeding avoid hypoglycemia (5) UTI (urinary tract infection) Plan: blood cultures negative urine culture positive for Klebsiella, off antibiotics monitor clinically, currently afebrile (Ayesha Gaspar) Plan patient was seen and examined. Agree with above assessment and plan. Now on IVF. (Balta Elena MD) Problem Qualifiers (1) HTN (hypertension): Qualified Code: I10 - Essential hypertension Ayesha Gaspar Aug 11, 2016 10:17 Balta Elena MD Aug 11, 2016 16:50
[2016-08-11] MEDS: SODIUM CHLORIDE 0.9% FLUSH 5 ML FLUSH FLUSH SCH ×2 (10:53→21:00)
[2016-08-11] MEDS: MEGESTROL ACETATE SUSP 400 MG/10 ML CUP PO SCH (10:54)
[2016-08-11] MEDS: ASPIRIN 81 MG CHEW TAB CHEW SCH (10:54)
--- NOTE | 2016-08-11 14:22 | HHI.PR ---
Subjective Remarks The patient was eating lunch. She would mumble a few words but otherwise did not have a conversation. She appeared comfortable. Discussed with nursing. Objective Vitals Vital Signs Date Time Temp Pulse Resp B/P Pulse Ox O2 Delivery O2 Flow Rate FiO2 08/11/16 08:00 98.0 103 18 91/46 99 08/11/16 04:30 98.9 62 20 114/56 100 08/11/16 00:54 96.8 69 20 135/63 98 08/10/16 20:44 98.0 74 19 108/54 95 I/O 08/10/16 08/10/16 08/10/16 08/11/16 08/11/16 08/11/16 07:00 15:00 23:00 07:00 15:00 23:00 Intake Total 120 ml Balance 120 ml Intake Oral 120 ml # Voids 3 2 1 1 # Bowel Movements 1 0 Result Diagram: 08/09/16 0536 08/11/16 0647 Imaging Last Impressions Renal Ultrasound 07/27/16 0000 Signed Impressions: Service Date/Time: Wednesday, July 27, 2016 14:05 - CONCLUSION: 1. Kidneys are slightly echogenic which can be seen with medical renal disease. 2. Simple cyst right kidney. 3. Echogenic focus along the lower pole left kidney could be related to nonobstructing calculus measuring 7 mm. Brandt Lowery MD Head CT 07/23/16 [id number] Signed Impressions: Service Date/Time: Sunday, July 24, 2016 00:04 - CONCLUSION: 1. Suspected recent infarct involving the left middle cerebral artery territory at the left temporal and parietal lobes. 2. Age-related atrophy. 3. Widespread suspected small vessels ischemic change in the white matter. 4. 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 5. Acute right frontal scalp hematoma. Francis Gibson MD Chest X-Ray 07/23/16 [id number] Signed Impressions: Service Date/Time: June 23:48 - CONCLUSION: No acute disease. Francis Gibson MD Objective Remarks GENERAL: Appears comfortable. SKIN: Warm and dry. HEAD: Normocephalic. EYES: No scleral icterus. No injection or drainage. NECK: Supple, trachea midline. No JVD. CARDIOVASCULAR: Regular rate and rhythm without murmurs, gallops, or rubs. RESPIRATORY: Breath sounds equal bilaterally. No accessory muscle use. GASTROINTESTINAL: Abdomen soft, non-tender, nondistended. MUSCULOSKELETAL: No cyanosis, or edema. BACK: Nontender without obvious deformity. No CVA tenderness. NEURO: Unintelligible speech. Procedures None Medications and IVs Current Medications Medications (Trade) Dose Ordered Sig/Emiliano Route Start Time Stop Time Status Last Admin (NS Flush) 2 ml UNSCH PRN FLUSH 07/24/16 02:00 (NS Flush) 2 ml BID FLUSH 07/24/16 09:00 08/11/16 10:53 (Tylenol) 650 mg Q4H PRN PO 07/24/16 02:00 (Zofran Inj) 4 mg Q6H PRN IVP 07/24/16 02:00 (Dulcolax Supp) 10 mg DAILY PRN [place] 07/24/16 02:00 (Milk Of Magnesia Liq) 30 ml Q12H PRN PO 07/24/16 02:00 (Heparin Inj) 5,000 units Q12H SQ 07/24/16 06:00 08/11/16 05:58 (Narcan Inj) 0.4 mg UNSCH PRN IV 07/24/16 02:00 (Norvasc) 10 mg DAILY PO 07/24/16 09:00 08/11/16 10:54 (Pravachol) 80 mg HS PO 07/24/16 21:00 08/10/16 22:54 (D50w (Vial) Inj) 25 ml UNSCH PRN IV PUSH 07/26/16 20:30 (Glucagon Inj) 1 mg UNSCH PRN OTHER 07/26/16 20:30 (Cardura) 2 mg HS PO 07/27/16 00:30 08/10/16 22:52 (Megace Liq) 400 mg DAILY PO 07/27/16 12:45 08/11/16 10:54 (Pill Splitter) 1 ea UNSCH PRN OTHER 07/29/16 12:00 (Aspirin Chew) 81 mg DAILY CHEW 07/31/16 09:00 08/11/16 10:54 (Remeron) 7.5 mg HS PO 08/09/16 21:00 08/10/16 22:54 Metoprolol Tartrate 75 mg 75 mg Q12HR PO 08/10/16 21:00 12/12/16 22:52 (NS 1000 ml Inj) 1,000 ml @ 60 mls/hr [id number] IV 08/11/16 10:30 A/P Problem List: (1) Sepsis due to urinary tract infection ICD Code: A41.9 Status: Acute (2) Hypoglycemia associated with diabetes ICD Code: E11.649 Status: Acute (3) Fall ICD Code: W19.XXXA Status: Acute (4) Delirium ICD Code: R41.0 Status: Acute (5) HTN (hypertension) ICD Code: I10 Status: Chronic (6) DM (diabetes mellitus) ICD Code: E11.9 Status: Chronic (7) CKD (chronic kidney disease) stage 4, GFR 15-29 ml/min ICD Code: N18.4 Status: Chronic (8) WILL (acute kidney injury) ICD Code: N17.9 Status: Acute (9) Aphasia ICD Code: R47.01 Status: Chronic Assessment and Plan Severe sepsis (Temp 94F, R 22, UTI, WILL on chronic kidney disease) Due to klebsiella UTI. Renal ultrasound without evidence of nephritis or hydronephrosis, however does show nonobstructing 7 mm calculus in the left kidney. - S/p Ceftin. Metabolic encephalopathy/ History of CVA Mental status still waxes and wanes. Likely underlying dementia. Treated for UTI. Mental status improved 08/11, eating on her own. - d/c standing Seroquel. Use as needed. - continue ASA and statin. - PT/OT. - avoid sedating meds. V. tach Asymptomatic on 08/05. Likely secondary to hyperkalemia. 5 beat run noted on . - Kayexalate. - increased Lopressor to 75 mg BID 08/10. Holding parameters in place. - telemetry. Severe hypoglycemia Possibly related to sepsis. Treated with D5NS which has been stopped since . Sugars have been elevated 08/11. - Continue low dose SSI with insulin NovoLog. Will monitor and add long-acting insulin as needed. Would like to avoid hypoglycemia. Poor oral intake/appetite/moderate protein calorie malnutrition Nutritional intake apparently inadequate. - on Megace and dietitian following. - reduce dose of Remeron to 7.5 mg daily. WILL on CKD/ Hyperkalemia Appreciate nephrology following. Creatinine has been stable for the past few days. Potassium is elevated. - Kayexalate as needed for hyperkalemia. - avoid nephrotoxins. - continue to monitor BMP. Hypertension Blood pressure fluctuates. - Continue Cardura 4 mg by mouth daily and clonidine as needed. Lopressor increased to 75 mg BID 08/10. Decrease amlodipine to 5 mg daily 08/11. DVT prophylaxisheparin. Discharge Planning Awaiting placement. Problem Qualifiers (1) HTN (hypertension): Qualified Code: I10 - Essential hypertension (2) DM (diabetes mellitus): Philip Martinez DO Aug 11, 2016 14:22
[2016-08-11] MEDS: PRAVASTATIN SOD 80 MG TAB PO SCH (21:13)
[2016-08-11] MEDS: MIRTAZAPINE 15 MG TAB PO SCH (21:13)
[2016-08-11] MEDS: DOXAZOSIN MESYLATE 2 MG TAB PO SCH (21:17)
[2016-08-12] VITALS (8 sets, daily range): BP systolic 103–174; BP diastolic 55–73; PULSE 58–68; RESP 14–20; TEMP 96.1–98.6; O2SAT 96–99
[2016-08-12] MEDS: SODIUM CHLOR 0.9% 1000 ML INJ 1,000 ML IV SCH ×2 (03:30→18:58)
[2016-08-12] MEDS: HEPARIN SODIUM - SQ 10,000 UNITS/ML VIAL SQ SCH ×2 (06:04→18:49)
[2016-08-12] MEDS: INSULIN ASPART SUPPLEMENTAL SCALE SQ SCH ×4 (06:05→22:31)
[2016-08-12 08:16] LABS: POTASSIUM 4.6 MEQ/L (3.5-5.1)
[2016-08-12] MEDS: SODIUM CHLORIDE 0.9% FLUSH 5 ML FLUSH FLUSH SCH ×2 (09:00→21:00)
[2016-08-12] MEDS: ASPIRIN 81 MG CHEW TAB CHEW SCH (09:58)
[2016-08-12] MEDS: METOPROLOL TARTRATE 25 MG TAB PO SCH ×2 (09:58→21:00)
[2016-08-12] MEDS: MEGESTROL ACETATE SUSP 400 MG/10 ML CUP PO SCH (10:00)
--- NOTE | 2016-08-12 12:11 | HHI.PR ---
Subjective Remarks The patient was resting comfortably. No concerns from staff. Objective Vitals Vital Signs Date Time Temp Pulse Resp B/P Pulse Ox O2 Delivery O2 Flow Rate FiO2 08/12/16 08:00 98.6 68 15 122/64 96 08/12/16 05:00 158/66 08/12/16 04:57 97.8 64 16 174/73 97 08/12/16 00:21 98.6 58 18 152/70 98 08/11/16 21:05 63 08/11/16 20:00 96.5 71 16 153/83 98 08/11/16 16:14 96.4 64 17 80/50 99 08/11/16 13:05 96.9 65 19 128/58 98 I/O 08/11/16 08/11/16 08/11/16 08/12/16 08/12/16 08/12/16 06:59 14:59 22:59 06:59 14:59 22:59 Intake Total 620 ml 200 ml Balance 620 ml 200 ml Intake Oral 620 ml IV Total 200 ml # Voids 1 4 # Bowel Movements 0 0 Result Diagram: 08/09/16 0536 08/12/16 0646 Imaging Last Impressions Renal Ultrasound 07/27/16 0000 Signed Impressions: Service Date/Time: Wednesday, July 27, 2016 14:05 - CONCLUSION: 1. Kidneys are slightly echogenic which can be seen with medical renal disease. 2. Simple cyst right kidney. 3. Echogenic focus along the lower pole left kidney could be related to nonobstructing calculus measuring 7 mm. Brandt Lowery MD Head CT 07/23/16 [id number] Signed Impressions: Service Date/Time: Sunday, July 24, 2016 00:04 - CONCLUSION: 1. Suspected recent infarct involving the left middle cerebral artery territory at the left temporal and parietal lobes. 2. Age-related atrophy. 3. Widespread suspected small vessels ischemic change in the white matter. 4. 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 5. Acute right frontal scalp hematoma. Francis Gibson MD Chest X-Ray 07/23/16 0388 Signed Impressions: Service Date/Time: June 23:48 - CONCLUSION: No acute disease. Francis Gibson MD Objective Remarks GENERAL: Appears comfortable. SKIN: Warm and dry. HEAD: Normocephalic. EYES: No scleral icterus. No injection or drainage. NECK: Supple, trachea midline. No JVD. CARDIOVASCULAR: Regular rate and rhythm without murmurs, gallops, or rubs. RESPIRATORY: Breath sounds equal bilaterally. No accessory muscle use. GASTROINTESTINAL: Abdomen soft, non-tender, nondistended. MUSCULOSKELETAL: No cyanosis, or edema. BACK: Nontender without obvious deformity. No CVA tenderness. NEURO: Unintelligible speech. Procedures None Medications and IVs Current Medications Medications (Trade) Dose Ordered Sig/Emiliano Route Start Time Stop Time Status Last Admin (NS Flush) 2 ml UNSCH PRN FLUSH 07/24/16 02:00 (NS Flush) 2 ml BID FLUSH 07/24/16 09:00 08/11/16 10:53 (Tylenol) 650 mg Q4H PRN PO 07/24/16 02:00 08/12/16 10:00 (Zofran Inj) 4 mg Q6H PRN IVP 07/24/16 02:00 (Dulcolax Supp) 10 mg DAILY PRN [place] 07/24/16 02:00 (Milk Of Magnesia Liq) 30 ml Q12H PRN PO 07/24/16 02:00 (Heparin Inj) 5,000 units Q12H SQ 07/24/16 06:00 08/12/16 06:04 (Narcan Inj) 0.4 mg UNSCH PRN IV 07/24/16 02:00 (Pravachol) 80 mg HS PO 07/24/16 21:00 08/11/16 21:13 (D50w (Vial) Inj) 25 ml UNSCH PRN IV PUSH 07/26/16 20:30 (Glucagon Inj) 1 mg UNSCH PRN OTHER 07/26/16 20:30 (Cardura) 2 mg HS PO 07/27/16 00:30 08/11/16 21:17 (Megace Liq) 400 mg DAILY PO 07/27/16 12:45 08/12/16 10:00 (Pill Splitter) 1 ea UNSCH PRN OTHER 07/29/16 12:00 (Aspirin Chew) 81 mg DAILY CHEW 07/31/16 09:00 08/12/16 09:58 (Remeron) 7.5 mg HS PO 08/09/16 21:00 08/11/16 21:13 Metoprolol Tartrate 75 mg 75 mg Q12HR PO 08/10/16 21:00 08/12/16 09:58 (NS 1000 ml Inj) 1,000 ml @ 60 mls/hr [id number] IV 08/11/16 10:30 08/12/16 03:30 (Norvasc) 5 mg DAILY PO 08/12/16 09:00 08/12/16 09:58 A/P Problem List: (1) Sepsis due to urinary tract infection ICD Code: A41.9 Status: Acute (2) Hypoglycemia associated with diabetes ICD Code: E11.649 Status: Acute (3) Fall ICD Code: W19.XXXA Status: Acute (4) Delirium ICD Code: R41.0 Status: Acute (5) HTN (hypertension) ICD Code: I10 Status: Chronic (6) DM (diabetes mellitus) ICD Code: E11.9 Status: Chronic (7) CKD (chronic kidney disease) stage 4, GFR 15-29 ml/min ICD Code: N18.4 Status: Chronic (8) WILL (acute kidney injury) ICD Code: N17.9 Status: Acute (9) Aphasia ICD Code: R47.01 Status: Chronic Assessment and Plan Severe sepsis (Temp 94F, R 22, UTI, WILL on chronic kidney disease) Due to klebsiella UTI. Renal ultrasound without evidence of nephritis or hydronephrosis, however does show nonobstructing 7 mm calculus in the left kidney. - S/p Ceftin. Metabolic encephalopathy/ History of CVA Mental status still waxes and wanes. Likely underlying dementia. Treated for UTI. - d/c standing Seroquel. Use as needed. - continue ASA and statin. - PT/OT. - avoid sedating meds. V. tach Asymptomatic on 08/05. Likely secondary to hyperkalemia. 5 beat run noted on . - Kayexalate. Potassium level improved 08/12. - increased Lopressor to 75 mg BID 08/10. Holding parameters in place. - telemetry. Severe hypoglycemia Possibly related to sepsis. Treated with D5NS which has been stopped since . Sugars improved 08/12. - Continue low dose SSI with insulin NovoLog. Will monitor and add long-acting insulin as needed. Would like to avoid hypoglycemia. Poor oral intake/appetite/moderate protein calorie malnutrition Nutritional intake apparently inadequate. - on Megace and dietitian following. - reduce dose of Remeron to 7.5 mg daily. WILL on CKD/ Hyperkalemia Appreciate nephrology following. Creatinine has been stable for the past few days. Potassium is elevated. - Kayexalate as needed for hyperkalemia. Improved K+ 08/12. - avoid nephrotoxins. - continue to monitor BMP. Hypertension Blood pressure fluctuates. - Continue Cardura 4 mg by mouth daily and clonidine as needed. Lopressor increased to 75 mg BID 08/10. Decrease amlodipine to 5 mg daily 08/11. DVT prophylaxisheparin. Discharge Planning Awaiting placement. Problem Qualifiers (1) HTN (hypertension): Qualified Code: I10 - Essential hypertension (2) DM (diabetes mellitus): Philip Martinez DO Aug 12, 2016 12:11
--- NOTE | 2016-08-12 12:53 | HHI.NPPN ---
Subjective Complaints: Confused Renal Failure: Chronic, Acute Interval History Patient is sleeping, she is severely demented, does not follow commands. On IV fluids, incontinent of urine. Renal function slightly improved but overall stable. (Ayesha Gaspar) Review of Systems General General Remarks unable to obtain due to mental status (Ayesha Gaspar) Objective Data Data 08/11/16 08/12/16 19:00 07:00 Intake Total 100 ml 720 ml Balance 100 ml 720 ml Intake Oral 100 ml 520 ml IV Total 200 ml # Voids 4 # Bowel Movements 0 Vital Signs Date Time Temp Pulse Resp B/P Pulse Ox O2 Delivery O2 Flow Rate FiO2 08/12/16 08:00 98.6 68 15 122/64 96 08/12/16 05:00 158/66 08/12/16 04:57 97.8 64 16 174/73 97 08/12/16 00:21 98.6 58 18 152/70 98 08/11/16 21:05 63 08/11/16 20:00 96.5 71 16 153/83 98 08/11/16 16:14 96.4 64 17 80/50 99 08/11/16 13:05 96.9 65 19 128/58 98 (Ayesha Gaspar) -: 08/09/16 0536 08/12/16 0646 Physical Exam General Appearance: Well Developed, No Acute Distress, Sleeping Appearance Remarks cachectic (Ayesha Gaspar) Eyes Eye Remarks bruise under right eye (Ayesha Gaspar) Neck Neck Exam: Neck Supple (Ayesha Gaspar) Pulmonary Resp Exam: Clear Bilaterally, Breath Sounds Equal, No Distress (Ayesha Gaspar) Cardiology CV Exam: Regular, Normal Sinus Rhythm, Good Perfusion (Ayesha Gaspar) Chest/Breast Chest/Breast Exam: Symmetry (Ayesha Gaspar) Gastrointestinal/Abdomen GI Exam: Soft, Non-Tender, Bowel Sounds Present (Ayesha Gaspar) Genitourinary Remarks incontinent, strong urine odor (Ayesha Gaspar) Musculoskeletal MS Exam: Joints Intact, Atrophy (Ayesha Gaspar) Integumentary Skin Exam: Clear, Warm, Intact Skin Remarks scattered abrasions (Ayesha Gaspar) Extremeties Extremities Exam: No Edema (Ayesha Gaspar) Neurologic Neuro Exam: Awake, Moving All Extremities Neuro Remarks severe aphasia (Ayesha Gaspar) Assessment/Plan Assessment Summary: WILL/Acute Renal Failure, Dehydration, Malnutrition, Hypertension, Diabetes Mellitus Electrolyte Assessment: Hyperkalemia Problem List: (1) WILL (acute kidney injury) Plan: with hx of CKD Stage 4, baseline creatinine 1.8 she has 1.5 grams proteinuria suggesting underlying diabetic nephropathy WILL initially thought it was due to dehydration limited oral intake and UTI/ sepsis renal function has improved since IV access obtained and fluids were restated continue IVF, 0.9% NS at 60 ml/hr she needs assistance with oral nutrition and fluids non oliguric, incontinent potassium level is normal, has been elevated at discharge she would benefit from RIOS or ARB (if BP tolerates), but due to persistent hyperkalemia, Cardizem is a reasonable alternative no immediate need for renal replacement therapy (2) Hyperkalemia Plan: K is normal, she was persistently hyperkalemic Monitor. 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 (3) HTN (hypertension) Plan: blood pressure is acceptable, improved continue current medications including Norvasc and Lopressor and Cardura continue with hold parameters (4) Diabetes mellitus, type 2 Plan: initially hypoglycemic now BG has stabilized and is acceptable continue insulin as needed, needs assistance with feeding avoid hypoglycemia (5) UTI (urinary tract infection) Plan: blood cultures negative urine culture positive for Klebsiella, still off antibiotics monitor clinically, currently afebrile Plan p (Ayesha Gaspar) Plan patient was seen and examined. Renal function is stable. (Balta Elena MD) Problem Qualifiers (1) HTN (hypertension): Qualified Code: I10 - Essential hypertension Ayesha Gaspar Aug 12, 2016 12:53 Balta Elena MD Aug 12, 2016 16:23
[2016-08-12] MEDS: DOXAZOSIN MESYLATE 2 MG TAB PO SCH (21:00)
[2016-08-12] MEDS: PRAVASTATIN SOD 80 MG TAB PO SCH (22:25)
[2016-08-12] MEDS: MIRTAZAPINE 15 MG TAB PO SCH (22:25)
[2016-08-13] VITALS (7 sets, daily range): BP systolic 99–154; BP diastolic 56–84; PULSE 55–72; RESP 16–19; TEMP 96.2–98.5; O2SAT 95–98
[2016-08-13] MEDS: HEPARIN SODIUM - SQ 10,000 UNITS/ML VIAL SQ SCH ×2 (05:00→16:29)
[2016-08-13] MEDS: INSULIN ASPART SUPPLEMENTAL SCALE SQ SCH ×4 (05:00→21:34)
[2016-08-13 07:40] LABS: BICARBONATE 22.1 MEQ/L (21.0-32.0); MAGNESIUM 1.9 MG/DL (1.5-2.5); POTASSIUM 4.4 MEQ/L (3.5-5.1)
--- NOTE | 2016-08-13 08:19 | HHI.NPPN ---
Subjective Complaints: Confused Renal Failure: Chronic, Acute Interval History About the same. Renal function has improved. Review of Systems General General Remarks unable to obtain due to mental status Objective Data Data 08/12/16 08/13/16 18:59 06:59 Intake Total 810 ml Output Total 650 ml Balance -650 ml 810 ml Intake Oral 120 ml IV Total 690 ml Output Urine Total 650 ml # Voids 0 3 # Bowel Movements 0 0 Vital Signs Date Time Temp Pulse Resp B/P Pulse Ox O2 Delivery O2 Flow Rate FiO2 08/13/16 08:00 96.2 72 16 112/65 95 08/13/16 04:00 97.6 58 18 139/84 97 08/13/16 00:00 98.1 57 18 141/61 97 08/12/16 20:00 97.4 61 20 138/60 97 08/12/16 16:00 96.1 60 14 120/60 97 08/12/16 12:00 98.3 66 16 103/55 99 -: 08/09/16 0536 08/13/16 0622 Physical Exam General Appearance: Well Developed, No Acute Distress Neck Neck Exam: Neck Supple Pulmonary Resp Exam: Clear Bilaterally, Breath Sounds Equal, No Distress Cardiology CV Exam: Regular, Normal Sinus Rhythm, Good Perfusion Chest/Breast Chest/Breast Exam: Symmetry Gastrointestinal/Abdomen GI Exam: Soft, Non-Tender, Bowel Sounds Present Musculoskeletal MS Exam: Joints Intact, Atrophy Integumentary Skin Exam: Clear, Warm, Intact Extremeties Extremities Exam: No Edema Neurologic Neuro Exam: Awake, Moving All Extremities Neuro Remarks suffers from dementia. Assessment/Plan Assessment Summary: WILL/Acute Renal Failure, Dehydration, Malnutrition, Hypertension, Diabetes Mellitus Electrolyte Assessment: Hyperkalemia Problem List: (1) WILL (acute kidney injury) Plan: Renal function is stable. Avoid nephrotoxic agents. Taper off fluids if oral intake improves. Her eGFR may be at baseline. No indication for dialysis. (2) Hyperkalemia Plan: K is normal, she was persistently hyperkalemic Monitor. 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 (3) HTN (hypertension) Plan: blood pressure is acceptable, improved continue current medications including Norvasc and Lopressor and Cardura continue with hold parameters (4) Diabetes mellitus, type 2 Plan: initially hypoglycemic now BG has stabilized and is acceptable continue insulin as needed, needs assistance with feeding avoid hypoglycemia (5) UTI (urinary tract infection) Plan: blood cultures negative urine culture positive for Klebsiella, still off antibiotics monitor clinically, currently afebrile Problem Qualifiers (1) HTN (hypertension): Qualified Code: I10 - Essential hypertension Balta Elena MD Aug 13, 2016 08:19
[2016-08-13] MEDS: SODIUM CHLORIDE 0.9% FLUSH 5 ML FLUSH FLUSH SCH ×2 (09:00→20:29)
[2016-08-13] MEDS: METOPROLOL TARTRATE 25 MG TAB PO SCH ×2 (10:06→20:29)
[2016-08-13] MEDS: ASPIRIN 81 MG CHEW TAB CHEW SCH (10:06)
[2016-08-13] MEDS: MEGESTROL ACETATE SUSP 400 MG/10 ML CUP PO SCH (10:06)
[2016-08-13] MEDS: SODIUM CHLOR 0.9% 1000 ML INJ 1,000 ML IV SCH (12:49)
--- NOTE | 2016-08-13 14:08 | HHI.PR ---
Subjective Remarks The patient was resting in bed comfortably. No acute events reported. Objective Vitals Vital Signs Date Time Temp Pulse Resp B/P Pulse Ox O2 Delivery O2 Flow Rate FiO2 08/13/16 12:00 97.9 71 19 99/56 96 08/13/16 08:00 96.2 72 16 112/65 95 08/13/16 04:00 97.6 58 18 139/84 97 08/13/16 00:00 98.1 57 18 141/61 97 08/12/16 20:00 97.4 61 20 138/60 97 08/12/16 16:00 96.1 60 14 120/60 97 I/O 08/12/16 08/12/16 08/12/16 08/13/16 08/13/16 08/13/16 06:59 14:59 22:59 06:59 14:59 22:59 Intake Total 200 ml 120 ml 690 ml Output Total 650 ml Balance 200 ml -530 ml 690 ml Intake Oral 120 ml IV Total 200 ml 690 ml Output Urine Total 650 ml # Voids 1 2 # Bowel Movements 0 0 Result Diagram: 08/09/16 0536 08/13/16 0622 Imaging Last Impressions Renal Ultrasound 07/27/16 0000 Signed Impressions: Service Date/Time: Wednesday, July 27, 2016 14:05 - CONCLUSION: 1. Kidneys are slightly echogenic which can be seen with medical renal disease. 2. Simple cyst right kidney. 3. Echogenic focus along the lower pole left kidney could be related to nonobstructing calculus measuring 7 mm. Brandt Lowery MD Head CT 07/23/16 0370 Signed Impressions: Service Date/Time: Sunday, July 24, 2016 00:04 - CONCLUSION: 1. Suspected recent infarct involving the left middle cerebral artery territory at the left temporal and parietal lobes. 2. Age-related atrophy. 3. Widespread suspected small vessels ischemic change in the white matter. 4. 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 5. Acute right frontal scalp hematoma. Francis Gibson MD Chest X-Ray 07/23/16 1298 Signed Impressions: Service Date/Time: June 23:48 - CONCLUSION: No acute disease. Francis Gibson MD Objective Remarks GENERAL: Appears comfortable. SKIN: Warm and dry. HEAD: Normocephalic. EYES: No scleral icterus. No injection or drainage. NECK: Supple, trachea midline. No JVD. CARDIOVASCULAR: Regular rate and rhythm without murmurs, gallops, or rubs. RESPIRATORY: Breath sounds equal bilaterally. No accessory muscle use. GASTROINTESTINAL: Abdomen soft, non-tender, nondistended. MUSCULOSKELETAL: No cyanosis, or edema. BACK: Nontender without obvious deformity. No CVA tenderness. NEURO: Unintelligible speech. Procedures None Medications and IVs Current Medications Medications (Trade) Dose Ordered Sig/Emiliano Route Start Time Stop Time Status Last Admin (NS Flush) 2 ml UNSCH PRN FLUSH 07/24/16 02:00 (NS Flush) 2 ml BID FLUSH 07/24/16 09:00 08/11/16 10:53 (Tylenol) 650 mg Q4H PRN PO 07/24/16 02:00 08/12/16 10:00 (Zofran Inj) 4 mg Q6H PRN IVP 07/24/16 02:00 (Dulcolax Supp) 10 mg DAILY PRN MA 07/24/16 02:00 (Milk Of Magnesia Liq) 30 ml Q12H PRN PO 07/24/16 02:00 (Heparin Inj) 5,000 units Q12H SQ 07/24/16 06:00 08/13/16 05:00 (Narcan Inj) 0.4 mg UNSCH PRN IV 07/24/16 02:00 (Pravachol) 80 mg HS PO 07/24/16 21:00 08/12/16 22:25 (D50w (Vial) Inj) 25 ml UNSCH PRN IV PUSH 07/26/16 20:30 (Glucagon Inj) 1 mg UNSCH PRN OTHER 07/26/16 20:30 (Cardura) 2 mg HS PO 07/27/16 00:30 08/12/16 21:00 (Megace Liq) 400 mg DAILY PO 07/27/16 12:45 08/13/16 10:06 (Pill Splitter) 1 ea UNSCH PRN OTHER 07/29/16 12:00 (Aspirin Chew) 81 mg DAILY CHEW 07/31/16 09:00 08/13/16 10:06 (Remeron) 7.5 mg HS PO 08/09/16 21:00 08/12/16 22:25 Metoprolol Tartrate 75 mg 75 mg Q12HR PO 08/10/16 21:00 08/13/16 10:06 (NS 1000 ml Inj) 1,000 ml @ 40 mls/hr Q24H IV 08/11/16 10:30 08/13/16 12:49 (Norvasc) 5 mg DAILY PO 08/12/16 09:00 08/13/16 10:06 A/P Problem List: (1) Sepsis due to urinary tract infection ICD Code: A41.9 Status: Acute (2) Hypoglycemia associated with diabetes ICD Code: E11.649 Status: Acute (3) Fall ICD Code: W19.XXXA Status: Acute (4) Delirium ICD Code: R41.0 Status: Acute (5) HTN (hypertension) ICD Code: I10 Status: Chronic (6) DM (diabetes mellitus) ICD Code: E11.9 Status: Chronic (7) CKD (chronic kidney disease) stage 4, GFR 15-29 ml/min ICD Code: N18.4 Status: Chronic (8) WILL (acute kidney injury) ICD Code: N17.9 Status: Acute (9) Aphasia ICD Code: R47.01 Status: Chronic Assessment and Plan Severe sepsis (Temp 94F, R 22, UTI, WILL on chronic kidney disease) Due to klebsiella UTI. Renal ultrasound without evidence of nephritis or hydronephrosis, however does show nonobstructing 7 mm calculus in the left kidney. - S/p Ceftin. Metabolic encephalopathy/ History of CVA Mental status still waxes and wanes. Likely underlying dementia. Treated for UTI. - d/c standing Seroquel. Use as needed. - continue ASA and statin. - PT/OT. - avoid sedating meds. V. tach Asymptomatic on 08/05. Likely secondary to hyperkalemia. 5 beat run noted on . - Kayexalate. Potassium level improved 08/13. - increased Lopressor to 75 mg BID 08/10. Holding parameters in place. - telemetry. Severe hypoglycemia Possibly related to sepsis. Treated with D5NS which has been stopped since . Sugars stable 08/13. - Continue low dose SSI with insulin NovoLog. Will monitor and add long-acting insulin as needed. Would like to avoid hypoglycemia. Poor oral intake/appetite/moderate protein calorie malnutrition Nutritional intake apparently inadequate. - on Megace and dietitian following. - reduce dose of Remeron to 7.5 mg daily. WILL on CKD/ Hyperkalemia Appreciate nephrology following. Creatinine has been stable for the past few days. Potassium is elevated. - Kayexalate as needed for hyperkalemia. Improved K+ 08/13. - avoid nephrotoxins. - continue to monitor BMP. Hypertension Blood pressure fluctuates. - Continue Cardura 4 mg by mouth daily and clonidine as needed. Lopressor increased to 75 mg BID 08/10. Decrease amlodipine to 5 mg daily 08/11. DVT prophylaxisheparin. Discharge Planning Awaiting placement. Problem Qualifiers (1) HTN (hypertension): Qualified Code: I10 - Essential hypertension (2) DM (diabetes mellitus): Philip Martinez DO Aug 13, 2016 14:08
[2016-08-13] MEDS: PRAVASTATIN SOD 80 MG TAB PO SCH (20:29)
[2016-08-13] MEDS: MIRTAZAPINE 15 MG TAB PO SCH (20:29)
[2016-08-13] MEDS: DOXAZOSIN MESYLATE 2 MG TAB PO SCH (20:29)
[2016-08-14] VITALS (8 sets, daily range): BP systolic 92–176; BP diastolic 56–80; PULSE 51–68; RESP 16–18; TEMP 96.6–98.4; O2SAT 95–98
[2016-08-14] MEDS: INSULIN ASPART SUPPLEMENTAL SCALE SQ SCH ×4 (06:11→22:06)
[2016-08-14] MEDS: HEPARIN SODIUM - SQ 10,000 UNITS/ML VIAL SQ SCH ×2 (06:24→16:37)
[2016-08-14 07:22] LABS: MAGNESIUM 1.9 MG/DL (1.5-2.5); POTASSIUM 4.9 MEQ/L (3.5-5.1)
--- NOTE | 2016-08-14 08:12 | HHI.NPPN ---
Subjective Complaints: Confused Renal Failure: Chronic, Acute Interval History Creatinine is slighlty better. No changes. Still minimal oral intake unless assisted. (Ayesha Gaspar) Review of Systems General General Remarks unable to obtain due to mental status (Ayesha Gaspar) Objective Data Data 08/13/16 08/14/16 18:59 06:59 Intake Total 240 ml 591 ml Balance 240 ml 591 ml Intake Oral 240 ml 591 ml # Voids 3 2 # Bowel Movements 0 Vital Signs Date Time Temp Pulse Resp B/P Pulse Ox O2 Delivery O2 Flow Rate FiO2 08/14/16 04:20 96.6 58 18 95 08/14/16 00:24 98.2 51 18 176/64 97 08/13/16 20:52 98.5 67 18 154/72 97 08/13/16 15:48 97.3 61 16 138/65 98 08/13/16 15:36 55 08/13/16 12:00 97.9 71 19 99/56 96 (Ayesha Gaspar) -: 08/14/16 0600 Physical Exam General Appearance: Well Developed, No Acute Distress Appearance Remarks cachectic (Ayesha Gaspar) Eyes Eye Remarks bruise under right eye (Ayesha Gaspar) Neck Neck Exam: Neck Supple (Ayesha Gaspar) Pulmonary Resp Exam: Clear Bilaterally, Breath Sounds Equal, No Distress (Ayesha Gaspar) Cardiology CV Exam: Regular, Normal Sinus Rhythm, Good Perfusion (Ayesha Gaspar) Chest/Breast Chest/Breast Exam: Symmetry (Ayesha Gaspar) Gastrointestinal/Abdomen GI Exam: Soft, Non-Tender, Bowel Sounds Present (Ayesha Gaspar) Genitourinary Remarks incontinent, strong urine odor (Ayesha Gaspar) Musculoskeletal MS Exam: Joints Intact, Atrophy (Ayesha Gaspar) Integumentary Skin Exam: Clear, Warm, Intact Skin Remarks scattered abrasions (Ayesha Gaspar) Extremeties Extremities Exam: No Edema (Ayesha Gaspar) Neurologic Neuro Exam: Awake, Moving All Extremities Neuro Remarks severe aphasia (Ayesha Gaspar) Assessment/Plan Assessment Summary: WILL/Acute Renal Failure, Dehydration, Malnutrition, Hypertension, Diabetes Mellitus Electrolyte Assessment: Hyperkalemia Problem List: (1) WILL (acute kidney injury) Plan: Renal function has improved, overall stable Avoid nephrotoxic agents. Continue IVF, encourage oral intake Electrolytes stable No indication for dialysis. (2) Hyperkalemia Plan: K is normal, she was persistently hyperkalemic Monitor. 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 (3) HTN (hypertension) Plan: blood pressure is acceptable, improved continue current medications including Norvasc and Lopressor and Cardura continue with hold parameters (4) Diabetes mellitus, type 2 Plan: initially hypoglycemic now BG has stabilized and is acceptable continue insulin as needed, needs assistance with feeding avoid hypoglycemia (5) UTI (urinary tract infection) Plan: blood cultures negative urine culture positive for Klebsiella, still off antibiotics monitor clinically, currently afebrile (Ayesha Gaspar) Plan patient was seen and examined. Renal function is stable. Avoid nephrotoxins. Can be discharged from renal standpoint. (Balta Elena MD) Problem Qualifiers (1) HTN (hypertension): Qualified Code: I10 - Essential hypertension Ayesha Gaspar Aug 14, 2016 08:12 Balta Elena MD Aug 14, 2016 15:15
[2016-08-14] MEDS: SODIUM CHLORIDE 0.9% FLUSH 5 ML FLUSH FLUSH SCH ×2 (08:56→21:00)
[2016-08-14] MEDS: MEGESTROL ACETATE SUSP 400 MG/10 ML CUP PO SCH (08:59)
[2016-08-14] MEDS: ASPIRIN 81 MG CHEW TAB CHEW SCH (08:59)
[2016-08-14] MEDS: METOPROLOL TARTRATE 25 MG TAB PO SCH ×2 (08:59→22:05)
[2016-08-14 11:01] LABS: HEMATOCRIT 28.7 % (35.0-46.0); MEAN CELL VOLUME 90.7 FL (80.0-100.0); MEAN CORPUSCULAR HGB CONC 34.2 % (32.0-36.0); PLATELET COUNT 185 TH/MM3 (150-450); RED BLOOD COUNT 3.16 MIL/MM3 (4.00-5.30); RED CELL DISTRIBUTION WIDTH 15.1 % (11.6-17.2); REVIEW FLAG FINAL; WHITE BLOOD COUNT 7.4 TH/MM3 (4.0-11.0)
[2016-08-14] MEDS: SODIUM CHLOR 0.9% 1000 ML INJ 1,000 ML IV SCH (11:45)
--- NOTE | 2016-08-14 16:41 | HHI.PR ---
Subjective Remarks The patient was sitting in a chair at the nursing station. She started babbling incomprehensibly. She didn't seem to have any acute complaints. Discussed with nursing. Objective Vitals Vital Signs Date Time Temp Pulse Resp B/P Pulse Ox O2 Delivery O2 Flow Rate FiO2 08/14/16 16:30 98.4 68 16 97 08/14/16 12:00 98.1 57 18 170/73 98 08/14/16 08:00 97.4 62 18 131/80 96 08/14/16 04:20 96.6 58 18 95 08/14/16 00:24 98.2 51 18 176/64 97 08/13/16 20:52 98.5 67 18 154/72 97 I/O 08/13/16 08/13/16 08/13/16 08/14/16 08/14/16 08/14/16 07:00 15:00 23:00 07:00 15:00 23:00 Intake Total 690 ml 240 ml 591 ml 1924 ml Balance 690 ml 240 ml 591 ml 1924 ml Intake Oral 240 ml 591 ml 600 ml IV Total 690 ml 1324 ml # Voids 2 3 2 3 # Bowel Movements 0 0 Result Diagram: 08/14/16 1034 08/14/16 0600 Imaging Last Impressions Renal Ultrasound 07/27/16 0000 Signed Impressions: Service Date/Time: Wednesday, July 27, 2016 14:05 - CONCLUSION: 1. Kidneys are slightly echogenic which can be seen with medical renal disease. 2. Simple cyst right kidney. 3. Echogenic focus along the lower pole left kidney could be related to nonobstructing calculus measuring 7 mm. Brandt Lowery MD Head CT 07/23/16 7550 Signed Impressions: Service Date/Time: Sunday, July 24, 2016 00:04 - CONCLUSION: 1. Suspected recent infarct involving the left middle cerebral artery territory at the left temporal and parietal lobes. 2. Age-related atrophy. 3. Widespread suspected small vessels ischemic change in the white matter. 4. 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 5. Acute right frontal scalp hematoma. Francis Gibson MD Chest X-Ray 07/23/162 Signed Impressions: Service Date/Time: June 23:48 - CONCLUSION: No acute disease. Francis Gibson MD Objective Remarks GENERAL: Appears comfortable. SKIN: Warm and dry. HEAD: Normocephalic. EYES: No scleral icterus. No injection or drainage. NECK: Supple, trachea midline. No JVD. CARDIOVASCULAR: Regular rate and rhythm without murmurs, gallops, or rubs. RESPIRATORY: Breath sounds equal bilaterally. No accessory muscle use. GASTROINTESTINAL: Abdomen soft, non-tender, nondistended. MUSCULOSKELETAL: No cyanosis, or edema. BACK: Nontender without obvious deformity. No CVA tenderness. NEURO: Unintelligible speech. Procedures None Medications and IVs Current Medications Medications (Trade) Dose Ordered Sig/Emiliano Route Start Time Stop Time Status Last Admin (NS Flush) 2 ml UNSCH PRN FLUSH 07/24/16 02:00 (NS Flush) 2 ml BID FLUSH 07/24/16 09:00 08/11/16 10:53 (Tylenol) 650 mg Q4H PRN PO 07/24/16 02:00 08/12/16 10:00 (Zofran Inj) 4 mg Q6H PRN IVP 07/24/16 02:00 (Dulcolax Supp) 10 mg DAILY PRN PA 07/24/16 02:00 (Milk Of Magnesia Liq) 30 ml Q12H PRN PO 07/24/16 02:00 (Heparin Inj) 5,000 units Q12H SQ 07/24/16 06:00 08/14/16 06:24 (Narcan Inj) 0.4 mg UNSCH PRN IV 07/24/16 02:00 (Pravachol) 80 mg HS PO 07/24/16 21:00 08/13/16 20:29 (D50w (Vial) Inj) 25 ml UNSCH PRN IV PUSH 07/26/16 20:30 (Glucagon Inj) 1 mg UNSCH PRN OTHER 07/26/16 20:30 (Cardura) 2 mg HS PO 07/27/16 00:30 08/13/16 20:29 (Megace Liq) 400 mg DAILY PO 07/27/16 12:45 08/14/16 08:59 (Pill Splitter) 1 ea UNSCH PRN OTHER 07/29/16 12:00 (Aspirin Chew) 81 mg DAILY CHEW 07/31/16 09:00 08/14/16 08:59 (Remeron) 7.5 mg HS PO 08/09/16 21:00 08/13/16 20:29 Metoprolol Tartrate 75 mg 75 mg Q12HR PO 08/10/16 21:00 08/14/16 08:59 (NS 1000 ml Inj) 1,000 ml @ 40 mls/hr Q24H IV 08/11/16 10:30 08/14/16 11:45 (Norvasc) 5 mg DAILY PO 08/12/16 09:00 08/14/16 08:59 A/P Problem List: (1) Sepsis due to urinary tract infection ICD Code: A41.9 Status: Acute (2) Hypoglycemia associated with diabetes ICD Code: E11.649 Status: Acute (3) Fall ICD Code: W19.XXXA Status: Acute (4) Delirium ICD Code: R41.0 Status: Acute (5) HTN (hypertension) ICD Code: I10 Status: Chronic (6) DM (diabetes mellitus) ICD Code: E11.9 Status: Chronic (7) CKD (chronic kidney disease) stage 4, GFR 15-29 ml/min ICD Code: N18.4 Status: Chronic (8) WILL (acute kidney injury) ICD Code: N17.9 Status: Acute (9) Aphasia ICD Code: R47.01 Status: Chronic Assessment and Plan Severe sepsis (Temp 94F, R 22, UTI, WILL on chronic kidney disease) Due to klebsiella UTI. Renal ultrasound without evidence of nephritis or hydronephrosis, however does show nonobstructing 7 mm calculus in the left kidney. - S/p Ceftin. Metabolic encephalopathy/ History of CVA Mental status still waxes and wanes. Likely underlying dementia. Treated for UTI. - d/c standing Seroquel. Use as needed. - continue ASA and statin. - PT/OT. - avoid sedating meds. V. tach Asymptomatic on 08/05. Likely secondary to hyperkalemia. 5 beat run noted on . - Kayexalate as needed. Potassium level stable 08/14. - increased Lopressor to 75 mg BID 08/10. Holding parameters in place. - telemetry. Severe hypoglycemia Possibly related to sepsis. Treated with D5NS which has been stopped since . Sugars stable 08/14. - Continue low dose SSI with insulin NovoLog. Will monitor and add long-acting insulin as needed. Would like to avoid hypoglycemia. Poor oral intake/appetite/moderate protein calorie malnutrition Nutritional intake apparently inadequate. - on Megace and dietitian following. - reduced dose of Remeron to 7.5 mg daily. WILL on CKD/ Hyperkalemia Appreciate nephrology following. Creatinine has been stable for the past few days. Potassium level has improved. - Kayexalate as needed for hyperkalemia. Stable K+ 08/14. - avoid nephrotoxins. - continue to monitor BMP. - Nephrology signed off 08/14. Hypertension Blood pressure fluctuates. - Continue Cardura 4 mg by mouth daily and clonidine as needed. Lopressor increased to 75 mg BID 08/10. Decrease amlodipine to 5 mg daily 08/11. DVT prophylaxisheparin. Discharge Planning Awaiting placement. Problem Qualifiers (1) HTN (hypertension): Qualified Code: I10 - Essential hypertension (2) DM (diabetes mellitus): Philip Martinez DO Aug 14, 2016 16:41
[2016-08-14] MEDS: MIRTAZAPINE 15 MG TAB PO SCH (22:05)
[2016-08-14] MEDS: PRAVASTATIN SOD 80 MG TAB PO SCH (22:05)
[2016-08-14] MEDS: DOXAZOSIN MESYLATE 2 MG TAB PO SCH (22:10)
[2016-08-15 00:39] VITALS: BP 93/53; PULSE 58; RESP 18; TEMP 98.4; O2SAT 98
[2016-08-15 04:29] VITALS: BP 98/52; PULSE 56; RESP 18; TEMP 97; O2SAT 97
[2016-08-15] MEDS: HEPARIN SODIUM - SQ 10,000 UNITS/ML VIAL SQ SCH ×2 (05:16→17:41)
[2016-08-15] MEDS: INSULIN ASPART SUPPLEMENTAL SCALE SQ SCH ×4 (07:00→21:14)
[2016-08-15 08:05] VITALS: BP 104/59; PULSE 55; RESP 16; TEMP 98; O2SAT 97
[2016-08-15] MEDS: SODIUM CHLORIDE 0.9% FLUSH 5 ML FLUSH FLUSH SCH ×2 (09:00→21:00)
--- NOTE | 2016-08-15 09:04 | HHI.PR ---
Subjective Remarks Pt asleep, briefly wakes up, looks around then closes her eyes. When I ask her if she has pain she answers yes but won't tell me where, when I ask her if she has nausea or vomiting, she answers yes. Discussed w RN, no concerns at this time, pt's hasn't complained to her of pain or nausea or vomiting. Objective Vitals Vital Signs Date Time Temp Pulse Resp B/P Pulse Ox O2 Delivery O2 Flow Rate FiO2 08/15/16 04:29 97.0 56 18 98/52 97 08/15/16 00:39 98.4 58 18 93/53 98 08/14/16 21:00 97.8 62 17 103/58 98 08/14/16 20:00 54 08/14/16 17:12 97.0 18 92/56 96 08/14/16 16:30 98.4 68 16 97 08/14/16 12:00 98.1 57 18 170/73 98 I/O 08/14/16 08/14/16 08/14/16 08/15/16 08/15/16 08/15/16 06:59 14:59 22:59 06:59 14:59 22:59 Intake Total 1924 ml Balance 1924 ml Intake Oral 600 ml IV Total 1324 ml # Voids 3 1 Result Diagram: 08/14/16 1034 08/14/16 0600 Imaging Last Impressions Renal Ultrasound 07/27/16 0000 Signed Impressions: Service Date/Time: Wednesday, July 27, 2016 14:05 - CONCLUSION: 1. Kidneys are slightly echogenic which can be seen with medical renal disease. 2. Simple cyst right kidney. 3. Echogenic focus along the lower pole left kidney could be related to nonobstructing calculus measuring 7 mm. Brandt Lowery MD Head CT 07/23/162334 Signed Impressions: Service Date/Time: Sunday, July 24, 2016 00:04 - CONCLUSION: 1. Suspected recent infarct involving the left middle cerebral artery territory at the left temporal and parietal lobes. 2. Age-related atrophy. 3. Widespread suspected small vessels ischemic change in the white matter. 4. 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 5. Acute right frontal scalp hematoma. Francis Gibson MD Chest X-Ray [id number]/23/162334 Signed Impressions: Service Date/Time: June 23:48 - CONCLUSION: No acute disease. Francis Gibson MD Objective Remarks GENERAL: Appears comfortable. CARDIOVASCULAR: Regular rate and rhythm without murmurs RESPIRATORY: Breath sounds equal bilaterally. No accessory muscle use. GASTROINTESTINAL: Abdomen soft, non-tender, nondistended. MUSCULOSKELETAL: No cyanosis, or edema. NEURO: on answers "yes" to my questions. No very talkative Procedures None A/P Problem List: (1) Sepsis due to urinary tract infection ICD Code: A41.9 Status: Acute (2) Hypoglycemia associated with diabetes ICD Code: E11.649 Status: Acute (3) Fall ICD Code: W19.XXXA Status: Acute (4) Delirium ICD Code: R41.0 Status: Acute (5) HTN (hypertension) ICD Code: I10 Status: Chronic (6) DM (diabetes mellitus) ICD Code: E11.9 Status: Chronic (7) CKD (chronic kidney disease) stage 4, GFR 15-29 ml/min ICD Code: N18.4 Status: Chronic (8) WILL (acute kidney injury) ICD Code: N17.9 Status: Acute (9) Aphasia ICD Code: R47.01 Status: Chronic Assessment and Plan Severe sepsis (Temp 94F, R 22, UTI, WILL on chronic kidney disease) Due to klebsiella UTI. Renal ultrasound without evidence of nephritis or hydronephrosis, however does show nonobstructing 7 mm calculus in the left kidney. - S/p Ceftin. Metabolic encephalopathy/ History of CVA Mental status still waxes and wanes. Likely underlying dementia. Treated for UTI. - d/c standing Seroquel. Use as needed. - continue ASA and statin. - PT/OT. - avoid sedating meds. Currently off restraints. Encourage that pt remain off restraints, discussed w RN. V. tach Asymptomatic on 08/05. Likely secondary to hyperkalemia. 5 beat run noted on . - Kayexalate as needed. Potassium level stable 08/14. - Lopressor to 75 mg BID increased on 08/10. Holding parameters in place. - telemetry reviewed this morning. No new episodes. Severe hypoglycemia Possibly related to sepsis. Treated with D5NS which has been stopped since . Sugars stable 08/14. - Continue low dose SSI with insulin NovoLog. Will monitor and add long-acting insulin as needed. However, avoid hypoglycemia. didn't require any insulin this morning. Poor oral intake/appetite/moderate protein calorie malnutrition Nutritional intake apparently inadequate. - on Megace and dietitian following. - reduced dose of Remeron to 7.5 mg daily. WILL on CKD/ Hyperkalemia Appreciate nephrology following. Creatinine has been stable for the past few days. Potassium level has improved. - Kayexalate as needed for hyperkalemia. Stable K+ 08/14. - avoid nephrotoxins. - Repeat BMP in AM and monitor. - Nephrology signed off 08/14. Hypertension Blood pressure fluctuates. - Continue Cardura 4 mg by mouth daily and clonidine as needed. Lopressor 75 mg BID. amlodipine decreased to 5 mg daily 08/11. DVT prophylaxisheparin. Discharge Planning Awaiting placement. per CM notes, no POA available. They are still searching. Problem Qualifiers (1) HTN (hypertension): Qualified Code: I10 - Essential hypertension (2) DM (diabetes mellitus): Beth Bain MD Aug 15, 2016 09:04
[2016-08-15] MEDS: MEGESTROL ACETATE SUSP 400 MG/10 ML CUP PO SCH (10:21)
[2016-08-15] MEDS: METOPROLOL TARTRATE 25 MG TAB PO SCH ×2 (10:21→21:00)
[2016-08-15] MEDS: ASPIRIN 81 MG CHEW TAB CHEW SCH (10:21)
[2016-08-15 12:05] VITALS: BP 115/56; PULSE 55; RESP 16; TEMP 99.1; O2SAT 100
[2016-08-15] MEDS: SODIUM CHLOR 0.9% 1000 ML INJ 1,000 ML IV SCH (14:36)
[2016-08-15 16:06] VITALS: BP 92/55; PULSE 61; RESP 16; TEMP 96.5; O2SAT 98
--- NOTE | 2016-08-15 17:21 | HHI.NPPN ---
Subjective Complaints: Confused Renal Failure: Chronic, Acute Additional Remarks Confused, no signs of distress Review of Systems General General Remarks unable to obtain due to mental status Objective Data Data 08/14/16 08/15/16 18:59 06:59 Intake Total 1924 ml Balance 1924 ml Intake Oral 600 ml IV Total 1324 ml # Voids 3 1 Vital Signs Date Time Temp Pulse Resp B/P Pulse Ox O2 Delivery O2 Flow Rate FiO2 08/15/16 16:06 96.5 61 16 92/55 98 08/15/16 12:05 99.1 55 16 115/56 100 08/15/16 08:05 98.0 55 16 104/59 97 08/15/16 04:29 97.0 56 18 98/52 97 08/15/16 00:39 98.4 58 18 93/53 98 08/14/16 21:00 97.8 62 17 103/58 98 08/14/16 20:00 54 -: 08/14/16 1034 08/14/16 0600 Physical Exam General Appearance: Well Developed, No Acute Distress Neck Neck Exam: Neck Supple Pulmonary Resp Exam: Clear Bilaterally, Breath Sounds Equal, No Distress Cardiology CV Exam: Regular, Normal Sinus Rhythm, Good Perfusion Chest/Breast Chest/Breast Exam: Symmetry Gastrointestinal/Abdomen GI Exam: Soft, Non-Tender, Bowel Sounds Present Musculoskeletal MS Exam: Joints Intact, Atrophy Integumentary Skin Exam: Clear, Warm, Intact Extremeties Extremities Exam: No Edema Neurologic Neuro Exam: Awake, Moving All Extremities Assessment/Plan Assessment Summary: WILL/Acute Renal Failure, Dehydration, Malnutrition, Hypertension, Diabetes Mellitus Electrolyte Assessment: Hyperkalemia Problem List: (1) WILL (acute kidney injury) Plan: Renal function has improved, overall stable - Creatinine 2.2 today Avoid nephrotoxic agents. Continue IVF, encourage oral intake Electrolytes stable No indication for dialysis. Awaiting placement, stable for d/c from renal standpoint. (2) Hyperkalemia Plan: K is normal, she was persistently hyperkalemic Monitor. 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 (3) HTN (hypertension) Plan: blood pressure is acceptable, improved continue current medications including Norvasc and Lopressor and Cardura continue with hold parameters (4) Diabetes mellitus, type 2 Plan: initially hypoglycemic now BG has stabilized and is acceptable continue insulin as needed, needs assistance with feeding avoid hypoglycemia (5) UTI (urinary tract infection) Plan: blood cultures negative urine culture positive for Klebsiella, still off antibiotics monitor clinically, currently afebrile Problem Qualifiers (1) HTN (hypertension): Qualified Code: I10 - Essential hypertension (2) Diabetes mellitus, type 2: Qualified Code: E11.22 - Type 2 diabetes mellitus with diabetic chronic kidney disease, unspecified CKD stage, unspecified longterm insulin use status Pastor Myrick MD Aug 15, 2016 17:21
[2016-08-15 20:00] VITALS: BP 96/60; PULSE 58; RESP 18; TEMP 98; O2SAT 97
[2016-08-15] MEDS: DOXAZOSIN MESYLATE 2 MG TAB PO SCH (21:00)
[2016-08-15] MEDS: PRAVASTATIN SOD 80 MG TAB PO SCH (21:15)
[2016-08-15] MEDS: MIRTAZAPINE 15 MG TAB PO SCH (21:15)
[2016-08-16 00:15] VITALS: PULSE 71
[2016-08-16 01:00] VITALS: BP 140/75; PULSE 84; RESP 18; TEMP 97; O2SAT 98
[2016-08-16] MEDS: HEPARIN SODIUM - SQ 10,000 UNITS/ML VIAL SQ SCH ×2 (05:48→18:28)
[2016-08-16] MEDS: INSULIN ASPART SUPPLEMENTAL SCALE SQ SCH ×4 (05:48→21:19)
[2016-08-16 08:05] VITALS: BP 122/58; PULSE 48; RESP 16; TEMP 97.8; O2SAT 100
[2016-08-16] MEDS: MEGESTROL ACETATE SUSP 400 MG/10 ML CUP PO SCH (08:25)
[2016-08-16] MEDS: ASPIRIN 81 MG CHEW TAB CHEW SCH (08:25)
[2016-08-16] MEDS: SODIUM CHLORIDE 0.9% FLUSH 5 ML FLUSH FLUSH SCH ×2 (08:26→21:20)
[2016-08-16] MEDS: METOPROLOL TARTRATE 25 MG TAB PO SCH ×2 (08:27→21:00)
[2016-08-16 09:00] LABS: BICARBONATE 19.1 MEQ/L (21.0-32.0)
--- NOTE | 2016-08-16 09:22 | HHI.PR ---
Subjective Remarks Pt asleep, braulio then falls right back to sleep. Per RN, pt sleeps all day then wakes up in the pm, braulio. yesterday ate some of her lunch and did eat her dinner I encouraged nursing staff to log food for calory count which is in progress Objective Vitals Vital Signs Date Time Temp Pulse Resp B/P Pulse Ox O2 Delivery O2 Flow Rate FiO2 08/16/16 08:05 97.8 48 16 122/58 100 08/16/16 01:00 97.0 84 18 140/75 98 08/16/16 00:15 71 08/15/16 20:00 98.0 58 18 96/60 97 08/15/16 16:06 96.5 61 16 92/55 98 08/15/16 12:05 99.1 55 16 115/56 100 I/O 08/15/16 08/15/16 08/15/16 08/16/16 08/16/16 08/16/16 07:00 15:00 23:00 07:00 15:00 23:00 Intake Total 240 ml Balance 240 ml Intake Oral 240 ml # Voids 3 4 # Bowel Movements 0 Result Diagram: 08/14/16 1034 08/16/16 0800 Imaging Last Impressions Renal Ultrasound 07/27/16 0000 Signed Impressions: Service Date/Time: Wednesday, July 27, 2016 14:05 - CONCLUSION: 1. Kidneys are slightly echogenic which can be seen with medical renal disease. 2. Simple cyst right kidney. 3. Echogenic focus along the lower pole left kidney could be related to nonobstructing calculus measuring 7 mm. Brandt Lowery MD Head CT 07/23/16 0892 Signed Impressions: Service Date/Time: Sunday, July 24, 2016 00:04 - CONCLUSION: 1. Suspected recent infarct involving the left middle cerebral artery territory at the left temporal and parietal lobes. 2. Age-related atrophy. 3. Widespread suspected small vessels ischemic change in the white matter. 4. 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 5. Acute right frontal scalp hematoma. Francis Gibson MD Chest X-Ray 07/23/168 Signed Impressions: Service Date/Time: June 23:48 - CONCLUSION: No acute disease. Francis Gibson MD Objective Remarks GENERAL: Appears comfortable. CARDIOVASCULAR: Regular rate and rhythm without murmurs RESPIRATORY: Breath sounds equal bilaterally. No accessory muscle use. GASTROINTESTINAL: Abdomen soft, non-tender, nondistended. MUSCULOSKELETAL: No cyanosis, or edema. NEURO: mumbles "yes" when I ask her if she feels ok. No very talkative Procedures None A/P Problem List: (1) Sepsis due to urinary tract infection ICD Code: A41.9 Status: Acute (2) Hypoglycemia associated with diabetes ICD Code: E11.649 Status: Acute (3) Fall ICD Code: W19.XXXA Status: Acute (4) Delirium ICD Code: R41.0 Status: Acute (5) HTN (hypertension) ICD Code: I10 Status: Chronic (6) DM (diabetes mellitus) ICD Code: E11.9 Status: Chronic (7) CKD (chronic kidney disease) stage 4, GFR 15-29 ml/min ICD Code: N18.4 Status: Chronic (8) WILL (acute kidney injury) ICD Code: N17.9 Status: Acute (9) Aphasia ICD Code: R47.01 Status: Chronic Assessment and Plan Severe sepsis (Temp 94F, R 22, UTI, WILL on chronic kidney disease) Due to klebsiella UTI. Renal ultrasound without evidence of nephritis or hydronephrosis, however does show nonobstructing 7 mm calculus in the left kidney. - S/p Ceftin. Metabolic encephalopathy/ History of CVA Mental status still waxes and wanes. Likely underlying dementia. Treated for UTI. - d/c standing Seroquel. Use as needed. - continue ASA and statin. - PT/OT. - avoid sedating meds. Currently off restraints. Encourage that pt remain off restraints, discussed w V. tach Asymptomatic on 08/05. Likely secondary to hyperkalemia. 5 beat run noted on . - Kayexalate as needed. Potassium level stable 08/14. - Lopressor to 75 mg BID increased on 08/10. Holding parameters in place. - telemetry reviewed this morning. No new episodes. Severe hypoglycemia Possibly related to sepsis. Treated with D5NS which has been stopped since . Sugars stable 08/14. - Continue low dose SSI with insulin NovoLog. Will monitor and add long-acting insulin as needed. However, avoid hypoglycemia. didn't require any insulin this morning. Poor oral intake/appetite/moderate protein calorie malnutrition Nutritional intake apparently inadequate. - on Megace and dietitian following. - reduced dose of Remeron to 7.5 mg daily. WILL on CKD/ Hyperkalemia Appreciate nephrology following. Creatinine has been stable for the past few days. Potassium level has improved. - Kayexalate as needed for hyperkalemia. Stable K+ 08/14. - avoid nephrotoxins. - Repeat BMP in AM and monitor. - Pt evaluated by nephrology 08/15/16 and Cleared from their standpoint Hypertension Blood pressure fluctuates. - Continue Cardura 4 mg by mouth daily and clonidine as needed. Lopressor 75 mg BID. amlodipine decreased to 5 mg daily 08/11. DVT prophylaxisheparin. Discharge Planning Awaiting placement. per CM notes, no POA available. They are still searching. Problem Qualifiers (1) HTN (hypertension): Qualified Code: I10 - Essential hypertension (2) DM (diabetes mellitus): Beth Bain MD Aug 16, 2016 09:22
[2016-08-16 12:06] VITALS: BP 124/66; PULSE 56; RESP 16; TEMP 98.2; O2SAT 99
[2016-08-16] MEDS: SODIUM CHLOR 0.9% 1000 ML INJ 1,000 ML IV SCH (14:36)
--- NOTE | 2016-08-16 16:36 | HHI.NPPN ---
Subjective Complaints: Confused Renal Failure: Chronic, Acute Additional Remarks Confused, no signs of distress Eating with nursing assistance Review of Systems General General Remarks unable to obtain due to mental status Objective Data Data 08/15/16 08/16/16 19:00 07:00 Intake Total 240 ml Balance 240 ml Intake Oral 240 ml # Voids 3 4 # Bowel Movements 0 Vital Signs Date Time Temp Pulse Resp B/P Pulse Ox O2 Delivery O2 Flow Rate FiO2 08/16/16 12:06 98.2 56 16 124/66 99 08/16/16 08:05 97.8 48 16 122/58 100 08/16/16 01:00 97.0 84 18 140/75 98 08/16/16 00:15 71 08/15/16 20:00 98.0 58 18 96/60 97 -: 08/14/16 1034 08/16/16 0800 Physical Exam General Appearance: Well Developed, No Acute Distress Neck Neck Exam: Neck Supple Pulmonary Resp Exam: Clear Bilaterally, Breath Sounds Equal, No Distress Cardiology CV Exam: Regular, Normal Sinus Rhythm, Good Perfusion Chest/Breast Chest/Breast Exam: Symmetry Gastrointestinal/Abdomen GI Exam: Soft, Non-Tender, Bowel Sounds Present Musculoskeletal MS Exam: Joints Intact, Atrophy Integumentary Skin Exam: Clear, Warm, Intact Extremeties Extremities Exam: No Edema Neurologic Neuro Exam: Awake, Moving All Extremities Assessment/Plan Assessment Summary: WILL/Acute Renal Failure, Dehydration, Malnutrition, Hypertension, Diabetes Mellitus Electrolyte Assessment: Hyperkalemia Problem List: (1) WILL (acute kidney injury) Plan: Creatinine 2.2 -> 2.7 today Avoid nephrotoxic agents. Poor PO intake - however will eat with nursing assistance ( had 5 glucernas today and eating with nursing staff). Off IVFs for 2 days - patient keeps pulling out IVs. Continue to encourage PO intake Electrolytes stable No indication for dialysis. Awaiting placement, stable for d/c from renal standpoint. (2) Hyperkalemia Plan: K+ 5 today, she was persistently hyperkalemic Kayexelate PRN Monitor. 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 (3) HTN (hypertension) Plan: blood pressure is acceptable, improved continue current medications including Norvasc and Lopressor and Cardura continue with hold parameters (4) Diabetes mellitus, type 2 Plan: initially hypoglycemic now BG has stabilized and is acceptable continue insulin as needed, needs assistance with feeding avoid hypoglycemia (5) UTI (urinary tract infection) Plan: blood cultures negative urine culture positive for Klebsiella, still off antibiotics monitor clinically, currently afebrile Problem Qualifiers (1) HTN (hypertension): Qualified Code: I10 - Essential hypertension (2) Diabetes mellitus, type 2: Qualified Code: E11.22 - Type 2 diabetes mellitus with diabetic chronic kidney disease, unspecified CKD stage, 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
[2016-08-16 20:00] VITALS: BP 89/58; PULSE 81; RESP 18; TEMP 97; O2SAT 95
[2016-08-16] MEDS: DOXAZOSIN MESYLATE 2 MG TAB PO SCH (21:00)
[2016-08-16] MEDS: PRAVASTATIN SOD 80 MG TAB PO SCH (21:19)
[2016-08-16] MEDS: MIRTAZAPINE 15 MG TAB PO SCH (21:19)
[2016-08-16 21:51] VITALS: PULSE 62
[2016-08-17] VITALS: BP 125/60; PULSE 85; RESP 18; TEMP 97; O2SAT 93
[2016-08-17 04:00] VITALS: BP 111/59; PULSE 91; RESP 18; TEMP 98.3; O2SAT 94
[2016-08-17] MEDS: HEPARIN SODIUM - SQ 10,000 UNITS/ML VIAL SQ SCH ×2 (05:15→16:52)
[2016-08-17] MEDS: INSULIN ASPART SUPPLEMENTAL SCALE SQ SCH ×4 (07:00→23:38)
[2016-08-17 07:36] LABS: BICARBONATE 17.9 MEQ/L (21.0-32.0)
[2016-08-17 07:39] LABS: POTASSIUM 5.8 MEQ/L (3.5-5.1)
[2016-08-17] MEDS: SODIUM CHLORIDE 0.9% FLUSH 5 ML FLUSH FLUSH SCH ×2 (08:11→21:00)
[2016-08-17] MEDS: MEGESTROL ACETATE SUSP 400 MG/10 ML CUP PO SCH (08:17)
[2016-08-17] MEDS: ASPIRIN 81 MG CHEW TAB CHEW SCH (08:17)
[2016-08-17] MEDS: METOPROLOL TARTRATE 25 MG TAB PO SCH ×2 (08:17→21:00)
[2016-08-17 08:45] VITALS: BP 163/70; PULSE 62; RESP 16; TEMP 96.8; O2SAT 96
[2016-08-17] MEDS ORDERED: SODIUM POLYSTYRENE SULFONATE SUSP 15 GM/60 ML CUP PO ONE ×2 (10:00)
[2016-08-17 12:07] VITALS: BP 115/58; PULSE 62; RESP 16; TEMP 97.9; O2SAT 98
--- NOTE | 2016-08-17 12:43 | HHI.PR ---
Subjective Remarks Pt eating lunch w [employer]. Awake, only shakes her head. Doesn't say a word. Reaches out for her drink Objective Vitals Vital Signs Date Time Temp Pulse Resp B/P Pulse Ox O2 Delivery O2 Flow Rate FiO2 08/17/16 12:07 97.9 62 16 115/58 98 08/17/16 08:45 96.8 62 16 163/70 96 08/17/16 04:00 98.3 91 18 111/59 94 08/17/16 00:00 97.0 85 18 125/60 93 08/16/16 21:51 62 08/16/16 20:00 97.0 81 18 89/58 95 I/O 08/16/16 08/16/16 08/16/16 08/17/16 08/17/16 08/17/16 07:00 15:00 23:00 07:00 15:00 23:00 Intake Total 720 ml Balance 720 ml Intake Oral 720 ml # Voids 4 3 2 3 # Bowel Movements 4 1 Result Diagram: 08/14/16 1034 08/17/16 0641 Imaging Last Impressions Renal Ultrasound 07/27/16 0000 Signed Impressions: Service Date/Time: Wednesday, July 27, 2016 14:05 - CONCLUSION: 1. Kidneys are slightly echogenic which can be seen with medical renal disease. 2. Simple cyst right kidney. 3. Echogenic focus along the lower pole left kidney could be related to nonobstructing calculus measuring 7 mm. Brandt Lowery MD Head CT 07/23/16 [id number] Signed Impressions: Service Date/Time: Sunday, July 24, 2016 00:04 - CONCLUSION: 1. Suspected recent infarct involving the left middle cerebral artery territory at the left temporal and parietal lobes. 2. Age-related atrophy. 3. Widespread suspected small vessels ischemic change in the white matter. 4. 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 5. Acute right frontal scalp hematoma. Francis Gibson MD Chest X-Ray 07/23/16 Signed Impressions: Service Date/Time: June 23:48 - CONCLUSION: No acute disease. Francis Gibson MD Objective Remarks GENERAL: Appears comfortable. sitting up in chair eating lunch CARDIOVASCULAR: Regular rate and rhythm without murmurs RESPIRATORY: Breath sounds equal bilaterally. No accessory muscle use. GASTROINTESTINAL: Abdomen soft, non-tender, nondistended. MUSCULOSKELETAL: No cyanosis, or edema. NEURO:awake, has eyes open and nods but no words Procedures None A/P Problem List: (1) Sepsis due to urinary tract infection ICD Code: A41.9 Status: Acute (2) Hypoglycemia associated with diabetes ICD Code: E11.649 Status: Acute (3) Fall ICD Code: W19.XXXA Status: Acute (4) Delirium ICD Code: R41.0 Status: Acute (5) HTN (hypertension) ICD Code: I10 Status: Chronic (6) DM (diabetes mellitus) ICD Code: E11.9 Status: Chronic (7) CKD (chronic kidney disease) stage 4, GFR 15-29 ml/min ICD Code: N18.4 Status: Chronic (8) WILL (acute kidney injury) ICD Code: N17.9 Status: Acute (9) Aphasia ICD Code: R47.01 Status: Chronic Assessment and Plan Severe sepsis (Temp 94F, R 22, UTI, WILL on chronic kidney disease) Due to klebsiella UTI. Renal ultrasound without evidence of nephritis or hydronephrosis, however does show nonobstructing 7 mm calculus in the left kidney. - S/p Ceftin. Metabolic encephalopathy/ History of CVA Mental status still waxes and wanes. Likely underlying dementia. Treated for UTI. - d/c standing Seroquel. Use as needed. - continue ASA and statin. - PT/OT. - avoid sedating meds. Currently off restraints. Encourage that pt remain off restraints, discussed w RN. V. tach Asymptomatic on 08/05. Likely secondary to hyperkalemia. 5 beat run noted on . - Kayexalate as needed. Potassium level stable 08/14. - Lopressor to 75 mg BID increased on 08/10. Holding parameters in place. - telemetry reviewed this morning. No new episodes. Severe hypoglycemia Possibly related to sepsis. Treated with D5NS which has been stopped since . Sugars stable 08/14. - Continue low dose SSI with insulin NovoLog. Will monitor and add long-acting insulin as needed. However, avoid hypoglycemia. didn't require any insulin this morning. Poor oral intake/appetite/moderate protein calorie malnutrition Nutritional intake apparently inadequate. - on Megace and dietitian following. - reduced dose of Remeron to 7.5 mg daily. WILL on CKD/ Hyperkalemia Appreciate nephrology following. Creatinine has been slowly increasing. I have placed a nursing order to encourage po water q4-6hrs while awake, per RN pt pulls all IVs therefore unable to give IVFs but it seems that she is drinking. will attempt to hydrate her more aggressively w PO but if unsuccessful will have to place IV and possibly put mittens to allow IV hydration. Potassium level increased today. s/p dose of kayexalate today. Repeat BMP in AM - avoid nephrotoxins. Hypertension Blood pressure fluctuates. - Continue Cardura 4 mg by mouth daily and clonidine as needed. Lopressor 75 mg BID. amlodipine decreased to 5 mg daily 08/11. DVT prophylaxisheparin. Discharge Planning Awaiting placement. per CM notes, no POA available. They are still searching. Problem Qualifiers (1) HTN (hypertension): Qualified Code: I10 - Essential hypertension (2) DM (diabetes mellitus): Beth Bain MD Aug 17, 2016 12:43
--- NOTE | 2016-08-17 12:58 | HHI.NPPN ---
Subjective Complaints: Confused Renal Failure: Chronic, Acute Additional Remarks she has pulled out IV. Currently has no IV access. Being fed by the staff. Review of Systems General General Remarks unable to obtain due to mental status Objective Data Data 08/16/16 08/17/16 18:59 06:59 Intake Total 720 ml Balance 720 ml Intake Oral 720 ml # Voids 5 3 # Bowel Movements 4 1 Vital Signs Date Time Temp Pulse Resp B/P Pulse Ox O2 Delivery O2 Flow Rate FiO2 08/17/16 12:07 97.9 62 16 115/58 98 08/17/16 08:45 96.8 62 16 163/70 96 08/17/16 04:00 98.3 91 18 111/59 94 08/17/16 00:00 97.0 85 18 125/60 93 08/16/16 21:51 62 08/16/16 20:00 97.0 81 18 89/58 95 -: 08/14/16 1034 08/17/16 0641 Physical Exam General Appearance: Well Developed, No Acute Distress Neck Neck Exam: Neck Supple Pulmonary Resp Exam: Clear Bilaterally, Breath Sounds Equal, No Distress Cardiology CV Exam: Regular, Normal Sinus Rhythm, Good Perfusion Chest/Breast Chest/Breast Exam: Symmetry Gastrointestinal/Abdomen GI Exam: Soft, Non-Tender, Bowel Sounds Present Musculoskeletal MS Exam: Joints Intact, Atrophy Integumentary Skin Exam: Clear, Warm, Intact Extremeties Extremities Exam: No Edema Neurologic Neuro Exam: Awake, Moving All Extremities Neuro Remarks suffers from dementia. Assessment/Plan Assessment Summary: WILL/Acute Renal Failure, Dehydration, Malnutrition, Hypertension, Diabetes Mellitus Electrolyte Assessment: Hyperkalemia Problem List: (1) WILL (acute kidney injury) Plan: Creatinine has increased. Could be due to poor hydration, has no IV. Also has metabolic acidosis. I started bicarbonate drip, but she does have IV access. Start oral Sodium bicarbonate. (2) Hyperkalemia Plan: Worse. Kayexalate ordered. Start oral Sodium bicarbonate. Continue dietary potassium restriction. May need consider use of Florinef. If Florinef is used, will have to watch for signs of fluid overload. Repeat labs. Difficult management issues. (3) HTN (hypertension) Plan: blood pressure is acceptable, improved continue current medications including Norvasc and Lopressor and Cardura continue with hold parameters (4) Diabetes mellitus, type 2 Plan: initially hypoglycemic now BG has stabilized and is acceptable continue insulin as needed, needs assistance with feeding avoid hypoglycemia (5) UTI (urinary tract infection) Plan: blood cultures negative urine culture positive for Klebsiella, still off antibiotics monitor clinically, currently afebrile Problem Qualifiers (1) HTN (hypertension): Qualified Code: I10 - Essential hypertension (2) Diabetes mellitus, type 2: Qualified Code: E11.22 - Type 2 diabetes mellitus with diabetic chronic kidney disease, unspecified CKD stage, unspecified residential insulin use status Balta Elena MD Aug 17, 2016 12:58
[2016-08-17] MEDS: SODIUM BICARBONATE 8.4% INJ 75 MEQ in SODIUM CHLOR 0.45% 1000 ML INJ 1,000 ML IV SCH ×2 (13:00→17:00)
[2016-08-17] MEDS: SODIUM BICARBONATE 650 MG TAB PO SCH ×2 (14:27→23:43)
[2016-08-17 16:34] VITALS: BP 94/55; PULSE 64; RESP 18; TEMP 97.6; O2SAT 97
[2016-08-17 20:00] VITALS: BP 109/58; PULSE 64; RESP 20; TEMP 95; O2SAT 98
[2016-08-17] MEDS: DOXAZOSIN MESYLATE 2 MG TAB PO SCH (23:37)
[2016-08-17] MEDS: MIRTAZAPINE 15 MG TAB PO SCH (23:37)
[2016-08-17] MEDS: PRAVASTATIN SOD 80 MG TAB PO SCH (23:37)
[2016-08-18] VITALS: BP 123/63; PULSE 57; RESP 20; TEMP 95.5; O2SAT 97
[2016-08-18] MEDS: SODIUM BICARBONATE 8.4% INJ 75 MEQ in SODIUM CHLOR 0.45% 1000 ML INJ 1,000 ML IV SCH ×2 (03:20→15:26)
[2016-08-18 04:00] VITALS: BP 119/59; PULSE 59; RESP 20; TEMP 95.2; O2SAT 99
[2016-08-18] MEDS: INSULIN ASPART SUPPLEMENTAL SCALE SQ SCH ×4 (06:09→22:17)
[2016-08-18] MEDS: HEPARIN SODIUM - SQ 10,000 UNITS/ML VIAL SQ SCH ×2 (06:10→16:21)
[2016-08-18 08:00] VITALS: BP 99/59; PULSE 68; RESP 18; TEMP 97.8; O2SAT 100
[2016-08-18] MEDS: METOPROLOL TARTRATE 25 MG TAB PO SCH ×2 (08:19→21:00)
[2016-08-18] MEDS: MEGESTROL ACETATE SUSP 400 MG/10 ML CUP PO SCH (08:20)
[2016-08-18] MEDS: SODIUM CHLORIDE 0.9% FLUSH 5 ML FLUSH FLUSH SCH ×2 (08:20→21:00)
[2016-08-18] MEDS: ASPIRIN 81 MG CHEW TAB CHEW SCH (08:20)
[2016-08-18] MEDS: SODIUM BICARBONATE 650 MG TAB PO SCH ×2 (08:21→11:55)
[2016-08-18 08:49] LABS: BICARBONATE 22.3 MEQ/L (21.0-32.0); POTASSIUM 5.2 MEQ/L (3.5-5.1)
--- NOTE | 2016-08-18 11:07 | HHI.PR ---
Subjective Remarks patient aphasic smiling and feeding her self but per staff- episodes of mild agitation Objective Vitals Vital Signs Date Time Temp Pulse Resp B/P Pulse Ox O2 Delivery O2 Flow Rate FiO2 08/18/16 08:00 97.8 68 18 99/59 100 08/18/16 04:00 95.2 59 20 119/59 99 08/18/16 00:00 95.5 57 20 123/63 97 08/17/16 20:00 95.0 64 20 109/58 98 08/17/16 16:34 97.6 64 18 94/55 97 08/17/16 12:07 97.9 62 16 115/58 98 I/O 08/17/16 08/17/16 08/17/16 08/18/16 08/18/16 08/18/16 07:00 15:00 23:00 07:00 15:00 23:00 Intake Total 0 ml 960 ml 60 ml Balance 0 ml 960 ml 60 ml Intake Oral 960 ml 60 ml IV Total 0 ml # Voids 3 1 2 # Bowel Movements 1 0 0 Result Diagram: 08/14/16 1034 08/18/16 0726 Imaging Last Impressions Renal Ultrasound 07/27/16 0000 Signed Impressions: Service Date/Time: Wednesday, July 27, 2016 14:05 - CONCLUSION: 1. Kidneys are slightly echogenic which can be seen with medical renal disease. 2. Simple cyst right kidney. 3. Echogenic focus along the lower pole left kidney could be related to nonobstructing calculus measuring 7 mm. Brandt Lowery MD Head CT 07/23/16 [id number] Signed Impressions: Service Date/Time: Sunday, July 24, 2016 00:04 - CONCLUSION: 1. Suspected recent infarct involving the left middle cerebral artery territory at the left temporal and parietal lobes. 2. Age-related atrophy. 3. Widespread suspected small vessels ischemic change in the white matter. 4. 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 5. Acute right frontal scalp hematoma. Francis Gibson MD Chest X-Ray 07/23/167 Signed Impressions: Service Date/Time: June 23:48 - CONCLUSION: No acute disease. Francis Gibson MD Objective Remarks awake and alert, holding sppon with her left hand and feeding herself, smiling, aphasic, not ff commands anicteric sclerae, fading infraorbital bruise no nuchal rigidity lungs no rales or wheezes regular rhythm abdmen soft extremities no edema gait- walked along hallway- hand held Procedures None A/P Problem List: (1) Sepsis due to urinary tract infection ICD Code: A41.9 Status: Acute (2) Hypoglycemia associated with diabetes ICD Code: E11.649 Status: Acute (3) Fall ICD Code: W19.XXXA Status: Acute (4) Delirium ICD Code: R41.0 Status: Acute (5) HTN (hypertension) ICD Code: I10 Status: Chronic (6) DM (diabetes mellitus) ICD Code: E11.9 Status: Chronic (7) CKD (chronic kidney disease) stage 4, GFR 15-29 ml/min ICD Code: N18.4 Status: Chronic (8) WILL (acute kidney injury) ICD Code: N17.9 Status: Acute (9) Aphasia ICD Code: R47.01 Status: Chronic Assessment and Plan Severe sepsis (Temp 94F, R 22, UTI, WILL on chronic kidney disease) Due to klebsiella UTI. Renal ultrasound without evidence of nephritis or hydronephrosis, however does show nonobstructing 7 mm calculus in the left kidney. - S/p Ceftin. Metabolic encephalopathy/ History of CVA Mental status still waxes and wanes. Likely underlying dementia. Treated for UTI. - d/c standing Seroquel. Use as needed. - continue ASA and statin. - PT/OT. - avoid sedating meds. Currently off restraints. Encourage that pt remain off restraints, discussed w RN. Olivares tach Asymptomatic on 08/05. Likely secondary to hyperkalemia. 5 beat run noted on . - Kayexalate as needed. Potassium level stable 08/14. - Lopressor to 75 mg BID increased on 08/10. Holding parameters in place. Severe hypoglycemia Possibly related to sepsis. Treated with D5NS which has been stopped since . Sugars stable 08/14. - Continue low dose SSI with insulin NovoLog. Will monitor and add long-acting insulin as needed. However, avoid hypoglycemia. didn't require any insulin this morning. Poor oral intake/appetite/moderate protein calorie malnutrition Nutritional intake apparently inadequate. - on Megace and dietitian following.- po improving - reduced dose of Remeron to 7.5 mg daily. WILL on CKD/ Hyperkalemia/metabolic acidosis - avoid nephrotoxins. - continue IVF with HCO3 at 75 cc/hr Hypertension Blood pressure fluctuates. - Continue Cardura 4 mg by mouth daily and clonidine as needed. Lopressor 75 mg BID. amlodipine decreased to 5 mg daily 08/11. DVT prophylaxisheparin. Discharge Planning Awaiting placement. per CM notes, no POA available. They are still searching. Problem Qualifiers (1) HTN (hypertension): Qualified Code: I10 - Essential hypertension (2) DM (diabetes mellitus): Lexx Gurrola MD Aug 18, 2016 11:07 (1) HTN (hypertension): Qualified Code: I10 - Essential hypertension (2) DM (diabetes mellitus): Lexx Gurrola MD Aug 18, 2016 11:07
[2016-08-18 12:00] VITALS: BP 95/55; PULSE 60; RESP 18; TEMP 97; O2SAT 97
--- NOTE | 2016-08-18 13:00 | HHI.NPPN ---
Subjective Complaints: Confused Renal Failure: Chronic, Acute Interval History She is sleeping. IV access obtained. Renal function slightly better. (Ayesha Gaspar) Review of Systems General General Remarks unable to obtain due to mental status (Ayesha Gaspar) Objective Data Data 08/17/16 08/18/16 18:59 06:59 Intake Total 720 ml 300 ml Balance 720 ml 300 ml Intake Oral 720 ml 300 ml IV Total 0 ml # Voids 3 # Bowel Movements 0 Vital Signs Date Time Temp Pulse Resp B/P Pulse Ox O2 Delivery O2 Flow Rate FiO2 08/18/16 12:00 97.0 60 18 95/55 97 08/18/16 08:00 97.8 68 18 99/59 100 08/18/16 04:00 95.2 59 20 119/59 99 08/18/16 00:00 95.5 57 20 123/63 97 08/17/16 20:00 95.0 64 20 109/58 98 08/17/16 16:34 97.6 64 18 94/55 97 (Ayesha Gaspar) -: 08/14/16 1034 08/18/16 0726 Drip Comment Bicarb gtt (Ayesha Gaspar) Physical Exam General Appearance: Well Developed, No Acute Distress, Sleeping Appearance Remarks cachectic (yAesha Gaspar) Eyes Eye Remarks bruise under right eye (Ayesha Gaspar) Neck Neck Exam: Neck Supple (Ayesha Gaspar) Pulmonary Resp Exam: Clear Bilaterally, Breath Sounds Equal, No Distress (Ayesha Gaspar) Cardiology CV Exam: Regular, Normal Sinus Rhythm, Good Perfusion (Ayesha Gaspar) Chest/Breast Chest/Breast Exam: Symmetry (Ayesha Gaspar) Gastrointestinal/Abdomen GI Exam: Soft, Non-Tender, Bowel Sounds Present (Ayesha Gaspar) Genitourinary Remarks incontinent (Ayesha Gaspar) Musculoskeletal MS Exam: Joints Intact, Atrophy (Ayesha Gaspar) Integumentary Skin Exam: Clear, Warm, Intact Skin Remarks scattered abrasions (Ayesha Gaspar) Extremeties Extremities Exam: No Edema (Ayesha Gaspar) Neurologic Neuro Exam: Awake, Moving All Extremities Neuro Remarks severe aphasia (Ayesha Gaspar) Assessment/Plan Assessment Summary: WILL/Acute Renal Failure, Dehydration, Malnutrition, Hypertension, Diabetes Mellitus Electrolyte Assessment: Hyperkalemia Problem List: (1) WILL (acute kidney injury) Plan: Creatinine improved slightly IV access obtained, IVF of 0.45% with 75 mEq bicarbonate, was resumed I will stop oral bicarbonate as she is on IV form with fluids for treatment of metabolic acidosis. she does have assistance from staff with nutrition, but she may be dependent on staff offering as she has severe aphasia it appears that renal function declines without IV hydration, pointing to the fact that her oral intake may not be sufficient daily renal panel (2) Hyperkalemia Plan: Improved, given Kayexalate yesterday Also on bicarbonate gtt Continue dietary potassium restriction. daily labs Difficult management issues. (3) HTN (hypertension) Plan: blood pressure is acceptable, improved continue current medications including Norvasc and Lopressor and Cardura continue with hold parameters (4) Dementia Plan: attempting to find LTC placement Palliative consult may be appropriate (5) Diabetes mellitus, type 2 Plan: initially hypoglycemic now BG has stabilized and is acceptable continue insulin as needed, needs assistance with feeding avoid hypoglycemia (6) UTI (urinary tract infection) Plan: blood cultures negative urine culture positive for Klebsiella, still off antibiotics monitor clinically, currently afebrile (Ayesha Gaspar) Plan patient was seen and examined. Renal function is stable for now. Hyperkalemia has improved. (Balta Elena MD) Problem Qualifiers (1) HTN (hypertension): Qualified Code: I10 - Essential hypertension (2) Diabetes mellitus, type 2: Qualified Code: E11.22 - Type 2 diabetes mellitus with diabetic chronic kidney disease, unspecified CKD stage, unspecified alf insulin use status Ayesha Gaspar Aug 18, 2016 13:00 Balta Elena MD Aug 18, 2016 18:51
[2016-08-18 16:00] VITALS: BP 144/73; PULSE 65; RESP 18; TEMP 97; O2SAT 90
[2016-08-18 20:00] VITALS: BP 117/60; PULSE 65; RESP 20; TEMP 96.1; O2SAT 93
[2016-08-18] MEDS: MIRTAZAPINE 15 MG TAB PO SCH (22:11)
[2016-08-18] MEDS: DOXAZOSIN MESYLATE 2 MG TAB PO SCH (22:11)
[2016-08-18] MEDS: PRAVASTATIN SOD 80 MG TAB PO SCH (22:11)
[2016-08-19] VITALS (7 sets, daily range): BP systolic 99–146; BP diastolic 55–75; PULSE 57–66; RESP 20; TEMP 96.5–97.9; O2SAT 96–100
[2016-08-19] MEDS: HEPARIN SODIUM - SQ 10,000 UNITS/ML VIAL SQ SCH ×2 (06:29→17:03)
[2016-08-19] MEDS: INSULIN ASPART SUPPLEMENTAL SCALE SQ SCH ×4 (06:34→20:48)
[2016-08-19] MEDS: SODIUM BICARBONATE 8.4% INJ 75 MEQ in SODIUM CHLOR 0.45% 1000 ML INJ 1,000 ML IV SCH (08:43)
[2016-08-19] MEDS: METOPROLOL TARTRATE 25 MG TAB PO SCH ×2 (08:43→20:35)
[2016-08-19] MEDS: ASPIRIN 81 MG CHEW TAB CHEW SCH (08:44)
[2016-08-19] MEDS: MEGESTROL ACETATE SUSP 400 MG/10 ML CUP PO SCH (08:45)
[2016-08-19] MEDS: SODIUM CHLORIDE 0.9% FLUSH 5 ML FLUSH FLUSH SCH ×2 (08:45→20:34)
[2016-08-19 11:01] LABS: BICARBONATE 25.2 MEQ/L (21.0-32.0); POTASSIUM 5.3 MEQ/L (3.5-5.1)
--- NOTE | 2016-08-19 13:53 | HHI.NPPN ---
Subjective Complaints: Confused Renal Failure: Chronic, Acute Interval History Renal function is better, however her IV became dislodged just now. Potassium is increasing. (Ayesha Gaspar) Review of Systems General General Remarks unable to obtain due to mental status (Ayesha Gaspar) Objective Data Data 08/18/16 08/19/16 19:00 07:00 Intake Total 850 ml 120 ml Balance 850 ml 120 ml Intake Oral 850 ml 120 ml # Voids 2 5 # Bowel Movements 0 0 Vital Signs Date Time Temp Pulse Resp B/P Pulse Ox O2 Delivery O2 Flow Rate FiO2 08/19/16 12:00 96.9 60 20 99/55 100 08/19/16 08:00 97.6 64 20 146/69 98 08/19/16 04:00 97.9 66 20 133/75 99 08/19/16 00:00 96.5 66 20 121/69 96 08/18/16 20:00 96.1 65 20 117/60 93 08/18/16 16:00 97.0 65 18 144/73 90 (Ayesha Gaspar) -: 08/19/16 1017 Drip Comment Bicarb gtt on hold (Ayesha Gaspar) Physical Exam General Appearance: Well Developed, No Acute Distress, Sleeping Appearance Remarks cachectic (Ayesha Gaspar) Eyes Eye Remarks bruise under right eye (Ayesha Gaspar) Neck Neck Exam: Neck Supple (Ayesha Gaspar) Pulmonary Resp Exam: Clear Bilaterally, Breath Sounds Equal, No Distress (Ayesha Gaspar) Cardiology CV Exam: Regular, Normal Sinus Rhythm, Good Perfusion (Ayesha Gaspar) Chest/Breast Chest/Breast Exam: Symmetry (Ayesha Gaspar) Gastrointestinal/Abdomen GI Exam: Soft, Non-Tender, Bowel Sounds Present (Ayesha Gaspar) Genitourinary Remarks incontinent (Ayesha Gaspar) Musculoskeletal MS Exam: Joints Intact, Atrophy (Ayesha Gaspar) Integumentary Skin Exam: Clear, Warm, Intact Skin Remarks scattered abrasions (Ayesha Gaspar) Extremeties Extremities Exam: No Edema (Ayesha Gaspar) Neurologic Neuro Exam: Awake, Moving All Extremities Neuro Remarks severe aphasia (Ayesha Gaspar) Assessment/Plan Assessment Summary: WILL/Acute Renal Failure, Dehydration, Malnutrition, Hypertension, Diabetes Mellitus Electrolyte Assessment: Hyperkalemia Problem List: (1) WILL (acute kidney injury) Plan: Creatinine improved with IVF However IV access was lost today by patient dislodgement IVF of 0.45% with 75 mEq bicarbonate is on hold potassium is elevating, I will begin oral bicarb in the interim she does have assistance from staff with nutrition, but she may be dependent on staff offering as she has severe aphasia it appears that renal function declines without IV hydration, pointing to the fact that her oral intake may not be sufficient daily renal panel (2) Hyperkalemia Plan: increasing Also on oral bicarbonate Continue dietary potassium restriction. she has been given Glucerna supplements frequently, ensure may also have been given Ensure which may explain the persistent hyperkalemia daily labs Difficult management issues. (3) HTN (hypertension) Plan: blood pressure is stable continue current medications including Norvasc,Lopressor, Cardura with PRN clonidine continue with hold parameters (4) Dementia Plan: attempting to find LTC placement Palliative consult may be appropriate (5) Diabetes mellitus, type 2 Plan: initially hypoglycemic now BG has stabilized and is acceptable continue insulin as needed, needs assistance with feeding avoid hypoglycemia (6) UTI (urinary tract infection) Plan: resolved (Ayesha Gaspar) Plan patient was seen and examined. Because of persistent hyperkalemia, I will start Florinef. May need to add a loop diuretic in the near future if her weight increases. Difficult management problem because of dementia. (Balta Elena MD) Problem Qualifiers (1) HTN (hypertension): Qualified Code: I10 - Essential hypertension (2) Diabetes mellitus, type 2: Qualified Code: E11.22 - Type 2 diabetes mellitus with diabetic chronic kidney disease, unspecified CKD stage, unspecified senior care insulin use status Ayesha Gaspar Aug 19, 2016 13:53 Balta Elena MD Aug 19, 2016 16:24
--- NOTE | 2016-08-19 15:27 | HHI.PR ---
Subjective Remarks patient pleasant ly confused, plesant and not agitated on exam she ate breakfast and lunch 1005 Objective Vitals Vital Signs Date Time Temp Pulse Resp B/P Pulse Ox O2 Delivery O2 Flow Rate FiO2 08/19/16 12:00 96.9 60 20 99/55 100 08/19/16 08:00 97.6 64 20 146/69 98 08/19/16 04:00 97.9 66 20 133/75 99 08/19/16 00:00 96.5 66 20 121/69 96 08/18/16 20:00 96.1 65 20 117/60 93 08/18/16 16:00 97.0 65 18 144/73 90 I/O 08/18/16 08/18/16 08/18/16 08/19/16 08/19/16 08/19/16 07:00 15:00 23:00 07:00 15:00 23:00 Intake Total 60 ml 850 ml 120 ml 480 ml Balance 60 ml 850 ml 120 ml 480 ml Intake Oral 60 ml 850 ml 120 ml 480 ml # Voids 2 2 2 3 3 # Bowel Movements 0 0 0 0 Result Diagram: 08/19/16 1017 Imaging Last Impressions Renal Ultrasound 07/27/16 0000 Signed Impressions: Service Date/Time: Wednesday, July 27, 2016 14:05 - CONCLUSION: 1. Kidneys are slightly echogenic which can be seen with medical renal disease. 2. Simple cyst right kidney. 3. Echogenic focus along the lower pole left kidney could be related to nonobstructing calculus measuring 7 mm. Brandt Lowery MD Head CT 07/23/16 8780 Signed Impressions: Service Date/Time: Sunday, July 24, 2016 00:04 - CONCLUSION: 1. Suspected recent infarct involving the left middle cerebral artery territory at the left temporal and parietal lobes. 2. Age-related atrophy. 3. Widespread suspected small vessels ischemic change in the white matter. 4. 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 5. Acute right frontal scalp hematoma. Francis Gibson MD Chest X-Ray 07/23/16 3950 Signed Impressions: Service Date/Time: June 23:48 - CONCLUSION: No acute disease. Francis Gibson MD Objective Remarks awake and alert, g, aphasic, not ff commands anicteric sclerae, fading infraorbital bruise no nuchal rigidity lungs no rales or wheezes regular rhythm abdomen soft extremities no edema moves all extremities spontaneously Procedures None A/P Problem List: (1) Sepsis due to urinary tract infection ICD Code: A41.9 Status: Acute (2) Hypoglycemia associated with diabetes ICD Code: E11.649 Status: Acute (3) Fall ICD Code: W19.XXXA Status: Acute (4) Delirium ICD Code: R41.0 Status: Acute (5) HTN (hypertension) ICD Code: I10 Status: Chronic (6) DM (diabetes mellitus) ICD Code: E11.9 Status: Chronic (7) CKD (chronic kidney disease) stage 4, GFR 15-29 ml/min ICD Code: N18.4 Status: Chronic (8) WILL (acute kidney injury) ICD Code: N17.9 Status: Acute (9) Aphasia ICD Code: R47.01 Status: Chronic Assessment and Plan Severe sepsis (Temp 94F, R 22, UTI, WILL on chronic kidney disease) Due to klebsiella UTI. Renal ultrasound without evidence of nephritis or hydronephrosis, however does show nonobstructing 7 mm calculus in the left kidney. - S/p Ceftin. Metabolic encephalopathy/ History of CVA Mental status still waxes and wanes. Likely underlying dementia. Treated for UTI. - d/c standing Seroquel. Use as needed. - continue ASA and statin. - PT/OT. - avoid sedating meds. Currently off restraints. V. tach Asymptomatic on 08/05. Likely secondary to hyperkalemia. 5 beat run noted on . - Kayexalate as needed. Potassium level stable 08/14. - Lopressor to 75 mg BID increased on 08/10. Holding parameters in place. Severe hypoglycemia Possibly related to sepsis. Treated with D5NS which has been stopped since . Sugars stable 08/14. - Continue low dose SSI with insulin NovoLog. Will monitor and add long-acting insulin as needed. However, avoid hypoglycemia. didn't require any insulin this morning. Poor oral intake/appetite/moderate protein calorie malnutrition Nutritional intake apparently inadequate. - on Megace and dietitian following.- po improving - reduced dose of Remeron to 7.5 mg daily. WILL on CKD/ Hyperkalemia/metabolic acidosis Mild hyperkalemia - avoid nephrotoxins. started on NaHC03 tab - continue IVF with HCO3 at 75 cc/hr- - IVF pulled out- will reinsert Hypertension Blood pressure fluctuates. - Continue Cardura 4 mg by mouth daily and clonidine as needed. Lopressor 75 mg BID. amlodipine decreased to 5 mg daily 08/11. DVT prophylaxisheparin. Discharge Planning Awaiting placement. per CM notes, no POA available. They are still searching. Problem Qualifiers (1) HTN (hypertension): Qualified Code: I10 - Essential hypertension (2) DM (diabetes mellitus): Lexx Gurrola MD Aug 19, 2016 15:26
[2016-08-19] MEDS: FLUDROCORTISONE ACETATE 0.1 MG TAB PO SCH (16:59)
[2016-08-19] MEDS: SODIUM BICARBONATE 325 MG TAB PO SCH (17:11)
[2016-08-19] MEDS: DOXAZOSIN MESYLATE 2 MG TAB PO SCH (20:35)
[2016-08-19] MEDS: PRAVASTATIN SOD 80 MG TAB PO SCH (20:35)
[2016-08-19] MEDS: MIRTAZAPINE 15 MG TAB PO SCH (20:35)
[2016-08-20] VITALS (8 sets, daily range): BP systolic 102–151; BP diastolic 54–74; PULSE 57–71; RESP 16–22; TEMP 96.1–98.7; O2SAT 95–100
[2016-08-20] MEDS: SODIUM BICARBONATE 8.4% INJ 75 MEQ in SODIUM CHLOR 0.45% 1000 ML INJ 1,000 ML IV SCH ×2 (02:25→12:07)
[2016-08-20] MEDS: HEPARIN SODIUM - SQ 10,000 UNITS/ML VIAL SQ SCH ×2 (06:06→16:04)
[2016-08-20] MEDS: INSULIN ASPART SUPPLEMENTAL SCALE SQ SCH ×4 (06:20→20:27)
[2016-08-20 06:22] LABS: BICARBONATE 24.1 MEQ/L (21.0-32.0); POTASSIUM 5.3 MEQ/L (3.5-5.1)
[2016-08-20] MEDS: SODIUM CHLORIDE 0.9% FLUSH 5 ML FLUSH FLUSH SCH ×2 (09:00→20:03)
[2016-08-20] MEDS: ASPIRIN 81 MG CHEW TAB CHEW SCH (09:13)
[2016-08-20] MEDS: MEGESTROL ACETATE SUSP 400 MG/10 ML CUP PO SCH (09:13)
[2016-08-20] MEDS: METOPROLOL TARTRATE 25 MG TAB PO SCH ×2 (09:13→20:04)
[2016-08-20] MEDS: FLUDROCORTISONE ACETATE 0.1 MG TAB PO SCH (09:13)
[2016-08-20] MEDS: SODIUM BICARBONATE 325 MG TAB PO SCH (09:27)
--- NOTE | 2016-08-20 12:44 | HHI.NPPN ---
Subjective Complaints: Confused Renal Failure: Chronic, Acute Interval History She is sleeping. IV replaced. Now has hand mitts on as restraint to prevent IV dislodgement in future. Renal function worse. Potassium 5.3. (Ayesha Gaspar) Review of Systems General General Remarks unable to obtain due to mental status (Ayesha Gaspar) Objective Data Data 08/19/16 08/20/16 19:00 07:00 Intake Total 480 ml Balance 480 ml Intake Oral 480 ml # Voids 3 3 # Bowel Movements 0 2 Vital Signs Date Time Temp Pulse Resp B/P Pulse Ox O2 Delivery O2 Flow Rate FiO2 08/20/16 08:00 97.3 62 16 144/73 99 08/20/16 04:31 65 08/20/16 04:23 98.7 60 18 113/74 95 08/20/16 00:26 97.4 68 18 102/61 98 08/19/16 20:28 97.2 63 20 112/55 97 08/19/16 19:21 57 08/19/16 16:00 96.9 64 20 128/68 99 (Ayesha Gaspar) -: 08/20/16 0534 Drip Comment Bicarb gtt resumed (Ayesha Gaspar) Physical Exam General Appearance: Well Developed, No Acute Distress, Sleeping Appearance Remarks cachectic (Ayesha Gaspar) Eyes Eye Remarks bruise under right eye (Ayesha Gaspar) Neck Neck Exam: Neck Supple (Ayesha Gaspar) Pulmonary Resp Exam: Clear Bilaterally, Breath Sounds Equal, No Distress (Ayesha Gaspar) Cardiology CV Exam: Regular, Normal Sinus Rhythm, Good Perfusion (Ayesha Gaspar) Chest/Breast Chest/Breast Exam: Symmetry (Ayesha Gaspar) Gastrointestinal/Abdomen GI Exam: Soft, Non-Tender, Bowel Sounds Present (Ayesha Gaspar) Genitourinary Remarks incontinent (Ayesha Gaspar) Musculoskeletal MS Exam: Joints Intact, Atrophy (Ayesha Gaspar) Integumentary Skin Exam: Clear, Warm, Intact Skin Remarks scattered abrasions (Ayesha Gaspar) Extremeties Extremities Exam: No Edema (Ayesha Gaspar) Neurologic Neuro Exam: Awake, Moving All Extremities Neuro Remarks severe aphasia (Ayesha Gaspar) Assessment/Plan Assessment Summary: WILL/Acute Renal Failure, Dehydration, Malnutrition, Hypertension, Diabetes Mellitus Electrolyte Assessment: Hyperkalemia Problem List: (1) WILL (acute kidney injury) Plan: Creatinine responds to IVF, however her IV has been dislodged on multiple occasions it was replaced overnight, bicarb gtt resumed ( 0.45% with 75 mEq bicarbonate @ 75 cc/hr) potassium 5.3 low K diet i will stop oral bicarb she does have assistance from staff with nutrition, but she may be dependent on staff offering as she has severe aphasia it appears that renal function declines without IV hydration, pointing to the fact that her oral intake may not be sufficient daily renal panel she is incontinent of urine but makes a good amount (2) Hyperkalemia Plan: elevated but stable on bicarb gtt, Florinef added low K diet She has been given Glucerna supplements frequently, ensure may also have been given Ensure which may explain the persistent hyperkalemia daily labs Difficult management issues. (3) HTN (hypertension) Plan: blood pressure is stable continue current medications including Norvasc,Lopressor, Cardura with PRN clonidine continue with hold parameters (4) Dementia Plan: attempting to find LTC placement Palliative consult may be appropriate (5) Diabetes mellitus, type 2 Plan: initially hypoglycemic now BG has stabilized and is acceptable continue insulin as needed, needs assistance with feeding avoid hypoglycemia (6) UTI (urinary tract infection) Plan: resolved (Ayesha Gaspar) Plan GFR is worse. Hyperkalemic. Florinef started. Difficult management situation due to dementia. (Balta Elena MD) Problem Qualifiers (1) HTN (hypertension): Qualified Code: I10 - Essential hypertension (2) Diabetes mellitus, type 2: Qualified Code: E11.22 - Type 2 diabetes mellitus with diabetic chronic kidney disease, unspecified CKD stage, unspecified director long term care insulin use status Ayesha Gaspar Aug 20, 2016 12:44 Balta Elena MD Aug 20, 2016 15:42
--- NOTE | 2016-08-20 15:33 | HHI.PR ---
Subjective Remarks po intake erratic this pm had about 75% but neeeds to be fed resting when awakened get mad states "Oh come on" not ff commands Objective Vitals Vital Signs Date Time Temp Pulse Resp B/P Pulse Ox O2 Delivery O2 Flow Rate FiO2 08/20/16 12:00 96.7 57 16 128/67 100 08/20/16 08:00 97.3 62 16 144/73 99 08/20/16 04:31 65 08/20/16 04:23 98.7 60 18 113/74 95 08/20/16 00:26 97.4 68 18 102/61 98 08/19/16 20:28 97.2 63 20 112/55 97 08/19/16 19:21 57 08/19/16 16:00 96.9 64 20 128/68 99 I/O 08/19/16 08/19/16 08/19/16 08/20/16 08/20/16 08/20/16 07:00 15:00 23:00 07:00 15:00 23:00 Intake Total 120 ml 480 ml 360 ml Balance 120 ml 480 ml 360 ml Intake Oral 120 ml 480 ml 360 ml # Voids 3 3 1 2 4 # Bowel Movements 0 1 1 Result Diagram: 08/20/16 0534 Imaging Last Impressions Renal Ultrasound 07/27/16 0000 Signed Impressions: Service Date/Time: Wednesday, July 27, 2016 14:05 - CONCLUSION: 1. Kidneys are slightly echogenic which can be seen with medical renal disease. 2. Simple cyst right kidney. 3. Echogenic focus along the lower pole left kidney could be related to nonobstructing calculus measuring 7 mm. Brandt Lowery MD Head CT 07/23/16 4527 Signed Impressions: Service Date/Time: Sunday, July 24, 2016 00:04 - CONCLUSION: 1. Suspected recent infarct involving the left middle cerebral artery territory at the left temporal and parietal lobes. 2. Age-related atrophy. 3. Widespread suspected small vessels ischemic change in the white matter. 4. 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 5. Acute right frontal scalp hematoma. Francis Gibson MD Chest X-Ray 07/23/163 Signed Impressions: Service Date/Time: June 23:48 - CONCLUSION: No acute disease. Francis Gibson MD Objective Remarks awake and alert, g, aphasic, not ff commands anicteric sclerae, fading infraorbital bruise- almost resolved no nuchal rigidity lungs no rales or wheezes regular rhythm abdomen soft extremities no edema moves all extremities spontaneously Procedures None A/P Problem List: (1) Sepsis due to urinary tract infection ICD Code: A41.9 Status: Acute (2) Hypoglycemia associated with diabetes ICD Code: E11.649 Status: Acute (3) Fall ICD Code: W19.XXXA Status: Acute (4) Delirium ICD Code: R41.0 Status: Acute (5) HTN (hypertension) ICD Code: I10 Status: Chronic (6) DM (diabetes mellitus) ICD Code: E11.9 Status: Chronic (7) CKD (chronic kidney disease) stage 4, GFR 15-29 ml/min ICD Code: N18.4 Status: Chronic (8) WILL (acute kidney injury) ICD Code: N17.9 Status: Acute (9) Aphasia ICD Code: R47.01 Status: Chronic Assessment and Plan Severe sepsis (Temp 94F, R 22, UTI, WILL on chronic kidney disease) Due to klebsiella UTI. Renal ultrasound without evidence of nephritis or hydronephrosis, however does show nonobstructing 7 mm calculus in the left kidney. - S/p Ceftin. course Metabolic encephalopathy/ History of CVA Mental status still waxes and wanes. Likely underlying dementia. Treated for UTI. - d/c standing Seroquel. Use as needed. - continue ASA and statin. - PT/OT. - avoid sedating meds. Currently off restraints. V. tach Asymptomatic on 08/05. Likely secondary to hyperkalemia. 5 beat run noted on . - Kayexalate as needed. Potassium level stable 08/14. - Lopressor to 75 mg BID increased on 08/10. Holding parameters in place. Severe hypoglycemia Possibly related to sepsis. Treated with D5NS which has been stopped since . Sugars stable 08/14. - Continue low dose SSI with insulin NovoLog. Will monitor and add long-acting insulin as needed. However, avoid hypoglycemia. didn't require any insulin this morning. Poor oral intake/appetite/moderate protein calorie malnutrition Nutritional intake apparently inadequate. - on Megace and dietitian following.- - reduced dose of Remeron to 7.5 mg daily. - consider TF- [facility] placement - Calorie count ongoing WILL on CKD- pre renal azotemia- poor po/dehydration Mild hyperkalemia - avoid nephrotoxins. started on NaHC03 tab - continue IVF with HCO3 at 75 cc/hr- - IVF - d/w staff nurse needs to be coninutous Hypertension Blood pressure fluctuates. - Continue Cardura 4 mg by mouth daily and clonidine as needed. Lopressor 75 mg BID. amlodipine decreased to 5 mg daily 08/11. DVT prophylaxisheparin. Discharge Planning Awaiting placement. per CM notes, no POA available. They are still searching. Problem Qualifiers (1) HTN (hypertension): Qualified Code: I10 - Essential hypertension (2) DM (diabetes mellitus): Lexx Gurrola MD Aug 20, 2016 15:33
[2016-08-20] MEDS: DOXAZOSIN MESYLATE 2 MG TAB PO SCH (20:03)
[2016-08-20] MEDS: MIRTAZAPINE 15 MG TAB PO SCH (20:03)
[2016-08-20] MEDS: PRAVASTATIN SOD 80 MG TAB PO SCH (20:04)
[2016-08-21] VITALS (7 sets, daily range): BP systolic 102–160; BP diastolic 59–72; PULSE 54–71; RESP 18–20; TEMP 96.4–97.9; O2SAT 96–100
[2016-08-21] MEDS: SODIUM BICARBONATE 8.4% INJ 75 MEQ in SODIUM CHLOR 0.45% 1000 ML INJ 1,000 ML IV SCH (03:00)
[2016-08-21] MEDS: HEPARIN SODIUM - SQ 10,000 UNITS/ML VIAL SQ SCH ×2 (05:45→17:05)
[2016-08-21] MEDS: INSULIN ASPART SUPPLEMENTAL SCALE SQ SCH ×4 (06:21→21:32)
[2016-08-21 07:28] LABS: BICARBONATE 26.1 MEQ/L (21.0-32.0); POTASSIUM 5.1 MEQ/L (3.5-5.1)
[2016-08-21] MEDS: FLUDROCORTISONE ACETATE 0.1 MG TAB PO SCH (09:12)
[2016-08-21] MEDS: ASPIRIN 81 MG CHEW TAB CHEW SCH (09:12)
[2016-08-21] MEDS: METOPROLOL TARTRATE 25 MG TAB PO SCH ×2 (09:12→21:00)
[2016-08-21] MEDS: MEGESTROL ACETATE SUSP 400 MG/10 ML CUP PO SCH (09:12)
[2016-08-21] MEDS: SODIUM CHLORIDE 0.9% FLUSH 5 ML FLUSH FLUSH SCH ×2 (09:16→21:00)
--- NOTE | 2016-08-21 10:47 | HHI.PR ---
Subjective Remarks patient pleasant confused, cooperative per staff- she ate well this breakfast but needs to be in the hallway area- eats better out in the [place] seeing people Objective Vitals Vital Signs Date Time Temp Pulse Resp B/P Pulse Ox O2 Delivery O2 Flow Rate FiO2 08/21/16 08:00 97.1 65 20 160/72 99 08/21/16 06:42 97.2 71 18 160/67 96 08/21/16 00:00 96.4 57 20 132/59 96 08/20/16 21:38 68 08/20/16 20:00 96.1 71 22 115/54 97 08/20/16 16:00 97.3 60 16 151/72 100 08/20/16 12:00 96.7 57 16 128/67 100 I/O 08/20/16 08/20/16 08/20/16 08/21/16 08/21/16 08/21/16 07:00 15:00 23:00 07:00 15:00 23:00 Intake Total 360 ml 240 ml 829 ml Balance 360 ml 240 ml 829 ml Intake Oral 360 ml 240 ml IV Total 829 ml Bladder Scan Volume Amount 78 ml # Voids 2 4 2 3 # Bowel Movements 1 0 0 Result Diagram: 08/21/16 0626 Imaging Last Impressions Renal Ultrasound 07/27/16 0000 Signed Impressions: Service Date/Time: Wednesday, July 27, 2016 14:05 - CONCLUSION: 1. Kidneys are slightly echogenic which can be seen with medical renal disease. 2. Simple cyst right kidney. 3. Echogenic focus along the lower pole left kidney could be related to nonobstructing calculus measuring 7 mm. Brandt Lowery MD Head CT 07/23/16 9511 Signed Impressions: Service Date/Time: Sunday, July 24, 2016 00:04 - CONCLUSION: 1. Suspected recent infarct involving the left middle cerebral artery territory at the left temporal and parietal lobes. 2. Age-related atrophy. 3. Widespread suspected small vessels ischemic change in the white matter. 4. 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 5. Acute right frontal scalp hematoma. Francis Gibson MD Chest X-Ray 07/23/169 Signed Impressions: Service Date/Time: June 23:48 - CONCLUSION: No acute disease. Francis Gibson MD Objective Remarks awake and alert, aphasic,t ff some commands anicteric sclerae, fading infraorbital bruise- almost resolved no nuchal rigidity lungs no rales or wheezes regular rhythm abdomen soft extremities no edema moves all extremities spontaneously Procedures None A/P Problem List: (1) Sepsis due to urinary tract infection ICD Code: A41.9 Status: Acute (2) Hypoglycemia associated with diabetes ICD Code: E11.649 Status: Acute (3) Fall ICD Code: W19.XXXA Status: Acute (4) Delirium ICD Code: R41.0 Status: Acute (5) HTN (hypertension) ICD Code: I10 Status: Chronic (6) DM (diabetes mellitus) ICD Code: E11.9 Status: Chronic (7) CKD (chronic kidney disease) stage 4, GFR 15-29 ml/min ICD Code: N18.4 Status: Chronic (8) WILL (acute kidney injury) ICD Code: N17.9 Status: Acute (9) Aphasia ICD Code: R47.01 Status: Chronic Assessment and Plan Severe sepsis (Temp 94F, R 22, UTI, WILL on chronic kidney disease) - resolved Due to klebsiella UTI. Renal ultrasound without evidence of nephritis or hydronephrosis, however does show nonobstructing 7 mm calculus in the left kidney. - S/p Ceftin. course Metabolic encephalopathy/ History of CVA Mental status still waxes and wanes. Likely underlying dementia. Treated for UTI. - d/c standing Seroquel. Use as needed. - continue ASA and statin. - PT/OT. - avoid sedating meds. Currently off restraints. V. tach Asymptomatic on 08/05. Likely secondary to hyperkalemia. 5 beat run noted on . - Kayexalate as needed. Potassium level stable 08/14. - Lopressor to 75 mg BID increased on 08/10. Holding parameters in place. Severe hypoglycemia Possibly related to sepsis. Treated with D5NS which has been stopped since . Sugars stable 08/14. - Continue low dose SSI with insulin NovoLog. Will monitor and add long-acting insulin as needed. However, avoid hypoglycemia. didn't require any insulin this morning. Poor oral intake/appetite/moderate protein calorie malnutrition Nutritional intake apparently inadequate. - on Megace and dietitian following.- - reduced dose of Remeron to 7.5 mg daily. - consider TF- GT placement - Calorie count ongoing WILL on CKD- pre renal azotemia- poor po/dehydration Mild hyperkalemia- resolved - avoid nephrotoxins. started on NaHC03 tab - continue IVF with HCO3 at 75 cc/hr- - IVF - d/w staff nurse needs to be continuous - nephrology ff - creatinine gradually trending down Hypertension Blood pressure fluctuates. - Continue Cardura 4 mg by mouth daily and clonidine as needed. Lopressor 75 mg BID. amlodipine decreased to 5 mg daily 08/11. DVT prophylaxisheparin. Discharge Planning Awaiting placement. per CM notes, no POA available. They are still searching. Problem Qualifiers (1) HTN (hypertension): Qualified Code: I10 - Essential hypertension (2) DM (diabetes mellitus): Lexx Gurrola MD Aug 21, 2016 10:47
--- NOTE | 2016-08-21 14:19 | HHI.NPPN ---
Subjective Complaints: Confused Renal Failure: Chronic, Acute Interval History No changes. Renal function is better. (Ayesha Gaspar) Review of Systems General General Remarks unable to obtain due to mental status (Ayesha Gaspar) Objective Data Data 08/20/16 08/21/16 19:00 07:00 Intake Total 360 ml 1069 ml Balance 360 ml 1069 ml Intake Oral 360 ml 240 ml IV Total 829 ml Bladder Scan Volume Amount 78 ml # Voids 4 5 # Bowel Movements 0 Vital Signs Date Time Temp Pulse Resp B/P Pulse Ox O2 Delivery O2 Flow Rate FiO2 08/21/16 12:00 97.1 61 20 135/61 100 08/21/16 08:00 97.1 65 20 160/72 99 08/21/16 08:00 54 08/21/16 06:42 97.2 71 18 160/67 96 08/21/16 00:00 96.4 57 20 132/59 96 08/20/16 21:38 68 08/20/16 20:00 96.1 71 22 115/54 97 08/20/16 16:00 97.3 60 16 151/72 100 (Ayesha Gaspar) -: 08/21/16 0626 Drip Comment Bicarb gtt resumed (Ayesha Gaspar) Physical Exam General Appearance: Well Developed, No Acute Distress, Sleeping Appearance Remarks cachectic (Ayesha Gaspar) Eyes Eye Remarks bruise under right eye (Ayesha Gaspar) Neck Neck Exam: Neck Supple (Ayesha Gaspar) Pulmonary Resp Exam: Clear Bilaterally, Breath Sounds Equal, No Distress (Ayesha Gaspar) Cardiology CV Exam: Regular, Normal Sinus Rhythm, Good Perfusion (Ayesha Gaspar) Chest/Breast Chest/Breast Exam: Symmetry (Ayesha Gaspar) Gastrointestinal/Abdomen GI Exam: Soft, Non-Tender, Bowel Sounds Present (Ayesha Gaspar) Genitourinary Remarks incontinent (Ayesha Gaspar) Musculoskeletal MS Exam: Joints Intact, Atrophy (Ayesha Gaspar) Integumentary Skin Exam: Clear, Warm, Intact Skin Remarks scattered abrasions (Ayesha Gaspar) Extremeties Extremities Exam: No Edema (Ayesha Gaspar) Neurologic Neuro Exam: Awake, Moving All Extremities Neuro Remarks severe aphasia (Ayesha Gaspar) Assessment/Plan Assessment Summary: WILL/Acute Renal Failure, Dehydration, Malnutrition, Hypertension, Diabetes Mellitus Electrolyte Assessment: Hyperkalemia Problem List: (1) WILL (acute kidney injury) Plan: Creatinine responds to IVF, renal function better today, IV has remained in place for over 24 hrs IVF continues, bicarb gtt ( 0.45% with 75 mEq bicarbonate @ 75 cc/hr) potassium 5.1 low K diet she does have assistance from staff with nutrition, but she may be dependent on staff offering as she has severe aphasia it appears that renal function declines without IV hydration, pointing to the fact that her oral intake may not be sufficient daily renal panel she is incontinent of urine but makes a good amount (2) Hyperkalemia Plan: elevated but stable on bicarb gtt, Florinef added low K diet daily labs Difficult management issues related to dementia and nutrition/hydration (3) HTN (hypertension) Plan: blood pressure is stable continue current medications including Norvasc,Lopressor, Cardura with PRN clonidine continue with hold parameters (4) Dementia Plan: attempting to find LTC placement Palliative consult may be appropriate (5) Diabetes mellitus, type 2 Plan: blood sugar is acceptable, better controlled continue current regimen (6) UTI (urinary tract infection) Plan: resolved (Ayesha Gaspar) Problem List: (1) WILL (acute kidney injury) Plan: Creatinine responds to IVF, renal function better today, IV has remained in place for over 24 hrs potassium 5.1 low K diet she does have assistance from staff with nutrition, but she may be dependent on staff offering as she has severe aphasia it appears that renal function declines without IV hydration, pointing to the fact that her oral intake may not be sufficient daily renal panel she is incontinent of urine but makes a good amount (2) Hyperkalemia Plan: elevated but stable on bicarb gtt, Florinef added low K diet daily labs Difficult management issues related to dementia and nutrition/hydration (3) HTN (hypertension) Plan: blood pressure is stable continue current medications including Norvasc,Lopressor, Cardura with PRN clonidine continue with hold parameters (4) Dementia Plan: attempting to find LTC placement Palliative consult may be appropriate (5) Diabetes mellitus, type 2 Plan: blood sugar is acceptable, better controlled continue current regimen (6) UTI (urinary tract infection) Plan: resolved Plan patient was seen and examined. She has no IV at this time. 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 I have started Florinef as she has had recurrent hyperkalemia. Watch for signs of fluid overload. Not a candidate for dialysis. Avoid nephrotoxins. (Balta Elena MD) Problem Qualifiers (1) HTN (hypertension): Qualified Code: I10 - Essential hypertension (2) Diabetes mellitus, type 2: Qualified Code: E11.22 - Type 2 diabetes mellitus with diabetic chronic kidney disease, unspecified CKD stage, unspecified penitentiary insulin use status Ayesha Gaspar [facility] Aug 21, 2016 14:19 Balta Elena MD Aug 21, 2016 14:38
[2016-08-21] MEDS: DOXAZOSIN MESYLATE 2 MG TAB PO SCH (21:00)
[2016-08-21] MEDS: MIRTAZAPINE 15 MG TAB PO SCH (21:20)
[2016-08-21] MEDS: PRAVASTATIN SOD 80 MG TAB PO SCH (21:20)
[2016-08-22] VITALS (7 sets, daily range): BP systolic 103–199; BP diastolic 51–84; PULSE 57–79; RESP 18–22; TEMP 95.7–98; O2SAT 94–100
[2016-08-22] MEDS: HEPARIN SODIUM - SQ 10,000 UNITS/ML VIAL SQ SCH ×2 (05:58→17:33)
[2016-08-22] MEDS: INSULIN ASPART SUPPLEMENTAL SCALE SQ SCH ×4 (06:07→20:55)
[2016-08-22] MEDS: SODIUM BICARBONATE 8.4% INJ 75 MEQ in SODIUM CHLOR 0.45% 1000 ML INJ 1,000 ML IV SCH ×2 (09:07→21:28)
[2016-08-22] MEDS: SODIUM CHLORIDE 0.9% FLUSH 5 ML FLUSH FLUSH SCH ×2 (09:08→20:54)
[2016-08-22] MEDS: MEGESTROL ACETATE SUSP 400 MG/10 ML CUP PO SCH (09:08)
[2016-08-22] MEDS: METOPROLOL TARTRATE 25 MG TAB PO SCH ×2 (09:08→20:54)
[2016-08-22] MEDS: FLUDROCORTISONE ACETATE 0.1 MG TAB PO SCH (09:08)
[2016-08-22] MEDS: ASPIRIN 81 MG CHEW TAB CHEW SCH (09:08)
[2016-08-22 10:37] LABS: BICARBONATE 26.5 MEQ/L (21.0-32.0); POTASSIUM 4.6 MEQ/L (3.5-5.1)
--- NOTE | 2016-08-22 12:46 | HHI.NPPN ---
Subjective Complaints: Confused Renal Failure: Chronic, Acute Additional Remarks Patient is sleepy, open eyes on command, not following any other command, remain confused. Review of Systems General General Remarks unable to obtain due to mental status Objective Data Data 08/21/16 08/22/16 19:00 07:00 Intake Total 960 ml Balance 960 ml Intake Oral 960 ml # Voids 1 3 # Bowel Movements 0 1 Vital Signs Date Time Temp Pulse Resp B/P Pulse Ox O2 Delivery O2 Flow Rate FiO2 08/22/16 11:25 98.0 60 18 103/51 99 08/22/16 10:06 57 08/22/16 09:07 79 20 199/84 94 08/22/16 06:30 97.1 61 20 140/65 98 08/22/16 00:00 96.8 61 18 116/56 100 08/21/16 21:58 65 08/21/16 20:00 97.9 65 18 102/66 98 08/21/16 16:00 97.0 56 20 124/69 100 -: 08/22/16 0955 Drip Comment Bicarb gtt resumed Physical Exam General Appearance: No Acute Distress, Sleeping, Malnourished Neck Neck Exam: Neck Supple Pulmonary Resp Exam: Breath Sounds Equal, No Distress, Decreased Bases, Diminished Breath Sounds Cardiology CV Exam: Regular, Normal Sinus Rhythm, Good Perfusion Chest/Breast Chest/Breast Exam: Symmetry Gastrointestinal/Abdomen GI Exam: Soft, Non-Tender, Bowel Sounds Present Musculoskeletal MS Exam: Joints Intact, Atrophy Integumentary Skin Exam: Clear, Warm, Intact Extremeties Extremities Exam: No Edema Neurologic Neuro Exam: Moving All Extremities, Obtunded Assessment/Plan Assessment Summary: WILL/Acute Renal Failure, Dehydration, Malnutrition, Hypertension, Diabetes Mellitus Electrolyte Assessment: Hyperkalemia Problem List: (1) WILL (acute kidney injury) Plan: she does have assistance from staff with nutrition, but she may be dependent on staff offering as she has severe aphasia it appears that renal function declines without IV hydration, pointing to the fact that her oral intake may not be sufficient BUN and Creatinine almost same, K is better, on Florinef. Encourage oral intake. Follow urine out put and BMP. (2) Hyperkalemia Plan: elevated but stable on bicarb gtt, Florinef added low K diet daily labs Difficult management issues related to dementia and nutrition/hydration (3) HTN (hypertension) Plan: blood pressure is stable continue current medications including Norvasc,Lopressor, Cardura with PRN clonidine continue with hold parameters (4) Dementia Plan: attempting to find LTC placement Palliative consult may be appropriate (5) Diabetes mellitus, type 2 Plan: blood sugar is acceptable, better controlled continue current regimen (6) UTI (urinary tract infection) Plan: resolved Problem Qualifiers (1) HTN (hypertension): Qualified Code: I10 - Essential hypertension (2) Diabetes mellitus, type 2: Qualified Code: E11.22 - Type 2 diabetes mellitus with diabetic chronic kidney disease, unspecified CKD stage, unspecified intermediate insulin use status Genesis Medina MD Aug 22, 2016 12:46
--- NOTE | 2016-08-22 14:05 | HHI.PR ---
Subjective Remarks patient when awakened started gibberish talking like a child but with of the aides she is familiar with and she quieted down eats when fed Objective Vitals Vital Signs Date Time Temp Pulse Resp B/P Pulse Ox O2 Delivery O2 Flow Rate FiO2 08/22/16 11:25 98.0 60 18 103/51 99 08/22/16 10:06 57 08/22/16 09:07 79 20 199/84 94 08/22/16 06:30 97.1 61 20 140/65 98 08/22/16 00:00 96.8 61 18 116/56 100 08/21/16 21:58 65 08/21/16 20:00 97.9 65 18 102/66 98 08/21/16 16:00 97.0 56 20 124/69 100 I/O 08/21/16 08/21/16 08/21/16 08/22/16 08/22/16 08/22/16 06:59 14:59 22:59 06:59 14:59 22:59 Intake Total 829 ml 960 ml Balance 829 ml 960 ml Intake Oral 960 ml IV Total 829 ml Bladder Scan Volume Amount 78 ml # Voids 3 1 1 2 # Bowel Movements 0 0 0 1 Result Diagram: 08/22/16 0955 Imaging Last Impressions Renal Ultrasound 07/27/16 0000 Signed Impressions: Service Date/Time: Wednesday, July 27, 2016 14:05 - CONCLUSION: 1. Kidneys are slightly echogenic which can be seen with medical renal disease. 2. Simple cyst right kidney. 3. Echogenic focus along the lower pole left kidney could be related to nonobstructing calculus measuring 7 mm. Brandt Lowery MD Head CT 07/23/162334 Signed Impressions: Service Date/Time: Sunday, July 24, 2016 00:04 - CONCLUSION: 1. Suspected recent infarct involving the left middle cerebral artery territory at the left temporal and parietal lobes. 2. Age-related atrophy. 3. Widespread suspected small vessels ischemic change in the white matter. 4. 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 5. Acute right frontal scalp hematoma. Francis Gibson MD Chest X-Ray 07/23/162334 Signed Impressions: Service Date/Time: June 23:48 - CONCLUSION: No acute disease. Francis Gibson MD Objective Remarks awake and alert, spoke today - gibberish talking ff some commands anicteric sclerae, fading infraorbital bruise- almost resolved no nuchal rigidity lungs no rales or wheezes regular rhythm abdomen soft extremities no edema moves all extremities spontaneously Procedures None A/P Problem List: (1) Sepsis due to urinary tract infection ICD Code: A41.9 Status: Acute (2) Hypoglycemia associated with diabetes ICD Code: E11.649 Status: Acute (3) Fall ICD Code: W19.XXXA Status: Acute (4) Delirium ICD Code: R41.0 Status: Acute (5) HTN (hypertension) ICD Code: I10 Status: Chronic (6) DM (diabetes mellitus) ICD Code: E11.9 Status: Chronic (7) CKD (chronic kidney disease) stage 4, GFR 15-29 ml/min ICD Code: N18.4 Status: Chronic (8) WILL (acute kidney injury) ICD Code: N17.9 Status: Acute (9) Aphasia ICD Code: R47.01 Status: Chronic Assessment and Plan Severe sepsis (Temp 94F, R 22, UTI, WILL on chronic kidney disease) - resolved Due to klebsiella UTI. Renal ultrasound without evidence of nephritis or hydronephrosis, however does show nonobstructing 7 mm calculus in the left kidney. - S/p Ceftin. course Metabolic encephalopathy/ History of CVA Mental status still waxes and wanes. Likely underlying dementia. Treated for UTI. - d/c standing Seroquel. Use as needed. - continue ASA and statin. - PT/OT. - avoid sedating meds. Currently off restraints. V. tach Asymptomatic on 08/05. Likely secondary to hyperkalemia. 5 beat run noted on . - Kayexalate as needed. Potassium level stable 08/14. - Lopressor to 75 mg BID increased on 08/10. Holding parameters in place. Severe hypoglycemia Possibly related to sepsis. Treated with D5NS which has been stopped since . Sugars stable 08/14. - Continue low dose SSI with insulin NovoLog. Will monitor and add long-acting insulin as needed. However, avoid hypoglycemia. didn't require any insulin this morning. Poor oral intake/appetite/moderate protein calorie malnutrition Nutritional intake apparently inadequate. - on Megace and dietitian following.- - reduced dose of Remeron to 7.5 mg daily. - consider TF- GT placement - Calorie count ongoing WILL on CKD- pre renal azotemia- poor po/dehydration Mild hyperkalemia- resolved - avoid nephrotoxins. - continue IVF with HCO3 at 75 cc/hr- - IVF - d/w staff nurse needs to be continuous - nephrology ff - creatinine gradually stabilizing Hypertension Blood pressure fluctuates. - Continue Cardura 4 mg by mouth daily and clonidine as needed. Lopressor 75 mg BID. amlodipine decreased to 5 mg daily 08/11. DVT prophylaxisheparin. Discharge Planning Awaiting placement. per CM notes, no POA available. They are still searching. Problem Qualifiers (1) HTN (hypertension): Qualified Code: I10 - Essential hypertension (2) DM (diabetes mellitus): Lexx Gurrola MD Aug 22, 2016 14:04
[2016-08-22] MEDS: MIRTAZAPINE 15 MG TAB PO SCH (20:54)
[2016-08-22] MEDS: DOXAZOSIN MESYLATE 2 MG TAB PO SCH (20:54)
[2016-08-22] MEDS: PRAVASTATIN SOD 80 MG TAB PO SCH (20:54)
[2016-08-23] VITALS (11 sets, daily range): BP systolic 107–204; BP diastolic 58–88; PULSE 52–82; RESP 14–20; TEMP 96.9–98.1; O2SAT 93–100
[2016-08-23] MEDS: HEPARIN SODIUM - SQ 10,000 UNITS/ML VIAL SQ SCH ×2 (05:28→18:28)
[2016-08-23] MEDS: INSULIN ASPART SUPPLEMENTAL SCALE SQ SCH ×4 (06:14→21:27)
[2016-08-23] MEDS: SODIUM CHLORIDE 0.9% FLUSH 5 ML FLUSH FLUSH SCH ×2 (09:00→21:00)
[2016-08-23] MEDS: FLUDROCORTISONE ACETATE 0.1 MG TAB PO SCH (09:34)
[2016-08-23] MEDS: MEGESTROL ACETATE SUSP 400 MG/10 ML CUP PO SCH (09:34)
[2016-08-23] MEDS: METOPROLOL TARTRATE 25 MG TAB PO SCH ×2 (09:34→21:26)
[2016-08-23] MEDS: ASPIRIN 81 MG CHEW TAB CHEW SCH (09:34)
--- NOTE | 2016-08-23 10:41 | HHI.NPPN ---
Subjective Complaints: Confused Renal Failure: Chronic, Acute Additional Remarks Patient is clinically same, remain lethargic and sleepy. Review of Systems General General Remarks unable to obtain due to mental status Objective Data Data 08/22/16 08/23/16 18:59 06:59 Intake Total 1048 ml Balance 1048 ml Intake Oral 360 ml IV Total 688 ml # Voids 2 4 Vital Signs Date Time Temp Pulse Resp B/P Pulse Ox O2 Delivery O2 Flow Rate FiO2 08/23/16 08:42 98.1 55 20 204/77 100 08/23/16 04:06 96.9 72 20 119/58 94 08/23/16 02:00 61 08/23/16 00:00 97.1 71 20 107/59 93 08/22/16 20:38 97.8 69 22 119/68 95 08/22/16 15:28 95.7 70 18 119/60 100 08/22/16 11:25 98.0 60 18 103/51 99 -: 08/22/16 0955 Drip Comment Bicarb gtt resumed Physical Exam General Appearance: No Acute Distress, Sleeping, Malnourished Neck Neck Exam: Neck Supple Pulmonary Resp Exam: Breath Sounds Equal, No Distress, Decreased Bases, Diminished Breath Sounds Cardiology CV Exam: Regular, Normal Sinus Rhythm, Good Perfusion Chest/Breast Chest/Breast Exam: Symmetry Gastrointestinal/Abdomen GI Exam: Soft, Non-Tender, Bowel Sounds Present Musculoskeletal MS Exam: Joints Intact, Atrophy Integumentary Skin Exam: Clear, Warm, Intact Extremeties Extremities Exam: No Edema Neurologic Neuro Exam: Obtunded Assessment/Plan Assessment Summary: WILL/Acute Renal Failure, Dehydration, Malnutrition, Hypertension, Diabetes Mellitus Electrolyte Assessment: Hyperkalemia Problem List: (1) WILL (acute kidney injury) Plan: she does have assistance from staff with nutrition, but she may be dependent on staff offering as she has severe aphasia it appears that renal function declines without IV hydration, pointing to the fact that her oral intake may not be sufficient BUN and Creatinine almost same, K is better, on Florinef. Encourage oral intake. Has advance stage 4 chronic kidney disease. Not a candidate for Dialysis , although there is no need for it at present. Dr. Waldrop follow from AM, who is covering Dr. Elena. (2) Hyperkalemia Plan: elevated but stable on bicarb gtt, Florinef added low K diet daily labs Difficult management issues related to dementia and nutrition/hydration (3) HTN (hypertension) Plan: blood pressure is stable continue current medications including Norvasc,Lopressor, Cardura with PRN clonidine continue with hold parameters (4) Dementia Plan: attempting to find LTC placement Palliative consult may be appropriate (5) Diabetes mellitus, type 2 Plan: blood sugar is acceptable, better controlled continue current regimen (6) UTI (urinary tract infection) Plan: resolved Problem Qualifiers (1) HTN (hypertension): Qualified Code: I10 - Essential hypertension (2) Diabetes mellitus, type 2: Qualified Code: E11.22 - Type 2 diabetes mellitus with diabetic chronic kidney disease, unspecified CKD stage, unspecified boat 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
--- NOTE | 2016-08-23 11:09 | HHI.PR ---
Subjective Remarks patient pleasant this am- "okay" ate well per aide Objective Vitals Vital Signs Date Time Temp Pulse Resp B/P Pulse Ox O2 Delivery O2 Flow Rate FiO2 08/23/16 08:42 98.1 55 20 204/77 100 08/23/16 04:06 96.9 72 20 119/58 94 08/23/16 02:00 61 08/23/16 00:00 97.1 71 20 107/59 93 08/22/16 20:38 97.8 69 22 119/68 95 08/22/16 15:28 95.7 70 18 119/60 100 08/22/16 11:25 98.0 60 18 103/51 99 I/O 08/22/16 08/22/16 08/22/16 08/23/16 08/23/16 08/23/16 06:59 14:59 22:59 06:59 14:59 22:59 Intake Total 240 ml 808 ml Balance 240 ml 808 ml Intake Oral 240 ml 120 ml IV Total 688 ml # Voids 2 3 3 # Bowel Movements 1 Result Diagram: 08/22/16 0955 Imaging Last Impressions Renal Ultrasound 07/27/16 0000 Signed Impressions: Service Date/Time: Wednesday, July 27, 2016 14:05 - CONCLUSION: 1. Kidneys are slightly echogenic which can be seen with medical renal disease. 2. Simple cyst right kidney. 3. Echogenic focus along the lower pole left kidney could be related to nonobstructing calculus measuring 7 mm. Brandt Lowery MD Head CT 07/23/160 Signed Impressions: Service Date/Time: Sunday, July 24, 2016 00:04 - CONCLUSION: 1. Suspected recent infarct involving the left middle cerebral artery territory at the left temporal and parietal lobes. 2. Age-related atrophy. 3. Widespread suspected small vessels ischemic change in the white matter. 4. 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 5. Acute right frontal scalp hematoma. Francis Gibson MD Chest X-Ray 07/23/166 Signed Impressions: Service Date/Time: June 23:48 - CONCLUSION: No acute disease. Francis Gibson MD Objective Remarks awake and alert, spoke today - "okay", ff commands anicteric sclerae, fading infraorbital bruise- almost resolved no nuchal rigidity lungs no rales or wheezes regular rhythm abdomen soft extremities no edema moves all extremities spontaneously Procedures None A/P Problem List: (1) Sepsis due to urinary tract infection ICD Code: A41.9 Status: Acute (2) Hypoglycemia associated with diabetes ICD Code: E11.649 Status: Acute (3) Fall ICD Code: W19.XXXA Status: Acute (4) Delirium ICD Code: R41.0 Status: Acute (5) HTN (hypertension) ICD Code: I10 Status: Chronic (6) DM (diabetes mellitus) ICD Code: E11.9 Status: Chronic (7) CKD (chronic kidney disease) stage 4, GFR 15-29 ml/min ICD Code: N18.4 Status: Chronic (8) WILL (acute kidney injury) ICD Code: N17.9 Status: Acute (9) Aphasia ICD Code: R47.01 Status: Chronic Assessment and Plan Severe sepsis (Temp 94F, R 22, UTI, WILL on chronic kidney disease) - resolved Due to klebsiella UTI. Renal ultrasound without evidence of nephritis or hydronephrosis, however does show nonobstructing 7 mm calculus in the left kidney. - S/p Ceftin. course Metabolic encephalopathy/ History of CVA Mental status still waxes and wanes. Likely underlying dementia. Treated for UTI. - d/c standing Seroquel. Use as needed. - continue ASA and statin. - PT/OT. - avoid sedating meds. Currently off restraints. V. tach Hypertension- erratic Asymptomatic on 08/05. Likely secondary to hyperkalemia. 5 beat run noted on . - Kayexalate as needed. Potassium level stable 08/14. - Lopressor to 75 mg BID increased on 08/10. Holding parameters in place. - on amlodipine 5 mg po daily- decreased - on Cardura 4 mg hs Monitor and adjust Severe hypoglycemia - resolved Possibly related to sepsis. - Continue low dose SSI with insulin NovoLog. Poor oral intake/appetite/moderate protein calorie malnutrition Nutritional intake apparently inadequate. - on Megace and dietitian following.- - reduced dose of Remeron to 7.5 mg daily. - consider TF- GT placement - Calorie count ongoing WILL on CKD- pre renal azotemia- poor po/dehydration Mild hyperkalemia- resolved - avoid nephrotoxins. - continue IVF with HCO3 at 75 cc/hr- - IVF - d/w staff nurse needs to be continuous - nephrology ff - creatinine gradually stabilizing DVT prophylaxisheparin. Discharge Planning Awaiting placement. per CM notes, no POA available. They are still searching. Problem Qualifiers (1) HTN (hypertension): Qualified Code: I10 - Essential hypertension (2) DM (diabetes mellitus): Lexx Gurrola MD Aug 23, 2016 11:09
[2016-08-23] MEDS: cloNIDine HCL 0.1 MG TAB PO PRN (11:25)
[2016-08-23] MEDS: SODIUM BICARBONATE 8.4% INJ 75 MEQ in SODIUM CHLOR 0.45% 1000 ML INJ 1,000 ML IV SCH (11:49)
[2016-08-23] MEDS: PRAVASTATIN SOD 80 MG TAB PO SCH (21:26)
[2016-08-23] MEDS: MIRTAZAPINE 15 MG TAB PO SCH (21:26)
[2016-08-23] MEDS: DOXAZOSIN MESYLATE 2 MG TAB PO SCH (21:26)
[2016-08-24] MEDS: SODIUM BICARBONATE 8.4% INJ 75 MEQ in SODIUM CHLOR 0.45% 1000 ML INJ 1,000 ML IV SCH ×2 (02:40→19:31)
[2016-08-24 04:00] VITALS: BP 130/61; PULSE 90; RESP 14; TEMP 96.8; O2SAT 99
[2016-08-24] MEDS: HEPARIN SODIUM - SQ 10,000 UNITS/ML VIAL SQ SCH ×2 (06:00→18:27)
[2016-08-24] MEDS: INSULIN ASPART SUPPLEMENTAL SCALE SQ SCH ×4 (06:21→20:59)
[2016-08-24 08:00] VITALS: BP 121/60; PULSE 54; PULSE 69; RESP 21; TEMP 97; O2SAT 100
[2016-08-24] MEDS: SODIUM CHLORIDE 0.9% FLUSH 5 ML FLUSH FLUSH SCH ×2 (09:00→20:59)
[2016-08-24] MEDS: ASPIRIN 81 MG CHEW TAB CHEW SCH (09:08)
[2016-08-24] MEDS: METOPROLOL TARTRATE 25 MG TAB PO SCH ×2 (09:08→20:56)
[2016-08-24] MEDS: FLUDROCORTISONE ACETATE 0.1 MG TAB PO SCH (09:08)
[2016-08-24] MEDS: MEGESTROL ACETATE SUSP 400 MG/10 ML CUP PO SCH (09:11)
[2016-08-24 09:17] LABS: BICARBONATE 27.8 MEQ/L (21.0-32.0); POTASSIUM 4.4 MEQ/L (3.5-5.1)
--- NOTE | 2016-08-24 10:54 | HHI.PR ---
Subjective Remarks Patient at the nursing station, gettign feedings. Doesn't appear in acute distress. Eating. Doesn't follow commands. Objective Vitals Vital Signs Date Time Temp Pulse Resp B/P Pulse Ox O2 Delivery O2 Flow Rate FiO2 08/24/16 08:00 97.0 69 21 121/60 100 08/24/16 04:00 96.8 90 14 130/61 99 08/23/16 22:02 82 08/23/16 21:31 64 08/23/16 20:00 97.6 82 14 119/60 97 08/23/16 15:44 97.8 57 18 138/88 100 08/23/16 13:00 54 144/64 96 08/23/16 12:04 97.8 52 16 184/76 99 08/23/16 11:45 52 I/O 08/23/16 08/23/16 08/23/16 08/24/16 08/24/16 08/24/16 07:00 15:00 23:00 07:00 15:00 23:00 Intake Total 808 ml 1670 ml Balance 808 ml 1670 ml Intake Oral 120 ml 720 ml IV Total 688 ml 950 ml # Voids 3 5 3 Result Diagram: 08/24/16 0841 Imaging Last Impressions Renal Ultrasound 07/27/16 0000 Signed Impressions: Service Date/Time: Wednesday, July 27, 2016 14:05 - CONCLUSION: 1. Kidneys are slightly echogenic which can be seen with medical renal disease. 2. Simple cyst right kidney. 3. Echogenic focus along the lower pole left kidney could be related to nonobstructing calculus measuring 7 mm. Brandt Lowery MD Head CT 07/23/16 0903 Signed Impressions: Service Date/Time: Sunday, July 24, 2016 00:04 - CONCLUSION: 1. Suspected recent infarct involving the left middle cerebral artery territory at the left temporal and parietal lobes. 2. Age-related atrophy. 3. Widespread suspected small vessels ischemic change in the white matter. 4. 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 5. Acute right frontal scalp hematoma. Francis Gibson MD Chest X-Ray 07/23/16 8716 Signed Impressions: Service Date/Time: June 23:48 - CONCLUSION: No acute disease. Francis Gibson MD Objective Remarks GENERAL: 86 yo female, awake and alert, says ok per nurses, following commands SKIN: Warm and dry. HEAD: Fading infraorbital bruise- almost resolved EYES: Pupils equal and round. No scleral icterus. No injection or drainage. ENT: No nasal bleeding or discharge. Mucous membranes pink and moist. NECK: Trachea midline. No JVD. No nuchal rigidity. CARDIOVASCULAR: Regular rate and rhythm. RESPIRATORY: No accessory muscle use. Clear to auscultation. Breath sounds equal bilaterally. GASTROINTESTINAL: Abdomen soft, non-tender, nondistended. Hepatic and splenic margins not palpable. MUSCULOSKELETAL: Extremities without clubbing, cyanosis, or edema. No obvious deformities. NEUROLOGICAL: Awake and alert. No obvious cranial nerve deficits. Moves extremities spontaneously. PSYCHIATRIC: Appropriate mood and affect; insight and judgment normal. Procedures None A/P Problem List: (1) Sepsis due to urinary tract infection ICD Code: A41.9 Status: Acute (2) Hypoglycemia associated with diabetes ICD Code: E11.649 Status: Acute (3) Fall ICD Code: W19.XXXA Status: Acute (4) Delirium ICD Code: R41.0 Status: Acute (5) HTN (hypertension) ICD Code: I10 Status: Chronic (6) DM (diabetes mellitus) ICD Code: E11.9 Status: Chronic (7) CKD (chronic kidney disease) stage 4, GFR 15-29 ml/min ICD Code: N18.4 Status: Chronic (8) WILL (acute kidney injury) ICD Code: N17.9 Status: Acute (9) Aphasia ICD Code: R47.01 Status: Chronic Assessment and Plan Severe sepsis (Temp 94F, R 22, UTI, WILL on chronic kidney disease) - resolved Due to klebsiella UTI. Renal ultrasound without evidence of nephritis or hydronephrosis, however does show nonobstructing 7 mm calculus in the left kidney. - S/p Ceftin. course Metabolic encephalopathy/ History of CVA Mental status still waxes and wanes. Likely underlying dementia. Treated for UTI. - d/c standing Seroquel. Use as needed. - continue ASA and statin. - PT/OT. - avoid sedating meds. Currently off restraints. V. tach Hypertension- erratic Asymptomatic on 08/05. Likely secondary to hyperkalemia. 5 beat run noted on 12/ 12. - Kayexalate as needed. Potassium level stable 08/14. - Lopressor to 75 mg BID increased on 08/10. Holding parameters in place. - on amlodipine 5 mg po daily- decreased - on Cardura 4 mg hs Monitor and adjust Severe hypoglycemia - resolved Possibly related to sepsis. - Continue low dose SSI with insulin NovoLog. Poor oral intake/appetite/moderate protein calorie malnutrition Nutritional intake apparently inadequate. - on Megace and dietitian following.- - reduced dose of Remeron to 7.5 mg daily. - consider TF- GT placement - Calorie count ongoing WILL on CKD- pre renal azotemia- poor po/dehydration Mild hyperkalemia- resolved - avoid nephrotoxins. - continue IVF with HCO3 at 75 cc/hr- - IVF - d/w staff nurse needs to be continuous - nephrology ff - creatinine gradually stabilizing DVT prophylaxisheparin. Discharge Planning Awaiting placement. Per CM notes, no POA available. They are still searching. Problem Qualifiers (1) HTN (hypertension): Qualified Code: I10 - Essential hypertension (2) DM (diabetes mellitus): Alvina Hein MD Aug 24, 2016 10:54
[2016-08-24 12:00] VITALS: BP 160/74; PULSE 58; RESP 19; TEMP 97.8; O2SAT 97
--- NOTE | 2016-08-24 15:11 | HHI.NPPN ---
Subjective Complaints: Confused Renal Failure: Chronic, Acute History of Present Illness This is an 86 y/o female who came to ER after a fall with head trauma from the retirement. Creatinine elevated on arrival, initially improved with IVF. Looking back it appears that her baseline from the end of June 2016 is 1.8, GFR 26 consistent with CKD 4. On arrival, her creatinine was 3.17, which improved to 1.87, then subsequently juanita to 2.65. She has a hx of HTN, DM II, hyperlipidemia, vitamin D deficiency, and history of renal stones. All history was obtained from previous admission. She was hypoglycemic on arrival, was on D5NS, but is now on NS at 84 cc/hr. She has a bruise under her right eye, scattered abrasions, no edema. She is incoherent, unable to follow commands, may have underlying dementia. Her K is 5.2, C02 in normal range. She has proteinuria. We were consulted for renal management. Unknown if she has a local copper tapper. She is being treated for UTI, thought to be septic but blood cultures are negative. She is on Ceftin. Interval History The patient is drowsy. Is sitting by the nurses station. Apparently no POA can be reached. Pending placement for discharge. (Caridad Prince) Review of Systems General General Remarks unable to obtain due to mental status (Caridad Prince) Objective Data Data 08/23/16 08/24/16 19:00 07:00 Intake Total 480 ml 1190 ml Balance 480 ml 1190 ml Intake Oral 480 ml 240 ml IV Total 950 ml # Voids 8 Vital Signs Date Time Temp Pulse Resp B/P Pulse Ox O2 Delivery O2 Flow Rate FiO2 08/24/16 12:00 97.8 58 19 160/74 97 08/24/16 08:00 97.0 69 21 121/60 100 08/24/16 04:00 96.8 90 14 130/61 99 08/23/16 22:02 82 08/23/16 21:31 64 08/23/16 20:00 97.6 82 14 119/60 97 08/23/16 15:44 97.8 57 18 138/88 100 (Caridad Prince) -: 08/24/16 0841 Imaging Last Impressions Renal Ultrasound 07/27/16 0000 Signed Impressions: Service Date/Time: Wednesday, July 27, 2016 14:05 - CONCLUSION: 1. Kidneys are slightly echogenic which can be seen with medical renal disease. 2. Simple cyst right kidney. 3. Echogenic focus along the lower pole left kidney could be related to nonobstructing calculus measuring 7 mm. Brandt Lowery MD Head CT 07/23/162334 Signed Impressions: Service Date/Time: Sunday, July 24, 2016 00:04 - CONCLUSION: 1. Suspected recent infarct involving the left middle cerebral artery territory at the left temporal and parietal lobes. 2. Age-related atrophy. 3. Widespread suspected small vessels ischemic change in the white matter. 4. 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 5. Acute right frontal scalp hematoma. Francis Gibson MD Chest X-Ray 07/23/162334 Signed Impressions: Service Date/Time: June 23:48 - CONCLUSION: No acute disease. Francis Gibson MD Medication Review Current Medications Medications (Trade) Dose Ordered Sig/Emiliano Route Start Time Stop Time Status Last Admin (NS Flush) 2 ml UNSCH PRN FLUSH 07/24/16 02:00 (NS Flush) 2 ml BID FLUSH 07/24/16 09:00 08/22/16 20:54 (Tylenol) 650 mg Q4H PRN PO 07/24/16 02:00 08/12/16 10:00 (Zofran Inj) 4 mg Q6H PRN IVP 07/24/16 02:00 (Dulcolax Supp) 10 mg DAILY PRN MA 07/24/16 02:00 (Milk Of Magnesia Liq) 30 ml Q12H PRN PO 07/24/16 02:00 08/22/16 10:22 (Heparin Inj) 5,000 units Q12H SQ 07/24/16 06:00 08/24/16 06:00 (Narcan Inj) 0.4 mg UNSCH PRN IV 07/24/16 02:00 (Pravachol) 80 mg HS PO 07/24/16 21:00 08/23/16 21:26 (D50w (Vial) Inj) 25 ml UNSCH PRN IV PUSH 07/26/16 20:30 (Glucagon Inj) 1 mg UNSCH PRN OTHER 07/26/16 20:30 (Cardura) 2 mg HS PO 07/27/16 00:30 08/23/16 21:26 (Megace Liq) 400 mg DAILY PO 07/27/16 12:45 08/24/16 09:11 (Pill Splitter) 1 ea UNSCH PRN OTHER 07/29/16 12:00 (Aspirin Chew) 81 mg DAILY CHEW 07/31/16 09:00 08/24/16 09:08 (Remeron) 7.5 mg HS PO 08/09/16 21:00 08/23/16 21:26 (Lopressor) 75 mg Q12HR PO 08/10/16 21:00 08/24/16 09:08 Amlodipine Besylate 5 mg 5 mg DAILY PO 08/12/16 09:00 08/24/16 09:08 (Sodium Bicarbonate 8.4% Inj/1/2 NS 1000 ml Inj) 1,075 ml @ 75 mls/hr [id number] IV 08/17/16 13:00 08/24/16 02:40 (Catapres) 0.1 mg Q6H PRN PO 08/17/16 13:00 08/23/16 11:25 (Florinef) 0.1 mg DAILY PO 08/19/16 16:00 08/24/16 09:08 (Caridad Prince) Physical Exam General Appearance: No Acute Distress, Sleeping (Caridad Prince) Neck Neck Exam: Neck Supple (Caridad Prince) Pulmonary Resp Exam: Breath Sounds Equal, No Distress, Decreased Bases, Diminished Breath Sounds (Caridad Prince) Cardiology CV Exam: Regular, Normal Sinus Rhythm, Good Perfusion (Caridad Prince) Chest/Breast Chest/Breast Exam: Symmetry (Caridad Prince) Gastrointestinal/Abdomen GI Exam: Soft, Non-Tender, Bowel Sounds Present (Caridad Prince) Musculoskeletal MS Exam: Joints Intact, Atrophy (Caridad Prince) Integumentary Skin Exam: Clear, Warm, Intact (Caridad Prince) Extremeties Extremities Exam: No Edema (Caridad Prince) Neurologic Neuro Exam: Obtunded (Caridad Prince) Assessment/Plan Assessment Summary: WILL/Acute Renal Failure, Dehydration, Malnutrition, Hypertension, Diabetes Mellitus Electrolyte Assessment: Hyperkalemia Problem List: (1) WILL (acute kidney injury) Plan: Renal functions improving slowly. Apparently has significant aphasia that may be impairing the patient's oral intake. Attempts at discontinuing IVF have shown a decline in the renal functions soon after. PO intake encouraged Palliative care input would be appropriate since no POA can be reached. Given that her acute renal decline appears to be prerenal in nature, tube feedings should be considered if she cannot keep up with adequate oral intake. (2) Hyperkalemia Plan: Difficult management issues related to dementia and nutrition/hydration Improved and stable since addition of Florinef (3) HTN (hypertension) Plan: BP stable. Continue on current regimen (4) Dementia Plan: attempting to find LTC placement Palliative consult may be appropriate (5) Diabetes mellitus, type 2 Plan: Mgmt as per primary (6) UTI (urinary tract infection) Plan: resolved (Caridad Prince) Plan The exam, history, and the medical decision-making described in the above note were completed with the assistance of the PA-C. I reviewed and agree with the findings presented. I attest that I had a [id number] encounter with the patient on the same day, and personally performed and documented my assessment and findings in the medical record. (Dania Waldrop MD) Problem Qualifiers (1) HTN (hypertension): Qualified Code: I10 - Essential hypertension (2) Diabetes mellitus, type 2: Qualified Code: E11.22 - Type 2 diabetes mellitus with diabetic chronic kidney disease, unspecified CKD stage, unspecified watermelon inspector insulin use status Caridad Prince Aug 24, 2016 15:11 Dania Waldrop MD Aug 24, 2016 18:05
[2016-08-24 16:00] VITALS: BP 175/79; PULSE 61; RESP 20; TEMP 96.7; O2SAT 98
[2016-08-24 17:22] VITALS: BP 142/59
[2016-08-24 20:36] VITALS: BP 148/66; PULSE 58; RESP 20; TEMP 97.1; O2SAT 100
[2016-08-24] MEDS: MIRTAZAPINE 15 MG TAB PO SCH (20:57)
[2016-08-24] MEDS: DOXAZOSIN MESYLATE 2 MG TAB PO SCH (20:57)
[2016-08-24] MEDS: PRAVASTATIN SOD 80 MG TAB PO SCH (20:57)
[2016-08-25] VITALS (8 sets, daily range): BP systolic 129–157; BP diastolic 58–84; PULSE 54–74; RESP 18–22; TEMP 96.4–98.6; O2SAT 98–99
[2016-08-25] MEDS: HEPARIN SODIUM - SQ 10,000 UNITS/ML VIAL SQ SCH (05:19)
[2016-08-25 06:06] LABS: HEMATOCRIT 29.4 % (35.0-46.0); MEAN CELL VOLUME 91.8 FL (80.0-100.0); MEAN CORPUSCULAR HEMOGLOBIN 30.9 PG (27.0-34.0); MEAN CORPUSCULAR HGB CONC 33.7 % (32.0-36.0); PLATELET COUNT 181 TH/MM3 (150-450); RED CELL DISTRIBUTION WIDTH 15.2 % (11.6-17.2); REVIEW FLAG FINAL; WHITE BLOOD COUNT 8.1 TH/MM3 (4.0-11.0)
[2016-08-25 06:19] LABS: BICARBONATE 25.3 MEQ/L (21.0-32.0); POTASSIUM 4.4 MEQ/L (3.5-5.1)
[2016-08-25] MEDS: INSULIN ASPART SUPPLEMENTAL SCALE SQ SCH ×2 (06:56→23:56)
[2016-08-25] MEDS: FLUDROCORTISONE ACETATE 0.1 MG TAB PO SCH (10:10)
[2016-08-25] MEDS: METOPROLOL TARTRATE 25 MG TAB PO SCH ×2 (10:10→21:00)
[2016-08-25] MEDS: MEGESTROL ACETATE SUSP 400 MG/10 ML CUP PO SCH (10:11)
[2016-08-25] MEDS: ASPIRIN 81 MG CHEW TAB CHEW SCH (10:11)
[2016-08-25] MEDS: SODIUM CHLORIDE 0.9% FLUSH 5 ML FLUSH FLUSH SCH ×2 (10:11→21:00)
[2016-08-25] MEDS: SODIUM BICARBONATE 8.4% INJ 75 MEQ in SODIUM CHLOR 0.45% 1000 ML INJ 1,000 ML IV SCH (10:23)
--- NOTE | 2016-08-25 10:45 | HHI.NPPN ---
Subjective Complaints: Confused Renal Failure: Chronic, Acute History of Present Illness This is an 86 y/o female who came to ER after a fall with head trauma from the [facility]. Creatinine elevated on arrival, initially improved with IVF. Looking back it appears that her baseline from the end of June 2016 is 1.8, GFR 26 consistent with CKD 4. On arrival, her creatinine was 3.17, which improved to 1.87, then subsequently juanita to 2.65. She has a hx of HTN, DM II, hyperlipidemia, vitamin D deficiency, and history of renal stones. All history was obtained from previous admission. She was hypoglycemic on arrival, was on D5NS, but is now on NS at 84 cc/hr. She has a bruise under her right eye, scattered abrasions, no edema. She is incoherent, unable to follow commands, may have underlying dementia. Her K is 5.2, C02 in normal range. She has proteinuria. We were consulted for renal management. Unknown if she has a local paradichlorobenzene tender. She is being treated for UTI, thought to be septic but blood cultures are negative. She is on Ceftin. Interval History Resting in bed today. No events overnight. Noted that she was off IVF for several hours yesterday. (Caridad Prince) Review of Systems General General Remarks unable to obtain due to mental status (Caridad Prince) Objective Data Data 08/24/16 08/25/16 19:00 07:00 Intake Total 480 ml 1810 ml Balance 480 ml 1810 ml Intake Oral 480 ml 480 ml IV Total 1330 ml # Voids 3 4 # Bowel Movements 0 1 Vital Signs Date Time Temp Pulse Resp B/P Pulse Ox O2 Delivery O2 Flow Rate FiO2 08/25/16 08:00 97.3 62 21 141/75 99 08/25/16 04:07 97.1 74 20 148/70 98 08/25/16 00:14 96.4 61 20 157/66 98 08/25/16 00:00 54 08/24/16 20:36 97.1 58 20 148/66 100 08/24/16 17:22 142/59 08/24/16 16:00 96.7 61 20 175/79 98 08/24/16 12:00 97.8 58 19 160/74 97 (Caridad Prince) -: 08/25/1652408/25/16524 Medication Review Current Medications Medications (Trade) Dose Ordered Sig/Emiliano Route Start Time Stop Time Status Last Admin (NS Flush) 2 ml UNSCH PRN FLUSH 07/24/16 02:00 (NS Flush) 2 ml BID FLUSH 07/24/16 09:00 08/25/16 10:11 (Tylenol) 650 mg Q4H PRN PO 07/24/16 02:00 08/12/16 10:00 (Zofran Inj) 4 mg Q6H PRN IVP 07/24/16 02:00 (Dulcolax Supp) 10 mg DAILY PRN MI 07/24/16 02:00 (Milk Of Magnesia Liq) 30 ml Q12H PRN PO 07/24/16 02:00 08/22/16 10:22 (Heparin Inj) 5,000 units Q12H SQ 07/24/16 06:00 08/25/16 05:19 (Narcan Inj) 0.4 mg UNSCH PRN IV 07/24/16 02:00 (Pravachol) 80 mg HS PO 07/24/16 21:00 08/24/16 20:57 (D50w (Vial) Inj) 25 ml UNSCH PRN IV PUSH 07/26/16 20:30 (Glucagon Inj) 1 mg UNSCH PRN OTHER 07/26/16 20:30 (Cardura) 2 mg HS PO 07/27/16 00:30 08/24/16 20:57 (Megace Liq) 400 mg DAILY PO 07/27/16 12:45 08/25/16 10:11 (Pill Splitter) 1 ea UNSCH PRN OTHER 07/29/16 12:00 (Aspirin Chew) 81 mg DAILY CHEW 07/31/16 09:00 08/25/16 10:11 (Remeron) 7.5 mg HS PO 08/09/16 21:00 08/24/16 20:57 (Lopressor) 75 mg Q12HR PO 08/10/16 21:00 08/25/16 10:10 Amlodipine Besylate 5 mg 5 mg DAILY PO 08/12/16 09:00 08/25/16 10:10 (Sodium Bicarbonate 8.4% Inj/2 NS 1000 ml Inj) 1,075 ml @ 75 mls/hr [id number] IV 08/17/16 13:00 08/25/16 10:23 (Catapres) 0.1 mg Q6H PRN PO 08/17/16 13:00 08/23/16 11:25 (Florinef) 0.1 mg DAILY PO 08/19/16 16:00 08/25/16 10:10 (Caridad Prince) Physical Exam General Appearance: No Acute Distress, Sleeping (Caridad Prince) Neck Neck Exam: Neck Supple (Caridad Prince) Pulmonary Resp Exam: Breath Sounds Equal, No Distress, Decreased Bases, Diminished Breath Sounds (Caridad Prince) Cardiology CV Exam: Regular, Normal Sinus Rhythm, Good Perfusion (Caridad Prince) Chest/Breast Chest/Breast Exam: Symmetry (Caridad Prince) Gastrointestinal/Abdomen GI Exam: Soft, Non-Tender, Bowel Sounds Present (Caridad Prince) Musculoskeletal MS Exam: Joints Intact, Atrophy (Caridad Prince) Integumentary Skin Exam: Clear, Warm, Intact (Caridad Prince) Extremeties Extremities Exam: No Edema (Caridad Prince) Neurologic Neuro Exam: Obtunded (Caridad Prince) Assessment/Plan Assessment Summary: WILL/Acute Renal Failure, Dehydration, Malnutrition, Hypertension, Diabetes Mellitus Electrolyte Assessment: Hyperkalemia Problem List: (1) WILL (acute kidney injury) Plan: Renal functions declined slightly overnight, but noted that she was off IVF for several hours yesterday which indicates that her acute renal decline is related to volume depletion. Continue on IVF. po intake is highly encouraged as she is at high risk of continued renal decline if intake needs cannot be met. As mentioned previously palliative care input would be appropriate since no POA can be reached. Given that her acute renal decline appears to be prerenal in nature, tube feedings should be considered if she cannot keep up with adequate oral intake. Will sign off. Please recall if needed. (2) Hyperkalemia Plan: Difficult management issues related to dementia and nutrition/hydration Continue on Florinef (3) HTN (hypertension) Plan: BP stable. Continue on current regimen (4) Dementia Plan: attempting to find LTC placement Palliative consult may be appropriate (5) Diabetes mellitus, type 2 Plan: Mgmt as per primary (6) UTI (urinary tract infection) Plan: resolved Plan (Caridad Prince) Plan Physical examination, evaluation and assessment reviewed and discussed with my PA. I was fully involved in the evaluation and plan of care this patient. Doctor Benjie. (Dania Waldrop MD) Problem Qualifiers (1) HTN (hypertension): Qualified Code: I10 - Essential hypertension (2) Diabetes mellitus, type 2: Qualified Code: E11.22 - Type 2 diabetes mellitus with diabetic chronic kidney disease, unspecified CKD stage, unspecified senior living insulin use status Caridad Prince Aug 25, 2016 10:45 Dania Waldrop MD Oct 06, 2016 11:16
--- NOTE | 2016-08-25 10:55 | HHI.PR ---
Subjective Remarks In bed. Doesn't appear in acute distess, doesn;t follow much of commands. Has no complaints. Responds some questions with yes/no Objective Vitals Vital Signs Date Time Temp Pulse Resp B/P Pulse Ox O2 Delivery O2 Flow Rate FiO2 08/25/16 08:00 97.3 62 21 141/75 99 08/25/16 04:07 97.1 74 20 148/70 98 08/25/16 00:14 96.4 61 20 157/66 98 08/25/16 00:00 54 08/24/16 20:36 97.1 58 20 148/66 100 08/24/16 17:22 142/59 08/24/16 16:00 96.7 61 20 175/79 98 08/24/16 12:00 97.8 58 19 160/74 97 I/O 08/24/16 08/24/16 08/24/16 08/25/16 08/25/16 08/25/16 07:00 15:00 23:00 07:00 15:00 23:00 Intake Total 480 ml 1570 ml 240 ml 736 ml Balance 480 ml 1570 ml 240 ml 736 ml Intake Oral 480 ml 240 ml 240 ml IV Total 1330 ml 736 ml # Voids 3 3 1 3 # Bowel Movements 0 1 Result Diagram: 08/25/16 0525 08/25/16 0525 Imaging Last Impressions Renal Ultrasound 07/27/16 0000 Signed Impressions: Service Date/Time: Wednesday, July 27, 2016 14:05 - CONCLUSION: 1. Kidneys are slightly echogenic which can be seen with medical renal disease. 2. Simple cyst right kidney. 3. Echogenic focus along the lower pole left kidney could be related to nonobstructing calculus measuring 7 mm. Brandt Lowery MD Head CT 07/23/163 Signed Impressions: Service Date/Time: Sunday, July 24, 2016 00:04 - CONCLUSION: 1. Suspected recent infarct involving the left middle cerebral artery territory at the left temporal and parietal lobes. 2. Age-related atrophy. 3. Widespread suspected small vessels ischemic change in the white matter. 4. 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 5. Acute right frontal scalp hematoma. Francis Gibson MD Chest X-Ray 07/23/162334 Signed Impressions: Service Date/Time: June 23:48 - CONCLUSION: No acute disease. Francis Gibson MD Objective Remarks GENERAL: 86 yo female, awake and alert, says ok per nurses, following commands SKIN: Warm and dry. HEAD: Fading infraorbital bruise- almost resolved EYES: Pupils equal and round. No scleral icterus. No injection or drainage. ENT: No nasal bleeding or discharge. Mucous membranes pink and moist. NECK: Trachea midline. No JVD. No nuchal rigidity. CARDIOVASCULAR: Regular rate and rhythm. RESPIRATORY: No accessory muscle use. Clear to auscultation. Breath sounds equal bilaterally. GASTROINTESTINAL: Abdomen soft, non-tender, nondistended. Hepatic and splenic margins not palpable. MUSCULOSKELETAL: Extremities without clubbing, cyanosis, or edema. No obvious deformities. NEUROLOGICAL: Awake and alert. No obvious cranial nerve deficits. Moves extremities spontaneously. PSYCHIATRIC: Appropriate mood and affect; insight and judgment normal. Procedures None A/P Problem List: (1) Sepsis due to urinary tract infection ICD Code: A41.9 Status: Acute (2) Hypoglycemia associated with diabetes ICD Code: E11.649 Status: Acute (3) Fall ICD Code: W19.XXXA Status: Acute (4) Delirium ICD Code: R41.0 Status: Acute (5) HTN (hypertension) ICD Code: I10 Status: Chronic (6) DM (diabetes mellitus) ICD Code: E11.9 Status: Chronic (7) CKD (chronic kidney disease) stage 4, GFR 15-29 ml/min ICD Code: N18.4 Status: Chronic (8) WILL (acute kidney injury) ICD Code: N17.9 Status: Acute (9) Aphasia ICD Code: R47.01 Status: Chronic Assessment and Plan Severe sepsis (Temp 94F, RR 22, UTI, WILL on chronic kidney disease) - resolved Due to klebsiella UTI. Renal ultrasound without evidence of nephritis or hydronephrosis, however does show nonobstructing 7 mm calculus in the left kidney. - S/p Ceftin. course Metabolic encephalopathy/ History of CVA Mental status still waxes and wanes. Likely underlying dementia. Treated for UTI. - d/c standing Seroquel. Use as needed. - continue ASA and statin. - PT/OT. - avoid sedating meds. Currently off restraints. V. tach Hypertension- erratic Asymptomatic on 08/05. Likely secondary to hyperkalemia. 5 beat run noted on . - Kayexalate as needed. Potassium level stable 08/14. - Lopressor to 75 mg BID increased on 08/10. Holding parameters in place. - on amlodipine 5 mg po daily- decreased - on Cardura 4 mg hs Monitor and adjust Severe hypoglycemia - resolved Possibly related to sepsis. - Continue low dose SSI with insulin NovoLog. Poor oral intake/appetite/moderate protein calorie malnutrition Nutritional intake apparently inadequate. - on Megace and dietitian following.- - reduced dose of Remeron to 7.5 mg daily. - consider TF- GT placement - Calorie count ongoing WILL on CKD- pre renal azotemia- poor po/dehydration Mild hyperkalemia- resolved - avoid nephrotoxins. - continue IVF with HCO3 at 75 cc/hr- - IVF - d/w staff nurse needs to be continuous - nephrology ff - creatinine gradually stabilizing DVT prophylaxisheparin. Discharge Planning Awaiting placement. Per CM notes, no POA available. They are still searching. Problem Qualifiers (1) HTN (hypertension): Qualified Code: I10 - Essential hypertension (2) DM (diabetes mellitus): Alvina Hein MD Aug 25, 2016 10:55
[2016-08-25] MEDS: PRAVASTATIN SOD 80 MG TAB PO SCH (21:57)
[2016-08-25] MEDS: DOXAZOSIN MESYLATE 2 MG TAB PO SCH (21:57)
[2016-08-25] MEDS: MIRTAZAPINE 15 MG TAB PO SCH (21:57)
[2016-08-26 00:10] VITALS: BP 149/73; PULSE 65; RESP 20; TEMP 96.8; O2SAT 97
[2016-08-26] MEDS: SODIUM BICARBONATE 8.4% INJ 75 MEQ in SODIUM CHLOR 0.45% 1000 ML INJ 1,000 ML IV SCH ×2 (02:23→18:14)
[2016-08-26 04:32] VITALS: BP 130/62; PULSE 62; RESP 20; TEMP 97.2; O2SAT 98
[2016-08-26] MEDS: HEPARIN SODIUM - SQ 10,000 UNITS/ML VIAL SQ SCH ×2 (06:46→17:52)
[2016-08-26] MEDS: INSULIN ASPART SUPPLEMENTAL SCALE SQ SCH ×4 (06:46→21:00)
[2016-08-26 08:00] VITALS: BP 139/73; PULSE 82; RESP 18; TEMP 99.4; O2SAT 93
[2016-08-26 08:02] LABS: HEMATOCRIT 26.7 % (35.0-46.0); MEAN CELL VOLUME 90.8 FL (80.0-100.0); MEAN CORPUSCULAR HEMOGLOBIN 31.4 PG (27.0-34.0); MEAN CORPUSCULAR HGB CONC 34.5 % (32.0-36.0); PLATELET COUNT 172 TH/MM3 (150-450); RED BLOOD COUNT 2.94 MIL/MM3 (4.00-5.30); RED CELL DISTRIBUTION WIDTH 14.9 % (11.6-17.2); REVIEW FLAG FINAL; WHITE BLOOD COUNT 7.7 TH/MM3 (4.0-11.0)
[2016-08-26 08:41] LABS: BICARBONATE 26.3 MEQ/L (21.0-32.0); POTASSIUM 3.8 MEQ/L (3.5-5.1)
[2016-08-26] MEDS: MEGESTROL ACETATE SUSP 400 MG/10 ML CUP PO SCH (10:38)
[2016-08-26] MEDS: FLUDROCORTISONE ACETATE 0.1 MG TAB PO SCH (10:38)
[2016-08-26] MEDS: ASPIRIN 81 MG CHEW TAB CHEW SCH (10:38)
[2016-08-26] MEDS: METOPROLOL TARTRATE 25 MG TAB PO SCH ×2 (10:39→21:24)
--- NOTE | 2016-08-26 12:03 | HHI.PR ---
Subjective Remarks Seems in nad. Doesn't talk much answers all questions with yes. No events overnight. Meeting calorie intake. Objective Vitals Vital Signs Date Time Temp Pulse Resp B/P Pulse Ox O2 Delivery O2 Flow Rate FiO2 08/26/16 08:00 99.4 82 18 139/73 93 08/26/16 04:32 97.2 62 20 130/62 98 08/26/16 00:10 96.8 65 20 149/73 97 08/25/16 20:04 97.4 56 18 129/58 98 08/25/16 20:00 68 08/25/16 16:00 98.6 58 21 129/84 99 I/O 08/25/16 08/25/16 08/25/16 08/26/16 08/26/16 08/26/16 06:59 14:59 22:59 06:59 14:59 22:59 Intake Total 240 ml 1216 ml 120 ml 982 ml Output Total 2 ml Balance 240 ml 1216 ml 120 ml 980 ml Intake Oral 240 ml 480 ml 120 ml IV Total 736 ml 982 ml Output Urine Total 2 ml # Voids 3 3 1 # Bowel Movements 1 1 1 1 Result Diagram: 08/26/16 0725 08/26/16 0729 Imaging Last Impressions Renal Ultrasound 07/27/16 0000 Signed Impressions: Service Date/Time: Wednesday, July 27, 2016 14:05 - CONCLUSION: 1. Kidneys are slightly echogenic which can be seen with medical renal disease. 2. Simple cyst right kidney. 3. Echogenic focus along the lower pole left kidney could be related to nonobstructing calculus measuring 7 mm. Brandt Lowery MD Head CT 07/23/16 2006 Signed Impressions: Service Date/Time: Sunday, July 24, 2016 00:04 - CONCLUSION: 1. Suspected recent infarct involving the left middle cerebral artery territory at the left temporal and parietal lobes. 2. Age-related atrophy. 3. Widespread suspected small vessels ischemic change in the white matter. 4. 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 5. Acute right frontal scalp hematoma. Francis Gibson MD Chest X-Ray 07/23/162334 Signed Impressions: Service Date/Time: June 23:48 - CONCLUSION: No acute disease. Francis Gibson MD Objective Remarks GENERAL: 86 yo female, awake and alert, says ok per nurses, following commands SKIN: Warm and dry. HEAD: Fading infraorbital bruise- almost resolved EYES: Pupils equal and round. No scleral icterus. No injection or drainage. ENT: No nasal bleeding or discharge. Mucous membranes pink and moist. NECK: Trachea midline. No JVD. No nuchal rigidity. CARDIOVASCULAR: Regular rate and rhythm. RESPIRATORY: No accessory muscle use. Clear to auscultation. Breath sounds equal bilaterally. GASTROINTESTINAL: Abdomen soft, non-tender, nondistended. Hepatic and splenic margins not palpable. MUSCULOSKELETAL: Extremities without clubbing, cyanosis, or edema. No obvious deformities. NEUROLOGICAL: Awake and alert. No obvious cranial nerve deficits. Moves extremities spontaneously. PSYCHIATRIC: Appropriate mood and affect; insight and judgment normal. Procedures None A/P Problem List: (1) Sepsis due to urinary tract infection ICD Code: A41.9 Status: Acute (2) Hypoglycemia associated with diabetes ICD Code: E11.649 Status: Acute (3) Fall ICD Code: W19.XXXA Status: Acute (4) Delirium ICD Code: R41.0 Status: Acute (5) HTN (hypertension) ICD Code: I10 Status: Chronic (6) DM (diabetes mellitus) ICD Code: E11.9 Status: Chronic (7) CKD (chronic kidney disease) stage 4, GFR 15-29 ml/min ICD Code: N18.4 Status: Chronic (8) WILL (acute kidney injury) ICD Code: N17.9 Status: Acute (9) Aphasia ICD Code: R47.01 Status: Chronic Assessment and Plan Severe sepsis (Temp 94F, RR 22, UTI, WILL on chronic kidney disease) - resolved Due to Klebsiella UTI. Renal ultrasound without evidence of nephritis or hydronephrosis, however does show nonobstructing 7 mm calculus in the left kidney. - S/p Ceftin course Metabolic encephalopathy/ History of CVA Mental status still waxes and wanes. Likely underlying dementia. Treated for UTI. - d/c standing Seroquel. Use as needed. - continue ASA and statin. - PT/OT. - avoid sedating meds. Currently off restraints. V. tach Hypertension- erratic Asymptomatic on 08/05. Likely secondary to hyperkalemia. 5 beat run noted on . - Kayexalate as needed. Potassium level stable 08/14. - Lopressor to 75 mg BID increased on 08/10. Holding parameters in place. - on amlodipine 5 mg po daily- decreased - on Cardura 4 mg hs Monitor and adjust Severe hypoglycemia - resolved Possibly related to sepsis. - Continue low dose SSI with insulin NovoLog. Poor oral intake/appetite/moderate protein calorie malnutrition Nutritional intake apparently inadequate. - on Megace and dietitian following.- - reduced dose of Remeron to 7.5 mg daily. - consider TF- GT placement - Calorie count -per ultra sound technician recommendations 1800 ADA, K40, mechanical Soft, glucerna shakes, assist with meals, continue megace and remeron * Calorie counts indicate that recent po intake has been averaging ~1830 kcals/90 gms pro/ day. This represents >100% of nutritional needs met. Pt does well when assisted and drinks the Glucerna Shakes. WILL on CKD- pre renal azotemia- poor po/dehydration Mild hyperkalemia- resolved - avoid nephrotoxins. - continue IVF with HCO3 at 75 cc/hr- - IVF - d/w staff nurse needs to be continuous - nephrology ff - creatinine gradually stabilizing DVT prophylaxisheparin. Discharge Planning Awaiting placement. Per CM notes, no POA available. They are still searching. Problem Qualifiers (1) HTN (hypertension): Qualified Code: I10 - Essential hypertension (2) DM (diabetes mellitus): Alvina Hein MD Aug 26, 2016 12:03
[2016-08-26 12:09] VITALS: BP 135/62; PULSE 68; RESP 20; TEMP 99; O2SAT 98
[2016-08-26 20:00] VITALS: PULSE 65
[2016-08-26 20:26] VITALS: BP 136/60; PULSE 68; RESP 18; TEMP 97.8; O2SAT 97
[2016-08-26] MEDS: DOXAZOSIN MESYLATE 2 MG TAB PO SCH (21:24)
[2016-08-26] MEDS: PRAVASTATIN SOD 80 MG TAB PO SCH (21:24)
[2016-08-26] MEDS: MIRTAZAPINE 15 MG TAB PO SCH (21:25)
[2016-08-26] MEDS: SODIUM CHLORIDE 0.9% FLUSH 5 ML FLUSH FLUSH SCH (21:26)
[2016-08-27] VITALS (7 sets, daily range): BP systolic 106–146; BP diastolic 54–67; PULSE 54–72; RESP 16–20; TEMP 97.7–98.4; O2SAT 94–98
[2016-08-27] MEDS: SODIUM BICARBONATE 8.4% INJ 75 MEQ in SODIUM CHLOR 0.45% 1000 ML INJ 1,000 ML IV SCH ×2 (02:20→16:27)
[2016-08-27] MEDS: HEPARIN SODIUM - SQ 10,000 UNITS/ML VIAL SQ SCH ×2 (06:04→16:28)
[2016-08-27] MEDS: INSULIN ASPART SUPPLEMENTAL SCALE SQ SCH ×4 (06:05→21:00)
[2016-08-27] MEDS: FLUDROCORTISONE ACETATE 0.1 MG TAB PO SCH (08:37)
[2016-08-27] MEDS: METOPROLOL TARTRATE 25 MG TAB PO SCH ×3 (08:37→21:16)
[2016-08-27] MEDS: MEGESTROL ACETATE SUSP 400 MG/10 ML CUP PO SCH (08:37)
[2016-08-27] MEDS: ASPIRIN 81 MG CHEW TAB CHEW SCH (08:37)
[2016-08-27] MEDS: SODIUM CHLORIDE 0.9% FLUSH 5 ML FLUSH FLUSH SCH ×2 (08:38→21:00)
--- NOTE | 2016-08-27 10:40 | HHI.PR ---
Subjective Remarks At baseline, no change. No much improvement. She appears in nad. Objective Vitals Vital Signs Date Time Temp Pulse Resp B/P Pulse Ox O2 Delivery O2 Flow Rate FiO2 08/27/16 07:15 54 08/27/16 07:00 98.4 58 20 118/57 96 08/27/16 04:13 98.0 57 18 142/66 98 08/27/16 00:07 98.2 63 18 106/66 97 08/26/16 20:26 97.8 68 18 136/60 97 08/26/16 20:00 65 08/26/16 12:09 99.0 68 20 135/62 98 I/O 08/26/16 08/26/16 08/26/16 08/27/16 08/27/16 08/27/16 07:00 15:00 23:00 07:00 15:00 23:00 Intake Total 982 ml 480 ml 1405 ml Output Total 2 ml Balance 980 ml 480 ml 1405 ml Intake Oral 480 ml 480 ml IV Total 982 ml 925 ml Output Urine Total 2 ml # Voids 3 2 # Bowel Movements 1 1 2 Result Diagram: 08/26/16 0725 08/26/16 0729 Imaging Last Impressions Renal Ultrasound 07/27/16 0000 Signed Impressions: Service Date/Time: Wednesday, July 27, 2016 14:05 - CONCLUSION: 1. Kidneys are slightly echogenic which can be seen with medical renal disease. 2. Simple cyst right kidney. 3. Echogenic focus along the lower pole left kidney could be related to nonobstructing calculus measuring 7 mm. Brandt Lowery MD Head CT 07/23/16 4169 Signed Impressions: Service Date/Time: Sunday, July 24, 2016 00:04 - CONCLUSION: 1. Suspected recent infarct involving the left middle cerebral artery territory at the left temporal and parietal lobes. 2. Age-related atrophy. 3. Widespread suspected small vessels ischemic change in the white matter. 4. 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 5. Acute right frontal scalp hematoma. Francis Gibson MD Chest X-Ray 07/23/167 Signed Impressions: Service Date/Time: June 23:48 - CONCLUSION: No acute disease. Francis Gibson MD Objective Remarks GENERAL: 86 yo female, awake and alert, says ok per nurses, following commands SKIN: Warm and dry. HEAD: Fading infraorbital bruise- almost resolved EYES: Pupils equal and round. No scleral icterus. No injection or drainage. ENT: No nasal bleeding or discharge. Mucous membranes pink and moist. NECK: Trachea midline. No JVD. No nuchal rigidity. CARDIOVASCULAR: Regular rate and rhythm. RESPIRATORY: No accessory muscle use. Clear to auscultation. Breath sounds equal bilaterally. GASTROINTESTINAL: Abdomen soft, non-tender, nondistended. Hepatic and splenic margins not palpable. MUSCULOSKELETAL: Extremities without clubbing, cyanosis, or edema. No obvious deformities. NEUROLOGICAL: Awake and alert. No obvious cranial nerve deficits. Moves extremities spontaneously. PSYCHIATRIC: Appropriate mood and affect; insight and judgment normal. Procedures None A/P Problem List: (1) Sepsis due to urinary tract infection ICD Code: A41.9 Status: Acute (2) Hypoglycemia associated with diabetes ICD Code: E11.649 Status: Acute (3) Fall ICD Code: W19.XXXA Status: Acute (4) Delirium ICD Code: R41.0 Status: Acute (5) HTN (hypertension) ICD Code: I10 Status: Chronic (6) DM (diabetes mellitus) ICD Code: E11.9 Status: Chronic (7) CKD (chronic kidney disease) stage 4, GFR 15-29 ml/min ICD Code: N18.4 Status: Chronic (8) WILL (acute kidney injury) ICD Code: N17.9 Status: Acute (9) Aphasia ICD Code: R47.01 Status: Chronic Assessment and Plan Severe sepsis (Temp 94F, RR 22, UTI, WILL on chronic kidney disease) - resolved Due to Klebsiella UTI. Renal ultrasound without evidence of nephritis or hydronephrosis, however does show nonobstructing 7 mm calculus in the left kidney. - S/p Ceftin course Metabolic encephalopathy/ History of CVA Mental status still waxes and wanes. Likely underlying dementia. Treated for UTI. - d/c standing Seroquel. Use as needed. - continue ASA and statin. - PT/OT. - avoid sedating meds. Currently off restraints. V. tach Hypertension- erratic Asymptomatic on 08/05. Likely secondary to hyperkalemia. 5 beat run noted on . - Kayexalate as needed. Potassium level stable 08/14. - Lopressor to 75 mg BID increased on 08/10. Holding parameters in place. - on amlodipine 5 mg po daily- decreased - on Cardura 4 mg hs Monitor and adjust Severe hypoglycemia - resolved Possibly related to sepsis. - Continue low dose SSI with insulin NovoLog. Poor oral intake/appetite/moderate protein calorie malnutrition Nutritional intake apparently inadequate. - on Megace and dietitian following.- - reduced dose of Remeron to 7.5 mg daily. - consider TF- GT placement - Calorie count -per custom harvester recommendations 1800 ADA, K40, mechanical Soft, glucerna shakes, assist with meals, continue megace and remeron * Calorie counts indicate that recent po intake has been averaging ~1830 kcals/90 gms pro/ day. This represents >100% of nutritional needs met. Pt does well when assisted and drinks the Glucerna Shakes. WILL on CKD- pre renal azotemia- poor po/dehydration Mild hyperkalemia- resolved - avoid nephrotoxins. - continue IVF with HCO3 at 75 cc/hr- - IVF - d/w staff nurse needs to be continuous - nephrology ff - creatinine gradually stabilizing DVT prophylaxisheparin. Discharge Planning Awaiting placement. Per CM notes, no POA available. They are still searching. Problem Qualifiers (1) HTN (hypertension): Qualified Code: I10 - Essential hypertension (2) DM (diabetes mellitus): Alvina Hein MD Aug 27, 2016 10:39
[2016-08-27 10:52] LABS: BACTERIA, URINE FEW /hpf; BLOOD, URINE SMALL (NEG); COMMENT (UR) CULTURE INDICATED; CULTURE IF INDICATED CULTURE INDICATED; GLUCOSE,URINE 70 mg/dL (NEG); KETONE, URINE NEG (NEG); NITRITE,URINE NEG (NEG); URINE COLOR YELLOW (YELLW/STRAW)
[2016-08-27] MEDS: PRAVASTATIN SOD 80 MG TAB PO SCH (21:15)
[2016-08-27] MEDS: DOXAZOSIN MESYLATE 2 MG TAB PO SCH (21:15)
[2016-08-27] MEDS: MIRTAZAPINE 15 MG TAB PO SCH (21:15)
[2016-08-28] VITALS (8 sets, daily range): BP systolic 107–178; BP diastolic 59–80; PULSE 53–83; RESP 16–20; TEMP 96.6–98.9; O2SAT 96–98
[2016-08-28] MEDS: HEPARIN SODIUM - SQ 10,000 UNITS/ML VIAL SQ SCH ×2 (06:01→17:27)
[2016-08-28] MEDS: INSULIN ASPART SUPPLEMENTAL SCALE SQ SCH ×4 (06:02→22:26)
[2016-08-28] MEDS: METOPROLOL TARTRATE 25 MG TAB PO SCH ×2 (09:00→21:33)
[2016-08-28] MEDS: SODIUM CHLORIDE 0.9% FLUSH 5 ML FLUSH FLUSH SCH ×2 (09:00→21:33)
[2016-08-28] MEDS: SODIUM BICARBONATE 8.4% INJ 75 MEQ in SODIUM CHLOR 0.45% 1000 ML INJ 1,000 ML IV SCH ×2 (09:34→23:25)
[2016-08-28] MEDS: FLUDROCORTISONE ACETATE 0.1 MG TAB PO SCH (09:36)
[2016-08-28] MEDS: ASPIRIN 81 MG CHEW TAB CHEW SCH (09:36)
[2016-08-28] MEDS: MEGESTROL ACETATE SUSP 400 MG/10 ML CUP PO SCH (09:37)
--- NOTE | 2016-08-28 14:33 | HHI.PR ---
Subjective Remarks Seen earlier today. Answers all questions with "yes honey' and smiles> Doesn't appear in acute distress. She is in the bed. Objective Vitals Vital Signs Date Time Temp Pulse Resp B/P Pulse Ox O2 Delivery O2 Flow Rate FiO2 08/28/16 11:50 97.8 59 20 171/73 98 08/28/16 07:57 96.9 61 20 178/80 97 08/28/16 04:00 97.7 65 16 119/69 98 08/28/16 00:15 98.9 58 18 134/79 97 08/27/16 20:28 98.2 70 16 113/54 97 08/27/16 15:38 97.7 72 18 132/63 98 I/O 08/27/16 08/27/16 08/27/16 08/28/16 08/28/16 08/28/16 07:00 15:00 23:00 07:00 15:00 23:00 Intake Total 1405 ml 100 ml 954 ml 480 ml Output Total 700 ml Balance 1405 ml -600 ml 954 ml 480 ml Intake Oral 480 ml 100 ml 480 ml IV Total 925 ml 954 ml Output Urine Total 700 ml # Voids 2 0 5 3 # Bowel Movements 2 0 0 0 Result Diagram: 08/26/16 0725 08/26/16 0729 Imaging Last Impressions Renal Ultrasound 07/27/16 0000 Signed Impressions: Service Date/Time: Wednesday, July 27, 2016 14:05 - CONCLUSION: 1. Kidneys are slightly echogenic which can be seen with medical renal disease. 2. Simple cyst right kidney. 3. Echogenic focus along the lower pole left kidney could be related to nonobstructing calculus measuring 7 mm. Brandt Lowery MD Head CT 07/23/169 Signed Impressions: Service Date/Time: Sunday, July 24, 2016 00:04 - CONCLUSION: 1. Suspected recent infarct involving the left middle cerebral artery territory at the left temporal and parietal lobes. 2. Age-related atrophy. 3. Widespread suspected small vessels ischemic change in the white matter. 4. 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 5. Acute right frontal scalp hematoma. Francis Gibson MD Chest X-Ray 07/23/16 3698 Signed Impressions: Service Date/Time: June 23:48 - CONCLUSION: No acute disease. Francis Gibson MD Objective Remarks GENERAL: 86 yo female, awake and alert, says ok per nurses, following commands SKIN: Warm and dry. HEAD: Fading infraorbital bruise- almost resolved EYES: Pupils equal and round. No scleral icterus. No injection or drainage. ENT: No nasal bleeding or discharge. Mucous membranes pink and moist. NECK: Trachea midline. No JVD. No nuchal rigidity. CARDIOVASCULAR: Regular rate and rhythm. RESPIRATORY: No accessory muscle use. Clear to auscultation. Breath sounds equal bilaterally. GASTROINTESTINAL: Abdomen soft, non-tender, nondistended. Hepatic and splenic margins not palpable. MUSCULOSKELETAL: Extremities without clubbing, cyanosis, or edema. No obvious deformities. NEUROLOGICAL: Awake and alert. No obvious cranial nerve deficits. Moves extremities spontaneously. PSYCHIATRIC: Appropriate mood and affect; insight and judgment normal. Procedures None A/P Problem List: (1) Sepsis due to urinary tract infection ICD Code: A41.9 Status: Acute (2) Hypoglycemia associated with diabetes ICD Code: E11.649 Status: Acute (3) Fall ICD Code: W19.XXXA Status: Acute (4) Delirium ICD Code: R41.0 Status: Acute (5) HTN (hypertension) ICD Code: I10 Status: Chronic (6) DM (diabetes mellitus) ICD Code: E11.9 Status: Chronic (7) CKD (chronic kidney disease) stage 4, GFR 15-29 ml/min ICD Code: N18.4 Status: Chronic (8) WILL (acute kidney injury) ICD Code: N17.9 Status: Acute (9) Aphasia ICD Code: R47.01 Status: Chronic Assessment and Plan Severe sepsis (Temp 94F, RR 22, UTI, WILL on chronic kidney disease) - resolved Due to Klebsiella UTI. Renal ultrasound without evidence of nephritis or hydronephrosis, however does show nonobstructing 7 mm calculus in the left kidney. - S/p Ceftin course Metabolic encephalopathy/ History of CVA Mental status still waxes and wanes. Likely underlying dementia. Treated for UTI. - d/c standing Seroquel. Use as needed. - continue ASA and statin. - PT/OT. - avoid sedating meds. Currently off restraints. V. tach Hypertension- erratic Asymptomatic on 08/05. Likely secondary to hyperkalemia. 5 beat run noted on . - Kayexalate as needed. Potassium level stable 08/14. - Lopressor to 75 mg BID increased on 08/10. Holding parameters in place. - on amlodipine 5 mg po daily- decreased - on Cardura 4 mg hs Monitor and adjust Severe hypoglycemia - resolved Possibly related to sepsis. - Continue low dose SSI with insulin NovoLog. Poor oral intake/appetite/moderate protein calorie malnutrition Nutritional intake apparently inadequate. - on Megace and dietitian following.- - reduced dose of Remeron to 7.5 mg daily. - consider TF- GT placement - Calorie count -per employee communications manager recommendations 1800 ADA, K40, mechanical Soft, glucerna shakes, assist with meals, continue megace and remeron * Calorie counts indicate that recent po intake has been averaging ~1830 kcals/90 gms pro/ day. This represents >100% of nutritional needs met. Pt does well when assisted and drinks the Glucerna Shakes. WILL on CKD- pre renal azotemia- poor po/dehydration Mild hyperkalemia- resolved - avoid nephrotoxins. - continue IVF with HCO3 at 75 cc/hr- - IVF - d/w staff nurse needs to be continuous - nephrology ff - creatinine gradually stabilizing DVT prophylaxisheparin. Discharge Planning Awaiting placement. Per CM notes, no POA available. They are still searching. Problem Qualifiers (1) HTN (hypertension): Qualified Code: I10 - Essential hypertension (2) DM (diabetes mellitus): Alvina Hein MD Aug 28, 2016 14:33
[2016-08-28] MEDS: MIRTAZAPINE 15 MG TAB PO SCH (21:33)
[2016-08-28] MEDS: DOXAZOSIN MESYLATE 2 MG TAB PO SCH (21:33)
[2016-08-28] MEDS: PRAVASTATIN SOD 80 MG TAB PO SCH (21:33)
[2016-08-29] VITALS (9 sets, daily range): BP systolic 109–171; BP diastolic 53–80; PULSE 55–73; RESP 16–20; TEMP 96.4–98.3; O2SAT 95–99
[2016-08-29] MEDS: INSULIN ASPART SUPPLEMENTAL SCALE SQ SCH ×4 (05:31→21:00)
[2016-08-29] MEDS: HEPARIN SODIUM - SQ 10,000 UNITS/ML VIAL SQ SCH ×2 (05:34→19:35)
[2016-08-29] MEDS: SODIUM CHLORIDE 0.9% FLUSH 5 ML FLUSH FLUSH SCH ×2 (09:00→20:37)
[2016-08-29] MEDS: MEGESTROL ACETATE SUSP 400 MG/10 ML CUP PO SCH (11:15)
[2016-08-29] MEDS: ASPIRIN 81 MG CHEW TAB CHEW SCH (11:15)
[2016-08-29] MEDS: FLUDROCORTISONE ACETATE 0.1 MG TAB PO SCH (11:16)
--- NOTE | 2016-08-29 11:16 | HHI.PR ---
Subjective Remarks Says ok to all questions. Appear in nad. Follows some commands. Moving arms and legs spontaneously. Objective Vitals Vital Signs Date Time Temp Pulse Resp B/P Pulse Ox O2 Delivery O2 Flow Rate FiO2 08/29/16 10:30 55 08/29/16 08:00 97.3 61 16 128/73 96 08/29/16 04:00 96.4 62 20 109/53 97 08/29/16 00:28 96.7 62 20 125/57 95 08/28/16 22:30 66 08/28/16 20:28 97.7 83 20 107/59 96 08/28/16 17:33 53 08/28/16 15:40 96.6 67 20 137/69 97 08/28/16 11:50 97.8 59 20 171/73 98 I/O 08/28/16 08/28/16 08/28/16 08/29/16 08/29/16 08/29/16 06:59 14:59 22:59 06:59 14:59 22:59 Intake Total 954 ml 480 ml 1624 ml Balance 954 ml 480 ml 1624 ml Intake Oral 480 ml IV Total 954 ml 1624 ml # Voids 5 3 2 # Bowel Movements 0 0 1 0 Result Diagram: 08/26/16 0725 08/26/16 0729 Objective Remarks GENERAL: 86 yo female, awake and alert, says ok per nurses, following commands SKIN: Warm and dry. HEAD: Fading infraorbital bruise- almost resolved EYES: Pupils equal and round. No scleral icterus. No injection or drainage. ENT: No nasal bleeding or discharge. Mucous membranes pink and moist. NECK: Trachea midline. No JVD. No nuchal rigidity. CARDIOVASCULAR: Regular rate and rhythm. RESPIRATORY: No accessory muscle use. Clear to auscultation. Breath sounds equal bilaterally. GASTROINTESTINAL: Abdomen soft, non-tender, nondistended. Hepatic and splenic margins not palpable. MUSCULOSKELETAL: Extremities without clubbing, cyanosis, or edema. No obvious deformities. NEUROLOGICAL: Awake and alert. No obvious cranial nerve deficits. Moves extremities spontaneously. PSYCHIATRIC: Appropriate mood and affect; insight and judgment normal. Procedures None A/P Problem List: (1) Sepsis due to urinary tract infection ICD Code: A41.9 Status: Acute (2) Hypoglycemia associated with diabetes ICD Code: E11.649 Status: Acute (3) Fall ICD Code: W19.XXXA Status: Acute (4) Delirium ICD Code: R41.0 Status: Acute (5) HTN (hypertension) ICD Code: I10 Status: Chronic (6) DM (diabetes mellitus) ICD Code: E11.9 Status: Chronic (7) CKD (chronic kidney disease) stage 4, GFR 15-29 ml/min ICD Code: N18.4 Status: Chronic (8) WILL (acute kidney injury) ICD Code: N17.9 Status: Acute (9) Aphasia ICD Code: R47.01 Status: Chronic Assessment and Plan Severe sepsis (Temp 94F, RR 22, UTI, WILL on chronic kidney disease) - resolved Due to Klebsiella UTI. Renal ultrasound without evidence of nephritis or hydronephrosis, however does show nonobstructing 7 mm calculus in the left kidney. - S/p Ceftin course Metabolic encephalopathy/ History of CVA Mental status still waxes and wanes. Likely underlying dementia. Treated for UTI. - d/c standing Seroquel. Use as needed. - continue ASA and statin. - PT/OT. - avoid sedating meds. Currently off restraints. V. tach Hypertension- erratic Asymptomatic on 08/05. Likely secondary to hyperkalemia. 5 beat run noted on . - Kayexalate as needed. Potassium level stable 08/14. - Lopressor to 75 mg BID increased on 08/10. Holding parameters in place. - on amlodipine 5 mg po daily- decreased - on Cardura 4 mg hs Monitor and adjust Severe hypoglycemia - resolved Possibly related to sepsis. - Continue low dose SSI with insulin NovoLog. Poor oral intake/appetite/moderate protein calorie malnutrition Nutritional intake apparently inadequate. - on Megace and dietitian following.- - reduced dose of Remeron to 7.5 mg daily. - consider TF- GT placement - Calorie count -per respiratory services manager recommendations 1800 ADA, K40, mechanical Soft, glucerna shakes, assist with meals, continue megace and remeron * Calorie counts indicate that recent po intake has been averaging ~1830 kcals/90 gms pro/ day. This represents >100% of nutritional needs met. Pt does well when assisted and drinks the Glucerna Shakes. WILL on CKD- pre renal azotemia- poor po/dehydration Mild hyperkalemia- resolved - avoid nephrotoxins. - continue IVF with HCO3 at 75 cc/hr- - IVF - d/w staff nurse needs to be continuous - nephrology ff - creatinine gradually stabilizing DVT prophylaxisheparin. Discharge Planning Awaiting placement. Per CM notes, no POA available. They are still searching. Problem Qualifiers (1) HTN (hypertension): Qualified Code: I10 - Essential hypertension (2) DM (diabetes mellitus): Alvina Hein MD Aug 29, 2016 11:16
[2016-08-29] MEDS: METOPROLOL TARTRATE 25 MG TAB PO SCH ×2 (11:21→21:59)
[2016-08-29] MEDS: SODIUM BICARBONATE 8.4% INJ 75 MEQ in SODIUM CHLOR 0.45% 1000 ML INJ 1,000 ML IV SCH ×2 (11:40→14:21)
[2016-08-29] MEDS: DOXAZOSIN MESYLATE 2 MG TAB PO SCH (21:59)
[2016-08-29] MEDS: PRAVASTATIN SOD 80 MG TAB PO SCH (21:59)
[2016-08-29] MEDS: MIRTAZAPINE 15 MG TAB PO SCH (21:59)
[2016-08-30 05:06] VITALS: BP 153/78; PULSE 60; RESP 18; TEMP 97.6; O2SAT 96
[2016-08-30] MEDS: HEPARIN SODIUM - SQ 10,000 UNITS/ML VIAL SQ SCH ×2 (06:27→18:01)
[2016-08-30] MEDS: INSULIN ASPART SUPPLEMENTAL SCALE SQ SCH ×4 (06:29→20:47)
[2016-08-30 08:00] VITALS: BP 172/79; PULSE 60; RESP 16; TEMP 98; O2SAT 98
[2016-08-30] MEDS: SODIUM CHLORIDE 0.9% FLUSH 5 ML FLUSH FLUSH SCH ×2 (09:00→20:47)
[2016-08-30] MEDS: FLUDROCORTISONE ACETATE 0.1 MG TAB PO SCH (09:31)
[2016-08-30] MEDS: MEGESTROL ACETATE SUSP 400 MG/10 ML CUP PO SCH (09:31)
[2016-08-30] MEDS: METOPROLOL TARTRATE 25 MG TAB PO SCH ×2 (09:31→20:47)
[2016-08-30] MEDS: ASPIRIN 81 MG CHEW TAB CHEW SCH (09:32)
[2016-08-30 12:00] VITALS: BP 144/65; PULSE 52; RESP 18; TEMP 98.1; O2SAT 99
--- NOTE | 2016-08-30 14:08 | HHI.PR ---
Subjective Remarks Says OK to all questions. Doesn't appear in acute distress. No acute events overnight. Objective Vitals Vital Signs Date Time Temp Pulse Resp B/P Pulse Ox O2 Delivery O2 Flow Rate FiO2 08/30/16 12:00 98.1 52 18 144/65 99 08/30/16 08:00 98.0 60 16 172/79 98 08/30/16 05:06 97.6 60 18 153/78 96 08/29/16 23:50 98.2 62 17 120/63 98 08/29/16 20:55 97.3 66 19 136/59 99 08/29/16 16:00 98.3 72 18 127/68 96 I/O 08/29/16 08/29/16 08/29/16 08/30/16 08/30/16 08/30/16 07:00 15:00 23:00 07:00 15:00 23:00 Intake Total 1624 ml 360 ml Balance 1624 ml 360 ml Intake Oral 360 ml IV Total 1624 ml # Voids 2 3 2 # Bowel Movements 0 Result Diagram: 08/26/16 0725 08/26/16 0729 Imaging Last Impressions Renal Ultrasound 07/27/16 0000 Signed Impressions: Service Date/Time: Wednesday, July 27, 2016 14:05 - CONCLUSION: 1. Kidneys are slightly echogenic which can be seen with medical renal disease. 2. Simple cyst right kidney. 3. Echogenic focus along the lower pole left kidney could be related to nonobstructing calculus measuring 7 mm. Brandt Lowery MD Head CT 07/23/16 1244 Signed Impressions: Service Date/Time: Sunday, July 24, 2016 00:04 - CONCLUSION: 1. Suspected recent infarct involving the left middle cerebral artery territory at the left temporal and parietal lobes. 2. Age-related atrophy. 3. Widespread suspected small vessels ischemic change in the white matter. 4. 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 5. Acute right frontal scalp hematoma. Francis Gibson MD Chest X-Ray 07/23/16 9931 Signed Impressions: Service Date/Time: June 23:48 - CONCLUSION: No acute disease. Francis Gibson MD Objective Remarks GENERAL: 86 yo female, awake and alert, says ok per nurses, following commands SKIN: Warm and dry. HEAD: Fading infraorbital bruise- almost resolved EYES: Pupils equal and round. No scleral icterus. No injection or drainage. ENT: No nasal bleeding or discharge. Mucous membranes pink and moist. NECK: Trachea midline. No JVD. No nuchal rigidity. CARDIOVASCULAR: Regular rate and rhythm. RESPIRATORY: No accessory muscle use. Clear to auscultation. Breath sounds equal bilaterally. GASTROINTESTINAL: Abdomen soft, non-tender, nondistended. Hepatic and splenic margins not palpable. MUSCULOSKELETAL: Extremities without clubbing, cyanosis, or edema. No obvious deformities. NEUROLOGICAL: Awake and alert. No obvious cranial nerve deficits. Moves extremities spontaneously. PSYCHIATRIC: Appropriate mood and affect; insight and judgment normal. Procedures None A/P Problem List: (1) Sepsis due to urinary tract infection ICD Code: A41.9 Status: Acute (2) Hypoglycemia associated with diabetes ICD Code: E11.649 Status: Acute (3) Fall ICD Code: W19.XXXA Status: Acute (4) Delirium ICD Code: R41.0 Status: Acute (5) HTN (hypertension) ICD Code: I10 Status: Chronic (6) DM (diabetes mellitus) ICD Code: E11.9 Status: Chronic (7) CKD (chronic kidney disease) stage 4, GFR 15-29 ml/min ICD Code: N18.4 Status: Chronic (8) WILL (acute kidney injury) ICD Code: N17.9 Status: Acute (9) Aphasia ICD Code: R47.01 Status: Chronic Assessment and Plan Severe sepsis (Temp 94F, RR 22, UTI, WILL on chronic kidney disease) - resolved Due to Klebsiella UTI. Renal ultrasound without evidence of nephritis or hydronephrosis, however does show nonobstructing 7 mm calculus in the left kidney. - S/p Ceftin course Metabolic encephalopathy/ History of CVA Mental status still waxes and wanes. Likely underlying dementia. Treated for UTI. - d/c standing Seroquel. Use as needed. - continue ASA and statin. - PT/OT. - avoid sedating meds. Currently off restraints. V. tach Hypertension- erratic Asymptomatic on 08/05. Likely secondary to hyperkalemia. 5 beat run noted on . - Kayexalate as needed. Potassium level stable 08/14. - Lopressor to 75 mg BID increased on 08/10. Holding parameters in place. - on amlodipine 5 mg po daily- decreased - on Cardura 4 mg hs Monitor and adjust Severe hypoglycemia - resolved Possibly related to sepsis. - Continue low dose SSI with insulin NovoLog. Poor oral intake/appetite/moderate protein calorie malnutrition Nutritional intake apparently inadequate. - on Megace and dietitian following.- - reduced dose of Remeron to 7.5 mg daily. - consider TF- GT placement - Calorie count -per distillery worker general recommendations 1800 ADA, K40, mechanical Soft, glucerna shakes, assist with meals, continue megace and remeron * Calorie counts indicate that recent po intake has been averaging ~1830 kcals/90 gms pro/ day. This represents >100% of nutritional needs met. Pt does well when assisted and drinks the Glucerna Shakes. WILL on CKD- pre renal azotemia- poor po/dehydration Mild hyperkalemia- resolved - avoid nephrotoxins. - continue IVF with HCO3 at 75 cc/hr- - IVF - d/w staff nurse needs to be continuous - nephrology ff - creatinine gradually stabilizing DVT prophylaxisheparin. Discharge Planning Awaiting placement. Per CM notes, no POA available. They are still searching. Problem Qualifiers (1) HTN (hypertension): Qualified Code: I10 - Essential hypertension (2) DM (diabetes mellitus): Alvina Hein MD Aug 30, 2016 14:08
[2016-08-30 16:01] VITALS: BP 125/58; PULSE 55; RESP 16; TEMP 98.1; O2SAT 99
[2016-08-30] MEDS: SODIUM BICARBONATE 8.4% INJ 75 MEQ in SODIUM CHLOR 0.45% 1000 ML INJ 1,000 ML IV SCH (18:49)
[2016-08-30 20:00] VITALS: BP 144/65; PULSE 60; RESP 18; TEMP 97.7; O2SAT 95
[2016-08-30 20:06] VITALS: PULSE 61
[2016-08-30] MEDS: DOXAZOSIN MESYLATE 2 MG TAB PO SCH (20:47)
[2016-08-30] MEDS: MIRTAZAPINE 15 MG TAB PO SCH (20:47)
[2016-08-30] MEDS: PRAVASTATIN SOD 80 MG TAB PO SCH (20:47)
[2016-08-31] VITALS (8 sets, daily range): BP systolic 106–134; BP diastolic 56–68; PULSE 53–71; RESP 18–20; TEMP 97.5–99.5; O2SAT 94–97
[2016-08-31] MEDS: SODIUM BICARBONATE 8.4% INJ 75 MEQ in SODIUM CHLOR 0.45% 1000 ML INJ 1,000 ML IV SCH ×2 (06:17→19:54)
[2016-08-31] MEDS: HEPARIN SODIUM - SQ 10,000 UNITS/ML VIAL SQ SCH ×2 (06:17→19:09)
[2016-08-31] MEDS: INSULIN ASPART SUPPLEMENTAL SCALE SQ SCH ×4 (06:20→21:00)
--- NOTE | 2016-08-31 08:24 | HHI.PR ---
Subjective Remarks Patient is in bed, appears in nad. No change. Objective Vitals Vital Signs Date Time Temp Pulse Resp B/P Pulse Ox O2 Delivery O2 Flow Rate FiO2 08/31/16 08:00 99.1 62 18 134/62 97 08/31/16 04:00 97.7 60 18 131/63 96 08/31/16 00:00 97.5 57 18 132/57 95 08/30/16 20:06 61 08/30/16 20:00 97.7 60 18 144/65 95 08/30/16 16:01 98.1 55 16 125/58 99 08/30/16 12:00 98.1 52 18 144/65 99 I/O 08/30/16 08/30/16 08/30/16 08/31/16 08/31/16 08/31/16 06:59 14:59 22:59 06:59 14:59 22:59 Intake Total 360 ml 820 ml Balance 360 ml 820 ml Intake Oral 360 ml IV Total 820 ml # Voids 2 3 3 # Bowel Movements 0 0 Objective Remarks GENERAL: 86 yo female, awake and alert, says ok per nurses, following commands SKIN: Warm and dry. HEAD: Fading infraorbital bruise- almost resolved EYES: Pupils equal and round. No scleral icterus. No injection or drainage. ENT: No nasal bleeding or discharge. Mucous membranes pink and moist. NECK: Trachea midline. No JVD. No nuchal rigidity. CARDIOVASCULAR: Regular rate and rhythm. RESPIRATORY: No accessory muscle use. Clear to auscultation. Breath sounds equal bilaterally. GASTROINTESTINAL: Abdomen soft, non-tender, nondistended. Hepatic and splenic margins not palpable. MUSCULOSKELETAL: Extremities without clubbing, cyanosis, or edema. No obvious deformities. NEUROLOGICAL: Awake and alert. No obvious cranial nerve deficits. Moves extremities spontaneously. PSYCHIATRIC: Appropriate mood and affect; insight and judgment normal. Procedures None A/P Problem List: (1) Sepsis due to urinary tract infection ICD Code: A41.9 Status: Acute (2) Hypoglycemia associated with diabetes ICD Code: E11.649 Status: Acute (3) Fall ICD Code: W19.XXXA Status: Acute (4) Delirium ICD Code: R41.0 Status: Acute (5) HTN (hypertension) ICD Code: I10 Status: Chronic (6) DM (diabetes mellitus) ICD Code: E11.9 Status: Chronic (7) CKD (chronic kidney disease) stage 4, GFR 15-29 ml/min ICD Code: N18.4 Status: Chronic (8) WILL (acute kidney injury) ICD Code: N17.9 Status: Acute (9) Aphasia ICD Code: R47.01 Status: Chronic Assessment and Plan Severe sepsis (Temp 94F, RR 22, UTI, WILL on chronic kidney disease) - resolved Due to Klebsiella UTI. Renal ultrasound without evidence of nephritis or hydronephrosis, however does show nonobstructing 7 mm calculus in the left kidney. - S/p Ceftin course Metabolic encephalopathy/ History of CVA Mental status still waxes and wanes. Likely underlying dementia. Treated for UTI. - d/c standing Seroquel. Use as needed. - continue ASA and statin. - PT/OT. - avoid sedating meds. Currently off restraints. V. tach Hypertension- erratic Asymptomatic on 08/05. Likely secondary to hyperkalemia. 5 beat run noted on . - Kayexalate as needed. Potassium level stable 08/14. - Lopressor to 75 mg BID increased on 08/10. Holding parameters in place. - on amlodipine 5 mg po daily- decreased - on Cardura 4 mg hs Monitor and adjust Severe hypoglycemia - resolved Possibly related to sepsis. - Continue low dose SSI with insulin NovoLog. Poor oral intake/appetite/moderate protein calorie malnutrition Nutritional intake apparently inadequate. - on Megace and dietitian following.- - reduced dose of Remeron to 7.5 mg daily. - consider TF- GT placement - Calorie count -per boots and shoes supervisor recommendations 1800 ADA, K40, mechanical Soft, glucerna shakes, assist with meals, continue megace and remeron * Calorie counts indicate that recent po intake has been averaging ~1830 kcals/90 gms pro/ day. This represents >100% of nutritional needs met. Pt does well when assisted and drinks the Glucerna Shakes. WILL on CKD- pre renal azotemia- poor po/dehydration Mild hyperkalemia- resolved - avoid nephrotoxins. - IVF with HCO3 at 75 cc/hr- - IVF - d/w staff nurse needs to be continuous - nephrology ff - creatinine gradually stabilizing DVT prophylaxisheparin. Discharge Planning Awaiting placement. Per CM notes, no POA available. They are still searching. Problem Qualifiers (1) HTN (hypertension): Qualified Code: I10 - Essential hypertension (2) DM (diabetes mellitus): Alvina Hein MD Aug 31, 2016 08:24
[2016-08-31] MEDS: SODIUM CHLORIDE 0.9% FLUSH 5 ML FLUSH FLUSH SCH ×2 (09:00→21:00)
[2016-08-31] MEDS: METOPROLOL TARTRATE 25 MG TAB PO SCH ×2 (09:36→21:58)
[2016-08-31] MEDS: FLUDROCORTISONE ACETATE 0.1 MG TAB PO SCH (09:37)
[2016-08-31] MEDS: ASPIRIN 81 MG CHEW TAB CHEW SCH (09:37)
[2016-08-31] MEDS: MEGESTROL ACETATE SUSP 400 MG/10 ML CUP PO SCH (09:37)
[2016-08-31] MEDS: PRAVASTATIN SOD 80 MG TAB PO SCH (21:57)
[2016-08-31] MEDS: MIRTAZAPINE 15 MG TAB PO SCH (21:58)
[2016-08-31] MEDS: DOXAZOSIN MESYLATE 2 MG TAB PO SCH (21:58)
[2016-09-01 04:00] VITALS: BP 165/72; PULSE 54; RESP 20; TEMP 97.5; O2SAT 97
[2016-09-01] MEDS: HEPARIN SODIUM - SQ 10,000 UNITS/ML VIAL SQ SCH ×2 (05:20→18:30)
[2016-09-01] MEDS: INSULIN ASPART SUPPLEMENTAL SCALE SQ SCH ×4 (05:39→21:00)
[2016-09-01 08:16] VITALS: BP 122/57; PULSE 72; RESP 17; TEMP 97.4; O2SAT 97
[2016-09-01] MEDS: METOPROLOL TARTRATE 25 MG TAB PO SCH ×2 (09:00→20:15)
[2016-09-01] MEDS: FLUDROCORTISONE ACETATE 0.1 MG TAB PO SCH (09:00)
[2016-09-01] MEDS: MEGESTROL ACETATE SUSP 400 MG/10 ML CUP PO SCH (09:00)
[2016-09-01] MEDS: SODIUM CHLORIDE 0.9% FLUSH 5 ML FLUSH FLUSH SCH ×2 (09:00→21:00)
[2016-09-01] MEDS: ASPIRIN 81 MG CHEW TAB CHEW SCH (09:00)
--- NOTE | 2016-09-01 09:43 | HHI.PR ---
Subjective Remarks No events. Responds with OK to all questions. At baseline. Objective Vitals Vital Signs Date Time Temp Pulse Resp B/P Pulse Ox O2 Delivery O2 Flow Rate FiO2 09/01/16 08:16 97.4 72 17 122/57 97 09/01/16 04:00 97.5 54 20 165/72 97 08/31/16 20:00 99.5 60 20 106/63 95 08/31/16 19:00 62 08/31/16 16:00 98.6 66 18 128/56 94 08/31/16 12:34 98.6 71 20 121/68 96 I/O 08/31/16 08/31/16 08/31/16 09/01/16 09/01/16 09/01/16 07:00 15:00 23:00 07:00 15:00 23:00 Intake Total 820 ml 480 ml 0 ml Balance 820 ml 480 ml 0 ml Intake Oral 480 ml 0 ml IV Total 820 ml # Voids 3 3 1 # Bowel Movements 0 1 1 Objective Remarks GENERAL: 86 yo female, awake and alert, says ok per nurses, following commands SKIN: Warm and dry. HEAD: Fading infraorbital bruise- almost resolved EYES: Pupils equal and round. No scleral icterus. No injection or drainage. ENT: No nasal bleeding or discharge. Mucous membranes pink and moist. NECK: Trachea midline. No JVD. No nuchal rigidity. CARDIOVASCULAR: Regular rate and rhythm. RESPIRATORY: No accessory muscle use. Clear to auscultation. Breath sounds equal bilaterally. GASTROINTESTINAL: Abdomen soft, non-tender, nondistended. Hepatic and splenic margins not palpable. MUSCULOSKELETAL: Extremities without clubbing, cyanosis, or edema. No obvious deformities. NEUROLOGICAL: Awake and alert. No obvious cranial nerve deficits. Moves extremities spontaneously. PSYCHIATRIC: Appropriate mood and affect; insight and judgment normal. Procedures None A/P Problem List: (1) Sepsis due to urinary tract infection ICD Code: A41.9 Status: Acute (2) Hypoglycemia associated with diabetes ICD Code: E11.649 Status: Acute (3) Fall ICD Code: W19.XXXA Status: Acute (4) Delirium ICD Code: R41.0 Status: Acute (5) HTN (hypertension) ICD Code: I10 Status: Chronic (6) DM (diabetes mellitus) ICD Code: E11.9 Status: Chronic (7) CKD (chronic kidney disease) stage 4, GFR 15-29 ml/min ICD Code: N18.4 Status: Chronic (8) WILL (acute kidney injury) ICD Code: N17.9 Status: Acute (9) Aphasia ICD Code: R47.01 Status: Chronic Assessment and Plan Severe sepsis (Temp 94F, RR 22, UTI, WILL on chronic kidney disease) - resolved Due to Klebsiella UTI. Renal ultrasound without evidence of nephritis or hydronephrosis, however does show nonobstructing 7 mm calculus in the left kidney. - S/p Ceftin course Metabolic encephalopathy/ History of CVA. Mental status still waxes and wanes. Likely underlying dementia. Treated for UTI. - d/c standing Seroquel. Use as needed. - continue ASA and statin. - PT/OT. - avoid sedating meds. Currently off restraints. V. tach Hypertension- erratic Asymptomatic on 08/05. Likely secondary to hyperkalemia. 5 beat run noted on . - Kayexalate as needed. Potassium level stable 08/14. - Lopressor to 75 mg BID increased on 08/10. Holding parameters in place. - on amlodipine 5 mg po daily- decreased - on Cardura 4 mg hs Monitor and adjust Severe hypoglycemia - resolved Possibly related to sepsis. - Continue low dose SSI with insulin NovoLog. Poor oral intake/appetite/moderate protein calorie malnutrition Nutritional intake apparently inadequate. - on Megace and dietitian following.- - reduced dose of Remeron to 7.5 mg daily. - consider TF- GT placement - Calorie count -per web site project manager recommendations 1800 ADA, K40, mechanical Soft, glucerna shakes, assist with meals, continue megace and remeron * Calorie counts indicate that recent po intake has been averaging ~1830 kcals/90 gms pro/ day. This represents >100% of nutritional needs met. Pt does well when assisted and drinks the Glucerna Shakes. WILL on CKD- pre renal azotemia- poor po/dehydration Mild hyperkalemia- resolved - avoid nephrotoxins. - IVF with HCO3 at 75 cc/hr- - IVF. stable. DC IVF as has adequate PO intake. - nephrology consulted - creatinine gradually stabilizing, and back to baseline. Nephro signed off DVT prophylaxisheparin. Discharge Planning Awaiting placement. Per CM notes, no POA available. They are still searching. Problem Qualifiers (1) HTN (hypertension): Qualified Code: I10 - Essential hypertension (2) DM (diabetes mellitus): Alvina Hein MD Sep 01, 2016 09:43
[2016-09-01 12:14] VITALS: BP 111/55; PULSE 59; RESP 18; TEMP 98.1; O2SAT 95
--- NOTE | 2016-09-01 12:17 | PD.CONS ---
Consult Service Palliative Care . Consult Requested By Dr. Hein . Primary Care Physician Nan Naidu MD . Reason for Consultation a. To assist with evaluation and management of symptoms including: delirium ; pain b. To assist medical decision maker(s) with: better understanding of current medical conditions; weighing benefits/burdens of medical treatment options; making medical treatment decisions. . HPI History of Present Illness Ms. Fuller is an 86 y/o female with a known past history of hypertension; DM; chronic kidney disease; COPD; stroke; hyperlipidemia who presented to [facility] Emergency Department on 07/24/2016 after suffering a fall. The patient was a resident at [facility]. At the time of the fall she struck her forehead. Evaluation at the nursing facility also noted her blood glucose to be 25 and she received intramuscular glucagon in the facility prior to transport. Glucose came up to 40. The nursing facility reported that at baseline the patient was nonverbal and minimally interactive. Initial vital signs in the emergency department were as follows: Temperature 95.6; pulse 77; respiratory rate 22; blood pressure 140/106; pulse oximetry 96% on room air Physical examination by the emergency room physician noted the following: Patient was in mild to moderate distress which was attributed to pain from her fall. A 5 cm cephalohematoma was noted on the right forehead. The patient was nonverbal and only occasionally move her extremities. The remainder the physical exam was unremarkable. Initial diagnostic testing revealed the following: * CBC showed WBC 11.3; hemoglobin 12.5; platelet count 219 * Basic metabolic profile showed sodium 142; potassium 4.4; chloride 109; CO2 23.5; anion gap 10; BUN 64; creatinine 2.17; GFR 14; glucose 86; lactic acid 2.2 ; calcium 9.0 * Liver function studies show total bilirubin 0.3; AST 33; ALT 17; alkaline phosphatase 121; total protein 7.4; albumin 3.3 * Lipase was 192 * Urinalysis was remarkable for large occult blood; large leukocyte esterase; many WBC clumps; and many bacteria. Urine protein was 100 mg/dL * Chest x-ray was unremarkable CT of the head showed a suspected recent infarct involving the left middle cerebral artery territory at the left temporal and parietal lobes. Widespread suspected small vessel ischemic changes were noted. Old lacunar infarcts of the thalamus were noted. An acute right frontal scalp hematoma was noted. The patient's hypothermia was treated in the emergency department with warming blankets. The sepsis bundle protocol was initiated. She was started on cefepime. The patient was admitted to the [facility] Hospitalist Service. While still in the emergency department blood glucose was checked once again and had fallen to 24. 2 A of D50 were administered which increased her blood glucose to 393. A D5 normal saline drip was started. The patient slowly improved -- with resolution of infection and normalization of blood sugars. Mental status remained variable. Per notes of physicians and staff, she is often sleepy/lethargic particularly in the mornings. When awakened, she has few recognizable words (often profanity). She is able to follow simple instructions on occasions. She will occasionally resist care when sleepy or the procedure is uncomfortable (e.g. accucheck). Initially, it appeared she would be discharged in early July. Nutritional intake was a concern, but with staff help, calorie intake has improved. Another obstacle to discharge has been finding a willing health care decision maker. Her listed health care surrogate -- her niece June -- has not wanted to sign any forms for fear that she would be financially responsible. At time of my visit, patient is sleepy. When I awake her she just seems perturbed and will not engage. . Function/Cognitive Trajectory The patient has been in the intermediate project manager care unit at [facility]. She was admitted there on 06/22/16 after a hospitalization at [facility] for a stroke from 06/08/16 through 06/22/16. The patient had been caring for herself and driving until the day of her stroke. 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 There were behavioral issues initially requiring restraints and neuroleptic administration resulting from the stroke, but these all improved. Notes from [facility] indicate: * She has impaired hearing/speech/vision * Is unable to feed herself * Is incontinent * Requires help with bathing * Was able to walk with assistance. . Review of Systems ROS Limitations: Clinical Condition (Patient unable to provide her own ROS and no available family to provide this information) Past Family Social History Coded Allergies: Hydromorphone (Verified Allergy, Severe, Anaphylaxis, 07/23/16) Past Medical History * CAD -- cath 06/25/14 showed total occlusion of the RCA; Left main disease (~ 50% occlusion) * CAD s/p NSTEMI Jul 2014 * DM II * CKD 4, baseline creatinine 1.8, GFR 26 * Hypertension * hyperlipidemia * Nephrolithiasis * vitamin D deficiency * Macular degeneration * diverticulosis * Sciatica * Anxiety * Depression * Severe cervical spine disease: severe right foraminal narrowing at C3-4; severe left nerual foraminal narrowing at C4-5; moderate to severe bilateral narrowing at C5-6 * Peripheral vascular disease -- aortoiliac; carotid artery . Past Surgical History * carpal tunnel repair * tonsillectomy * renal stone removal . Reported Medications Prehospital medications at that facility included the following: Krill Oil [place]-3 300 mg (Krill Oil) 1 Cap Cap Remeron (Mirtazapine) 15 Mg Tab 15 Mg PO HS D3 Super Strength (Cholecalciferol) 2,000 Unit Cap 1,000 Units PO DAILY Quetiapine (Quetiapine Fumarate) 50 Mg Tab 50 Mg PO HS Pravastatin 80 Mg Tab 80 Mg PO HS Amlodipine (Amlodipine Besylate) 10 Mg Tab 10 Mg PO DAILY Aspir-81 (Aspirin) 81 Mg Tabdr Metoprolol Tartrate 25 Mg Tab 25 Mg PO BID Meclizine (Meclizine HCl) 25 Mg Tab 25 Mg PO QID PRN Enalapril (Enalapril Maleate) 10 Mg Tab 10 Mg PO BID Ativan Inj (Lorazepam) 2 Mg/Ml Inj 1 Mg IM TID PRN Quetiapine 50 mg QAM and QHS Novolin 70-30 Inj (Insulin Human Isoph/Insulin Regular) 1,000 Unit/10 Ml Vial 1 Units SQ [Pre-Serv Vision] 1 Tab PO BID . Current Medications Medications (Trade) Dose Ordered Sig/Emiliano Route Start Time Stop Time Status Last Admin (NS Flush) 2 ml UNSCH PRN FLUSH 07/24/16 02:00 (NS Flush) 2 ml BID FLUSH 07/24/16 09:00 08/27/16 08:38 (Tylenol) 650 mg Q4H PRN PO 07/24/16 02:00 08/12/16 10:00 (Zofran Inj) 4 mg Q6H PRN IVP 07/24/16 02:00 (Dulcolax Supp) 10 mg DAILY PRN MN 07/24/16 02:00 (Milk Of Magnesia Liq) 30 ml Q12H PRN PO 07/24/16 02:00 08/22/16 10:22 (Heparin Inj) 5,000 units Q12H SQ 07/24/16 06:00 09/01/16 05:20 (Narcan Inj) 0.4 mg UNSCH PRN IV 07/24/16 02:00 (Pravachol) 80 mg HS PO 07/24/16 21:00 08/31/16 21:57 (D50w (Vial) Inj) 25 ml UNSCH PRN IV PUSH 07/26/16 20:30 (Glucagon Inj) 1 mg UNSCH PRN OTHER 07/26/16 20:30 (Cardura) 2 mg HS PO 07/27/16 00:30 08/31/16 21:58 (Megace Liq) 400 mg DAILY PO 07/27/16 12:45 09/01/16 09:00 (Pill Splitter) 1 ea UNSCH PRN OTHER 07/29/16 12:00 (Aspirin Chew) 81 mg DAILY CHEW 07/31/16 09:00 09/01/16 09:00 (Remeron) 7.5 mg HS PO 08/09/16 21:00 08/31/16 21:58 (Lopressor) 75 mg Q12HR PO 08/10/16 21:00 08/31/16 21:58 (Norvasc) 5 mg DAILY PO 08/12/16 09:00 08/31/16 09:36 (Catapres) 0.1 mg Q6H PRN PO 08/17/16 13:00 08/23/16 11:25 (Florinef) 0.1 mg DAILY PO 08/19/16 16:00 09/01/16 09:00 Family History There is a family history of hypertension . Substance Use Tobacco: Smoked most of adult life. Was smoking 1/2 ppd as recently as 2013. Alcohol: No history of abuse Prescription med abuse: No known abuse Illicits: No known use of illicits. . Psychosocial History Patient unable to provide a psychosocial history. No available family to provide this. Single. No known children. Has a niece-- June Gann -- who has been designated as a health care surrogate but who does not want to participate fully in this role. . Spiritual/Cultural Factors Unknown. . Living Will: Copy in medical record Health Care Surrogate: Copy in medical record Durable Power of Utility Tech: Never completed Date completed: Living will and health care surrogate designation completed on 05/19/2014. . Health Care Surrogate(s): Patient designated June Gann (niece?) as health care surrogate but Ms. Gann declines the role. . Documented care wishes: Living will states she would not want life prolonging measures if she is found to have a terminal illness, end-stage condition, or persistent vegetative state. At no time which she want a tracheostomy. At no time which she want a permanent feeding tube. She would only accept life support if the physicians felt there was a reasonable chance of meaningful recovery. By meaningful recovery she would not want to be bedridden or hooked to tubes the rest of her life. Even if life support was implemented she would not want to be on it for longer than 10 days. . Today's verbally stated goals: Patient is unable to verbally stated her goals and preferences for medical treatment. . Family/friends goals: Only known family is a niece who has told case management she does NOT want to serve as health care surrogate. . Ethical and Legal Issues Patient is incapacitated to make her own health care decisions and will not be re-gaining capacity. There is no legal health care decision maker at this time as the niece who is the designated surrogate does NOT want to fully serve in this capacity (e.g. she is unwilling to sign forms allowing for senior care placement). . . Physical Exam Vital Signs Date Time Temp Pulse Resp B/P Pulse Ox O2 Delivery O2 Flow Rate FiO2 09/01/16 08:16 97.4 72 17 122/57 97 09/01/16 04:00 97.5 54 20 165/72 97 08/31/16 20:00 99.5 60 20 106/63 95 08/31/16 19:00 62 08/31/16 16:00 98.6 66 18 128/56 94 08/31/16 12:34 98.6 71 20 121/68 96 . 08/31/16 09/01/16 18:59 06:59 Intake Total 480 ml 0 ml Balance 480 ml 0 ml Intake Oral 480 ml 0 ml # Voids 3 1 # Bowel Movements 1 1 . Exam CONSTITUTIONAL/GENERAL: This is an adequately nourished patient, in no apparent distress. She is lethargic -- she awakens to voice and exam, but will drift off quickly. TUBES/LINES/DRAINS: Peripheral iv SKIN: No jaundice, rashes, or lesions. Ecchymoses on upper extremities. No wounds seen anteriorly. Skin temperature appropriate. Not diaphoretic. HEAD: Faint residual ecchymosis below right orbit. EYES: Pupils equal and round and reactive. Extraocular motions intact. No scleral icterus. No injection or drainage. Fundi not examined. ENT: Cannot assess hearing due to lack of cooperation. Nose without bleeding or purulent drainage. Throat without visible erythema, exudates, masses, or lesions. NECK: Trachea midline. Supple, nontender. No palpable thyroid enlargement or nodularity. CARDIOVASCULAR: Regular rate and rhythm without murmurs, gallops, or rubs. No JVD. Peripheral pulses symmetric. RESPIRATORY/CHEST: Symmetric, unlabored respirations. Clear to auscultation. Breath sounds equal bilaterally. No wheezes, rales, or rhonchi. GASTROINTESTINAL: Abdomen soft, non-tender, nondistended. No hepato-splenomegaly , or palpable masses. No guarding. Bowel sounds present. GENITOURINARY: Without palpable bladder distension. MUSCULOSKELETAL: Extremities without clubbing, cyanosis, or edema. No joint tenderness or effusion noted. No calf tenderness. No mottling or clubbing. LYMPHATICS: No palpable cervical or supraclavicular adenopathy. NEUROLOGICAL: Sleepy -- awakens to voice/exam, but quickly drifts back to sleep. Does not follow commands for me. Moves all extremities. PSYCHIATRIC: No obvious hallucinations or psychotic process. Speech not comprehensible for me. . Diagnostic Tests Laboratory CBC 08/26/16 --> Hg 9.2 BMP 08/26/16 --> BUN 57; Creat 2.83; GFR 16; glucose 119 Alb 08/26/16 --> 2.6. . Microbiology * Urine culture of 07/24/16 grew out Klebsiella pneumonia. * Blood cultures of 07/23/16 showed no growth . Imaging Last Impressions Renal Ultrasound 07/27/16 0000 Signed Impressions: Service Date/Time: Wednesday, July 27, 2016 14:05 - CONCLUSION: 1. Kidneys are slightly echogenic which can be seen with medical renal disease. 2. Simple cyst right kidney. 3. Echogenic focus along the lower pole left kidney could be related to nonobstructing calculus measuring 7 mm. Brandt Lowery MD Head CT 07/23/162334 Signed Impressions: Service Date/Time: Sunday, July 24, 2016 00:04 - CONCLUSION: 1. Suspected recent infarct involving the left middle cerebral artery territory at the left temporal and parietal lobes. 2. Age-related atrophy. 3. Widespread suspected small vessels ischemic change in the white matter. 4. 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 5. Acute right frontal scalp hematoma. Francis Gibson MD Chest X-Ray 07/23/162334 Signed Impressions: Service Date/Time: June 23:48 - CONCLUSION: No acute disease. Francis Gibson MD . Patient/Family Conference Present at Family Conference: No family conference has taken place. Niece has not wanted to participate as health care surrogate. . Issues Discussed: Assessment and Plan Disease Oriented Problem List: (1) Sepsis due to urinary tract infection (2) UTI (urinary tract infection) (3) CKD (chronic kidney disease) stage 4, GFR 15-29 ml/min (4) WILL (acute kidney injury) (5) Delirium (6) Diabetes mellitus, type 2 (7) Hypoglycemia associated with diabetes (8) CVA (cerebral vascular accident) Comment: May 2016 -- residual dysphasia . (9) Aphasia (10) Anemia (11) Hypoalbuminemia Symptom Scale: (1) Lethargy 0-10 Scale: Unable to quantify (2) Encephalopathy 0-10 Scale: Unable to quantify Pertinent Non-Medical Issues Psychosocial: RE[facility]ident at [facility] . Spiritual: Unknown Legal: Has a LW. Designated health care surrogate does not want to fully participate. Ethical issues impacting care: Patient is incapacitated and will not regain capacity. . Important Contacts * June Gann (niece) [phone] is the designated health care surrogate but is refusing to sign any documents (e.g. senior care admissions). * Ruth Fuentes (neighbor) [phone] . Prognosis Patient has multiple problems. She is debilitated from a stroke she suffered in May 2016 and [facility] She was admitted this time with urosepsis and difficult to control blood sugars. 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 She has severe cervical spine disease with multiple areas of foraminal narrowing. She has chronic kidney disease. Her functional status in the nursing facility has been poor. She has impaired vision/hearing/speech. She needs to be fed and maintaining adequate caloric intake has been challenging. She is anemia and has a low albumin. Her mental status renders her unable to participate consistently with physical therapy or occupational therapy so chances of significant improvement are minimal. In my clinical opinion, life expectancy is probably 6 months or less. The patient would be appropriate for hospice care at this time based on her illness. She cannot state her goals/preferences, but her living will clearly states she would not want any type of life support unless there was a good chance of meaningful recovery. She specifically said she would not want a permanent feeding tube and would not want tracheostomy. Meaningful for her would mean she would not want to be bedbound and would not want to be dependent on machines. Code Status: Full Code Plan == Code Status: Full Code == Decision making: Patient is incapacitated to make her own health care decisions. She will not regain capacity. Her designated health care surrogate (her niece-- June) does not want to fulfill that role (e.g. she won't sign any forms for fear that she might become economically responsible). Case management has spoken to a neighbor and continue to pursue leads. == Goal of medical treatment: The patient has a living will that is scanned into the EMR. It clearly states the following: * No tracheostomy under any circumstances * No permanent feeding tube under any circumstances * She would only want resuscitation attempts and life support if the doctors felt she had a reasonable chance of returning to a meaningful life. For her, meaningful would mean not being bedridden and not needing to be attached to tubes or machines. == Pain: Patient is unable to locate/quantify/qualify any pain. She has severe c-spine disease and could easily be uncomfortable from this. I would recommend a trial of acetaminophen 650 mg scheduled TID to help mitigate any pain. == Mood/behavior: Because of her speech/cognitive issues post stroke, patient is unable to describe mood. 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 Would recommend a trial of an SSRI. While awaiting SSRI effect, would also consider low dose methyphenidate (e.g. start at 2.5 mg q AM). THis low dose should not have a significant impact on BP, pulse, or appetite, but may help mood while awaiting SSRI effect. == Delirium?: Given her history of stroke, her advanced age, and her being in a strange environment, she is a setup for delirium. Would recommend a trial of low dose haloperidol scheduled -- eg. 0.5 mg po q 8 hours ATC. == Nutrition: Patient has specifically stated in her living will that she does NOT want a permanent feeding tube. == Search for a decision maker: I have discussed the case with case management who is making further calls to locate other family or a willing friend/neighbor. Also recommend running an [employer] report. If case management fails to find a family member/friend, I recommend we engage [employer]. == Given patient's multiple co-morbidities, poor functional status, inability to participate effectively with PT/OT, and her hospital course, I believe she would be medically eligible for hospice. I would also interpret her advance directives as indicating she would NOT want to be resuscitated given her current condition and prognosis. If [employer] agrees with this prognosis and interpretation of the living will, they could allow NO CODE status and could have her signed up with hospice care. == Palliative care will follow on an as-needed basis to assist with symptom management and to further clarify goals of medical treatment as the clinical course evolves and as we identify a health care decision maker. . Time Spent Total Floor Time (mins): 76 (Total floor time included chart review, patient exam, two attempts at engaging the patient in conversation, review of advance directives, collaboration with case management, collaboration with primary nurse.) Face to Face Time (mins): 15 >50% Counseling/Coord of Care: Yes Thank you for the opportunity to participate in the care of Ms. Fuller. . . Attestation To help prompt me to consider important information that might be impacting today's encounter and assessment, information from prior notes written by myself or my colleagues may have been "brought forward" into today's note. My signature on this note, however, is an attestation that I personally performed the exam, history, and/or decision-making noted today, and, unless otherwise indicated, the interactions with patient, family, and staff as well as the review of records all occurred today. I also attest that the listed assessment and stated plan reflect my best clinical judgment today based on the combination of historical information, prior notes, and today's exam/ interactions. When time spent is documented, it refers only to time spent today by the signer, or if indicated, combined time spent today by collaborating physician/nurse practitioner. . Jason Santoyo MD Sep 01, 2016 12:17
[2016-09-01 20:00] VITALS: BP 159/70; PULSE 71; RESP 20; TEMP 97.9; O2SAT 96
[2016-09-01] MEDS: DOXAZOSIN MESYLATE 2 MG TAB PO SCH (20:15)
[2016-09-01] MEDS: MIRTAZAPINE 15 MG TAB PO SCH (20:16)
[2016-09-01] MEDS: PRAVASTATIN SOD 80 MG TAB PO SCH (21:00)
[2016-09-01] MEDS: ACETAMINOPHEN 325 MG TAB PO SCH (22:27)
[2016-09-02] MEDS: ACETAMINOPHEN 325 MG TAB PO SCH ×3 (06:00→20:59)
[2016-09-02] MEDS: HEPARIN SODIUM - SQ 10,000 UNITS/ML VIAL SQ SCH ×2 (06:27→17:48)
[2016-09-02] MEDS: INSULIN ASPART SUPPLEMENTAL SCALE SQ SCH ×4 (07:00→20:58)
[2016-09-02 08:00] VITALS: BP 172/82; PULSE 16; RESP 16; TEMP 96.4; O2SAT 97
[2016-09-02] MEDS: METHYLPHENIDATE HCL 5 MG TAB PO SCH (09:00)
[2016-09-02] MEDS: MEGESTROL ACETATE SUSP 400 MG/10 ML CUP PO SCH (09:07)
[2016-09-02] MEDS: METOPROLOL TARTRATE 25 MG TAB PO SCH ×2 (09:07→20:52)
[2016-09-02] MEDS: SODIUM CHLORIDE 0.9% FLUSH 5 ML FLUSH FLUSH SCH (09:08)
[2016-09-02] MEDS: ASPIRIN 81 MG CHEW TAB CHEW SCH (09:08)
[2016-09-02] MEDS: FLUDROCORTISONE ACETATE 0.1 MG TAB PO SCH (10:16)
[2016-09-02] MEDS: cloNIDine HCL 0.1 MG TAB PO PRN (10:29)
--- NOTE | 2016-09-02 10:32 | HHI.PR ---
Subjective Remarks 86-year-old female who originally presented to hospital because of fall at residential. Patient found to have hypoglycemia. Severe sepsis, urinary tract infection. Patient has severe dementia and from original presentation she was unable to participate in any evaluation or communication. Patient had a rather extensive hospitalization with CT the brain which did indicate recent infarct in the morning the left middle cerebral artery territory at the left temporal and parietal lobes. Urinalysis with Klebsiella pneumonia urinary tract infection. Chronic kidney disease stage IV. 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 Due to the patient's severe dementia and unable to participate inpatient care and conversation, patient has been a placement issue and for that reason patient was transferred to [facility] for long-term care. Fortunately palliative care initially saw the patient on 09/01/16 who indicates that there is no healthcare decision-maker. However given her comorbidities, poor functional status, inability to participate effectively in hospital care patient would be medically eligible for hospice. Objective Vitals Vital Signs Date Time Temp Pulse Resp B/P Pulse Ox O2 Delivery O2 Flow Rate FiO2 09/02/16 08:00 96.4 16 16 172/82 97 09/02/16 07:00 14 09/01/16 20:00 97.9 71 20 159/70 96 09/01/16 12:14 98.1 59 18 111/55 95 I/O 09/01/16 09/01/16 09/01/16 09/02/16 09/02/16 09/02/16 07:00 15:00 23:00 07:00 15:00 23:00 Intake Total 0 ml 240 ml 0 ml 0 ml Balance 0 ml 240 ml 0 ml 0 ml Intake Oral 0 ml 240 ml 0 ml 0 ml # Voids 1 2 1 3 # Bowel Movements 1 0 0 Objective Remarks GENERAL: Well-developed, well-nourished, in no acute distress. She is arousable , however she did output is patent any conversation to obtain orientation HEENT: Head is normocephalic without any lesions or masses noted. Facial features are symmetric. Eyes: Extraocular muscles are intact. Conjunctivae were clear. NECK: Trachea midline no deviation. CARDIAC: Regular rhythm, regular rate. S1/S2 are heard. No murmurs gallops or rubs. LUNGS: Clear to auscultation bilaterally. No wheeze, rhonchi or rales. No use of accessory muscles on inspiration or expiration. ABDOMEN: Soft, nontender. Nondistended. Bowel sounds heard in all 4 quadrants. No organomegaly or masses. Negative rebound, negative guarding EXTREMITIES: No edema, pulses are equal bilaterally. No cyanosis or clubbing NEUROLOGY: Difficult to ascertain mood and affect due to patient's cognitive ability and pertussis patient examination Procedures None Urinary Catheter: No Vascular Central Line Catheter: No A/P Assessment and Plan Metabolic encephalopathy/ History of CVA. Mental status still waxes and wanes. Likely secondary to underlying dementia or chronic cognition issue. Treated for UTI. - continue ASA and statin. - PT/OT. - avoid sedating meds. Currently off restraints. Severe sepsis (Temp 94F, RR 22, UTI, WILL on chronic kidney disease) - resolved - Due to Klebsiella UTI. - Renal ultrasound without evidence of nephritis or hydronephrosis, however does show nonobstructing 7 mm calculus in the left kidney. - S/p Ceftin course Hypertension-labile - Lopressor to 75 mg BID, Holding parameters in place. - on amlodipine 5 mg po daily- decreased - on Cardura 4 mg hs - When necessary clonidine - Monitor and adjust Ventricular tachycardia, nonsustained, resolved Asymptomatic on 08/05. Likely secondary to hyperkalemia. 5 beat run noted on . - Kayexalate as needed. Potassium level stable 08/14. - Lopressor to 75 mg BID, Holding parameters in place. Severe hypoglycemia - resolved Possibly related to sepsis. - Continue low dose SSI with insulin NovoLog. Poor oral intake/appetite/moderate protein calorie malnutrition Nutritional intake apparently inadequate. - Megace and dietitian following.- - Remeron to 7.5 mg daily. - Check pre-albumin Chronic kidney disease stage IV - With episode of hyperkalemia - avoid nephrotoxins. - nephrology consulted and has signed off DVT prophylaxis heparin. Disposition: Palliative care has evaluated the patient. They indicate the patient is a candidate for hospice care, however need to identify healthcare decision-maker Discharge Planning facilities maintenance manager working diligently on discharge planning 09/01/15 2:30pm: YANDEL had discussion with Palliative Care MD who recommends that we try to find another friend or family member to be medical surrgorate. YANDEL contacted friend on pt's contact list who stated that she is just the neighbor and she is on the list only so there would be someone to contact the pt's kim. Pt kim Watkins is the main contact for the hospital and she is not willing to sign medical paperwork stating that she is not able to be responsible. Neighbor gave pt's other kim Lawrence [phone]. recommended that if nothing works that an accurant report be completed and than social work advantage. YANDEL contacted Denise from [employer] with request for accurant report as no where YANDEL was able to find if one was completed. Awaiting call back. Yessica YOUNG CM 11:50am: Pt transfering to [facility] to room 8524. YANDEL s/w kim Watkins and notified her of transfer. Tyler Velasquez CM Sep 02, 2016 10:32
[2016-09-02] MEDS ORDERED: ONDANSETRON ODT 4 MG TAB PO PRN (11:45)
[2016-09-02 20:00] VITALS: BP 128/93; PULSE 75; RESP 20; TEMP 98.9; O2SAT 98
[2016-09-02] MEDS: PRAVASTATIN SOD 80 MG TAB PO SCH (20:52)
[2016-09-02] MEDS: MIRTAZAPINE 15 MG TAB PO SCH (20:52)
[2016-09-02] MEDS: DOXAZOSIN MESYLATE 2 MG TAB PO SCH (20:52)
[2016-09-03] MEDS: HEPARIN SODIUM - SQ 10,000 UNITS/ML VIAL SQ SCH ×2 (05:11→17:51)
[2016-09-03] MEDS: ACETAMINOPHEN 325 MG TAB PO SCH ×3 (05:11→22:00)
[2016-09-03] MEDS: INSULIN ASPART SUPPLEMENTAL SCALE SQ SCH ×4 (05:16→21:00)
[2016-09-03 08:00] VITALS: BP 120/74; PULSE 56; RESP 16; TEMP 96.9; O2SAT 97
[2016-09-03] MEDS: METHYLPHENIDATE HCL 5 MG TAB PO SCH (10:04)
[2016-09-03] MEDS: METOPROLOL TARTRATE 25 MG TAB PO SCH ×2 (10:05→21:00)
[2016-09-03] MEDS: ASPIRIN 81 MG CHEW TAB CHEW SCH (10:05)
[2016-09-03] MEDS: MEGESTROL ACETATE SUSP 400 MG/10 ML CUP PO SCH (10:05)
[2016-09-03] MEDS: FLUDROCORTISONE ACETATE 0.1 MG TAB PO SCH (10:05)
--- NOTE | 2016-09-03 10:20 | HHI.PR ---
Subjective Remarks Patient seen and examined today. Patient more alert this morning. She is saying okay to every question. Objective Vitals Vital Signs Date Time Temp Pulse Resp B/P Pulse Ox O2 Delivery O2 Flow Rate FiO2 09/03/16 08:00 96.9 56 16 120/74 97 09/02/16 20:00 98.9 75 20 128/93 98 Automatic Cuff I/O 09/02/16 09/02/16 09/02/16 09/03/16 09/03/16 09/03/16 07:00 15:00 23:00 07:00 15:00 23:00 Intake Total 0 ml 120 ml 140 ml 680 ml Balance 0 ml 120 ml 140 ml 680 ml Intake Oral 0 ml 120 ml 140 ml 680 ml # Voids 3 2 1 2 # Bowel Movements 0 0 0 0 Objective Remarks GENERAL: Well-developed, well-nourished, in no acute distress. She is arousable , she only answers okay to every question. Unable to obtain accurate orientation HEENT: Head is normocephalic without any lesions or masses noted. Facial features are symmetric. Eyes: Extraocular muscles are intact. Conjunctivae were clear. NECK: Trachea midline no deviation. CARDIAC: Regular rhythm, regular rate. S1/S2 are heard. No murmurs gallops or rubs. LUNGS: Clear to auscultation bilaterally. No wheeze, rhonchi or rales. No use of accessory muscles on inspiration or expiration. ABDOMEN: Soft, nontender. Nondistended. Bowel sounds heard in all 4 quadrants. No organomegaly or masses. Negative rebound, negative guarding EXTREMITIES: No edema, pulses are equal bilaterally. No cyanosis or clubbing NEUROLOGY: Difficult to ascertain mood and affect due to patient's cognitive ability and participation in patient examination Procedures None Urinary Catheter: No Vascular Central Line Catheter: No A/P Assessment and Plan Metabolic encephalopathy/ History of CVA. Mental status still waxes and wanes. Likely secondary to underlying dementia or chronic cognition issue. Treated for UTI. - continue ASA and statin. - PT/OT. - avoid sedating meds. Currently off restraints. Severe sepsis (Temp 94F, RR 22, UTI, WILL on chronic kidney disease) - resolved - Due to Klebsiella UTI. - Renal ultrasound without evidence of nephritis or hydronephrosis, however does show nonobstructing 7 mm calculus in the left kidney. - S/p Ceftin course Hypertension-labile - Lopressor to 75 mg BID, Holding parameters in place. - amlodipine 10 mg po daily - Cardura 4 mg hs - When necessary clonidine - Monitor and adjust Ventricular tachycardia, nonsustained, resolved Asymptomatic on 08/05. Likely secondary to hyperkalemia. 5 beat run noted on . - Kayexalate as needed. Potassium level stable 08/14. - Lopressor to 75 mg BID, Holding parameters in place. Diabetes with episode of hypoglycemia Possibly related to sepsis. - Continue Accu-Cheks - Sliding scale insulin, patient is only received 2 units in the last 4 days. Will continue monitor and possibly discontinue insulin tomorrow Poor oral intake/appetite/moderate protein calorie malnutrition Nutritional intake apparently inadequate. - Megace and dietitian following.- - Remeron to 7.5 mg daily. - Check pre-albumin Chronic kidney disease stage IV - With episode of hyperkalemia - avoid nephrotoxins. - nephrology consulted and has signed off DVT prophylaxis heparin. Disposition: Palliative care has evaluated the patient. They indicate the patient is a candidate for hospice care, however need to identify healthcare decision-maker Discharge Planning signal manager working diligently on discharge planning 09/01/15 2:30pm: YANDEL had discussion with Palliative Care MD who recommends that we try to find another friend or family member to be medical surrgorate. YANDEL contacted friend on pt's contact list who stated that she is just the neighbor and she is on the list only so there would be someone to contact the pt's neice. Pt kim Watkins is the main contact for the hospital and she is not willing to sign medical paperwork stating that she is not able to be responsible. Neighbor gave cm pt's other kim Lawrence [phone]. recommended that if nothing works that an accurant report be completed and than social work advantage. YANDEL contacted Denise from [employer] with request for accurant report as no where YANDEL was able to find if one was completed. Awaiting call back. Yessica YOUNG CM 11:50am: Pt transfering to [facility] to room 8524. YANDEL s/w kim Watkins and notified her of transfer. Tyler Velasquez CM Sep 03, 2016 10:20
--- NOTE | 2016-09-03 15:20 | HHI.HCSW ---
Oyster Shipper Visit Advance Directive No update per CM notes on accurints report requested. Spoke with PERSONAL PROPERTY ASSESSOR Denise Cage and requested accurints. Awaiting results. Will follow-up tomorrow am if no results obtained today. . Justine Leon, POWER BUILDER DEVELOPER Sep 03, 2016 15:20
[2016-09-03 20:00] VITALS: BP 122/82; PULSE 68; RESP 18; TEMP 99; O2SAT 98
[2016-09-03] MEDS: PRAVASTATIN SOD 80 MG TAB PO SCH (21:00)
[2016-09-03] MEDS: MIRTAZAPINE 15 MG TAB PO SCH (21:00)
[2016-09-03] MEDS: DOXAZOSIN MESYLATE 2 MG TAB PO SCH (22:25)
[2016-09-04] MEDS: INSULIN ASPART SUPPLEMENTAL SCALE SQ SCH ×4 (05:31→21:00)
[2016-09-04] MEDS: ACETAMINOPHEN 325 MG TAB PO SCH ×3 (05:42→22:39)
[2016-09-04] MEDS: HEPARIN SODIUM - SQ 10,000 UNITS/ML VIAL SQ SCH ×2 (05:44→17:05)
[2016-09-04 07:15] VITALS: BP 165/77; PULSE 56; RESP 20; TEMP 98.2; O2SAT 98
[2016-09-04] MEDS: MEGESTROL ACETATE SUSP 400 MG/10 ML CUP PO SCH (08:57)
[2016-09-04] MEDS: ASPIRIN 81 MG CHEW TAB CHEW SCH (08:57)
[2016-09-04] MEDS: METHYLPHENIDATE HCL 5 MG TAB PO SCH (08:57)
[2016-09-04] MEDS: FLUDROCORTISONE ACETATE 0.1 MG TAB PO SCH (08:57)
[2016-09-04] MEDS: METOPROLOL TARTRATE 25 MG TAB PO SCH ×2 (08:57→22:09)
--- NOTE | 2016-09-04 09:53 | HHI.PR ---
Subjective Remarks Patient seen and examined today. Patient does not indicate any new complaints. No change in clinical status. Objective Vitals Vital Signs Date Time Temp Pulse Resp B/P Pulse Ox O2 Delivery O2 Flow Rate FiO2 09/04/16 07:15 98.2 56 20 165/77 98 09/03/16 20:00 99.0 68 18 122/82 98 I/O 09/03/16 09/03/16 09/03/16 09/04/16 09/04/16 09/04/16 07:00 15:00 23:00 07:00 15:00 23:00 Intake Total 680 ml 575 ml 80 ml 60 ml Balance 680 ml 575 ml 80 ml 60 ml Intake Oral 680 ml 575 ml 80 ml 60 ml IV Total 0 ml 0 ml # Voids 2 2 3 3 # Bowel Movements 0 0 1 0 Objective Remarks GENERAL: Well-developed, well-nourished, in no acute distress. She is arousable , she only answers okay to every question. Unable to obtain accurate orientation HEENT: Head is normocephalic without any lesions or masses noted. Facial features are symmetric. Eyes: Extraocular muscles are intact. Conjunctivae were clear. NECK: Trachea midline no deviation. CARDIAC: Regular rhythm, regular rate. S1/S2 are heard. No murmurs gallops or rubs. LUNGS: Clear to auscultation bilaterally. No wheeze, rhonchi or rales. No use of accessory muscles on inspiration or expiration. ABDOMEN: Soft, nontender. Nondistended. Bowel sounds heard in all 4 quadrants. No organomegaly or masses. Negative rebound, negative guarding EXTREMITIES: No edema, pulses are equal bilaterally. No cyanosis or clubbing NEUROLOGY: Difficult to ascertain mood and affect due to patient's cognitive ability and participation in patient examination Procedures None Urinary Catheter: No Vascular Central Line Catheter: No A/P Assessment and Plan Metabolic encephalopathy/ History of CVA. Mental status still waxes and wanes. Likely secondary to underlying dementia or chronic cognition issue. Treated for UTI. - continue ASA and statin. - PT/OT. - avoid sedating meds. Currently off restraints. Severe sepsis (Temp 94F, RR 22, UTI, WILL on chronic kidney disease) - resolved - Due to Klebsiella UTI. - Renal ultrasound without evidence of nephritis or hydronephrosis, however does show nonobstructing 7 mm calculus in the left kidney. - S/p Ceftin course Hypertension-labile - Lopressor to 75 mg BID, Holding parameters in place. - amlodipine 10 mg po daily - Cardura 4 mg hs - When necessary clonidine - Monitor and adjust Ventricular tachycardia, nonsustained, resolved Asymptomatic on 08/05. Likely secondary to hyperkalemia. 5 beat run noted on . - Kayexalate as needed. Potassium level stable 08/14. - Lopressor to 75 mg BID, Holding parameters in place. Diabetes with episode of hypoglycemia Possibly related to sepsis. - Continue Accu-Cheks - Sliding scale insulin, patient is only received 2 units in the last 4 days. Will continue monitor and possibly discontinue insulin tomorrow Poor oral intake/appetite/moderate protein calorie malnutrition Nutritional intake apparently inadequate. - Megace and dietitian following.- - Remeron to 7.5 mg daily. - Check pre-albumin Chronic kidney disease stage IV - With episode of hyperkalemia - avoid nephrotoxins. - nephrology consulted and has signed off DVT prophylaxis heparin. Disposition: Palliative care has evaluated the patient. They indicate the patient is a candidate for hospice care, however need to identify healthcare decision-maker Discharge Planning junior brand manager working diligently on discharge planning 09/01/15 2:30pm: YANDEL had discussion with Palliative Care MD who recommends that we try to find another friend or family member to be medical surrgorate. YANDEL contacted friend on pt's contact list who stated that she is just the neighbor and she is on the list only so there would be someone to contact the pt's safiaice. Pt kim Watkins is the main contact for the hospital and she is not willing to sign medical paperwork stating that she is not able to be responsible. Neighbor gave cm pt's other kim Lawrence [phone]. recommended that if nothing works that an accurant report be completed and than social work advantage. YANDEL contacted Denise from [employer] with request for accurant report as no where YANDEL was able to find if one was completed. Awaiting call back. Yessica YOUNG CM 11:50am: Pt transfering to [facility] to room 8524. YANDEL s/w kim Watkins and notified her of transfer. Tyler Velasquez CM Sep 04, 2016 09:53
--- NOTE | 2016-09-04 17:38 | HHI.HCPN ---
I received a call from case management today. Case management was searching for an alternate health care decision maker given the patient's niece had told case management the following..... 08/04/16 CM s/w pt's niece who stated that she is not the pt's POA and she does not know why everyone says she is. Niece said that she is not able to be the POA. Pt will need guardian. Case management had located a brother -- Juan Fuller of [place], [place] [phone] or [phone]. Mr. Fuller wanted to speak with a physician. I spoke with Mr. Fuller for about 25-30 minutes. I reviewed the patient's history since her stroke in May. I reviewed the functional status as described by the nursing staff at [facility] prior to this admission. I reported on the reason for this current admission and the hospital course. I spoke about her lack of cooperation with physical therapy and her poor dietary intake. I reviewed the specifics of her advance directives. Mr. Fuller has kept in touch with his niece, June, and was also aware of his sister's condition after the stroke. He described his sister as "very independent," "very difficult," and "very opinionated." "It was Mera's way or the highway." He was not surprised that she was uncooperative with physical therapy. He feels strongly that based on her advance directives, based on how she valued her independence, and based on her current clinical condition she would not want to be resuscitated. PLAN: * Mr. Fuller will call his niece June, the designated health care surrogate, and confirm that she does not want to be the surrogate any longer. I have avoided calling June directly as the case management note suggests she does not want to be bothered anymore and I do not want to appear to be harassing her. * Mr. Fuller, in principle, agrees to accept the role of health care proxy , but wants the proxy paper work sent to his state's attorney ( ) for him to review. * Mr. Fuller will speak to his state's attorney on Thursday 09/07 and get back to us. * Mr. Alina, in principle is open to hospice enrollment. Given the patient's unwillingness to participate with physical therapy, given her inability to maintain her nutritional needs, given the current need for hospitalization, and given her underlying co-morbidities, I believe she has a life expectancy of 6 months or less. * Per case management notes, placement has been an issue. I am hopeful with hospice enrollment, there will be more placement options. . Jason Santoyo MD Sep 04, 2016 17:38
[2016-09-04 19:15] VITALS: BP 140/84; PULSE 92; RESP 24; TEMP 98.5; O2SAT 96
[2016-09-04] MEDS: DOXAZOSIN MESYLATE 2 MG TAB PO SCH (22:09)
[2016-09-04] MEDS: MIRTAZAPINE 15 MG TAB PO SCH (22:09)
[2016-09-04] MEDS: PRAVASTATIN SOD 80 MG TAB PO SCH (22:09)
[2016-09-05] MEDS: ACETAMINOPHEN 325 MG TAB PO SCH ×4 (06:42→21:42)
[2016-09-05] MEDS: HEPARIN SODIUM - SQ 10,000 UNITS/ML VIAL SQ SCH ×2 (06:43→18:15)
[2016-09-05] MEDS: INSULIN ASPART SUPPLEMENTAL SCALE SQ SCH ×4 (06:46→21:00)
[2016-09-05 07:55] LABS: AUTOMATED NEUTROPHIL # 3.8 TH/MM3 (1.8-7.7); BASOPHIL # 0.1 TH/MM3 (0-0.2); BASOPHIL % 1.4 % (0.0-2.0); EOSINOPHIL # 0.2 TH/MM3 (0-0.4); EOSINOPHIL % 3.3 % (0.0-4.0); HEMATOCRIT 33.7 % (35.0-46.0); HEMO FLAGS DIFF FINAL; LYMPHOCYTE # 1.6 TH/MM3 (1.0-4.8); MEAN CELL VOLUME 92.3 FL (80.0-100.0); MEAN CORPUSCULAR HEMOGLOBIN 30.5 PG (27.0-34.0); MEAN CORPUSCULAR HGB CONC 33.1 % (32.0-36.0); MONO % 10.4 % (0.0-8.0); NEUT % 59.9 % (16.0-70.0); PLATELET COUNT 224 TH/MM3 (150-450); RED BLOOD COUNT 3.65 MIL/MM3 (4.00-5.30); RED CELL DISTRIBUTION WIDTH 14.2 % (11.6-17.2); WHITE BLOOD COUNT 6.4 TH/MM3 (4.0-11.0)
[2016-09-05 08:00] VITALS: BP 103/57; PULSE 59; RESP 16; TEMP 98.9; O2SAT 96
[2016-09-05 08:06] LABS: CHLORIDE 115 MEQ/L (98-107); POTASSIUM 4.3 MEQ/L (3.5-5.1); SODIUM (NA) 149 MEQ/L (136-145)
[2016-09-05 08:09] LABS: ANION GAP 11 MEQ/L (5-15); BICARBONATE 22.6 MEQ/L (21.0-32.0)
[2016-09-05 08:10] LABS: BLOOD UREA NITROGEN 53 MG/DL (7-18)
[2016-09-05 08:13] LABS: ALT (GPT) 10 U/L (10-53); AST (GOT) 14 U/L (15-37); GLOMERULAR FILTRATION RATE 12 ML/MIN (>89)
[2016-09-05 08:14] LABS: TOTAL BILIRUBIN ADULT 0.6 MG/DL (0.2-1.0)
[2016-09-05 08:16] LABS: ALKALINE PHOSPHATASE 76 U/L (45-117)
[2016-09-05] MEDS: METOPROLOL TARTRATE 25 MG TAB PO SCH ×2 (09:00→21:43)
[2016-09-05] MEDS: MEGESTROL ACETATE SUSP 400 MG/10 ML CUP PO SCH (09:36)
[2016-09-05] MEDS: METHYLPHENIDATE HCL 5 MG TAB PO SCH (09:36)
[2016-09-05] MEDS: FLUDROCORTISONE ACETATE 0.1 MG TAB PO SCH (09:37)
[2016-09-05] MEDS: ASPIRIN 81 MG CHEW TAB CHEW SCH (09:37)
--- NOTE | 2016-09-05 09:50 | HHI.PR ---
Subjective Remarks Patient examined today. No change in clinical status. Patient responding with okay Objective Vitals Vital Signs Date Time Temp Pulse Resp B/P Pulse Ox O2 Delivery O2 Flow Rate FiO2 09/05/16 08:00 98.9 59 16 103/57 96 09/05/16 07:42 16 09/04/16 19:15 98.5 92 24 140/84 96 I/O 09/04/16 09/04/16 09/04/16 09/05/16 09/05/16 09/05/16 07:00 15:00 23:00 07:00 15:00 23:00 Intake Total 60 ml 0 ml 50 ml Balance 60 ml 0 ml 50 ml Intake Oral 60 ml 50 ml IV Total 0 ml 0 ml # Voids 3 6 # Bowel Movements 0 Result Diagram: 09/05/1674009/05/1641 Objective Remarks GENERAL: Well-developed, well-nourished, in no acute distress. She is arousable , she only answers okay to every question. Unable to obtain accurate orientation HEENT: Head is normocephalic without any lesions or masses noted. Facial features are symmetric. Eyes: Extraocular muscles are intact. Conjunctivae were clear. NECK: Trachea midline no deviation. CARDIAC: Regular rhythm, regular rate. S1/S2 are heard. No murmurs gallops or rubs. LUNGS: Clear to auscultation bilaterally. No wheeze, rhonchi or rales. No use of accessory muscles on inspiration or expiration. ABDOMEN: Soft, nontender. Nondistended. Bowel sounds heard in all 4 quadrants. No organomegaly or masses. Negative rebound, negative guarding EXTREMITIES: No edema, pulses are equal bilaterally. No cyanosis or clubbing NEUROLOGY: Difficult to ascertain mood and affect due to patient's cognitive ability and participation in patient examination Procedures None Urinary Catheter: No Vascular Central Line Catheter: No A/P Assessment and Plan Metabolic encephalopathy/ History of CVA. Mental status still waxes and wanes. Likely secondary to underlying dementia or chronic cognition issue. Treated for UTI. - continue ASA and statin. - PT/OT. - avoid sedating meds. Currently off restraints. - Nursing staff indicates that patient is really not eating that well. She has had significant medical weight loss. We'll consult dietary, speech therapy for evaluation. We'll check pre-albumin level to evaluate malnutrition Severe sepsis (Temp 94F, RR 22, UTI, WILL on chronic kidney disease) - resolved - Due to Klebsiella UTI. - Renal ultrasound without evidence of nephritis or hydronephrosis, however does show nonobstructing 7 mm calculus in the left kidney. - S/p Ceftin course Hypertension-labile - Lopressor to 75 mg BID, Holding parameters in place. - amlodipine 10 mg po daily - Cardura 4 mg hs - When necessary clonidine - Monitor and adjust Ventricular tachycardia, nonsustained, resolved Asymptomatic on 08/05. Likely secondary to hyperkalemia. 5 beat run noted on . - Kayexalate as needed. Potassium level stable 08/14. - Lopressor to 75 mg BID, Holding parameters in place. Diabetes with episode of hypoglycemia Possibly related to sepsis. - Continue Accu-Cheks - Sliding scale insulin, patient is only received 2 units in the last 5 days. Poor oral intake/appetite/moderate protein calorie malnutrition Nutritional intake apparently inadequate. - Megace and dietitian following.- - Remeron to 7.5 mg daily. - Check pre-albumin Chronic kidney disease stage IV - With episode of hyperkalemia - avoid nephrotoxins. - nephrology consulted and has signed off DVT prophylaxis heparin. Disposition: Palliative care has evaluated the patient. They indicate the patient is a candidate for hospice care, however need to identify healthcare decision-maker Discharge Planning backpackers manager working diligently on discharge planning 09/01/15 2:30pm: YANDEL had discussion with Palliative Care MD who recommends that we try to find another friend or family member to be medical surrgorate. YANDEL contacted friend on pt's contact list who stated that she is just the neighbor and she is on the list only so there would be someone to contact the pt's kim. Pt kim Watkins is the main contact for the hospital and she is not willing to sign medical paperwork stating that she is not able to be responsible. Neighbor gave pt's other kim Lawrence [phone]. recommended that if nothing works that an accurant report be completed and than social work advantage. YANDEL contacted Denise from [employer] with request for accurant report as no where YANDEL was able to find if one was completed. Awaiting call back. Yessica YOUNG CM 11:50am: Pt transfering to [facility] to room 8524. CM s/w kim Watkins and notified her of transfer. Tyler Velasquez CM Sep 05, 2016 09:50
[2016-09-05 20:24] VITALS: BP 150/86; PULSE 99; RESP 18; TEMP 98.1; O2SAT 94
[2016-09-05] MEDS: PRAVASTATIN SOD 80 MG TAB PO SCH (21:41)
[2016-09-05] MEDS: MIRTAZAPINE 15 MG TAB PO SCH (21:42)
[2016-09-05] MEDS: DOXAZOSIN MESYLATE 2 MG TAB PO SCH (21:45)
[2016-09-06] MEDS: HEPARIN SODIUM - SQ 10,000 UNITS/ML VIAL SQ SCH ×2 (06:00→18:14)
[2016-09-06] MEDS: INSULIN ASPART SUPPLEMENTAL SCALE SQ SCH ×4 (06:00→21:00)
[2016-09-06] MEDS: ACETAMINOPHEN 325 MG TAB PO SCH ×3 (06:09→22:15)
[2016-09-06 08:00] VITALS: BP 123/69; PULSE 69; RESP 19; TEMP 97.8; O2SAT 93
[2016-09-06] MEDS: METOPROLOL TARTRATE 25 MG TAB PO SCH ×2 (09:37→22:16)
[2016-09-06] MEDS: METHYLPHENIDATE HCL 5 MG TAB PO SCH (09:37)
[2016-09-06] MEDS: FLUDROCORTISONE ACETATE 0.1 MG TAB PO SCH (09:37)
[2016-09-06] MEDS: ASPIRIN 81 MG CHEW TAB CHEW SCH (09:37)
[2016-09-06] MEDS: MEGESTROL ACETATE SUSP 400 MG/10 ML CUP PO SCH (09:38)
--- NOTE | 2016-09-06 10:20 | HHI.PR ---
Subjective Remarks Patient seen and examined today. Patient answering yes to every question Objective Vitals Vital Signs Date Time Temp Pulse Resp B/P Pulse Ox O2 Delivery O2 Flow Rate FiO2 09/06/16 08:00 97.8 69 19 123/69 93 09/06/16 07:09 16 09/05/16 20:24 98.1 99 18 150/86 94 I/O 09/05/16 09/05/16 09/05/16 09/06/16 09/06/16 09/06/16 07:00 15:00 23:00 07:00 15:00 23:00 Intake Total 50 ml 75 ml Balance 50 ml 75 ml Intake Oral 50 ml 75 ml # Voids 6 1 1 3 # Bowel Movements 0 Result Diagram: 09/05/1674009/05/16740 Objective Remarks GENERAL: Well-developed, well-nourished, in no acute distress. She is arousable , she only answers yes or shakes her head to every question. Unable to obtain accurate orientation HEENT: Head is normocephalic without any lesions or masses noted. Facial features are symmetric. Eyes: Extraocular muscles are intact. Conjunctivae were clear. NECK: Trachea midline no deviation. CARDIAC: Regular rhythm, regular rate. S1/S2 are heard. No murmurs gallops or rubs. LUNGS: Clear to auscultation bilaterally. No wheeze, rhonchi or rales. No use of accessory muscles on inspiration or expiration. ABDOMEN: Soft, nontender. Nondistended. Bowel sounds heard in all 4 quadrants. No organomegaly or masses. Negative rebound, negative guarding EXTREMITIES: No edema, pulses are equal bilaterally. No cyanosis or clubbing NEUROLOGY: Difficult to ascertain mood and affect due to patient's cognitive ability and participation in patient examination Procedures None Urinary Catheter: No Vascular Central Line Catheter: No A/P Assessment and Plan Metabolic encephalopathy/ History of CVA. Mental status still waxes and wanes. Likely secondary to underlying dementia or chronic cognition issue. Treated for UTI. - continue ASA and statin. - PT/OT. - avoid sedating meds. Currently off restraints. - Nursing staff indicates that patient is really not eating that well. She has had significant medical weight loss. We'll consult dietary, speech therapy for evaluation. We'll check pre-albumin level to evaluate malnutrition Severe sepsis (Temp 94F, RR 22, UTI, WILL on chronic kidney disease) - resolved - Due to Klebsiella UTI. - Renal ultrasound without evidence of nephritis or hydronephrosis, however does show nonobstructing 7 mm calculus in the left kidney. - S/p Ceftin course Hypertension-labile - Lopressor to 75 mg BID, Holding parameters in place. - amlodipine 10 mg po daily - Cardura 4 mg hs - When necessary clonidine - Monitor and adjust Ventricular tachycardia, nonsustained, resolved Asymptomatic on 08/05. Likely secondary to hyperkalemia. 5 beat run noted on . - Kayexalate as needed. Potassium level stable 08/14. - Lopressor to 75 mg BID, Holding parameters in place. Diabetes with episode of hypoglycemia Possibly related to sepsis. - Continue Accu-Cheks - Sliding scale insulin, patient is only received 2 units in the last 5 days. Poor oral intake/appetite/moderate protein calorie malnutrition Nutritional intake apparently inadequate. - Megace and dietitian following.- - Remeron to 7.5 mg daily. - Pre-albumin and 20 Chronic kidney disease stage IV -With worsening renal function, hypernatremia, likely secondary to poor by mouth intake, - avoid nephrotoxins. - nephrology consulted and has signed off - Start IV and give 1 L of IV fluids DVT prophylaxis heparin. Disposition: Palliative care has evaluated the patient. They indicate the patient is a candidate for hospice care, however they are still trying to identify healthcare decision-maker Discharge Planning esthetician and manager medical spa working diligently on discharge planning 09/01/15 2:30pm: YANDEL had discussion with Palliative Care MD who recommends that we try to find another friend or family member to be medical surrgorate. YANDEL contacted friend on pt's contact list who stated that she is just the neighbor and she is on the list only so there would be someone to contact the pt's kim. Pt kim Watkins is the main contact for the hospital and she is not willing to sign medical paperwork stating that she is not able to be responsible. Neighbor gave cm pt's other kim Lawrence [phone]. recommended that if nothing works that an accurant report be completed and than social work advantage. YANDEL contacted Denise from [employer] with request for accurant report as no where YANDEL was able to find if one was completed. Awaiting call back. Yessica YOUNG CM 11:50am: Pt transfering to [facility] [place] to room 8524. YANDEL s/w kim Watkins and notified her of transfer. Tyler Velasquez CM Sep 06, 2016 10:19
[2016-09-06] MEDS: SODIUM CHLOR 0.9% 1000 ML INJ 1,000 ML IV SCH ×2 (11:02→22:25)
[2016-09-06 20:00] VITALS: BP 119/78; PULSE 71; RESP 16; TEMP 97.9; O2SAT 98
[2016-09-06] MEDS: MIRTAZAPINE 15 MG TAB PO SCH (22:14)
[2016-09-06] MEDS: PRAVASTATIN SOD 80 MG TAB PO SCH (22:15)
[2016-09-06] MEDS: DOXAZOSIN MESYLATE 2 MG TAB PO SCH (22:15)
[2016-09-07 05:52] LABS: BICARBONATE 24.8 MEQ/L (21.0-32.0)
[2016-09-07] MEDS: INSULIN ASPART SUPPLEMENTAL SCALE SQ SCH ×4 (06:24→22:07)
[2016-09-07] MEDS: ACETAMINOPHEN 325 MG TAB PO SCH ×3 (06:40→22:08)
[2016-09-07] MEDS: HEPARIN SODIUM - SQ 10,000 UNITS/ML VIAL SQ SCH ×2 (06:41→17:08)
[2016-09-07 08:00] VITALS: BP 132/77; PULSE 66; RESP 16; TEMP 96.1; O2SAT 98
[2016-09-07] MEDS: ASPIRIN 81 MG CHEW TAB CHEW SCH (08:31)
[2016-09-07] MEDS: METHYLPHENIDATE HCL 5 MG TAB PO SCH (08:31)
[2016-09-07] MEDS: METOPROLOL TARTRATE 25 MG TAB PO SCH ×2 (08:31→22:06)
[2016-09-07] MEDS: FLUDROCORTISONE ACETATE 0.1 MG TAB PO SCH (08:32)
[2016-09-07] MEDS: MEGESTROL ACETATE SUSP 400 MG/10 ML CUP PO SCH (08:32)
--- NOTE | 2016-09-07 11:55 | HHI.PR ---
Subjective Remarks Patient seen and examined today. Patient denies any new complaints. No change clinical status. Nursing staff requesting that we get someone to cut her toenails Objective Vitals Vital Signs Date Time Temp Pulse Resp B/P Pulse Ox O2 Delivery O2 Flow Rate FiO2 09/07/16 08:00 96.1 66 16 132/77 98 09/06/16 23:15 14 09/06/16 20:00 97.9 71 16 119/78 98 I/O 09/06/16 09/06/16 09/06/16 09/07/16 09/07/16 09/07/16 07:00 15:00 23:00 07:00 15:00 23:00 Intake Total 50 ml 524 ml 240 ml Balance 50 ml 524 ml 240 ml Intake Oral 50 ml 60 ml 240 ml IV Total 464 ml # Voids 3 2 4 3 # Bowel Movements 0 0 Result Diagram: 09/05/16 0741 09/07/16 0447 Objective Remarks GENERAL: Well-developed, well-nourished, in no acute distress. She is arousable , she only answers yes or shakes her head to every question. Unable to obtain accurate orientation HEENT: Head is normocephalic without any lesions or masses noted. Facial features are symmetric. Eyes: Extraocular muscles are intact. Conjunctivae were clear. NECK: Trachea midline no deviation. CARDIAC: Regular rhythm, regular rate. S1/S2 are heard. No murmurs gallops or rubs. LUNGS: Clear to auscultation bilaterally. No wheeze, rhonchi or rales. No use of accessory muscles on inspiration or expiration. ABDOMEN: Soft, nontender. Nondistended. Bowel sounds heard in all 4 quadrants. No organomegaly or masses. Negative rebound, negative guarding EXTREMITIES: No edema, pulses are equal bilaterally. No cyanosis or clubbing NEUROLOGY: Difficult to ascertain mood and affect due to patient's cognitive ability and participation in patient examination Procedures None Urinary Catheter: No Vascular Central Line Catheter: No A/P Assessment and Plan Metabolic encephalopathy/ History of CVA. Mental status still waxes and wanes. Likely secondary to underlying dementia or chronic cognition issue. Treated for UTI. - continue ASA and statin. - PT/OT. - avoid sedating meds. Currently off restraints. - Nursing staff indicates that patient is really not eating that well. She has had significant medical weight loss. We'll consult dietary, speech therapy for evaluation. We'll check pre-albumin level to evaluate malnutrition Severe sepsis (Temp 94F, RR 22, UTI, WILL on chronic kidney disease) - resolved - Due to Klebsiella UTI. - Renal ultrasound without evidence of nephritis or hydronephrosis, however does show nonobstructing 7 mm calculus in the left kidney. - S/p Ceftin course Hypertension-labile - Lopressor to 75 mg BID, Holding parameters in place. - amlodipine 10 mg po daily - Cardura 4 mg hs - When necessary clonidine - Monitor and adjust Ventricular tachycardia, nonsustained, resolved Asymptomatic on 08/05. Likely secondary to hyperkalemia. 5 beat run noted on . - Kayexalate as needed. Potassium level stable 08/14. - Lopressor to 75 mg BID, Holding parameters in place. Diabetes with episode of hypoglycemia Possibly related to sepsis. - Continue Accu-Cheks - Sliding scale insulin, patient is only received 2 units in the last 5 days. Poor oral intake/appetite/moderate protein calorie malnutrition Nutritional intake apparently inadequate. - Megace and dietitian following.- - Remeron to 7.5 mg daily. - Pre-albumin and 20 Chronic kidney disease stage IV -With worsening renal function, hypernatremia, likely secondary to poor by mouth intake, - avoid nephrotoxins. - nephrology consulted and has signed off - Start IV and give 1 L of IV fluids DVT prophylaxis heparin. Disposition: Palliative care has evaluated the patient. They indicate the patient is a candidate for hospice care, however they are still trying to identify healthcare decision-maker Discharge Planning lawn service manager working diligently on discharge planning 09/01/15 2:30pm: YANDEL had discussion with Palliative Care MD who recommends that we try to find another friend or family member to be medical surrgorate. YANDEL contacted friend on pt's contact list who stated that she is just the neighbor and she is on the list only so there would be someone to contact the pt's kim. Pt safiamitzy June is the main contact for the hospital and she is not willing to sign medical paperwork stating that she is not able to be responsible. Neighbor gave cm pt's other kim Lawrence [phone]. recommended that if nothing works that an accurant report be completed and than social work advantage. YANDEL contacted Denise from [employer] with request for accurant report as no where CM was able to find if one was completed. Awaiting call back. Yessica YOUNG CM 11:50am: Pt transfering to [facility] to room 8524. YANDEL s/w kim Watkins and notified her of transfer. Tyler Velasquez CM Sep 07, 2016 11:55
--- NOTE | 2016-09-07 15:14 | HHI.HCPN ---
Reason for visit a. To assist with evaluation and management of symptoms including: delirium ; pain b. To assist medical decision maker(s) with: better understanding of current medical conditions; weighing benefits/burdens of medical treatment options; making medical treatment decisions. . Subjective/Interval History Mr. Fuller is awake and alert at time of my visit. She is calm and cooperative. She shakes her head "no" when I inquire about pain. She is non- verbal for most of my visit, then speaks gibberish as I am leaving. I let her know I had spoken to her brother Juan in [place]. She did not particularly react to that news. I let her know I would be speaking with Juan again and if there is anything she would want me to say to him. She made no attempt to respond. 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 No definitive response on the very low dose of 2.5 mg po qd. No SSRI has been started. Nurses reports the patient has been mostly cooperative today. the prior two days, she has resisted personal care. Nurse and SHIRT SORTER report that nutritional intake is poor. She does manage to get through 2-3 Ensure's per day but is eating 10-15 % of meals. No bowel movement since 09/04/15. Voiding regularly. VS are stable. Hg now up to 11.1. Renal function has been declining since -- Creatinine now up to 3.8 and GFR down to 11. From Dr. Santoyo's initial palliative care note of 09/01/16... Ms. Fuller is an 86 y/o female with a known past history of hypertension; DM; chronic kidney disease; COPD; stroke; hyperlipidemia who presented to [facility] Emergency Department on 07/24/2016 after suffering a fall. The patient was a resident at [facility]. At the time of the fall she struck her forehead. Evaluation at the nursing facility also noted her blood glucose to be 25 and she received intramuscular glucagon in the facility prior to transport. Glucose came up to 40. The nursing facility reported that at baseline the patient was nonverbal and minimally interactive. Initial vital signs in the emergency department were as follows: Temperature 95.6; pulse 77; respiratory rate 22; blood pressure 140/106; pulse oximetry 96% on room air Physical examination by the emergency room physician noted the following: Patient was in mild to moderate distress which was attributed to pain from her fall. A 5 cm cephalohematoma was noted on the right forehead. The patient was nonverbal and only occasionally move her extremities. The remainder the physical exam was unremarkable. Initial diagnostic testing revealed the following: * CBC showed WBC 11.3; hemoglobin 12.5; platelet count 219 * Basic metabolic profile showed sodium 142; potassium 4.4; chloride 109; CO2 23.5; anion gap 10; BUN 64; creatinine 2.17; GFR 14; glucose 86; lactic acid 2.2 ; calcium 9.0 * Liver function studies show total bilirubin 0.3; AST 33; ALT 17; alkaline phosphatase 121; total protein 7.4; albumin 3.3 * Lipase was 192 * Urinalysis was remarkable for large occult blood; large leukocyte esterase; many WBC clumps; and many bacteria. Urine protein was 100 mg/dL * Chest x-ray was unremarkable CT of the head showed a suspected recent infarct involving the left middle cerebral artery territory at the left temporal and parietal lobes. Widespread suspected small vessel ischemic changes were noted. Old lacunar infarcts of the thalamus were noted. An acute right frontal scalp hematoma was noted. The patient's hypothermia was treated in the emergency department with warming blankets. The sepsis bundle protocol was initiated. She was started on cefepime. The patient was admitted to the [facility]. While still in the emergency department blood glucose was checked once again and had fallen to 24. 2 A of D50 were administered which increased her blood glucose to 393. A D5 normal saline drip was started. The patient slowly improved -- with resolution of infection and normalization of blood sugars. Mental status remained variable. Per notes of physicians and staff, she is often sleepy/lethargic particularly in the mornings. When awakened, she has few recognizable words (often profanity). She is able to follow simple instructions on occasions. She will occasionally resist care when sleepy or the procedure is uncomfortable (e.g. accucheck). Initially, it appeared she would be discharged in early July. Nutritional intake was a concern, but with staff help, calorie intake has improved. Another obstacle to discharge has been finding a willing health care decision maker. Her listed health care surrogate -- her niece June -- has not wanted to sign any forms for fear that she would be financially responsible. At time of my visit, patient is sleepy. When I awake her she just seems perturbed and will not engage. . Family/friend interactions I spoke with patient's brother Juan (see my note of 09/04/15). His assistant attorney general has received the letter/documents I sent. The Juan will meet with his attorny on 09/08 or 09/09 to see if he wants to serve as health care proxy. I once again reiterated that we are looking for someone to make health care decisions only, NOT to take on financial responsibility. If his assistant attorney general has any questions, I urged him to let me know and we could have him speak to our hospital assistant attorney general. Juan also told me that he spoke to his niece June. He was going to call to make sure she did not want to serve as surrogate. Juan tells me that she hung up on him. Juan also spoke to the patient's nephew. He would probably be the next relative to pursue to assume proxy status if Juan says no. Juan tells me that this nephew is currently overwhelmed himself as his is dealing with cancer. I explained to Juan the [place] hierarchy and we will go to all available family friends. If none are interested, we will engage a clinical social worker for this purpose. Juan assures me he will try and make a decision as soon as possible. . Advance Directives Living Will: Copy in medical record Health Care Surrogate: Copy in medical record Durable Power of Mushroom Laborer: Never completed Advance Directive Specifics Date completed: Living will and health care surrogate designation completed on 05/19/2014. . Health Care Surrogate(s): Patient designated June Gann (niece?) as health care surrogate but Ms. Gann declines the role. . Documented care wishes: Living will states she would not want life prolonging measures if she is found to have a terminal illness, end-stage condition, or persistent vegetative state. At no time which she want a tracheostomy. At no time which she want a permanent feeding tube. She would only accept life support if the physicians felt there was a reasonable chance of meaningful recovery. By meaningful recovery she would not want to be bedridden or hooked to tubes the rest of her life. Even if life support was implemented she would not want to be on it for longer than 10 days. . Objective Vital Signs Date Time Temp Pulse Resp B/P Pulse Ox O2 Delivery O2 Flow Rate FiO2 09/07/16 08:00 96.1 66 16 132/77 98 09/06/16 23:15 14 09/06/16 20:00 97.9 71 16 119/78 98 Intake & Output 09/07/16 09/07/16 06:59 18:59 Intake Total 464 ml Balance 464 ml Intake Oral 300 ml IV Total 164 ml # Voids 7 # Bowel Movements 0 . Physical Exam CONSTITUTIONAL/GENERAL: This is an adequately nourished patient, in no apparent distress. Awake and alert. Intermittently nods/shakes head to answer. Occasional gibberish speech. No apparent distress. TUBES/LINES/DRAINS: Peripheral iv SKIN: No jaundice, rashes, or lesions. No wounds seen anteriorly. Skin temperature appropriate. Not diaphoretic. EYES: Pupils equal and round. Extraocular motions intact. No scleral icterus. No injection or drainage. Fundi not examined. ENT: Appears to hear me. Nose without bleeding or purulent drainage. Throat without visible erythema, exudates, masses, or lesions. NECK: Trachea midline. Supple. CARDIOVASCULAR: Regular rate and rhythm without murmurs, gallops, or rubs. No JVD. RESPIRATORY/CHEST: Symmetric, unlabored respirations. Clear to auscultation. Breath sounds equal bilaterally. No wheezes, rales, or rhonchi. GASTROINTESTINAL: Abdomen soft, non-tender, nondistended. No hepato-splenomegaly , or palpable masses. No guarding. Bowel sounds present. GENITOURINARY: Without palpable bladder distension. MUSCULOSKELETAL: Extremities without clubbing, cyanosis, or edema. No calf tenderness. No mottling . LYMPHATICS: Not examined. NEUROLOGICAL: Awake alert. Tracks me. Intermittently follows some very simple commands. Moves all extremities. Intermittently nods/shakes head to simple questions. When she does speak, it is unintelligible gibberish. PSYCHIATRIC: No obvious hallucinations or psychotic process. Speech not comprehensible for me. . Diagnostic Tests Laboratory Laboratory Tests Test 09/05/16 09/07/16 07:41 04:47 White Blood Count 6.4 TH/MM3 (4.0-11.0) Red Blood Count 3.65 MIL/MM3 (4.00-5.30) Hemoglobin 11.1 GM/DL (11.6-15.3) Hematocrit 33.7 % (35.0-46.0) Mean Corpuscular Volume 92.3 FL (80.0-100.0) Mean Corpuscular Hemoglobin 30.5 PG (27.0-34.0) Mean Corpuscular Hemoglobin 33.1 % Concent (32.0-36.0) Red Cell Distribution Width 14.2 % (11.6-17.2) Platelet Count 224 TH/MM3 (150-450) Mean Platelet Volume 10.0 FL (7.0-11.0) Neutrophils (%) (Auto) 59.9 % (16.0-70.0) Lymphocytes (%) (Auto) 25.0 % (9.0-44.0) Monocytes (%) (Auto) 10.4 % (0.0-8.0) Eosinophils (%) (Auto) 3.3 % (0.0-4.0) Basophils (%) (Auto) 1.4 % (0.0-2.0) Neutrophils # (Auto) 3.8 TH/MM3 (1.8-7.7) Lymphocytes # (Auto) 1.6 TH/MM3 (1.0-4.8) Monocytes # (Auto) 0.7 TH/MM3 (0-0.9) Eosinophils # (Auto) 0.2 TH/MM3 (0-0.4) Basophils # (Auto) 0.1 TH/MM3 (0-0.2) CBC Comment DIFF FINAL Differential Comment Sodium Level 149 MEQ/L 154 MEQ/L (136-145) (136-145) Potassium Level 4.3 MEQ/L 4.0 MEQ/L (3.5-5.1) (3.5-5.1) Chloride Level 115 MEQ/L 119 MEQ/L (98-107) (98-107) Carbon Dioxide Level 22.6 MEQ/L 24.8 MEQ/L (21.0-32.0) (21.0-32.0) Anion Gap 11 MEQ/L (5-15) 10 MEQ/L (5-15) Blood Urea Nitrogen 53 MG/DL (7-18) 66 MG/DL (7-18) Creatinine 3.50 MG/DL 3.80 MG/DL (0.50-1.00) (0.50-1.00) Estimat Glomerular Filtration 12 ML/MIN (>89) 11 ML/MIN (>89) Rate Random Glucose 144 MG/DL 132 MG/DL (74-106) (74-106) Calcium Level 9.1 MG/DL 9.1 MG/DL (8.5-10.1) (8.5-10.1) Total Bilirubin 0.6 MG/DL (0.2-1.0) Aspartate Amino Transf 14 U/L (15-37) (AST/SGOT) Alanine Aminotransferase 10 U/L (10-53) (ALT/SGPT) Alkaline Phosphatase 76 U/L (45-117) Total Protein 7.3 GM/DL (6.4-8.2) Albumin 3.0 GM/DL (3.4-5.0) Prealbumin 20 MG/DL (20-40) . Result Diagram: 09/05/16 0741 09/07/16 0447 Microbiology . Imaging Last Impressions Renal Ultrasound 07/27/16 0000 Signed Impressions: Service Date/Time: Wednesday, July 27, 2016 14:05 - CONCLUSION: 1. Kidneys are slightly echogenic which can be seen with medical renal disease. 2. Simple cyst right kidney. 3. Echogenic focus along the lower pole left kidney could be related to nonobstructing calculus measuring 7 mm. Brandt Lowery MD Head CT 07/23/16 8574 Signed Impressions: Service Date/Time: Sunday, July 24, 2016 00:04 - CONCLUSION: 1. Suspected recent infarct involving the left middle cerebral artery territory at the left temporal and parietal lobes. 2. Age-related atrophy. 3. Widespread suspected small vessels ischemic change in the white matter. 4. 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 5. Acute right frontal scalp hematoma. Francis Gibson MD Chest X-Ray 07/23/16 2996 Signed Impressions: Service Date/Time: June 23:48 - CONCLUSION: No acute disease. Francis Gibson MD . Assessment and Plan Disease Oriented Problem List: (1) Sepsis due to urinary tract infection (2) UTI (urinary tract infection) (3) CKD (chronic kidney disease) stage 4, GFR 15-29 ml/min (4) WILL (acute kidney injury) (5) Delirium (6) Diabetes mellitus, type 2 (7) Hypoglycemia associated with diabetes (8) CVA (cerebral vascular accident) Comment: May 2016 -- residual dysphasia . (9) Aphasia (10) Anemia (11) Hypoalbuminemia Symptom Scale: (1) Pain 0-10 Scale: 0 Comment: Not complaining of pain today. Does not like to be moved -- unclear if this is due to discomfort or just does not want to be bothered. . (2) Lethargy 0-10 Scale: 0 (3) Encephalopathy 0-10 Scale: Unable to quantify Pertinent Non-Medical Issues Psychosocial: RE[facility]ident at [facility] . Spiritual: Unknown Legal: Has a LW. Designated health care surrogate does not want to fully participate. Ethical issues impacting care: Patient is incapacitated and will not regain capacity. . Important Contacts * June Gann (niece) [phone] is the designated health care surrogate but is refusing to sign any documents (e.g. care home admissions). * Juan Alina (brother) [phone] and [phone] Juan is considering accepting proxy status as June is refusing. He will be talking it over with his assistant attorney general. * Ruth Fuentes (neighbor) [phone] . Prognosis Patient has multiple problems. She is debilitated from a stroke she suffered in May 2016 and [facility]. She was admitted this time with urosepsis and difficult to control blood sugars. 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 She has severe cervical spine disease with multiple areas of foraminal narrowing. She has chronic kidney disease. Her functional status in the nursing facility has been poor. She has impaired vision/hearing/speech. She needs to be fed and maintaining adequate caloric intake has been challenging. She has anemia and has a low albumin. Her renal function is declining. Her mental status renders her unable to participate consistently with physical therapy or occupational therapy so chances of significant improvement are minimal. In my clinical opinion, life expectancy is probably 6 months or less. The patient would be appropriate for hospice care at this time based on her illness. She cannot state her goals/preferences, but her living will clearly states she would not want any type of life support unless there was a good chance of meaningful recovery. She specifically said she would not want a permanent feeding tube and would not want tracheostomy. Meaningful for her would mean she would not want to be bedbound and would not want to be dependent on machines. . Code Status: No Code Plan == Code Status: Full Code == Decision making: Patient is incapacitated to make her own health care decisions. She will not regain capacity. Her designated health care surrogate (her niece-- June) does not want to fulfill that role (e.g. she won't sign any forms for fear that she might become economically responsible). We have found a brother -- Juan Fuller ([place], [place]) who is considering accepting role as proxy. == Goal of medical treatment: The patient has a living will that is scanned into the EMR. It clearly states the following: * No tracheostomy under any circumstances * No permanent feeding tube under any circumstances * She would only want resuscitation attempts and life support if the doctors felt she had a reasonable chance of returning to a meaningful life. For her, meaningful would mean not being bedridden and not needing to be attached to tubes or machines. Given the patient's specific advance directive, given her current clinical situation and decline, and given the understanding of goals/preferences coming from the patient's brother (the closest relative willing to speak with us at this point), I believe the patient would want DNR status. == Pain: Patient is unable to locate/quantify/qualify any pain. She has severe c-spine disease and could easily be uncomfortable from this. I would recommend a trial of acetaminophen 650 mg scheduled TID to help mitigate any pain. == Mood/behavior: Because of her speech/cognitive issues post stroke, patient is unable to describe mood. 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 Would recommend a trial of an SSRI. She has been started on low dose methyphenidate ( 2.5 mg q AM) with no apparent adverse effect but no improvement -- will advance to 5 mg. . THis low dose should still not have a significant impact on BP, pulse, or appetite, but may help mood while awaiting SSRI effect. == Delirium?: Given her history of stroke, her advanced age, and her being in a strange environment, she is a setup for delirium. Would recommend a trial of low dose haloperidol scheduled -- eg. 0.5 mg po q 8 hours ATC. == Nutrition: Patient has specifically stated in her living will that she does NOT want a permanent feeding tube. == Search for a decision maker: See above. Pt's brother -- Juan Fuller -- will be speaking with his assistant attorney general about becoming health are proxy given nijose angel Watkins does not appear to want to serve in this role. If Juan does not want to serve, we will need to speak with the nephew. If he does not want to serve, I believe at that point we would engage [employer]. == Given patient's multiple co-morbidities, poor functional status, inability to participate effectively with PT/OT, and her hospital course, I believe she would be medically eligible for hospice. We will need a proxy decision maker in order to enroll her with hospice. == Palliative care will follow on an as-needed basis to assist with symptom management and to further clarify goals of medical treatment as the clinical course evolves and as we identify a health care decision maker. . Time Spent Total Floor Time (mins): 40 (Over 40 minutes spent on floor with chart review, patient exam, collaboration with nurse and SHIRT SORTER, and above referenced phone conversation with the patient's brother. ) Face to Face Time (mins): 8 >50% Counseling/Coord of Care: Yes Attestation To help prompt me to consider important information that might be impacting today's encounter and assessment, information from prior notes written by myself or my colleagues may have been "brought forward" into today's note. My signature on this note, however, is an attestation that I personally performed the exam, history, and/or decision-making noted today, and, unless otherwise indicated, the interactions with patient, family, and staff as well as the review of records all occurred today. I also attest that the listed assessment and stated plan reflect my best clinical judgment today based on the combination of historical information, prior notes, and today's exam/ interactions. When time spent is documented, it refers only to time spent today by the signer, or if indicated, combined time spent today by collaborating physician/nurse practitioner. . Jason Santoyo MD Sep 07, 2016 15:14
[2016-09-07 20:00] VITALS: BP 106/85; PULSE 64; RESP 20; TEMP 97.7; O2SAT 96
[2016-09-07] MEDS: DOXAZOSIN MESYLATE 2 MG TAB PO SCH (22:06)
[2016-09-07] MEDS: MIRTAZAPINE 15 MG TAB PO SCH (22:06)
[2016-09-07] MEDS: PRAVASTATIN SOD 80 MG TAB PO SCH (22:06)
--- NOTE | 2016-09-07 22:07 | MB ---
cc: CHERELLE BARRIENTOS DATE OF CONSULTATION: 09/07/2016 CHIEF COMPLAINT Painful toenails. HISTORY OF PRESENT ILLNESS Ms. Fuller is an 86-year-old female who was admitted status post stroke. She is currently non-coherent. She responds to questions and answers in a gibberish non-Comoran manner. Most of her history is obtained from the nursing staff and prior medical note. PAST MEDICAL HISTORY: Past medical history includes hypertension, vertigo hyperlipidemia and diabetes mellitus. PAST SURGICAL HISTORY Unknown. MEDICATIONS Please see list. ALLERGIES Hydromorphone FAMILY HISTORY Noncontributory SOCIAL HISTORY Noncontributory. PHYSICAL EXAMINATION She has decreased but palpable DP and PT pulses. Capillary refill time is less than three seconds. Gross sensation is unknown. Biomechanical was deferred. The skin is intact. No open lesions. Elongated dry brittle nail plate is noted. ASSESSMENT/PLAN Bilateral onychomycosis. The patient's nails are debrided x10 at bedside today to the best of my ability with the available instrumentation. The patient tolerated the debridement well. Nursing staff was asked to call if there were any changes or concerns in in the future. I will sign off at this time. Thank you for the consultation. Cherelle ALBARRAN/HARIKA /4:57 PM /9:58 PM ARTEMIO
[2016-09-08] MEDS: ACETAMINOPHEN 325 MG TAB PO SCH ×2 (05:48→14:23)
[2016-09-08] MEDS: HEPARIN SODIUM - SQ 10,000 UNITS/ML VIAL SQ SCH ×2 (05:48→18:13)
[2016-09-08] MEDS: INSULIN ASPART SUPPLEMENTAL SCALE SQ SCH ×4 (06:28→23:49)
[2016-09-08 08:47] VITALS: BP 131/77; PULSE 91; RESP 18; TEMP 98.3; O2SAT 93
--- NOTE | 2016-09-08 09:07 | HHI.PR ---
Subjective Remarks Follow-up for dementia s/p sepsis, hypoglycemia, CVA. Patient's speech is unintelligible. Objective Vitals Vital Signs Date Time Temp Pulse Resp B/P Pulse Ox O2 Delivery O2 Flow Rate FiO2 09/08/16 08:47 98.3 91 18 131/77 93 09/08/16 06:48 16 09/07/16 20:00 97.7 64 20 106/85 96 I/O 09/07/16 09/07/16 09/07/16 09/08/16 09/08/16 09/08/16 07:00 15:00 23:00 07:00 15:00 23:00 Intake Total 240 ml 240 ml 120 ml Balance 240 ml 240 ml 120 ml Intake Oral 240 ml 240 ml 120 ml # Voids 3 1 1 1 # Bowel Movements 0 2 1 Result Diagram: 09/05/16 0741 09/07/16 0447 Objective Remarks GENERAL: Elderly patient in no apparent distress sleeping when I enter the room. SKIN: Warm and dry. CARDIOVASCULAR: Regular rate and rhythm. RESPIRATORY: No accessory muscle use. RR normal. GASTROINTESTINAL: Abdomen soft, non-tender, nondistended. NEUROLOGICAL: Somnolent, but arouses to light touch on the shoulder. Expressive aphasia. PSYCHIATRIC: Patient is somewhat resistant as SHIFT MANAGER attempts to take vitals. Procedures None Urinary Catheter: No Vascular Central Line Catheter: No A/P Problem List: (1) Sepsis due to urinary tract infection ICD Code: A41.9 Status: Acute (2) Hypoglycemia associated with diabetes ICD Code: E11.649 Status: Acute (3) Fall ICD Code: W19.XXXA Status: Acute (4) Delirium ICD Code: R41.0 Status: Acute (5) HTN (hypertension) ICD Code: I10 Status: Chronic (6) DM (diabetes mellitus) ICD Code: E11.9 Status: Chronic (7) CKD (chronic kidney disease) stage 4, GFR 15-29 ml/min ICD Code: N18.4 Status: Chronic (8) WILL (acute kidney injury) ICD Code: N17.9 Status: Acute (9) Aphasia ICD Code: R47.01 Status: Chronic Assessment and Plan Metabolic encephalopathy/ History of CVA. Mental status still waxes and wanes. Likely secondary to underlying dementia or chronic cognition issue. Treated for UTI. - Continue ASA and statin. - PT/OT/ST. - Avoid sedating meds. Currently off restraints. - Nursing staff indicates that patient is really not eating that well. She has had significant medical weight loss. See below. Severe sepsis (Temp 94F, RR 22, UTI, WILL on chronic kidney disease) - resolved - Due to Klebsiella UTI. - Renal ultrasound without evidence of nephritis or hydronephrosis, however does show nonobstructing 7 mm calculus in the left kidney. - S/p Ceftin course Hypertension-labile - Lopressor to 75 mg BID, Holding parameters in place. - amlodipine 10 mg po daily - Cardura 4 mg hs - When necessary clonidine - Monitor and adjust Ventricular tachycardia, nonsustained, resolved Likely secondary to hyperkalemia. - Kayexalate as needed. Potassium level stable 08/14. - Lopressor to 75 mg BID, Holding parameters in place. Diabetes with episode of hypoglycemia. BGL 88 this am. Possibly related to sepsis. - Continue Accu-Cheks - Sliding scale insulin, patient only received 4 units yesterday. Poor oral intake/appetite/moderate protein calorie malnutrition Nutritional intake inadequate. - Pre-albumin 20 - Dietitian following. - Continue Megace, Remeron. - Diet as ordered with Glucerna Shakes. Continue to assist at meal times when needed. Review menu for variety in diet. - ST recommends pureed diet, thin liquids. - May need to consider feeding tube if patient continues with inadequate po intake. Chronic kidney disease stage IV - With worsening renal function BUN/Cr 66/3.8 with hypernatremia Na 154 on 09/07, likely secondary to poor by mouth intake. Patient was given 2 L of normal saline started on 09/06. - Will recheck BMP this morning. Patient may require further IV fluids. - Avoid nephrotoxins. - Nephrology consulted and has signed off; states tube feedings should be considered if patient cannot keep up with adequate oral intake. DVT prophylaxis heparin. Disposition: Palliative care has evaluated the patient. They are still trying to identify healthcare decision-maker. Discharge Planning manager provider relations is following. Working on identifying a healthcare surrogate. Niece indicated by patient does not desire to take on this role. Brother is assisting. Another niece will be contacted. Problem Qualifiers (1) HTN (hypertension): Qualified Code: I10 - Essential hypertension (2) DM (diabetes mellitus): Keesha Miller Sep 08, 2016 09:07
[2016-09-08] MEDS: METOPROLOL TARTRATE 25 MG TAB PO SCH ×2 (09:51→20:24)
[2016-09-08] MEDS: METHYLPHENIDATE HCL 5 MG TAB PO SCH (09:52)
[2016-09-08] MEDS: ASPIRIN 81 MG CHEW TAB CHEW SCH (09:52)
[2016-09-08] MEDS: MEGESTROL ACETATE SUSP 400 MG/10 ML CUP PO SCH (09:52)
[2016-09-08] MEDS: FLUDROCORTISONE ACETATE 0.1 MG TAB PO SCH (09:52)
[2016-09-08 12:37] LABS: POTASSIUM 4.3 MEQ/L (3.5-5.1)
[2016-09-08 12:40] LABS: BICARBONATE 24.4 MEQ/L (21.0-32.0)
[2016-09-08] MEDS: DEXT 5%-NACL 0.45% 1000 ML INJ 1,000 ML IV SCH (17:39)
[2016-09-08 20:00] VITALS: BP 135/79; PULSE 64; RESP 16; TEMP 98.2; O2SAT 98
[2016-09-08] MEDS: PRAVASTATIN SOD 80 MG TAB PO SCH (20:24)
[2016-09-08] MEDS: DOXAZOSIN MESYLATE 2 MG TAB PO SCH (20:25)
[2016-09-08] MEDS: MIRTAZAPINE 15 MG TAB PO SCH (20:25)
[2016-09-09] MEDS: DEXT 5%-NACL 0.45% 1000 ML INJ 1,000 ML IV SCH ×2 (03:18→17:27)
[2016-09-09] MEDS: INSULIN ASPART SUPPLEMENTAL SCALE SQ SCH ×5 (04:21→21:53)
[2016-09-09 05:24] LABS: BICARBONATE 25.4 MEQ/L (21.0-32.0)
[2016-09-09] MEDS: HEPARIN SODIUM - SQ 10,000 UNITS/ML VIAL SQ SCH ×2 (05:53→18:09)
[2016-09-09 08:00] VITALS: BP 130/81; PULSE 82; RESP 18; TEMP 98.1; O2SAT 94
[2016-09-09] MEDS: METOPROLOL TARTRATE 25 MG TAB PO SCH ×2 (09:48→21:54)
[2016-09-09] MEDS: ASPIRIN 81 MG CHEW TAB CHEW SCH (09:48)
[2016-09-09] MEDS: METHYLPHENIDATE HCL 5 MG TAB PO SCH (09:48)
[2016-09-09] MEDS: FLUDROCORTISONE ACETATE 0.1 MG TAB PO SCH (09:48)
[2016-09-09] MEDS: MEGESTROL ACETATE SUSP 400 MG/10 ML CUP PO SCH (09:48)
--- NOTE | 2016-09-09 14:29 | HHI.PR ---
Subjective Remarks Patient seen today in follow-up for dehydration and acute kidney injury. Sodium slightly improved her renal function is improved somewhat. Patient seems IV fluids. Blood sugar followed Objective Vitals Vital Signs Date Time Temp Pulse Resp B/P Pulse Ox O2 Delivery O2 Flow Rate FiO2 09/09/16 08:00 98.1 82 18 130/81 94 09/08/16 20:00 98.2 64 16 135/79 98 09/08/16 15:23 16 I/O 09/08/16 09/08/16 09/08/16 09/09/16 09/09/16 09/09/16 07:00 15:00 23:00 07:00 15:00 23:00 Intake Total 2030 ml 240 ml 645 ml 1441 ml Balance 2030 ml 240 ml 645 ml 1441 ml Intake Oral 30 ml 240 ml 170 ml 820 ml IV Total 2000 ml 475 ml 621 ml # Voids 1 2 1 2 # Bowel Movements 1 0 0 Result Diagram: 09/05/16 0741 09/09/16 0440 Objective Remarks GENERAL: This is a well-nourished, well-developed patient, in no apparent distress. CARDIOVASCULAR: Regular rate and rhythm without murmurs, gallops, or rubs. RESPIRATORY: Clear to auscultation. Breath sounds equal bilaterally. No wheezes , rales, or rhonchi. GASTROINTESTINAL: Abdomen soft, non-tender, nondistended. Normal active bowel sounds MUSCULOSKELETAL: Extremities without clubbing, cyanosis, or edema. NEURO: sleeping; no complaints Procedures None A/P Problem List: (1) WILL (acute kidney injury) ICD Code: N17.9 Status: Acute Plan: Renal function is improving somewhat. We'll continue with IV hydration and follow. Avoid further nephrotoxic injuries Follow sodium for hypernatremia Discharge Planning Case management aware of barriers to discharge Aminata Seo MD Sep 09, 2016 14:29
--- NOTE | 2016-09-09 14:34 | HHI.HCPN ---
Reason for visit a. To assist with evaluation and management of symptoms including: delirium ; pain b. To assist medical decision maker(s) with: better understanding of current medical conditions; weighing benefits/burdens of medical treatment options; making medical treatment decisions. . Subjective/Interval History Ms. Fuller was asleep at time of my visit, but awakened easily to voice/exam. She did not respond to my inquiries about pain/sob. This time, when I told her I had spoken to her brother Juan, she smiled and I believe she said "thank you" and "God bless you" but as always, most of her vocalizations are unintelligible. The patient's methylphenidate was increased to 5 mg po daily on 09/08/16 -- it is feasible that the smile and the response are attributable to that change. Nursing notes continue to show very little consumption of meals. Voiding. Bowels are moving. VS unremarkable. No new lab/imaging. From Dr. Santoyo's initial palliative care note of 09/01/16... Ms. Fuller is an 86 y/o female with a known past history of hypertension; DM; chronic kidney disease; COPD; stroke; hyperlipidemia who presented to [facility] on 07/24/2016 after suffering a fall. The patient was a resident at [facility]. At the time of the fall she struck her forehead. Evaluation at the nursing facility also noted her blood glucose to be 25 and she received intramuscular glucagon in the facility prior to transport. Glucose came up to 40. The nursing facility reported that at baseline the patient was nonverbal and minimally interactive. Initial vital signs in the emergency department were as follows: Temperature 95.6; pulse 77; respiratory rate 22; blood pressure 140/106; pulse oximetry 96% on room air Physical examination by the emergency room physician noted the following: Patient was in mild to moderate distress which was attributed to pain from her fall. A 5 cm cephalohematoma was noted on the right forehead. The patient was nonverbal and only occasionally move her extremities. The remainder the physical exam was unremarkable. Initial diagnostic testing revealed the following: * CBC showed WBC 11.3; hemoglobin 12.5; platelet count 219 * Basic metabolic profile showed sodium 142; potassium 4.4; chloride 109; CO2 23.5; anion gap 10; BUN 64; creatinine 2.17; GFR 14; glucose 86; lactic acid 2.2 ; calcium 9.0 * Liver function studies show total bilirubin 0.3; AST 33; ALT 17; alkaline phosphatase 121; total protein 7.4; albumin 3.3 * Lipase was 192 * Urinalysis was remarkable for large occult blood; large leukocyte esterase; many WBC clumps; and many bacteria. Urine protein was 100 mg/dL * Chest x-ray was unremarkable CT of the head showed a suspected recent infarct involving the left middle cerebral artery territory at the left temporal and parietal lobes. Widespread suspected small vessel ischemic changes were noted. Old lacunar infarcts of the thalamus were noted. An acute right frontal scalp hematoma was noted. The patient's hypothermia was treated in the emergency department with warming blankets. The sepsis bundle protocol was initiated. She was started on cefepime. [facility] While still in the emergency department blood glucose was checked once again and had fallen to 24. 2 A of D50 were administered which increased her blood glucose to 393. A D5 normal saline drip was started. The patient slowly improved -- with resolution of infection and normalization of blood sugars. Mental status remained variable. Per notes of physicians and staff, she is often sleepy/lethargic particularly in the mornings. When awakened, she has few recognizable words (often profanity). She is able to follow simple instructions on occasions. She will occasionally resist care when sleepy or the procedure is uncomfortable (e.g. accucheck). Initially, it appeared she would be discharged in early July. Nutritional intake was a concern, but with staff help, calorie intake has improved. Another obstacle to discharge has been finding a willing health care decision maker. Her listed health care surrogate -- her niece June -- has not wanted to sign any forms for fear that she would be financially responsible. At time of my visit, patient is sleepy. When I awake her she just seems perturbed and will not engage. . Family/friend interactions .I spoke with patient's brother, Juan, at length. Juan has told me verbally that he met with his digital experience manager and he has agreed to serve as "proxy" health care decision maker. His digital experience manager looked up the [place] and was satisfied that serving as proxy did not obligate Juan to any financial responsibility. Juan tells me that signed proxy paperwork was back to [employer] to Fax No: . Unfortunately, I do not know where that fax machine is and cannot find the paperwork. I asked Juan to send them again to my own fax machine. Juan explained he does not have a fax machine at home and will try and get his digital experience manager to fax them again. I also spoke with Juan about appropriate treatment goals for his sister. I updated him on the patient's clinical condition. He agrees that transitioning to "comfort measures" would be what she would want under the circumstances. He agrees to a hospice consult. I explained that we would need his signature to formally enroll his sister into hospice . I explained that hospice care was part of the Medicare benefit and that hospice services would not require any financial obligation. Juan reminded me that he has no control over any of his sister's finances -- those remain in the hands of the niece -- June -- as far as he knows. June, before she hung up on Juan, told Juan that she was no longer receiving the patient's Social Security Check, but Juan was not able to find out where that was going. . Advance Directives Living Will: Copy in medical record Health Care Surrogate: Copy in medical record Durable Power of Certified Breastfeeding Educator: Never completed Advance Directive Specifics Date completed: Living will and health care surrogate designation completed on 05/19/2014. . Health Care Surrogate(s): Patient designated June Gann (niece?) as health care surrogate but Ms. Gann declines the role. . Documented care wishes: Living will states she would not want life prolonging measures if she is found to have a terminal illness, end-stage condition, or persistent vegetative state. At no time which she want a tracheostomy. At no time which she want a permanent feeding tube. She would only accept life support if the physicians felt there was a reasonable chance of meaningful recovery. By meaningful recovery she would not want to be bedridden or hooked to tubes the rest of her life. Even if life support was implemented she would not want to be on it for longer than 10 days. . Significant change in goals: Brother , Juan Fuller, has verbally agreed to serve as Proxy healthcare decision maker. He endorses the idea of hospice enrollment. . Objective Vital Signs Date Time Temp Pulse Resp B/P Pulse Ox O2 Delivery O2 Flow Rate FiO2 09/09/16 08:00 98.1 82 18 130/81 94 09/08/16 20:00 98.2 64 16 135/79 98 09/08/16 15:23 16 Intake & Output 09/09/16 09/09/16 07:00 19:00 Intake Total 2086 ml Balance 2086 ml Intake Oral 990 ml IV Total 1096 ml # Voids 3 # Bowel Movements 0 . Physical Exam CONSTITUTIONAL/GENERAL: This is an adequately nourished patient, in no apparent distress. Easily awakens to voice/exam. I saw her smile for the first time today. Most of her vocalizations are unintelligible , but I believe she said "Thank you," and "God bless you" when I told her I had contacted her brother -- Juan. TUBES/LINES/DRAINS: Peripheral iv SKIN: No jaundice, rashes, or lesions. No wounds seen anteriorly. Skin temperature appropriate. Not diaphoretic. EYES: Pupils equal and round. Extraocular motions intact. No scleral icterus. No injection or drainage. Fundi not examined. ENT: Appears to hear me. Nose without bleeding or purulent drainage. Throat without visible erythema, exudates, masses, or lesions. NECK: Trachea midline. Supple. CARDIOVASCULAR: Regular rate and rhythm without murmurs, gallops, or rubs. No JVD. RESPIRATORY/CHEST: Symmetric, unlabored respirations. Clear to auscultation. Breath sounds equal bilaterally. No wheezes, rales, or rhonchi. GASTROINTESTINAL: Abdomen soft, non-tender, nondistended. No hepato-splenomegaly , or palpable masses. No guarding. Bowel sounds present. GENITOURINARY: Without palpable bladder distension. MUSCULOSKELETAL: Extremities without clubbing, cyanosis, or edema. No calf tenderness. No mottling . LYMPHATICS: Not examined. NEUROLOGICAL: Awakens easily to voice/exam. Tracks me. Intermittently follows some very simple commands. Moves all extremities. Intermittently nods/shakes head to simple questions. When she does speak, it is mostly unintelligible gibberish. PSYCHIATRIC: No obvious hallucinations or psychotic process. Speech not comprehensible for me. Patient smiled today (09/09/16) . Diagnostic Tests Laboratory Laboratory Tests Test 09/07/16 09/08/16 09/09/16 04:47 12:15 04:40 Sodium Level 154 MEQ/L 155 MEQ/L 154 MEQ/L (136-145) (136-145) (136-145) Potassium Level 4.0 MEQ/L 4.3 MEQ/L 4.0 MEQ/L (3.5-5.1) (3.5-5.1) (3.5-5.1) Chloride Level 119 MEQ/L 123 MEQ/L 120 MEQ/L (98-107) (98-107) (98-107). Carbon Dioxide Level 24.8 MEQ/L 24.4 MEQ/L 25.4 MEQ/L (21.0-32.0) (21.0-32.0) (21.0-32.0) Anion Gap 10 MEQ/L (5-15) 8 MEQ/L (5-15) 9 MEQ/L (5-15) Blood Urea Nitrogen 66 MG/DL (7-18) 57 MG/DL (7-18) 55 MG/DL (7-18) Creatinine 3.80 MG/DL 3.40 MG/DL 3.30 MG/DL (0.50-1.00) (0.50-1.00) (0.50-1.00) Estimat Glomerular Filtration 11 ML/MIN (>89) 13 ML/MIN (>89) 13 ML/MIN (>89) Rate Random Glucose 132 MG/DL 224 MG/DL 171 MG/DL (74-106) (74-106) (74-106) Calcium Level 9.1 MG/DL 8.7 MG/DL 8.7 MG/DL (8.5-10.1) (8.5-10.1) (8.5-10.1) . Result Diagram: 09/05/16 0741 09/09/16 2604 Assessment and Plan Disease Oriented Problem List: (1) Sepsis due to urinary tract infection Comment: Resolved . (2) UTI (urinary tract infection) Comment: Resolved . (3) CKD (chronic kidney disease) stage 4, GFR 15-29 ml/min (4) WILL (acute kidney injury) (5) Delirium (6) Diabetes mellitus, type 2 (7) Hypoglycemia associated with diabetes (8) CVA (cerebral vascular accident) Comment: May 2016 -- residual dysphasia . (9) Aphasia (10) Anemia (11) Hypoalbuminemia Symptom Scale: (1) Pain 0-10 Scale: 0 Comment: Not complaining of pain today. Does not like to be moved -- unclear if this is due to discomfort or just does not want to be bothered. . (2) Lethargy 0-10 Scale: 0 (3) Encephalopathy 0-10 Scale: Unable to quantify Pertinent Non-Medical Issues Psychosocial: [facility] . Spiritual: Unknown Legal: Has a LW. Designated health care surrogate does not want to fully participate. Ethical issues impacting care: Patient is incapacitated and will not regain capacity. . Important Contacts * June Gann (niece) [phone] is the designated health care surrogate but is refusing to sign any documents (e.g. skilled nursing admissions). * Juan Fuller (brother) [phone] and [phone] Juan has verbally agreed to serve as proxy decision maker given June is unwilling to serve as surrogate. Await paperwork. * Ruth Fuentes (neighbor) [phone] . Prognosis Patient has multiple problems. She is debilitated from a stroke she suffered in May 2016 and has been in a [facility] facility since. She was admitted this time with urosepsis and difficult to control blood sugars. 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 She has severe cervical spine disease with multiple areas of foraminal narrowing. She has chronic kidney disease. Her functional status in the nursing facility has been poor. She has impaired vision/hearing/speech. She needs to be fed and maintaining adequate caloric intake has been challenging. She has anemia and has a low albumin. Her renal function is declining. Her mental status renders her unable to participate consistently with physical therapy or occupational therapy so chances of significant improvement are minimal. In my clinical opinion, life expectancy is probably 6 months or less. The patient would be appropriate for hospice care at this time based on her illness. She cannot state her goals/preferences, but her living will clearly states she would not want any type of life support unless there was a good chance of meaningful recovery. She specifically said she would not want a permanent feeding tube and would not want tracheostomy. Meaningful for her would mean she would not want to be bedbound and would not want to be dependent on machines. . Code Status: No Code Plan == Code Status: Full Code == Decision making: Patient is incapacitated to make her own health care decisions. She will not regain capacity. Her designated health care surrogate (her niece-- June) does not want to fulfill that role (e.g. she won't sign any forms for fear that she might become economically responsible) and she has asked not to be called. We have found a brother -- Juan Alina ([place], [place] ) who has verbally agreed to serve as proxy. == Goal of medical treatment: The patient has a living will that is scanned into the EMR. It clearly states the following: * No tracheostomy under any circumstances * No permanent feeding tube under any circumstances * She would only want resuscitation attempts and life support if the doctors felt she had a reasonable chance of returning to a meaningful life. For her, meaningful would mean not being bedridden and not needing to be attached to tubes or machines. Given the patient's specific advance directive, given her current clinical situation and decline, and given the understanding of goals/preferences coming from the patient's brother (the closest relative willing to speak with us at this point), I believe the patient would want DNR status. Her brother -- Juan -- agrees. Juan also believes that his sister's goals/preferences would best be honored at this time by a hospice referral. Given patient's multiple co- morbidities, poor functional status, inability to participate effectively with PT/OT, and her hospital course, I certainly believe she is medically eligible for hospice. == Pain: Patient is unable to locate/quantify/qualify any pain. She has severe c-spine disease and could easily be uncomfortable from this. I would recommend a trial of acetaminophen 650 mg scheduled TID to help mitigate any pain. == Mood/behavior: Because of her speech/cognitive issues post stroke, patient is unable to describe mood. 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 Would recommend a trial of an SSRI. She has been started on low dose methyphenidate ( 2.5 mg q AM) with no apparent adverse effect but no improvemen. She was increased to 5 mg / day and may show some improvement. . THis low dose should still not have a significant impact on BP, pulse, or appetite, but may help mood while awaiting SSRI effect. == Delirium?: Given her history of stroke, her advanced age, and her being in a strange environment, she is a setup for delirium. Would recommend a trial of low dose haloperidol scheduled -- eg. 0.5 mg po q 8 hours ATC. == Nutrition: Patient has specifically stated in her living will that she does NOT want a permanent feeding tube. == Search for a decision maker: See above. Pt's brother -- Juan Fuller -- has verbally agreed to serve as health are proxy given nile Watkins does not appear to want to serve in this role. We are awaiting faxed documentation. == Palliative care will follow on an as-needed basis to assist with symptom management and to further clarify goals of medical treatment as the clinical course evolves and as we identify a health care decision maker. . Time Spent Total Floor Time (mins): 40 (Total time included, chart review, patient exam, and above referenced telphone discussion with the patient's brother regarding serving as proxy and regarding goals for medical treatment.) Face to Face Time (mins): 5 >50% Counseling/Coord of Care: Yes Attestation To help prompt me to consider important information that might be impacting today's encounter and assessment, information from prior notes written by myself or my colleagues may have been "brought forward" into today's note. My signature on this note, however, is an attestation that I personally performed the exam, history, and/or decision-making noted today, and, unless otherwise indicated, the interactions with patient, family, and staff as well as the review of records all occurred today. I also attest that the listed assessment and stated plan reflect my best clinical judgment today based on the combination of historical information, prior notes, and today's exam/ interactions. When time spent is documented, it refers only to time spent today by the signer, or if indicated, combined time spent today by collaborating physician/nurse practitioner. . Jason Santoyo MD Sep 09, 2016 14:34
[2016-09-09 20:00] VITALS: BP 102/70; PULSE 66; RESP 20; TEMP 97.1; O2SAT 95
[2016-09-09] MEDS: MIRTAZAPINE 15 MG TAB PO SCH (21:54)
[2016-09-09] MEDS: DOXAZOSIN MESYLATE 2 MG TAB PO SCH (21:55)
[2016-09-09] MEDS: PRAVASTATIN SOD 80 MG TAB PO SCH (21:55)
[2016-09-10] MEDS: INSULIN ASPART SUPPLEMENTAL SCALE SQ SCH ×5 (04:00→20:00)
[2016-09-10] MEDS: DEXT 5%-NACL 0.45% 1000 ML INJ 1,000 ML IV SCH ×3 (05:15→16:27)
[2016-09-10] MEDS: HEPARIN SODIUM - SQ 10,000 UNITS/ML VIAL SQ SCH ×2 (06:32→17:26)
[2016-09-10 08:00] VITALS: BP 149/82; PULSE 60; RESP 16; TEMP 97.3; O2SAT 93
[2016-09-10 08:48] LABS: POTASSIUM 4.4 MEQ/L (3.5-5.1)
[2016-09-10 08:51] LABS: BICARBONATE 19.6 MEQ/L (21.0-32.0)
--- NOTE | 2016-09-10 09:00 | HHI.PR ---
Subjective Remarks Follow-up for encephalopathy, CVA, malnutrition. Patient sleeping. No acute issues. Objective Vitals Vital Signs Date Time Temp Pulse Resp B/P Pulse Ox O2 Delivery O2 Flow Rate FiO2 09/09/16 20:00 97.1 66 20 102/70 95 I/O 09/09/16 09/09/16 09/09/16 09/10/16 09/10/16 09/10/16 07:00 15:00 23:00 07:00 15:00 23:00 Intake Total 1441 ml 828 ml 1470 ml 966 ml Balance 1441 ml 828 ml 1470 ml 966 ml Intake Oral 820 ml 240 ml 200 ml 240 ml IV Total 621 ml 588 ml 1270 ml 726 ml # Voids 2 2 7 # Bowel Movements 0 0 0 Result Diagram: 09/10/16 0830 Objective Remarks GENERAL: Elderly patient in no apparent distress sleeping when I enter the room. SKIN: Warm and dry. CARDIOVASCULAR: Regular rate and rhythm. RESPIRATORY: No accessory muscle use. RR normal. MUSCULOSKELETAL: No lower extremity edema. NEUROLOGICAL: Somnolent. Procedures None Urinary Catheter: No Vascular Central Line Catheter: No A/P Problem List: (1) WILL (acute kidney injury) ICD Code: N17.9 Status: Acute (2) Hypernatremia ICD Code: E87.0 Status: Acute (3) Hyperchloremia ICD Code: E87.8 Status: Acute Assessment and Plan Metabolic encephalopathy/ History of CVA. Mental status still waxes and wanes. Likely secondary to underlying dementia or chronic cognition issue. Treated for UTI. - Continue ASA and statin. - PT/OT/ST. - Avoid sedating meds. Currently off restraints. Severe sepsis (Temp 94F, RR 22, UTI, WILL on chronic kidney disease) - resolved - Due to Klebsiella UTI. - Renal ultrasound without evidence of nephritis or hydronephrosis, however does show nonobstructing 7 mm calculus in the left kidney. - S/p Ceftin course Hypertension-labile - Lopressor to 75 mg BID, Holding parameters in place. - amlodipine 10 mg po daily - Cardura 4 mg hs - When necessary clonidine - Monitor and adjust Ventricular tachycardia, nonsustained, resolved Likely secondary to hyperkalemia. - Kayexalate as needed. Potassium level stable 08/14. - Lopressor to 75 mg BID, Holding parameters in place. Diabetes with episode of hypoglycemia. BGL 196 this am. - Continue Accu-Cheks - Low dose Sliding scale insulin - Patient continues with D5-1/2NS due to hypernatremia hence why BGL remains elevated despite not eating. Continue to monitor. Will be cautious in making any adjustments due to h/o hypoglycemia. Poor oral intake/appetite/moderate protein calorie malnutrition Nutritional intake inadequate. - Pre-albumin 20 - Dietitian following. - Continue Megace, Remeron. - Diet as ordered with Froilan Warren. Continue to assist at meal times when needed. Review menu for variety in diet. - ST recommends pureed diet, thin liquids. - Palliative care following. Patient does not desire a feeding tube per her living will. Chronic kidney disease stage IV - With acutely worse renal function. WILL improving BUN/Cr 66/3.8-->45/3.10. Continue IVF. - Avoid nephrotoxins. - Nephrology consulted and has signed off; due to inadequate oral intake. Hypernatremia: Due to inadequate fluid intake. Na improving 155-->147. -Continue D5-1/2 NS at 84 mL/hr. Hyperchloremia: Improving Cl 123-->118. Patient does not express pain, but palliative care note yesterday states patient has a history of severe cervical spine disease and is likely uncomfortable from this. Dr. Santoyo recommends a trial of acetaminophen 650 mg scheduled 3 times a day which will be started. DVT prophylaxis heparin. Discharge Planning manager science is following. Working on identifying a healthcare surrogate. Niece indicated by patient does not desire to take on this role. Brother is assisting. Another niece will be contacted. Palliative care evaluated the patient yesterday and spoke with the patient's brother who is agreeable to hospice who has been consulted. Keesha Miller Sep 10, 2016 09:00
[2016-09-10] MEDS: METOPROLOL TARTRATE 25 MG TAB PO SCH ×2 (10:05→21:29)
[2016-09-10] MEDS: ASPIRIN 81 MG CHEW TAB CHEW SCH (10:05)
[2016-09-10] MEDS: METHYLPHENIDATE HCL 5 MG TAB PO SCH (10:05)
[2016-09-10] MEDS: MEGESTROL ACETATE SUSP 400 MG/10 ML CUP PO SCH (10:05)
[2016-09-10] MEDS: FLUDROCORTISONE ACETATE 0.1 MG TAB PO SCH (10:05)
--- NOTE | 2016-09-10 12:36 | HHI.HCPN ---
I have received signed healthcare proxy forms from the patient's brother -- Juan Fuller. I have provided a copy to hospice and will have the forms scanned into the patient's EMR. Hospice has spoken with brother. Per brother's request, hospice admission forms have been faxed to the brother's finance attorney. Brother wants to be assured that by enrolling his sister in hospice he is not assuming any type of financial obligation. With proxy in place, health care decision making should be easier. Placement may still be difficult as proxy has no access or authority over patient's finances. Given there is enrollment with hospice, there will hopefully be more options for placement. Hospice can work with hospital case management to arrive at best option for patient. . Jason Santoyo MD Sep 10, 2016 12:36
[2016-09-10] MEDS: ACETAMINOPHEN 325 MG TAB PO SCH (17:33)
[2016-09-10 19:15] VITALS: BP 111/67; PULSE 72; RESP 20; TEMP 97.7
[2016-09-10] MEDS: DOXAZOSIN MESYLATE 2 MG TAB PO SCH (21:29)
[2016-09-10] MEDS: MIRTAZAPINE 15 MG TAB PO SCH (21:29)
[2016-09-10] MEDS: PRAVASTATIN SOD 80 MG TAB PO SCH (21:29)
[2016-09-11] MEDS: ACETAMINOPHEN 325 MG TAB PO SCH ×3 (02:00→18:35)
[2016-09-11] MEDS: DEXT 5%-NACL 0.45% 1000 ML INJ 1,000 ML IV SCH ×2 (04:20→21:30)
[2016-09-11] MEDS: INSULIN ASPART SUPPLEMENTAL SCALE SQ SCH ×6 (04:39→20:00)
[2016-09-11] MEDS: HEPARIN SODIUM - SQ 10,000 UNITS/ML VIAL SQ SCH ×2 (05:02→18:35)
[2016-09-11 08:00] VITALS: BP 142/76; PULSE 62; RESP 17; TEMP 98.1; O2SAT 99
[2016-09-11 08:24] LABS: BICARBONATE 22.7 MEQ/L (21.0-32.0)
[2016-09-11] MEDS: FLUDROCORTISONE ACETATE 0.1 MG TAB PO SCH (08:55)
[2016-09-11] MEDS: METHYLPHENIDATE HCL 5 MG TAB PO SCH (08:55)
[2016-09-11] MEDS: MEGESTROL ACETATE SUSP 400 MG/10 ML CUP PO SCH (08:55)
[2016-09-11] MEDS: ASPIRIN 81 MG CHEW TAB CHEW SCH (08:55)
[2016-09-11] MEDS: METOPROLOL TARTRATE 25 MG TAB PO SCH ×2 (08:55→21:51)
--- NOTE | 2016-09-11 10:38 | HHI.DCPOC ---
Discharge Care Plan Diagnosis: (1) Sepsis due to urinary tract infection (2) Acute ischemic left MCA stroke (3) Encephalopathy (4) WILL (acute kidney injury) (5) Hypernatremia (6) Hyperchloremia (7) Malnutrition Goals to Promote Your Health * To prevent worsening of your condition and complications * To maintain your health at the optimal level Directions to Meet Your Goals Take your medications as prescribed Follow your dietary instruction Follow activity as directed Keep your appointments as scheduled Take your immunizations and boosters as scheduled If your symptoms worsen call your PCP, if no PCP go to Urgent Care Center or Emergency Room Smoking is Dangerous to Your Health. Avoid second hand smoke Call the 24-hour hour crisis hotline for domestic abuse at Keesha iMller Sep 11, 2016 10:38
--- NOTE | 2016-09-11 12:14 | HHI.PR ---
Subjective Remarks Follow-up for WILL, hypernatremia. Patient speaks but it is unintelligible aside from the word "tomorrow". Objective Vitals Vital Signs Date Time Temp Pulse Resp B/P Pulse Ox O2 Delivery O2 Flow Rate FiO2 09/11/16 08:00 98.1 62 17 142/76 99 09/10/16 19:15 97.7 72 20 111/67 09/10/16 18:33 16 I/O 09/10/16 09/10/16 09/10/16 09/11/16 09/11/16 09/11/16 07:00 15:00 23:00 07:00 15:00 23:00 Intake Total 966 ml 250 ml 2566 ml 523 ml Balance 966 ml 250 ml 2566 ml 523 ml Intake Oral 240 ml 250 ml 120 ml 60 ml IV Total 726 ml 2446 ml 463 ml # Voids 7 2 2 # Bowel Movements 0 0 0 Result Diagram: 09/11/16 0750 Objective Remarks Exam limited due to AMS. GENERAL: Elderly patient in no apparent distress sleeping when I enter the room. RESPIRATORY: No accessory muscle use. CTAB. MUSCULOSKELETAL: No lower extremity edema. NEUROLOGICAL: Arouses to light touch. Speech mostly unintelligible. PSYCHIATRIC: Angered mood and affect when she awakes. Procedures None Urinary Catheter: No Vascular Central Line Catheter: No A/P Problem List: (1) WILL (acute kidney injury) ICD Code: N17.9 Status: Acute (2) Hypernatremia ICD Code: E87.0 Status: Acute (3) Hyperchloremia ICD Code: E87.8 Status: Acute Assessment and Plan Metabolic encephalopathy/ History of CVA. Mental status still waxes and wanes. Likely secondary to underlying dementia or chronic cognition issue. Treated for UTI. - Continue ASA and statin. - PT/OT/ST. - Avoid sedating medications. Currently off restraints. Severe sepsis (Temp 94F, RR 22, UTI, WILL on chronic kidney disease) - resolved - Due to Klebsiella UTI. - Renal ultrasound without evidence of nephritis or hydronephrosis, however does show nonobstructing 7 mm calculus in the left kidney. - S/p Ceftin course Hypertension-labile - Lopressor to 75 mg BID, Holding parameters in place. - amlodipine 10 mg po daily - Cardura 4 mg hs - When necessary clonidine - Monitor and adjust Ventricular tachycardia, nonsustained, resolved Likely secondary to hyperkalemia. - Kayexalate as needed. Potassium level stable 08/14. - Lopressor to 75 mg BID, Holding parameters in place. Diabetes with episode of hypoglycemia. BGL 192 this am. - Continue Accu-Cheks - Low dose Sliding scale insulin - Patient continues with D5-1/2NS due to hypernatremia hence why BGL remains elevated despite not eating. Continue to monitor. Will not make any adjustments at this time as patient is going to be discharged with Hospice and once she comes off of D5 her glucose level is likely to decrease. Poor oral intake/appetite/moderate protein calorie malnutrition Nutritional intake inadequate. - Pre-albumin 20 - Dietitian following. - Continue Megace, Remeron. - Diet as ordered with Froilan Warren. ST recommends pureed diet, thin liquids , but patient has not been eating at all. - Palliative care following. Patient does not desire a feeding tube per her living will. Chronic kidney disease stage IV - With acutely worse renal function. WILL improving BUN/Cr 66/3.8-->47/3.00. Continue IVF. - Avoid nephrotoxins. - Nephrology consulted and has signed off; due to inadequate oral intake. Hypernatremia: Due to inadequate fluid intake. Na improving 155-->147. -Continue D5-1/2 NS at 84 mL/hr. Hyperchloremia: Improving Cl 123-->115. Patient does not express pain, but palliative care states patient has a history of severe cervical spine disease and is likely uncomfortable from this. Dr. Santoyo recommends a trial of acetaminophen 650 mg scheduled 3 times a day which was ordered. DVT prophylaxis heparin. Discharge Planning Palliative care evaluated the patient and spoke with the patient's brother who is agreeable to hospice who has been consulted. Hospice notified CM that patient's brother who is designated healthcare surrogate is going to sign consents, but he has the flu and will not sign them until he reviews with [employer] attorney. Patient will remain hospitalized through the weekend. Discharge order placed for Hospice. Keesha Miller Sep 11, 2016 12:13
[2016-09-11 20:00] VITALS: BP 105/71; PULSE 79; RESP 20; TEMP 97; O2SAT 98
[2016-09-11] MEDS: PRAVASTATIN SOD 80 MG TAB PO SCH (21:00)
[2016-09-11] MEDS: DOXAZOSIN MESYLATE 2 MG TAB PO SCH (21:50)
[2016-09-11] MEDS: MIRTAZAPINE 15 MG TAB PO SCH (21:51)
[2016-09-12] MEDS: ACETAMINOPHEN 325 MG TAB PO SCH ×3 (03:08→17:04)
[2016-09-12] MEDS: INSULIN ASPART SUPPLEMENTAL SCALE SQ SCH ×6 (04:00→20:00)
[2016-09-12] MEDS: DEXT 5%-NACL 0.45% 1000 ML INJ 1,000 ML IV SCH ×2 (04:10→16:05)
[2016-09-12] MEDS: HEPARIN SODIUM - SQ 10,000 UNITS/ML VIAL SQ SCH ×2 (05:53→17:04)
[2016-09-12 08:00] VITALS: BP 124/73; PULSE 61; RESP 20; TEMP 96.8; O2SAT 90
[2016-09-12] MEDS: MEGESTROL ACETATE SUSP 400 MG/10 ML CUP PO SCH (08:47)
[2016-09-12] MEDS: ASPIRIN 81 MG CHEW TAB CHEW SCH (08:47)
[2016-09-12] MEDS: FLUDROCORTISONE ACETATE 0.1 MG TAB PO SCH (08:47)
[2016-09-12] MEDS: METOPROLOL TARTRATE 25 MG TAB PO SCH ×2 (08:47→22:03)
[2016-09-12] MEDS: METHYLPHENIDATE HCL 5 MG TAB PO SCH (08:47)
--- NOTE | 2016-09-12 09:57 | HHI.PR ---
Subjective Remarks Follow-up for encephalopathy, CVA, diabetes. Patient's speech is unintelligible. Objective Vitals Vital Signs Date Time Temp Pulse Resp B/P Pulse Ox O2 Delivery O2 Flow Rate FiO2 09/12/16 08:00 96.8 61 20 124/73 90 09/11/16 20:00 97.0 79 20 105/71 98 09/11/16 19:35 14 I/O 09/11/16 09/11/16 09/11/16 09/12/16 09/12/16 09/12/16 07:00 15:00 23:00 07:00 15:00 23:00 Intake Total 523 ml 200 ml 120 ml 120 ml Balance 523 ml 200 ml 120 ml 120 ml Intake Oral 60 ml 200 ml 120 ml 120 ml IV Total 463 ml # Voids 2 2 1 2 # Bowel Movements 0 0 0 0 Result Diagram: 09/11/16 0750 Objective Remarks Exam limited due to AMS. GENERAL: Elderly patient in no apparent distress sleeping when I enter the room. RESPIRATORY: No accessory muscle use. RR normal. MUSCULOSKELETAL: No lower extremity edema. NEUROLOGICAL: Arouses to light touch. Speech mostly unintelligible. PSYCHIATRIC: Mood and affect is improved. Procedures None Urinary Catheter: No Vascular Central Line Catheter: No A/P Problem List: (1) WILL (acute kidney injury) ICD Code: N17.9 Status: Acute (2) Hypernatremia ICD Code: E87.0 Status: Acute (3) Hyperchloremia ICD Code: E87.8 Status: Acute Assessment and Plan Metabolic encephalopathy/ History of CVA. Mental status still waxes and wanes. Likely secondary to underlying dementia or chronic cognition issue. Treated for UTI. - Continue ASA and statin. - PT/OT/ST. - Avoid sedating medications. Currently off restraints. Severe sepsis (Temp 94F, RR 22, UTI, WILL on chronic kidney disease) - resolved - Due to Klebsiella UTI. - Renal ultrasound without evidence of nephritis or hydronephrosis, however does show nonobstructing 7 mm calculus in the left kidney. - S/p Ceftin course Hypertension-labile - Lopressor to 75 mg BID, Holding parameters in place. - Amlodipine 10 mg po daily - Cardura 4 mg hs - When necessary clonidine - Monitor and adjust Ventricular tachycardia, nonsustained, resolved Likely secondary to hyperkalemia. - Brookexalate as needed. Potassium level stable 08/14. - Lopressor to 75 mg BID, Holding parameters in place. Diabetes with episode of hypoglycemia. BGL 130 at 0800 this am. - Continue Accu-Checks - Low dose Sliding scale insulin - Patient continues with D5-1/2NS. Continue to monitor Accu-checks and administer SSI q4h prn. Will not make any insulin adjustments at this time. Poor oral intake/appetite/moderate protein calorie malnutrition Nutritional intake inadequate. - Pre-albumin 20 - Dietitian following. - Continue Megace, Remeron. - Diet as ordered with Froilan Warren. ST recommends pureed diet, thin liquids , but patient has not been eating at all. - Palliative care following. Patient does not desire a feeding tube per her living will. Chronic kidney disease stage IV - With acutely worse renal function, but WILL improved BUN/Cr 66/3.8-->47/3.00. Continue IVF. - Avoid nephrotoxins. - Nephrology consulted and has signed off; due to inadequate oral intake. Hypernatremia: Due to inadequate fluid intake. Na improving 155-->147. -Continue D5-1/2 NS at 84 mL/hr. -Discussed with Dr. Seo. Will not perform further lab work as patient is going on Hospice. Hyperchloremia: Improving Cl 123-->115. Patient does not express pain, but palliative care states patient has a history of severe cervical spine disease and is likely uncomfortable from this. Dr. Santoyo recommends a trial of acetaminophen 650 mg scheduled 3 times a day which was ordered. DVT prophylaxis heparin. Discharge Planning Palliative care evaluated the patient and spoke with the patient's brother who is agreeable to hospice who has been consulted. Hospice notified CM that patient's brother who is designated healthcare surrogate is going to sign consents, but he has the flu and will not sign them until he reviews with trial attorney. Patient will remain hospitalized through the weekend. Discharge order placed for Hospice. Keesha Miller Sep 12, 2016 09:57
[2016-09-12] MEDS: PRAVASTATIN SOD 80 MG TAB PO SCH (21:00)
[2016-09-12 21:34] VITALS: BP 129/78; PULSE 69; RESP 18; TEMP 97.9; O2SAT 96
[2016-09-12] MEDS: DOXAZOSIN MESYLATE 2 MG TAB PO SCH (22:02)
[2016-09-12] MEDS: MIRTAZAPINE 15 MG TAB PO SCH (22:02)
[2016-09-13] MEDS: INSULIN ASPART SUPPLEMENTAL SCALE SQ SCH ×6 (02:12→20:49)
[2016-09-13] MEDS: ACETAMINOPHEN 325 MG TAB PO SCH ×3 (02:13→17:36)
[2016-09-13] MEDS: DEXT 5%-NACL 0.45% 1000 ML INJ 1,000 ML IV SCH ×2 (04:00→16:42)
[2016-09-13] MEDS: HEPARIN SODIUM - SQ 10,000 UNITS/ML VIAL SQ SCH ×2 (05:23→17:34)
[2016-09-13 08:00] VITALS: BP 121/93; PULSE 69; RESP 19; TEMP 97.3; O2SAT 93
[2016-09-13] MEDS: FLUDROCORTISONE ACETATE 0.1 MG TAB PO SCH (09:58)
[2016-09-13] MEDS: MEGESTROL ACETATE SUSP 400 MG/10 ML CUP PO SCH (09:58)
[2016-09-13] MEDS: METHYLPHENIDATE HCL 5 MG TAB PO SCH (09:58)
[2016-09-13] MEDS: ASPIRIN 81 MG CHEW TAB CHEW SCH (09:58)
[2016-09-13] MEDS: METOPROLOL TARTRATE 25 MG TAB PO SCH ×2 (09:59→20:28)
--- NOTE | 2016-09-13 17:24 | HHI.PR ---
Subjective Remarks Awake today. Still not able to hold conversations Seen in follow-up for discharge plan Objective Vitals Vital Signs Date Time Temp Pulse Resp B/P Pulse Ox O2 Delivery O2 Flow Rate FiO2 09/13/16 11:07 16 09/13/16 08:00 97.3 69 19 121/93 93 09/12/16 21:34 97.9 69 18 129/78 96 I/O 09/12/16 09/12/16 09/12/16 09/13/16 09/13/16 09/13/16 07:00 15:00 23:00 07:00 15:00 23:00 Intake Total 120 ml 120 ml 60 ml 390 ml Balance 120 ml 120 ml 60 ml 390 ml Intake Oral 120 ml 120 ml 60 ml 390 ml # Voids 2 2 4 5 # Bowel Movements 0 0 0 Result Diagram: 09/11/16 0750 Objective Remarks GENERAL: This is a well-nourished, well-developed patient, in no apparent distress. CARDIOVASCULAR: Regular rate and rhythm without murmurs, gallops, or rubs. RESPIRATORY: Clear to auscultation. Breath sounds equal bilaterally. No wheezes , rales, or rhonchi. GASTROINTESTINAL: Abdomen soft, non-tender, nondistended. Normal active bowel sounds MUSCULOSKELETAL: Extremities without clubbing, cyanosis, or edema. NEURO: sleeping; no complaints Procedures None A/P Problem List: (1) WILL (acute kidney injury) ICD Code: N17.9 Status: Acute (2) Hypernatremia ICD Code: E87.0 Status: Acute (3) Hyperchloremia ICD Code: E87.8 Status: Acute Assessment and Plan Hospital day number 51 Continue current management of her diabetes, dementia (severe), and poor nutrition Discharge Planning Case management aware of barriers to discharge Aminata Seo MD Sep 13, 2016 17:24
[2016-09-13] MEDS: DOXAZOSIN MESYLATE 2 MG TAB PO SCH (20:28)
[2016-09-13] MEDS: MIRTAZAPINE 15 MG TAB PO SCH (20:28)
[2016-09-13] MEDS: PRAVASTATIN SOD 80 MG TAB PO SCH (20:28)
[2016-09-13 21:24] VITALS: BP 83/57; PULSE 67; RESP 18; TEMP 97.6; O2SAT 94
[2016-09-14] MEDS: ACETAMINOPHEN 325 MG TAB PO SCH ×3 (02:06→17:28)
[2016-09-14] MEDS: DEXT 5%-NACL 0.45% 1000 ML INJ 1,000 ML IV SCH ×2 (03:25→11:07)
[2016-09-14] MEDS: INSULIN ASPART SUPPLEMENTAL SCALE SQ SCH ×6 (04:00→21:52)
[2016-09-14] MEDS: HEPARIN SODIUM - SQ 10,000 UNITS/ML VIAL SQ SCH ×2 (05:57→17:28)
[2016-09-14 07:15] VITALS: BP 114/74; PULSE 71; RESP 19; TEMP 99.4; O2SAT 99
[2016-09-14] MEDS: MEGESTROL ACETATE SUSP 400 MG/10 ML CUP PO SCH (09:59)
[2016-09-14] MEDS: METOPROLOL TARTRATE 25 MG TAB PO SCH ×2 (10:00→21:55)
[2016-09-14] MEDS: ASPIRIN 81 MG CHEW TAB CHEW SCH (10:00)
[2016-09-14] MEDS: METHYLPHENIDATE HCL 5 MG TAB PO SCH (10:00)
[2016-09-14] MEDS: FLUDROCORTISONE ACETATE 0.1 MG TAB PO SCH (10:00)
--- NOTE | 2016-09-14 10:08 | HHI.PR ---
Subjective Remarks Patient awaiting hospice placement. Speech unintelligible. Objective Vitals Vital Signs Date Time Temp Pulse Resp B/P Pulse Ox O2 Delivery O2 Flow Rate FiO2 09/14/16 07:15 99.4 71 19 114/74 99 09/13/16 21:24 97.6 67 18 83/57 94 09/13/16 11:07 16 I/O 09/13/16 09/13/16 09/13/16 09/14/16 09/14/16 09/14/16 07:00 15:00 23:00 07:00 15:00 23:00 Intake Total 390 ml 60 ml Balance 390 ml 60 ml Intake Oral 390 ml 60 ml # Voids 5 2 2 # Bowel Movements 0 2 Result Diagram: 09/11/16 0750 Objective Remarks GENERAL: Elderly patient in no apparent distress sleeping when I enter the room. CARDIOVASCULAR: Regular rate and rhythm. RESPIRATORY: No accessory muscle use. CTAB. MUSCULOSKELETAL: No lower extremity edema. NEUROLOGICAL: Arouses to light touch and becomes awake and alert. Speech unintelligible. Procedures None Urinary Catheter: No Vascular Central Line Catheter: No A/P Problem List: (1) WILL (acute kidney injury) ICD Code: N17.9 Status: Acute (2) Hypernatremia ICD Code: E87.0 Status: Acute (3) Hyperchloremia ICD Code: E87.8 Status: Acute Assessment and Plan Metabolic encephalopathy/ History of CVA. Mental status still waxes and wanes. Likely secondary to underlying dementia or chronic cognition issue. Treated for UTI. - Continue ASA and statin. - PT/OT/ST. - Avoid sedating medications. Currently off restraints. Severe sepsis (Temp 94F, RR 22, UTI, WILL on chronic kidney disease) - resolved - Due to Klebsiella UTI. - Renal ultrasound without evidence of nephritis or hydronephrosis, however does show nonobstructing 7 mm calculus in the left kidney. - S/p Ceftin course Hypertension-labile - Lopressor to 75 mg BID, Holding parameters in place. - Amlodipine 10 mg po daily - Cardura 4 mg hs - When necessary clonidine - Monitor and adjust Ventricular tachycardia, nonsustained, resolved Likely secondary to hyperkalemia. - Kayexalate as needed. Potassium level stable 08/14. - Lopressor to 75 mg BID, Holding parameters in place. Diabetes with episode of hypoglycemia. BGL 130 at 0800 this am. - Continue Accu-Checks - Low dose Sliding scale insulin - Patient continues with D5-1/2NS. Continue to monitor Accu-checks and administer SSI q4h prn. Will not make any insulin adjustments at this time. Poor oral intake/appetite/moderate protein calorie malnutrition Nutritional intake inadequate. - Pre-albumin 20 - Dietitian following. - Continue Megace, Remeron. - Diet as ordered with Froilan Warren. ST recommends pureed diet, thin liquids , but patient has not been eating at all. - Palliative care following. Patient does not desire a feeding tube per her living will. Chronic kidney disease stage IV - With acutely worse renal function, but WILL improved BUN/Cr 66/3.8-->47/3.00. Continue IVF. - Avoid nephrotoxins. - Nephrology consulted and has signed off; due to inadequate oral intake. Hypernatremia: Due to inadequate fluid intake. Na improving 155-->147. -Continue D5-1/2 NS at 84 mL/hr. -Discussed with Dr. Seo. Will not perform further lab work as patient is going on Hospice. Hyperchloremia: Improving Cl 123-->115. Patient does not express pain, but palliative care states patient has a history of severe cervical spine disease and is likely uncomfortable from this. Dr. Santoyo recommends a trial of acetaminophen 650 mg scheduled 3 times a day which was ordered. DVT prophylaxis heparin. Discharge Planning Palliative care evaluated the patient and spoke with the patient's brother who is agreeable to hospice who has been consulted. Hospice notified CM that patient's brother who is designated healthcare surrogate is going to sign consents, but he has the flu and will not sign them until he reviews with insurance attorney. Discharge order placed for Hospice. Keesha Miller Sep 14, 2016 10:08
[2016-09-14 20:00] VITALS: BP 122/66; PULSE 76; RESP 20; TEMP 98; O2SAT 98
[2016-09-14] MEDS: MIRTAZAPINE 15 MG TAB PO SCH (21:55)
[2016-09-14] MEDS: PRAVASTATIN SOD 80 MG TAB PO SCH (21:55)
[2016-09-14] MEDS: DOXAZOSIN MESYLATE 2 MG TAB PO SCH (21:55)
[2016-09-15] MEDS: ACETAMINOPHEN 325 MG TAB PO SCH ×3 (02:00→17:35)
[2016-09-15] MEDS: HEPARIN SODIUM - SQ 10,000 UNITS/ML VIAL SQ SCH ×2 (05:27→17:35)
[2016-09-15 08:00] VITALS: BP 130/83; PULSE 84; RESP 16; TEMP 98.4; O2SAT 93
[2016-09-15] MEDS: INSULIN ASPART SUPPLEMENTAL SCALE SQ SCH ×4 (08:00→20:28)
[2016-09-15] MEDS: METHYLPHENIDATE HCL 5 MG TAB PO SCH (09:06)
[2016-09-15] MEDS: METOPROLOL TARTRATE 25 MG TAB PO SCH ×2 (09:06→20:28)
[2016-09-15] MEDS: ASPIRIN 81 MG CHEW TAB CHEW SCH (09:06)
[2016-09-15] MEDS: MEGESTROL ACETATE SUSP 400 MG/10 ML CUP PO SCH (09:06)
[2016-09-15] MEDS: FLUDROCORTISONE ACETATE 0.1 MG TAB PO SCH (09:06)
--- NOTE | 2016-09-15 10:25 | HHI.PR ---
Subjective Remarks Patient seen and examined today. Patient no change in clinical status. Objective Vitals Vital Signs Date Time Temp Pulse Resp B/P Pulse Ox O2 Delivery O2 Flow Rate FiO2 09/15/16 08:00 98.4 84 16 130/83 93 09/14/16 20:00 98.0 76 20 122/66 98 09/14/16 18:28 16 I/O 09/14/16 09/14/16 09/14/16 09/15/16 09/15/16 09/15/16 07:00 15:00 23:00 07:00 15:00 23:00 Intake Total 200 ml 1020 ml 3444 ml Output Total 3 ml Balance 200 ml 1020 ml 3441 ml Intake Oral 200 ml 40 ml 40 ml IV Total 980 ml 3404 ml Output Urine Total 3 ml # Voids 6 2 # Bowel Movements 3 1 Result Diagram: 09/11/16 0750 Objective Remarks GENERAL: Well-developed, well-nourished, in no acute distress. She is arousable , she only answers yes or shakes her head to every question. Unable to obtain accurate orientation HEENT: Head is normocephalic without any lesions or masses noted. Facial features are symmetric. Eyes: Extraocular muscles are intact. Conjunctivae were clear. NECK: Trachea midline no deviation. CARDIAC: Regular rhythm, regular rate. S1/S2 are heard. No murmurs gallops or rubs. LUNGS: Clear to auscultation bilaterally. No wheeze, rhonchi or rales. No use of accessory muscles on inspiration or expiration. ABDOMEN: Soft, nontender. Nondistended. Bowel sounds heard in all 4 quadrants. No organomegaly or masses. Negative rebound, negative guarding EXTREMITIES: No edema, pulses are equal bilaterally. No cyanosis or clubbing NEUROLOGY: Difficult to ascertain mood and affect due to patient's cognitive ability and participation in patient examination Procedures None Urinary Catheter: No Vascular Central Line Catheter: No A/P Assessment and Plan Metabolic encephalopathy/ History of CVA. Mental status still waxes and wanes. Likely secondary to underlying dementia or chronic cognition issue. Treated for UTI. - continue ASA and statin. - PT/OT. - avoid sedating meds. Currently off restraints. Severe sepsis (Temp 94F, RR 22, UTI, WILL on chronic kidney disease) - resolved - Due to Klebsiella UTI. - Renal ultrasound without evidence of nephritis or hydronephrosis, however does show nonobstructing 7 mm calculus in the left kidney. - S/p Ceftin course Hypertension-labile - Lopressor to 75 mg BID, Holding parameters in place. - amlodipine 10 mg po daily - Cardura 4 mg hs - When necessary clonidine - Monitor and adjust Ventricular tachycardia, nonsustained, resolved Asymptomatic on 08/05. Likely secondary to hyperkalemia. 5 beat run noted on . - Kayexalate as needed. Potassium level stable 08/14. - Lopressor to 75 mg BID, Holding parameters in place. Diabetes with episode of hypoglycemia Possibly related to sepsis. - Continue Accu-Cheks - Sliding scale insulin, patient is only received 2 units in the last 5 days. Poor oral intake/appetite/moderate protein calorie malnutrition Nutritional intake apparently inadequate. - Megace and dietitian following.- - Remeron to 7.5 mg daily. - Pre-albumin and 20 Chronic kidney disease stage IV, improved with IV hydration - With worsening renal function, hypernatremia, likely secondary to poor by mouth intake, - avoid nephrotoxins. - nephrology consulted and has signed off - Patient on IV fluids DVT prophylaxis heparin. Disposition: Palliative care evaluated the patient and spoke with the patient's brother who is agreeable to hospice who has been consulted. Hospice notified CM that patient's brother who is designated healthcare surrogate is going to sign consents, but he has the flu and will not sign them until he reviews with attorney lawyer. Discharge Planning depot manager working diligently on discharge planning LUIS FROM HOSPICE CALLED BACK AND SAID THAT ESTEFANI, PATIENT'S BROTHER WHO IS GOING TO SIGN CONSENTS WAS CONTACTED AND HE HAS THE FLU. HE WILL NOT SIGN THEM UNTIL HE REVIEWS THEM WITH HIS LADLE PULLER. THE PATIENT WILL HAVE TO STAY HERE UNTIL THEY ARE SIGNED. CM INFORMED JAKE CHAPIN FOR DR. MICHELLE. Tyler Wilkerson Sep 15, 2016 10:25
[2016-09-15 11:15] LABS: POTASSIUM 3.7 MEQ/L (3.5-5.1)
[2016-09-15 11:19] LABS: BICARBONATE 22.6 MEQ/L (21.0-32.0)
[2016-09-15 20:00] VITALS: BP 111/73; PULSE 64; RESP 15; TEMP 98.8; O2SAT 98
[2016-09-15] MEDS: MIRTAZAPINE 15 MG TAB PO SCH (20:28)
[2016-09-15] MEDS: DOXAZOSIN MESYLATE 2 MG TAB PO SCH (20:28)
[2016-09-15] MEDS: PRAVASTATIN SOD 80 MG TAB PO SCH (20:28)
[2016-09-16] MEDS: ACETAMINOPHEN 325 MG TAB PO SCH ×3 (02:00→17:55)
[2016-09-16] MEDS: INSULIN ASPART SUPPLEMENTAL SCALE SQ SCH ×7 (04:00→23:57)
[2016-09-16] MEDS: HEPARIN SODIUM - SQ 10,000 UNITS/ML VIAL SQ SCH ×2 (05:17→17:55)
[2016-09-16 08:00] VITALS: BP 113/73; PULSE 76; RESP 20; TEMP 98.7; O2SAT 96
--- NOTE | 2016-09-16 09:46 | HHI.PR ---
Subjective Remarks Patient seen and examined today. Patient denies any new complaints. No change in clinical status. Awaiting case management discharge planning Objective Vitals Vital Signs Date Time Temp Pulse Resp B/P Pulse Ox O2 Delivery O2 Flow Rate FiO2 09/16/16 08:00 98.7 76 20 113/73 96 09/15/16 20:00 98.8 64 15 111/73 98 I/O 09/15/16 09/15/16 09/15/16 09/16/16 09/16/16 09/16/16 07:00 15:00 23:00 07:00 15:00 23:00 Intake Total 3444 ml 120 ml 120 ml 360 ml Output Total 3 ml Balance 3441 ml 120 ml 120 ml 360 ml Intake Oral 40 ml 120 ml 120 ml 240 ml Oral Supplement 120 ml IV Total 3404 ml Output Urine Total 3 ml # Voids 2 1 # Bowel Movements 1 1 1 Result Diagram: 09/15/16 1048 Objective Remarks GENERAL: Well-developed, well-nourished, in no acute distress. She is arousable , she only answers yes or shakes her head to every question. Unable to obtain accurate orientation HEENT: Head is normocephalic without any lesions or masses noted. Facial features are symmetric. Eyes: Extraocular muscles are intact. Conjunctivae were clear. NECK: Trachea midline no deviation. CARDIAC: Regular rhythm, regular rate. S1/S2 are heard. No murmurs gallops or rubs. LUNGS: Clear to auscultation bilaterally. No wheeze, rhonchi or rales. No use of accessory muscles on inspiration or expiration. ABDOMEN: Soft, nontender. Nondistended. Bowel sounds heard in all 4 quadrants. No organomegaly or masses. Negative rebound, negative guarding EXTREMITIES: No edema, pulses are equal bilaterally. No cyanosis or clubbing NEUROLOGY: Difficult to ascertain mood and affect due to patient's cognitive ability and participation in patient examination Procedures None Urinary Catheter: No Vascular Central Line Catheter: No A/P Assessment and Plan Metabolic encephalopathy/ History of CVA. Mental status still waxes and wanes. Likely secondary to underlying dementia or chronic cognition issue. Treated for UTI. - continue ASA and statin. - PT/OT. - avoid sedating meds. Currently off restraints. Severe sepsis (Temp 94F, RR 22, UTI, WILL on chronic kidney disease) - resolved - Due to Klebsiella UTI. - Renal ultrasound without evidence of nephritis or hydronephrosis, however does show nonobstructing 7 mm calculus in the left kidney. - S/p Ceftin course Hypertension-labile - Lopressor to 75 mg BID, Holding parameters in place. - amlodipine 10 mg po daily - Cardura 4 mg hs - When necessary clonidine - Monitor and adjust Ventricular tachycardia, nonsustained, resolved Asymptomatic on 08/05. Likely secondary to hyperkalemia. 5 beat run noted on . - Kayexalate as needed. Potassium level stable 08/14. - Lopressor to 75 mg BID, Holding parameters in place. Diabetes with episode of hypoglycemia Possibly related to sepsis. - Continue Accu-Cheks - Sliding scale insulin, patient is only received 2 units in the last 5 days. Poor oral intake/appetite/moderate protein calorie malnutrition Nutritional intake apparently inadequate. - Megace and dietitian following.- - Remeron to 7.5 mg daily. - Pre-albumin and 20 Chronic kidney disease stage IV, improved with IV hydration - With worsening renal function, hypernatremia, likely secondary to poor by mouth intake, - avoid nephrotoxins. - nephrology consulted and has signed off DVT prophylaxis heparin. Disposition: Palliative care evaluated the patient and spoke with the patient's brother who is agreeable to hospice who has been consulted. Hospice notified CM that patient's brother who is designated healthcare surrogate is going to sign consents, but he has the flu and will not sign them until he reviews with immigration attorney. Discharge Planning Case management for discharge planning, awaiting family to sign hospice papers. Discharge order in place. Tyler Wilkerson Sep 16, 2016 09:46
[2016-09-16] MEDS: FLUDROCORTISONE ACETATE 0.1 MG TAB PO SCH (09:53)
[2016-09-16] MEDS: METHYLPHENIDATE HCL 5 MG TAB PO SCH (09:53)
[2016-09-16] MEDS: METOPROLOL TARTRATE 25 MG TAB PO SCH ×2 (09:54→20:19)
[2016-09-16] MEDS: MEGESTROL ACETATE SUSP 400 MG/10 ML CUP PO SCH (09:54)
[2016-09-16] MEDS: ASPIRIN 81 MG CHEW TAB CHEW SCH (09:54)
[2016-09-16 20:00] VITALS: BP 119/79; PULSE 79; RESP 16; TEMP 98.6; O2SAT 98
[2016-09-16] MEDS: MIRTAZAPINE 15 MG TAB PO SCH (20:18)
[2016-09-16] MEDS: DOXAZOSIN MESYLATE 2 MG TAB PO SCH (20:18)
[2016-09-16] MEDS: PRAVASTATIN SOD 80 MG TAB PO SCH (20:20)
[2016-09-17] MEDS: ACETAMINOPHEN 325 MG TAB PO SCH ×3 (01:50→17:40)
[2016-09-17] MEDS: INSULIN ASPART SUPPLEMENTAL SCALE SQ SCH ×5 (04:00→19:45)
[2016-09-17] MEDS: HEPARIN SODIUM - SQ 10,000 UNITS/ML VIAL SQ SCH ×2 (05:40→17:40)
[2016-09-17 08:00] VITALS: BP 136/88; PULSE 67; RESP 20; TEMP 98.8; O2SAT 92
[2016-09-17] MEDS: MEGESTROL ACETATE SUSP 400 MG/10 ML CUP PO SCH (08:36)
[2016-09-17] MEDS: FLUDROCORTISONE ACETATE 0.1 MG TAB PO SCH (08:36)
[2016-09-17] MEDS: METHYLPHENIDATE HCL 5 MG TAB PO SCH (08:36)
[2016-09-17] MEDS: ASPIRIN 81 MG CHEW TAB CHEW SCH (08:36)
[2016-09-17] MEDS: METOPROLOL TARTRATE 25 MG TAB PO SCH ×2 (08:37→20:41)
--- NOTE | 2016-09-17 10:44 | HHI.PR ---
Subjective Remarks Patient seen and examined today. No change in clinical status. Awaiting case management for discharge planning Objective Vitals Vital Signs Date Time Temp Pulse Resp B/P Pulse Ox O2 Delivery O2 Flow Rate FiO2 09/17/16 08:00 98.8 67 20 136/88 92 09/17/16 03:00 20 09/16/16 20:00 98.6 79 16 119/79 98 I/O 09/16/16 09/16/16 09/16/16 09/17/16 09/17/16 09/17/16 07:00 15:00 23:00 07:00 15:00 23:00 Intake Total 360 ml 175 ml 220 ml 220 ml Balance 360 ml 175 ml 220 ml 220 ml Intake Oral 240 ml 175 ml Oral Supplement 120 ml 220 ml 220 ml # Voids 3 1 2 # Bowel Movements 0 0 0 Result Diagram: 09/15/16 1048 Objective Remarks GENERAL: Well-developed, well-nourished, in no acute distress. She is arousable , she only answers yes or shakes her head to every question. Unable to obtain accurate orientation HEENT: Head is normocephalic without any lesions or masses noted. Facial features are symmetric. Eyes: Extraocular muscles are intact. Conjunctivae were clear. NECK: Trachea midline no deviation. CARDIAC: Regular rhythm, regular rate. S1/S2 are heard. No murmurs gallops or rubs. LUNGS: Clear to auscultation bilaterally. No wheeze, rhonchi or rales. No use of accessory muscles on inspiration or expiration. ABDOMEN: Soft, nontender. Nondistended. Bowel sounds heard in all 4 quadrants. No organomegaly or masses. Negative rebound, negative guarding EXTREMITIES: No edema, pulses are equal bilaterally. No cyanosis or clubbing NEUROLOGY: Difficult to ascertain mood and affect due to patient's cognitive ability and participation in patient examination Procedures None Urinary Catheter: No Vascular Central Line Catheter: No A/P Assessment and Plan Metabolic encephalopathy/ History of CVA. Mental status still waxes and wanes. Likely secondary to underlying dementia or chronic cognition issue. Treated for UTI. - continue ASA and statin. - PT/OT. - avoid sedating meds. Currently off restraints. Severe sepsis (Temp 94F, RR 22, UTI, WILL on chronic kidney disease) - resolved - Due to Klebsiella UTI. - Renal ultrasound without evidence of nephritis or hydronephrosis, however does show nonobstructing 7 mm calculus in the left kidney. - S/p Ceftin course Hypertension-labile - Lopressor to 75 mg BID, Holding parameters in place. - amlodipine 10 mg po daily - Cardura 4 mg hs - When necessary clonidine - Monitor and adjust Ventricular tachycardia, nonsustained, resolved Asymptomatic on 08/05. Likely secondary to hyperkalemia. 5 beat run noted on . - Kayexalate as needed. Potassium level stable 08/14. - Lopressor to 75 mg BID, Holding parameters in place. Diabetes with episode of hypoglycemia Possibly related to sepsis. - Continue Accu-Cheks - Sliding scale insulin, patient is only received 2 units in the last 5 days. Poor oral intake/appetite/moderate protein calorie malnutrition Nutritional intake apparently inadequate. - Megace and dietitian following.- - Remeron to 7.5 mg daily. - Pre-albumin and 20 Chronic kidney disease stage IV, improved with IV hydration - With worsening renal function, hypernatremia, likely secondary to poor by mouth intake, - avoid nephrotoxins. - nephrology consulted and has signed off DVT prophylaxis heparin. Disposition: Palliative care evaluated the patient and spoke with the patient's brother who is agreeable to hospice who has been consulted. Hospice notified CM that patient's brother who is designated healthcare surrogate is going to sign consents, but he has the flu and will not sign them until he reviews with assistant county attorney. Discharge Planning Case management for discharge planning, awaiting family to sign hospice papers. Discharge order in place. Tyler Wilkerson Sep 17, 2016 10:44
[2016-09-17] MEDS ORDERED: Aspirin Chew CHEW (19:53)
[2016-09-17] MEDS ORDERED: MEGE40SU PO (19:53)
[2016-09-17] MEDS ORDERED: NOVOLOGSS SQ (19:53)
[2016-09-17] MEDS ORDERED: METO25TA3 PO (19:53)
[2016-09-17] MEDS ORDERED: MIRTA15 PO (19:53)
[2016-09-17] MEDS ORDERED: CARD2TAB PO (19:53)
[2016-09-17] MEDS ORDERED: FLUD.1 PO (19:53)
[2016-09-17] MEDS ORDERED: HEPA10003 SQ (19:53)
[2016-09-17] MEDS: DOXAZOSIN MESYLATE 2 MG TAB PO SCH (20:42)
[2016-09-17] MEDS: MIRTAZAPINE 15 MG TAB PO SCH (20:42)
[2016-09-17] MEDS: PRAVASTATIN SOD 80 MG TAB PO SCH (20:42)
== END 2016-09-17 23:17 | disposition hospice, inpatient (51) | DRG 871 ==
LOC: NEPE 22:57 → NEDA 07-24 01:58 → NEPFCDU 07-24 06:05 → N05B 07-24 18:46 → PH5A 09-01 16:40
PROVIDERS: ADMIT Family Medicine; ATTEND Family Medicine
PROC: 0HBRXZZ Excision of Toe Nail, External Approach (ICD-10-PCS; principal; 2016-09-07)
PROC: 0HBRXZZ Excision of Toe Nail, External Approach (ICD-10-PCS; 2016-09-07)
PROC: 0HBRXZZ Excision of Toe Nail, External Approach (ICD-10-PCS; 2016-09-07)
PROC: 0HBRXZZ Excision of Toe Nail, External Approach (ICD-10-PCS; 2016-09-07)
PROC: 0HBRXZZ Excision of Toe Nail, External Approach (ICD-10-PCS; 2016-09-07)
PROC: 0HBRXZZ Excision of Toe Nail, External Approach (ICD-10-PCS; 2016-09-07)
PROC: 0HBRXZZ Excision of Toe Nail, External Approach (ICD-10-PCS; 2016-09-07)
PROC: 0HBRXZZ Excision of Toe Nail, External Approach (ICD-10-PCS; 2016-09-07)
PROC: 0HBRXZZ Excision of Toe Nail, External Approach (ICD-10-PCS; 2016-09-07)
PROC: 0HBRXZZ Excision of Toe Nail, External Approach (ICD-10-PCS; 2016-09-07)
DX: A41.9 Sepsis, unspecified organism (principal); G93.41 Metabolic encephalopathy; I63.512 Cerebral infarction due to unspecified occlusion or stenosis of left middle cerebral artery; E87.0 Hyperosmolality and hypernatremia; I47.2 Ventricular tachycardia; N18.4 Chronic kidney disease, stage 4 (severe); N17.9 Acute kidney failure, unspecified; E87.2 Acidosis; B35.1 Tinea unguium; E44.0 Moderate protein-calorie malnutrition; N39.0 Urinary tract infection, site not specified; E87.8 Other disorders of electrolyte and fluid balance, not elsewhere classified; I12.9 Hypertensive chronic kidney disease with stage 1 through stage 4 chronic kidney disease, or unspecified chronic kidney disease; R65.20 Severe sepsis without septic shock; E11.22 Type 2 diabetes mellitus with diabetic chronic kidney disease; E87.5 Hyperkalemia; E11.649 Type 2 diabetes mellitus with hypoglycemia without coma; E78.5 Hyperlipidemia, unspecified; J44.9 Chronic obstructive pulmonary disease, unspecified; N20.0 Calculus of kidney; H35.30 Unspecified macular degeneration; I25.10 Atherosclerotic heart disease of native coronary artery without angina pectoris; I73.9 Peripheral vascular disease, unspecified; S00.03XA Contusion of scalp, initial encounter; H91.90 Unspecified hearing loss, unspecified ear; K21.9 Gastro-esophageal reflux disease without esophagitis; G47.30 Sleep apnea, unspecified; E55.9 Vitamin D deficiency, unspecified; F03.90 Unspecified dementia, unspecified severity, without behavioral disturbance, psychotic disturbance, mood disturbance, and anxiety; E11.65 Type 2 diabetes mellitus with hyperglycemia; B96.1 Klebsiella pneumoniae [K. pneumoniae] as the cause of diseases classified elsewhere; D64.9 Anemia, unspecified; E86.0 Dehydration; Z51.5 Encounter for palliative care; I25.2 Old myocardial infarction; I69.920 Aphasia following unspecified cerebrovascular disease; Z87.442 Personal history of urinary calculi; Z87.891 Personal history of nicotine dependence; Z78.1 Physical restraint status; Z66 Do not resuscitate; Z79.4 Long term (current) use of insulin; Z79.82 Long term (current) use of aspirin; W19.XXXA Unspecified fall, initial encounter; Y92.129 Unspecified place in nursing home as the place of occurrence of the external cause
CPT/HCPCS: 51702; 70450; 71010; 76775; 76937; 80048; 80053; 80069; 81001; 82043; 82570; 82948; 83605; 83690; 83735; 84100; 84134; 84300; 84484; 85025; 85027; 86160; 87040; 87077; 87086; 87186; 93005; 96360; J0692; J1644; J1815; J2060; J7030; J7040; J7042; J7050